=== PATIENT | female | born 1935 | race Caucasian/White ===

== ENCOUNTER 2017-02-26 18:20 | Inpatient (IN) | payer MEDICARE, OTHER ==
[~2017-02-26] VITALS: Ht 157.5 cm; Wt 80.7 kg
[~2017-02-26 18:20] MED LIST: AMLO10TA4 PO; ATOR10TA60 PO; BUDE10.2 IH; GLIM4TAB2 PO; LEVO500T59 PO; METF500T4 PO; METO25TA9 PO; PRED-220 PO; VENTOLIN HFA18 GM INH
[2017-02-26] MEDS ORDERED: IPRATRPIUM/ALBUTEROL 0.5/2.5MG 3 ML NEBU. NEB ONE (18:45)
[2017-02-26] MEDS ORDERED: DEXAMETHASONE SOD PHOS 20 MG/5 ML VIAL. IV ONE (18:45)
[2017-02-26 18:51] LABS: BASO % 1 % (0-3); EOS % 4 % (0-3); HEMATOCRIT 30.4 % (36.0-47.0); HEMOGLOBIN 9.4 g/dL (12.0-15.5); LYMPH # 1.1 x10^3/uL (1.0-4.8); LYMPH % 16 % (24-48); MEAN CORPUSCULAR HEMOGLOBIN 26 pg (25-35); MEAN CORPUSCULAR HGB CONC 31 g/dL (31-37); MEAN CORPUSCULAR VOLUME 85 fL (79-100); MONO % 7 % (0-9); NEUT % 72 % (31-73); PLATELET COUNT 195 x10^3/uL (140-400); RED BLOOD COUNT 3.57 x10^6/uL (3.50-5.40); RED CELL DISTRIBUTION WIDTH 16.2 % (11.5-14.5); WHITE BLOOD COUNT 6.5 x10^3/uL (4.0-11.0)
[2017-02-26 18:59] LABS: PROTHROMBIN TIME PATIENT 12.9 SEC (11.7-14.0)
[2017-02-26 19:08] LABS: CALCIUM 8.3 mg/dL (8.5-10.1); CREATININE 1.1 mg/dL (0.6-1.0); GFR 47.9; POTASSIUM 4.4 mmol/L (3.5-5.1)
[2017-02-26 19:14] LABS: ALBUMIN 3.2 g/dL (3.4-5.0); ALBUMIN/GLOBULIN RATIO 0.9 (1.0-1.7); MAGNESIUM 1.6 mg/dL (1.8-2.4); TOTAL BILIRUBIN 0.2 mg/dL (0.2-1.0); TOTAL PROTEIN 6.8 g/dL (6.4-8.2)
[2017-02-26 19:20] LABS: BILIRUBIN,URINE NEGATIVE (NEG); GLUCOSE,URINE >=1000 mg/dL (NEG); NITRITE,URINE NEGATIVE (NEG); PROTEIN,URINE 30 mg/dL (NEG-TRACE)
[2017-02-26 19:45] LABS: BACTERIA,URINE FEW /HPF (0-FEW); RBC,URINE OCC /HPF (0-2); SQUAMOUS EPITHELIAL CELL,UR FEW /LPF; WBC,URINE OCC /HPF (0-4)
[2017-02-26] MEDS ORDERED: fentaNYL PF VIAL 100 MCG/2 ML VIAL IV PRN (19:45)
[2017-02-26] MEDS ORDERED: ONDANSETRON PF 4 MG/2 ML VIAL. IV PRN (19:45)
[2017-02-26] MEDS ORDERED: NITROGLYCERIN OINT 1 GM PACKET. TP ONE (19:45)
[2017-02-26] MEDS ORDERED: FUROSEMIDE 40 MG TABLET. PO ONE (19:45)
[2017-02-26 20:15] VITALS: BP 131/95
--- NOTE | 2017-02-26 20:28 | PHYS DOC ---
Past Medical History Past Medical History: Asthma, CHF, COPD, Diabetes-Type II, High Cholesterol, Heart Disease, Hypertension Past Surgical History: No Surgical History Alcohol Use: None Drug Use: None Adult General Chief Complaint Chief Complaint: SHORTNESS OF BREATH [facility] HPI Patient is a 81 year old female presenting to the emergency department for evaluation of shortness of breath that became worse when she was trying to walk earlier today. She is usually on 3-4 L of oxygen however on her oxygen stable she was walking it was approximated 75%. She is breathing more rapidly than usually but she denies any pain fevers chills nausea vomiting or other systemic symptoms. Patient says that she has a history of CHF and COPD. Patient appears moderately short of breath but nontoxic-appearing. Review of Systems Review of Systems Constitutional: Denies fever or chills [] Eyes: Denies change in visual acuity, redness, or eye pain [] HENT: Denies nasal congestion or sore throat [] Respiratory: + cough, shortness of breath [] Cardiovascular: No additional information not addressed in HPI [] GI: Denies abdominal pain, nausea, vomiting, bloody stools or diarrhea [] : Denies dysuria or hematuria [] Musculoskeletal: Denies back pain or joint pain [] Integument: Denies rash or skin lesions [] Neurologic: Denies headache, focal weakness or sensory changes [] Current Medications Current Medications Current Medications Medications (Trade) Dose Ordered Sig/[facility] Start Time Stop Time Status Last Admin Dose Admin Albuterol/ Ipratropium (Duoneb) 3 ml 1X ONCE 02/26/17 18:45 02/26/17 18:46 DC 02/26/17 18:38 3 ML Dexamethasone Sodium Phosphate (Decadron) 8 mg 1X ONCE 02/26/17 18:45 02/26/17 18:46 DC 02/26/17 18:42 8 MG Allergies Allergies Allergies Coded Allergies Type Severity Reaction Last Updated Verified No Known Drug Allergies 12/04/15 No Physical Exam Physical Exam Constitutional: Well developed, well nourished, moderately short of breath HENT: Normocephalic, atraumatic, bilateral external ears normal, oropharynx moist, no oral exudates, nose normal. [] Eyes: PERRLA, EOMI, conjunctiva normal, no discharge. [] Neck: Normal range of motion, no tenderness, supple, no stridor. [] Cardiovascular:Heart rate regular rhythm, no murmur [] Lungs & Thorax: Bilateral breath sounds clear diminished with inspiratory tray wheezing and crackles at the bases. Abdomen: Bowel sounds normal, soft, no tenderness, no masses, no pulsatile masses. [] Skin: Warm, dry, no erythema, no rash. [] Back: No tenderness, no CVA tenderness. [] Extremities: No tenderness, no cyanosis, no clubbing, ROM intact, no edema. [] Neurologic: Alert and oriented X 3, normal motor function, normal sensory function, no focal deficits noted. [] Current Patient Data Vital Signs Vital Signs Date Time Temp Pulse Resp B/P (MAP) Pulse Ox O2 Delivery O2 Flow Rate FiO2 02/26/17 19:09 82 32 158/68 (98) 2 Room Air 02/26/17 18:40 3.0 02/26/17 18:29 99.2 99.2 Lab Values Laboratory Tests Test 02/26/17 18:30 02/26/17 19:05 White Blood Count 6.5 x10^3/uL (4.0-11.0) Red Blood Count 3.57 x10^6/uL (3.50-5.40) Hemoglobin 9.4 g/dL (12.0-15.5) L Hematocrit 30.4 % (36.0-47.0) L Mean Corpuscular Volume 85 fL (79-100) Mean Corpuscular Hemoglobin 26 pg (25-35) Mean Corpuscular Hemoglobin Concent 31 g/dL (31-37) Red Cell Distribution Width 16.2 % (11.5-14.5) H Platelet Count 195 x10^3/uL (140-400) Neutrophils (%) (Auto) 72 % (31-73) Lymphocytes (%) (Auto) 16 % (24-48) L Monocytes (%) (Auto) 7 % (0-9) Eosinophils (%) (Auto) 4 % (0-3) H Basophils (%) (Auto) 1 % (0-3) Neutrophils # (Auto) 4.7 x10^3uL (1.8-7.7) Lymphocytes # (Auto) 1.1 x10^3/uL (1.0-4.8) Monocytes # (Auto) 0.5 x10^3/uL (0.0-1.1) Eosinophils # (Auto) 0.3 x10^3/uL (0.0-0.7) Basophils # (Auto) 0.0 x10^3/uL (0.0-0.2) Prothrombin Time 12.9 SEC (11.7-14.0) Prothrombin Time INR 1.0 (0.8-1.1) PTT 28 SEC (24-38) Sodium Level 143 mmol/L (136-145) Potassium Level 4.4 mmol/L (3.5-5.1) Chloride Level 102 mmol/L (98-107) Carbon Dioxide Level 37 mmol/L (21-32) H Anion Gap 4 (6-14) L Blood Urea Nitrogen 16 mg/dL (7-20) Creatinine 1.1 mg/dL (0.6-1.0) H Estimated GFR (Cockcroft-Gault) 47.9 BUN/Creatinine Ratio 15 (6-20) Glucose Level 339 mg/dL (70-99) H Calcium Level 8.3 mg/dL (8.5-10.1) L Magnesium Level 1.6 mg/dL (1.8-2.4) L Total Bilirubin 0.2 mg/dL (0.2-1.0) Aspartate Amino Transferase (AST) 26 U/L (15-37) Alanine Aminotransferase (ALT) 22 U/L (14-59) Alkaline Phosphatase 47 U/L (46-116) Troponin I Quantitative < 0.017 ng/mL (0.000-0.055) BG-Guv-U-Type Natriuretic Peptide 2896 pg/mL (0-449) H Total Protein 6.8 g/dL (6.4-8.2) Albumin 3.2 g/dL (3.4-5.0) L Albumin/Globulin Ratio 0.9 (1.0-1.7) L Urine Collection Type Unknown Urine Color Yellow Urine Clarity Clear Urine pH 6.0 Urine Specific [place] 1.015 Urine Protein 30 mg/dL (NEG-TRACE) Urine Glucose (UA) >=1000 mg/dL (NEG) Urine Ketones (Stick) Negative mg/dL (NEG) Urine Blood Negative (NEG) Urine Nitrite Negative (NEG) Urine Bilirubin Negative (NEG) Urine Urobilinogen Dipstick 1.0 mg/dL (0.2 mg/dL) Urine Leukocyte Esterase Negative (NEG) Urine RBC Occ /HPF (0-2) Urine WBC Occ /HPF (0-4) Urine Squamous Epithelial Cells Few /LPF Urine Transitional Epithelial Cells Few /LPF Urine Bacteria Few /HPF (0-FEW) Urine Hyaline Casts Occasional /HPF Urine Mucus Slight /LPF Laboratory Tests 02/26/17 18:30 Laboratory Tests 02/26/17 18:30 EKG EKG Sinus rhythm at 73 bpm with normal axis no obvious ST elevation or depression and normal T waves. Radiology/Procedures Radiology/Procedures Cardiomegaly with normal mediastinum and no obvious free air pneumothorax or opacity Course & Med Decision Making Course & Med Decision Making Patient has accommodation of COPD and CHF exacerbation and she was hypoxic she does appear somewhat better after breathing treatments nitroglycerin and Lasix here however given how short of breath she is and she is not back to baseline she'll be admitted for further observation and treatment. Dragon Disclaimer Dragon Disclaimer This electronic medical record was generated, in whole or in part, using a voice recognition dictation system. Departure Departure Impression: Primary Impression: CHF exacerbation Additional Impression: COPD exacerbation Disposition: 09 ADMITTED INPATIENT Admitting Physician: Sonali Zaman Condition: STABLE Referrals: ERIN BANG MD (PCP) Problem Qualifiers Primary Impression: CHF exacerbation Congestive heart failure type: unspecified congestive heart failure type Qualified Codes: I50.9 - Heart failure, unspecified SONIA MORELOS DO Feb 26, 2017 20:28
--- NOTE | 2017-02-26 22:35 | PDOC1 ---
History and Physical Date of Admission Date of Admission DATE: 02/26/17 TIME: 22:35 Identification/Chief Complaint Chief Complaint shortness of breath Problems: Source Source: Chart review, Patient History of Present Illness History of Present Illness Ms. Daniels is a 81 year old female admit for shortness of breath that became worse when she was trying to walk earlier today. normally on 3 liters 02, but presented hypoxic with Sa02 75%. noted dyspnea, weakness, and she complained of worsening LE edema, she has no recent weight taken. noted tachypnea only, denies any pain fevers chills nausea vomiting or other systemic symptoms. Pertient recent history of CHF and COPD. mild distress, with breathing only Past Medical History Cardiovascular: HTN Pulmonary: No pertinent hx CENTRAL NERVOUS SYSTEM: Other GI: No pertinent hx Heme/Onc: No pertinent hx Hepatobiliary: No pertinent hx Psych: No pertinent hx Musculoskeletal: No pain Rheumatologic: No pertinent hx Infectious disease: No pertinent hx Renal/: No pertinent hx Endocrine: Diabetes Past Surgical History Past Surgical History: Other Family History Family History: No Significant Social History Smoke: No ALCOHOL: none Drugs: None Current Problem List Problem List Problems Medical Problems: (1) CHF exacerbation Status: Acute (2) COPD exacerbation Status: Acute Problems: Current Medications Current Medications Current Medications Albuterol/ Ipratropium (Duoneb) 3 ml 1X ONCE NEB Last administered on 18:38; Start 02/26/17 at 18:45; Stop 02/26/17 at 18:46; Status DC Dexamethasone Sodium Phosphate (Decadron) 8 mg 1X ONCE IV Last administered on 02/26/17 18:42; Start 02/26/17 at 18:45; Stop 02/26/17 at 18:46; Status DC Nitroglycerin (Nitro-Bid Oint) 1 inch 1X ONCE TP ; Start 02/26/17 at 19:45; Stop 02/26/17 at 19:46; Status DC Furosemide (Lasix) 40 mg 1X ONCE PO Last administered on 02/26/17 19:52; Start 02/26/17 at 19:45; Stop 02/26/17 at 19:46; Status DC Ondansetron HCl (Zofran) 4 mg PRN Q8HRS PRN IV NAUSEA/VOMITING; Start 02/26/17 at 19:45; Stop 02/27/17 at 19:44 Fentanyl Citrate (Fentanyl 2ml Vial) 50 mcg PRN Q2HR PRN IV PAIN; Start at 19:45; Stop 02/27/17 at 19:44 Active Scripts Active Levaquin (Levofloxacin) 500 Mg Tablet 1 Tab PO DAILY Prednisone 10 Mg Tablet 10 Mg PO UD Take 3 tablets by mouth daily for 3 days, then take 2 tablets by mouth daily for 3 days, then take 1 tablet by mouth daily for 3 days, then stop. Metoprolol Succinate ( Xl ) (Metoprolol Succinate) 25 Mg Tab.er.24h 2 Tab PO DAILY Reported Metformin Hcl 500 Mg Tablet 500 Mg PO BIDWMEALS Glimepiride 4 Mg Tablet 1 Tab PO BID Ventolin Hfa Inhaler (Albuterol Sulfate) 18 Gm Hfa.aer.ad 2 Puff INH QID Symbicort 160-4.5 Mcg Inhaler (Budesonide/Formoterol Fumarate) 10.2 Gm Hfa.aer.ad 2 Puff IH BID Atorvastatin Calcium 10 Mg Tablet 1 Tab PO DAILY Norvasc (Amlodipine Besylate) 10 Mg Tablet 10 Mg PO DAILY Allergies Allergies: Coded Allergies: No Known Drug Allergies (Unverified , 12/04/15) ROS General: YES: Fatigue, Malaise, No: Chills, Night Sweats, Appetite, Other PSYCHOLOGICAL ROS: YES: Memory difficulties (cannot remember me from 5 mos ago) , No: Anxiety, Behavioral Disorder, Concentration difficultie, Decreased libido , Depression, Disorientation, Hallucinations, Hostility, Irritablity, Mood Swings, Obsessive thoughts, Physical abuse, Sexual abuse, Sleep disturbances, Suicidal ideation, Other Eyes: No Blurry vision, No Decreased vision, No Double vision, No Dry eyes, No Excessive tearing, No Eye Pain, No Itchy Eyes, No Loss of vision, No Photophobia , No Scotomata, No Uses contacts, No Uses glasses, No Other HEENT: No: Heacaches, Visual Changes, Hearing change, Nasal congestion, Nasal discharge, Oral lesions, Sinus pain, Sore Throat, Epistaxis, Sneezing, Snoring, Tinnitus, Vertigo, Vocal changes, Other Respiratory: YES: Shortness of breath, SOB with excertion, No: Cough, Hemoptysis, Orthopnea, Pleuritic Pain, Sputum Changes, Stridor, Tachypnea, Wheezing, Other Cardiovascular: yes Edema, No Chest Pain, No Palpitations, No Orthopnea, No Paroxysmal Noc. Dyspnea, No Lt Headedness, No Other Gastrointestinal: No Nausea, No Vomiting, No Abdominal Pain, No Diarrhea, No Constipation, No Melena, No Hematochezia, No Other Genitourinary: No Dysuria, No Frequency, No Incontinence, No Hematuria, No Retention, No Discharge, No Urgency, No Pain, No Flank Pain, No Other, No , No , No , No , No , No , No Musculoskeletal: Yes Joint Pain, Yes Joint Stiffness, No Gait Disturbance, No Joint Swelling, No Muscle Pain, No Muscular Weakness , No Pain In:, No Swelling In:, No Other Neurological: No Behavorial Changes, No Bowel/Bladder ControlChng, No Confusion , No Dizziness, No Gait Disturbance, No Headaches, No Impaired Coord/balance, No Memory Loss, No Numbness/Tingling, No Seizures, No Speech Problems, No Tremors, No Visual Changes, No Weakness, No Other Skin: Yes Dry Skin, No Eczema, No Hair Changes, No Lumps, No Mole Changes, No Mottling, No Nail Changes, No Pruritus, No Rash, No Skin Lesion Changes, No Other, No Acne Physical Exam General: Alert, Cooperative, mild distress HEENT: Atraumatic, PERRLA, EOMI, Mucous membr. moist/pink Lungs: Other (limited vol, no rales or ronchi, largely clear) Heart: no murmurs Abdomen: Normal bowel sounds, Soft Rectal Exam: not examined Extremities: Other (3+ LE edema feet and shins) Skin: No rashes, No significant lesion Neuro: Normal speech, Normal tone Psych/Mental Status: Mood NL Vitals Vitals Vital Signs Date Time Temp Pulse Resp B/P (MAP) Pulse Ox O2 Delivery O2 Flow Rate FiO2 02/26/17 20:15 97.9 75 22 131/95 (107) 98 Nasal Cannula 3.0 97.9 Labs Labs Laboratory Tests Test 02/26/17 18:30 02/26/17 19:05 02/26/17 20:40 White Blood Count 6.5 x10^3/uL (4.0-11.0) Red Blood Count 3.57 x10^6/uL (3.50-5.40) Hemoglobin 9.4 g/dL (12.0-15.5) Hematocrit 30.4 % (36.0-47.0) Mean Corpuscular Volume 85 fL (79-100) Mean Corpuscular Hemoglobin 26 pg (25-35) Mean Corpuscular Hemoglobin Concent 31 g/dL (31-37) Red Cell Distribution Width 16.2 % (11.5-14.5) Platelet Count 195 x10^3/uL (140-400) Neutrophils (%) (Auto) 72 % (31-73) Lymphocytes (%) (Auto) 16 % (24-48) Monocytes (%) (Auto) 7 % (0-9) Eosinophils (%) (Auto) 4 % (0-3) Basophils (%) (Auto) 1 % (0-3) Neutrophils # (Auto) 4.7 x10^3uL (1.8-7.7) Lymphocytes # (Auto) 1.1 x10^3/uL (1.0-4.8) Monocytes # (Auto) 0.5 x10^3/uL (0.0-1.1) Eosinophils # (Auto) 0.3 x10^3/uL (0.0-0.7) Basophils # (Auto) 0.0 x10^3/uL (0.0-0.2) Prothrombin Time 12.9 SEC (11.7-14.0) Prothromb Time International Ratio 1.0 (0.8-1.1) Activated Partial Thromboplast Time 28 SEC (24-38) Sodium Level 143 mmol/L (136-145) Potassium Level 4.4 mmol/L (3.5-5.1) Chloride Level 102 mmol/L (98-107) Carbon Dioxide Level 37 mmol/L (21-32) Anion Gap 4 (6-14) Blood Urea Nitrogen 16 mg/dL (7-20) Creatinine 1.1 mg/dL (0.6-1.0) Estimated GFR (Cockcroft-Gault) 47.9 BUN/Creatinine Ratio 15 (6-20) Glucose Level 339 mg/dL (70-99) Calcium Level 8.3 mg/dL (8.5-10.1) Magnesium Level 1.6 mg/dL (1.8-2.4) Total Bilirubin 0.2 mg/dL (0.2-1.0) Aspartate Amino Transf (AST/SGOT) 26 U/L (15-37) Alanine Aminotransferase (ALT/SGPT) 22 U/L (14-59) Alkaline Phosphatase 47 U/L (46-116) Troponin I Quantitative < 0.017 ng/mL (0.000-0.055) LX-Jnt-V-Type Natriuretic Peptide 2896 pg/mL (0-449) Total Protein 6.8 g/dL (6.4-8.2) Albumin 3.2 g/dL (3.4-5.0) Albumin/Globulin Ratio 0.9 (1.0-1.7) Urine Collection Type Unknown Urine Color Yellow Urine Clarity Clear Urine pH 6.0 Urine Specific [place] 1.015 Urine Protein 30 mg/dL (NEG-TRACE) Urine Glucose (UA) >=1000 mg/dL (NEG) Urine Ketones (Stick) Negative mg/dL (NEG) Urine Blood Negative (NEG) Urine Nitrite Negative (NEG) Urine Bilirubin Negative (NEG) Urine Urobilinogen Dipstick 1.0 mg/dL (0.2 mg/dL) Urine Leukocyte Esterase Negative (NEG) Urine RBC Occ /HPF (0-2) Urine WBC Occ /HPF (0-4) Urine Squamous Epithelial Cells Few /LPF Urine Transitional Epithelial Cells Few /LPF Urine Bacteria Few /HPF (0-FEW) Urine Hyaline Casts Occasional /HPF Urine Mucus Slight /LPF Glucose (Fingerstick) 262 mg/dL (70-99) Laboratory Tests Test 02/26/17 18:30 02/26/17 19:05 02/26/17 20:40 White Blood Count 6.5 x10^3/uL (4.0-11.0) Red Blood Count 3.57 x10^6/uL (3.50-5.40) Hemoglobin 9.4 g/dL (12.0-15.5) Hematocrit 30.4 % (36.0-47.0) Mean Corpuscular Volume 85 fL (79-100) Mean Corpuscular Hemoglobin 26 pg (25-35) Mean Corpuscular Hemoglobin Concent 31 g/dL (31-37) Red Cell Distribution Width 16.2 % (11.5-14.5) Platelet Count 195 x10^3/uL (140-400) Neutrophils (%) (Auto) 72 % (31-73) Lymphocytes (%) (Auto) 16 % (24-48) Monocytes (%) (Auto) 7 % (0-9) Eosinophils (%) (Auto) 4 % (0-3) Basophils (%) (Auto) 1 % (0-3) Neutrophils # (Auto) 4.7 x10^3uL (1.8-7.7) Lymphocytes # (Auto) 1.1 x10^3/uL (1.0-4.8) Monocytes # (Auto) 0.5 x10^3/uL (0.0-1.1) Eosinophils # (Auto) 0.3 x10^3/uL (0.0-0.7) Basophils # (Auto) 0.0 x10^3/uL (0.0-0.2) Prothrombin Time 12.9 SEC (11.7-14.0) Prothromb Time International Ratio 1.0 (0.8-1.1) Activated Partial Thromboplast Time 28 SEC (24-38) Sodium Level 143 mmol/L (136-145) Potassium Level 4.4 mmol/L (3.5-5.1) Chloride Level 102 mmol/L (98-107) Carbon Dioxide Level 37 mmol/L (21-32) Anion Gap 4 (6-14) Blood Urea Nitrogen 16 mg/dL (7-20) Creatinine 1.1 mg/dL (0.6-1.0) Estimated GFR (Cockcroft-Gault) 47.9 BUN/Creatinine Ratio 15 (6-20) Glucose Level 339 mg/dL (70-99) Calcium Level 8.3 mg/dL (8.5-10.1) Magnesium Level 1.6 mg/dL (1.8-2.4) Total Bilirubin 0.2 mg/dL (0.2-1.0) Aspartate Amino Transf (AST/SGOT) 26 U/L (15-37) Alanine Aminotransferase (ALT/SGPT) 22 U/L (14-59) Alkaline Phosphatase 47 U/L (46-116) Troponin I Quantitative < 0.017 ng/mL (0.000-0.055) AK-Pax-Y-Type Natriuretic Peptide 2896 pg/mL (0-449) Total Protein 6.8 g/dL (6.4-8.2) Albumin 3.2 g/dL (3.4-5.0) Albumin/Globulin Ratio 0.9 (1.0-1.7) Urine Collection Type Unknown Urine Color Yellow Urine Clarity Clear Urine pH 6.0 Urine Specific [place] 1.015 Urine Protein 30 mg/dL (NEG-TRACE) Urine Glucose (UA) >=1000 mg/dL (NEG) Urine Ketones (Stick) Negative mg/dL (NEG) Urine Blood Negative (NEG) Urine Nitrite Negative (NEG) Urine Bilirubin Negative (NEG) Urine Urobilinogen Dipstick 1.0 mg/dL (0.2 mg/dL) Urine Leukocyte Esterase Negative (NEG) Urine RBC Occ /HPF (0-2) Urine WBC Occ /HPF (0-4) Urine Squamous Epithelial Cells Few /LPF Urine Transitional Epithelial Cells Few /LPF Urine Bacteria Few /HPF (0-FEW) Urine Hyaline Casts Occasional /HPF Urine Mucus Slight /LPF Glucose (Fingerstick) 262 mg/dL (70-99) VTE Prophylaxis Ordered VTE Prophylaxis Devices: Yes VTE Pharmacological Prophylaxi: Contraindicated Assessment/Plan Assessment/Plan acute on chronic hypoxic respiratory failure CHF acute on chronic diastolic failure, CV consult, IV lasix, COPD, chronic combined respiratory failure, last admit was exac, no sputum or cough now, obesity, BMI I32 BRENDAN HICKEY MD Feb 26, 2017 22:35
[2017-02-26] MEDS ORDERED: DEXTROSE 50% 25 GM / 50ML DISP.SYRIN. IV PRN (22:45)
[2017-02-26] MEDS ORDERED: MAGNESIUM SULFATE 2GM 50 ML IV ONE (23:00)
[2017-02-26] MEDS ORDERED: methylPREDNISolone SOD SUCC PF 40 MG/ML VIAL. IV ONE (23:00)
[2017-02-26 23:12] VITALS: BP 135/72
[2017-02-27] VITALS (7 sets, daily range): BP systolic 127–152; BP diastolic 60–113
--- NOTE | 2017-02-27 01:54 | ACF ---
Admission Forms Criteria HEART FAILURE: COMMON COMPLICATIONS (Place 'X' for any and all applicable criteria): Ongoing inpatient care may be indicated for heart failure with 1 or more of the following (1)(2)(3)(4)(5)(6)(7)(8): [ ]I. New-onset heart failure [ ]II. Acute cardiac ischemia causing or associated with failure [ ]III. Ongoing need for care for primary condition requiring frequent therapy adjustments because of changes in cardiac function (eg, drug dosage changes for drugs that are renally metabolized) [X]IV. Complications of heart failure, including 1 or more of the following: [ ]a) Hemodynamic instability [ ]b) Pericardial effusion [ ]c) Symptomatic pleural effusion [ ]d) Hypoxemia [ ]e) Tachypnea [X]f) Dyspnea [ ]g) Syncope [ ]h) Altered mental status [ ]i) Acute renal insufficiency that is severe (reduction of more than 50% in estimated glomerular filtration rate from baseline) or progressive reduction of more than 25% in estimated glomerular filtration rate from baseline, with creatinine continuing to rise) [ ]j) Debilitating anasarca (eg tissue breakdown with infection, inability to void due to edema) (E) [ ]k) Clinically significant metabolic abnormalities due to heart failure (eg, new-onset metabolic acidosis) Extended stay may be needed until ALL of the following are present (1)(3)(18)(41 )(55) [ ]a) Hemodynamic stability [ ]b) Stable and effective diuretic regimen established (or patient on stable dialysis regimen if in chronic renal failure) [ ]c) Volume status acceptable on oral medication [ ]d) Breathing comfortably at rest [ ]e) Saturation of arterial oxygen greater than 90% or at acceptable baseline [ ]f) Pulmonary edema absent or improved [ ]g) Peripheral or sacral edema absent or improved [ ]h) Renal function stable and manageable at a lower level of care [ ]i) Complications (eg, pleural effusion) resolved or manageable at a lower level of care [ ]g) Patient or caregiver has received written discharge instructions or educational material addressing activity level, diet, discharge medications, follow-up appointment, weight monitoring, and what to do if symptoms worsen.(25)(26) The original [facility] [employer] content created by [employer] has been revised. The portions of the content which have been revised are identified through the use of italic text, and [facility] has neither reviewed nor approved the modified material.All other unmodified content is copyright [facility]. Please see references footnoted in the original [facility] edition 2015 Admission Criteria Met?: Yes HELADIO RENE Feb 27, 2017 01:53
[2017-02-27 06:00] LABS: BASO % 0 % (0-3); EOS % 0 % (0-3); HEMATOCRIT 31.6 % (36.0-47.0); HEMOGLOBIN 10.1 g/dL (12.0-15.5); LYMPH # 0.4 x10^3/uL (1.0-4.8); LYMPH % 9 % (24-48); MEAN CORPUSCULAR HEMOGLOBIN 27 pg (25-35); MEAN CORPUSCULAR HGB CONC 32 g/dL (31-37); MEAN CORPUSCULAR VOLUME 84 fL (79-100); MONO % 1 % (0-9); NEUT % 90 % (31-73); PLATELET COUNT 184 x10^3/uL (140-400); RED BLOOD COUNT 3.77 x10^6/uL (3.50-5.40); RED CELL DISTRIBUTION WIDTH 16.5 % (11.5-14.5); WHITE BLOOD COUNT 4.3 x10^3/uL (4.0-11.0)
[2017-02-27 06:20] LABS: CALCIUM 8.4 mg/dL (8.5-10.1); CREATININE 1.3 mg/dL (0.6-1.0); GFR 39.5; POTASSIUM 5.1 mmol/L (3.5-5.1)
[2017-02-27] MEDS: BUDESONIDE 0.5 MG/2 ML NEBU. NEB SCH ×2 (07:12→19:47)
[2017-02-27] MEDS: IPRATRPIUM/ALBUTEROL 0.5/2.5MG 3 ML NEBU. NEB SCH ×4 (07:12→19:47)
--- NOTE | 2017-02-27 07:15 | EKG ---
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
[2017-02-27] MEDS ORDERED: INSULIN ASPART 300 UNITS/3 ML INSULN.PEN SQ SCH (07:30)
[2017-02-27] MEDS: FUROSEMIDE 40 MG/4 ML VIAL. IVP SCH ×2 (08:49→15:08)
[2017-02-27] MEDS: predniSONE 20 MG TABLET PO SCH (08:49)
[2017-02-27] MEDS: METOPROLOL SUCC 24HR ER 50 MG TAB.ER.24H. PO SCH (08:50)
[2017-02-27] MEDS: amLODIPine BESYLATE 10 MG TABLET PO SCH (08:50)
[2017-02-27] MEDS: GLIMEPIRIDE 2 MG TABLET. PO SCH ×2 (08:50→17:31)
--- NOTE | 2017-02-27 09:00 | RAD ---
Indication: Short of air, COPD. History of CHF. Technique: AP upright portable chest radiograph was obtained and compared to a study from November 17, 2016. Findings: There is minimal basilar atelectasis or less likely infiltrate bilaterally. The upper lung mix are clear. The heart is not enlarged and there is no heart failure. There is atheromatous disease in the thoracic aorta. Leads overlie the patient. Impression: No acute thoracic findings.
--- NOTE | 2017-02-27 09:46 | PDOC ---
Provider Note Provider Note [id number] acute on chronic resp fail ae of copd acute diastolic chf joey see orders. MATEUS FAYE MD Feb 27, 2017 09:46
--- NOTE | 2017-02-27 10:09 | PDOC2 ---
SUSAN DOUGLAS LEAD DATABASE DEVELOPER 02/27/17 1009: CARDIAC CONSULT DATE OF CONSULT Date of Consult DATE: 02/27/17 TIME: 10:01 REASON FOR CONSULT Reason for Consult: CHF exacerbation REFERRING PHYSICIAN Referring Physician: Ori SOURCE Source: Chart review, Patient HISTORY OF PRESENT ILLNESS HISTORY OF PRESENT ILLNESS This is a pleasant 81 yo female admitted for complains of SOA and feeling weak. Reports that she was sitting and was stooping over and her grandson noticed her SOA and weak and called his dad and called for help. Per Her she was given peanut butter as well because her BG was low. She was noted with decreased O2 sat despite use of oxygen which she has continuously 3-4L. Denies any CP, palpitations. No prior hx of CAD, CVA, or VTE. Presently her SOA is btter but still pursed lip breathing. PAST MEDICAL HISTORY Past Medical History Cardiovascular: HTN, HLP, diastolic CHF Pulmonary: COPD, MARCO, pneumonia CENTRAL NERVOUS SYSTEM: Other (none) GI: GERD Heme/Onc: Anemia Hepatobiliary: No pertinent hx Psych: No pertinent hx Musculoskeletal: No pain Rheumatologic: No pertinent hx Infectious disease: No pertinent hx ENT: No pertinent hx Renal/: CKD Endocrine: Diabetes Dermatology: No pertinent hx PAST SURGICAL HISTORY Past Surgical History carpal tunnel repair and rotator cuff repair SOCIAL HISTORY Social History Smoke: Quit (> 11 years ago) ALCOHOL: none Drugs: None Lives: with Family CURRENT MEDICATIONS CURRENT MEDICATIONS Current Medications Medications (Trade) Dose Ordered Sig/Venessa Route PRN Reason Start Time Stop Time Status Last Admin Dose Admin Albuterol/ Ipratropium (Duoneb) 3 ml 1X ONCE NEB 02/26/17 18:45 02/26/17 18:46 DC 02/26/17 18:38 Dexamethasone Sodium Phosphate (Decadron) 8 mg 1X ONCE IV 02/26/17 18:45 02/26/17 18:46 DC 02/26/17 18:42 Furosemide (Lasix) 40 mg 1X ONCE PO 02/26/17 19:45 02/26/17 19:46 DC 02/26/17 19:52 Albuterol/ Ipratropium (Duoneb) 3 ml Q4HRS W/A NEB 02/27/17 06:00 02/27/17 07:12 Budesonide (Pulmicort) 0.5 mg RTBID NEB 02/27/17 08:00 02/27/17 07:12 Furosemide (Lasix) 40 mg [id number] IVP 02/27/17 09:00 02/27/17 08:49 Magnesium Sulfate/ Dextrose 50 ml @ 25 mls/hr 1X ONCE IV 02/26/17 23:00 02/27/17 00:59 DC 02/26/17 23:37 Amlodipine Besylate (Norvasc) 10 mg DAILY PO 02/27/17 09:00 02/27/17 08:50 Metoprolol Succinate (Toprol Xl) 50 mg DAILY PO 02/27/17 09:00 02/27/17 08:50 Glimepiride (Amaryl) 4 mg BIDWMEALS PO 02/27/17 08:00 02/27/17 08:50 Insulin Aspart (NovoLOG) 0-7 UNITS QIDACHS SQ 02/27/17 07:30 02/27/17 08:36 Methylprednisolone Sodium Succinate (SOLU-Medrol 40MG VIAL) 40 mg 1X ONCE IV 02/26/17 23:00 02/26/17 23:01 DC 02/26/17 23:40 Prednisone (Prednisone) 40 mg DAILY PO 02/27/17 09:00 02/27/17 08:49 ALLERGIES ALLERGIES: Coded Allergies: No Known Drug Allergies (Unverified , 12/04/15) ROS Review of System 14 point ROS evaluated with pertinent positives noted per HPI PHYSICAL EXAM General: Alert, Oriented X3, Cooperative, mild distress HEENT: Atraumatic, Mucous membr. moist/pink Lungs: Other (dimnished throughout) Heart: Regular rate (SR with PVC), Normal S1, Normal S2, Other (S4, distal heart sounds) Extremities: No cyanosis, Other (2+ bilateral LE pitting edema) Skin: No breakdown, No significant lesion Neuro: Normal speech, Sensation intact Psych/Mental Status: Mood NL MUSCULOSKELETAL: Osteoarthritic changes both hands VITALS VITALS Vital Signs Date Time Temp Pulse Resp B/P (MAP) Pulse Ox O2 Delivery O2 Flow Rate FiO2 02/27/17 08:50 91 138/73 02/27/17 07:12 100 Nasal Cannula 4.0 02/27/17 03:20 97.5 22 97.5 LABS Lab: Laboratory Tests Test 02/26/17 18:30 02/26/17 19:05 02/26/17 20:40 02/27/17 05:05 White Blood Count 6.5 x10^3/uL (4.0-11.0) 4.3 x10^3/uL (4.0-11.0) Red Blood Count 3.57 x10^6/uL (3.50-5.40) 3.77 x10^6/uL (3.50-5.40) Hemoglobin 9.4 g/dL (12.0-15.5) 10.1 g/dL (12.0-15.5) Hematocrit 30.4 % (36.0-47.0) 31.6 % (36.0-47.0) Mean Corpuscular Volume 85 fL (79-100) 84 fL (79-100) Mean Corpuscular Hemoglobin 26 pg (25-35) 27 pg (25-35) Mean Corpuscular Hemoglobin Concent 31 g/dL (31-37) 32 g/dL (31-37) Red Cell Distribution Width 16.2 % (11.5-14.5) 16.5 % (11.5-14.5) Platelet Count 195 x10^3/uL (140-400) 184 x10^3/uL (140-400) Neutrophils (%) (Auto) 72 % (31-73) 90 % (31-73) Lymphocytes (%) (Auto) 16 % (24-48) 9 % (24-48) Monocytes (%) (Auto) 7 % (0-9) 1 % (0-9) Eosinophils (%) (Auto) 4 % (0-3) 0 % (0-3) Basophils (%) (Auto) 1 % (0-3) 0 % (0-3) Neutrophils # (Auto) 4.7 x10^3uL (1.8-7.7) 3.8 x10^3uL (1.8-7.7) Lymphocytes # (Auto) 1.1 x10^3/uL (1.0-4.8) 0.4 x10^3/uL (1.0-4.8) Monocytes # (Auto) 0.5 x10^3/uL (0.0-1.1) 0.0 x10^3/uL (0.0-1.1) Eosinophils # (Auto) 0.3 x10^3/uL (0.0-0.7) 0.0 x10^3/uL (0.0-0.7) Basophils # (Auto) 0.0 x10^3/uL (0.0-0.2) 0.0 x10^3/uL (0.0-0.2) Prothrombin Time 12.9 SEC (11.7-14.0) Prothromb Time International Ratio 1.0 (0.8-1.1) Activated Partial Thromboplast Time 28 SEC (24-38) Sodium Level 143 mmol/L (136-145) 139 mmol/L (136-145) Potassium Level 4.4 mmol/L (3.5-5.1) 5.1 mmol/L (3.5-5.1) Chloride Level 102 mmol/L (98-107) 98 mmol/L (98-107) Carbon Dioxide Level 37 mmol/L (21-32) 35 mmol/L (21-32) Anion Gap 4 (6-14) 6 (6-14) Blood Urea Nitrogen 16 mg/dL (7-20) 21 mg/dL (7-20) Creatinine 1.1 mg/dL (0.6-1.0) 1.3 mg/dL (0.6-1.0) Estimated GFR (Cockcroft-Gault) 47.9 39.5 BUN/Creatinine Ratio 15 (6-20) Glucose Level 339 mg/dL (70-99) 464 mg/dL (70-99) Calcium Level 8.3 mg/dL (8.5-10.1) 8.4 mg/dL (8.5-10.1) Magnesium Level 1.6 mg/dL (1.8-2.4) Total Bilirubin 0.2 mg/dL (0.2-1.0) Aspartate Amino Transf (AST/SGOT) 26 U/L (15-37) Alanine Aminotransferase (ALT/SGPT) 22 U/L (14-59) Alkaline Phosphatase 47 U/L (46-116) Troponin I Quantitative < 0.017 ng/mL (0.000-0.055) JJ-Xst-S-Type Natriuretic Peptide 2896 pg/mL (0-449) Total Protein 6.8 g/dL (6.4-8.2) Albumin 3.2 g/dL (3.4-5.0) Albumin/Globulin Ratio 0.9 (1.0-1.7) Urine Collection Type Unknown Urine Color Yellow Urine Clarity Clear Urine pH 6.0 Urine Specific [place] 1.015 Urine Protein 30 mg/dL (NEG-TRACE) Urine Glucose (UA) >=1000 mg/dL (NEG) Urine Ketones (Stick) Negative mg/dL (NEG) Urine Blood Negative (NEG) Urine Nitrite Negative (NEG) Urine Bilirubin Negative (NEG) Urine Urobilinogen Dipstick 1.0 mg/dL (0.2 mg/dL) Urine Leukocyte Esterase Negative (NEG) Urine RBC Occ /HPF (0-2) Urine WBC Occ /HPF (0-4) Urine Squamous Epithelial Cells Few /LPF Urine Transitional Epithelial Cells Few /LPF Urine Bacteria Few /HPF (0-FEW) Urine Hyaline Casts Occasional /HPF Urine Mucus Slight /LPF Glucose (Fingerstick) 262 mg/dL (70-99) Test 02/27/17 08:10 Glucose (Fingerstick) 406 mg/dL (70-99) ECHOCARDIOGRAM ECHOCARDIOGRAM <Conclusion> The left ventricle is normal size. There is normal left ventricular wall thickness. Transmitral Doppler flow pattern is Grade I-abnormal relaxation pattern. There is no evidence of significant pericardial effusion. There is no mitral valve stenosis. Doppler and Color Flow revealed trace mitral regurgitation. The left atrium is of a normal size There is no aortic stenosis or regurgitation The right ventricle is of a normal size with normal systolic function Doppler and Color Flow revealed trace tricuspid regurgitation. The pulmonary artery systolic pressure is estimated at 45 mmHg. There is mild pulmonary hypertension. The pulmonic valve is normal. DATE: 11/20/162038 ASSESSMENT/PLAN ASSESSMENT/PLAN 1. AECOPD: pulmonary following 2. Acute on chronic diastolic CHF 3. ANDREA on CKD3 4. Anemia of chronic disease 5. HTN: controlled 6. DM2/HLP: x1 hypoglycemic reaction. Recommendations 1. Start on ECASA 81 mg po daily. 2. Optimize lung function per pulmonary 3. Continue with secondary prevention 4. Pt will need outpt MPI for further risk stratification given her significant comorbid conditions. 5. Continue with lasix therapy, monitor renal function Problems: BECKA FRANCOIS MD 02/27/17 1300: CARDIAC CONSULT ALLERGIES ALLERGIES: Coded Allergies: No Known Drug Allergies (Unverified , 12/04/15) ASSESSMENT/PLAN ASSESSMENT/PLAN Patient seen and examined. Agree with FIELD PRODUCER's assessment and plan. Acute respiratory failure secondary to combination of acute COPD exacerbation and acute on chronic diastolic HF. Continue treatment of COPD ex per pulm team. Recent 2D echo showed normal LV systolic function. Continue Lasix. Plan ischemic evaluation once resp status improves possibly as outpatient. Thank you for your consultation. Problems: SUSAN DOUGLAS APRN Feb 27, 2017 10:09 BECKA FRANCOIS MD Feb 27, 2017 13:00
[2017-02-27 10:24] LABS: PLT ESTIMATE ADEQUATE (ADEQUATE)
[2017-02-27] MEDS ORDERED: DEXTROSE 50% 25 GM / 50ML DISP.SYRIN. IV PRN (11:15)
[2017-02-27] MEDS ORDERED: INSULIN DETEMIR 300 UNITS/3 ML INSULN.PEN. SQ ONE (11:45)
--- NOTE | 2017-02-27 12:01 | PDOC ---
PROGRESS NOTES Chief Complaint Chief Complaint acute on chronic hypoxic respiratory failure CHF acute on chronic diastolic failure, CV consult, COPD, chronic combined respiratory failure, last admit was exac, no sputum or cough now, obesity, BMI ; 33 cognitive decline, poor recollection daily, poss early dementia History of Present Illness History of Present Illness Le edema improved breathing easier, good UO Vitals Vitals Vital Signs Date Time Temp Pulse Resp B/P (MAP) Pulse Ox O2 Delivery O2 Flow Rate FiO2 02/27/17 11:05 3.0 02/27/17 08:50 91 138/73 02/27/17 07:12 100 Nasal Cannula 02/27/17 07:00 98.0 22 98.0 Physical Exam General: Alert, Oriented X3, Cooperative, mild distress Heart: Regular rate (SR with PVC), Normal S1, Normal S2, Other (S4, distal heart sounds) Lungs: Clear Abdomen: Normal bowel sounds, Soft Extremities: No cyanosis, Other (1+ bilateral LE pitting edema, now wrinkled , and better) Skin: No breakdown, No significant lesion Labs LABS Laboratory Tests Test 02/26/17 18:30 02/26/17 19:05 02/26/17 20:40 02/27/17 05:05 White Blood Count 6.5 x10^3/uL (4.0-11.0) 4.3 x10^3/uL (4.0-11.0) Red Blood Count 3.57 x10^6/uL (3.50-5.40) 3.77 x10^6/uL (3.50-5.40) Hemoglobin 9.4 g/dL (12.0-15.5) 10.1 g/dL (12.0-15.5) Hematocrit 30.4 % (36.0-47.0) 31.6 % (36.0-47.0) Mean Corpuscular Volume 85 fL (79-100) 84 fL (79-100) Mean Corpuscular Hemoglobin 26 pg (25-35) 27 pg (25-35) Mean Corpuscular Hemoglobin Concent 31 g/dL (31-37) 32 g/dL (31-37) Red Cell Distribution Width 16.2 % (11.5-14.5) 16.5 % (11.5-14.5) Platelet Count 195 x10^3/uL (140-400) 184 x10^3/uL (140-400) Neutrophils (%) (Auto) 72 % (31-73) 90 % (31-73) Lymphocytes (%) (Auto) 16 % (24-48) 9 % (24-48) Monocytes (%) (Auto) 7 % (0-9) 1 % (0-9) Eosinophils (%) (Auto) 4 % (0-3) 0 % (0-3) Basophils (%) (Auto) 1 % (0-3) 0 % (0-3) Neutrophils # (Auto) 4.7 x10^3uL (1.8-7.7) 3.8 x10^3uL (1.8-7.7) Lymphocytes # (Auto) 1.1 x10^3/uL (1.0-4.8) 0.4 x10^3/uL (1.0-4.8) Monocytes # (Auto) 0.5 x10^3/uL (0.0-1.1) 0.0 x10^3/uL (0.0-1.1) Eosinophils # (Auto) 0.3 x10^3/uL (0.0-0.7) 0.0 x10^3/uL (0.0-0.7) Basophils # (Auto) 0.0 x10^3/uL (0.0-0.2) 0.0 x10^3/uL (0.0-0.2) Prothrombin Time 12.9 SEC (11.7-14.0) Prothromb Time International Ratio 1.0 (0.8-1.1) Activated Partial Thromboplast Time 28 SEC (24-38) Sodium Level 143 mmol/L (136-145) 139 mmol/L (136-145) Potassium Level 4.4 mmol/L (3.5-5.1) 5.1 mmol/L (3.5-5.1) Chloride Level 102 mmol/L (98-107) 98 mmol/L (98-107) Carbon Dioxide Level 37 mmol/L (21-32) 35 mmol/L (21-32) Anion Gap 4 (6-14) 6 (6-14) Blood Urea Nitrogen 16 mg/dL (7-20) 21 mg/dL (7-20) Creatinine 1.1 mg/dL (0.6-1.0) 1.3 mg/dL (0.6-1.0) Estimated GFR (Cockcroft-Gault) 47.9 39.5 BUN/Creatinine Ratio 15 (6-20) Glucose Level 339 mg/dL (70-99) 464 mg/dL (70-99) Calcium Level 8.3 mg/dL (8.5-10.1) 8.4 mg/dL (8.5-10.1) Magnesium Level 1.6 mg/dL (1.8-2.4) Total Bilirubin 0.2 mg/dL (0.2-1.0) Aspartate Amino Transf (AST/SGOT) 26 U/L (15-37) Alanine Aminotransferase (ALT/SGPT) 22 U/L (14-59) Alkaline Phosphatase 47 U/L (46-116) Troponin I Quantitative < 0.017 ng/mL (0.000-0.055) WW-Axv-J-Type Natriuretic Peptide 2896 pg/mL (0-449) Total Protein 6.8 g/dL (6.4-8.2) Albumin 3.2 g/dL (3.4-5.0) Albumin/Globulin Ratio 0.9 (1.0-1.7) Urine Collection Type Unknown Urine Color Yellow Urine Clarity Clear Urine pH 6.0 Urine Specific [place] 1.015 Urine Protein 30 mg/dL (NEG-TRACE) Urine Glucose (UA) >=1000 mg/dL (NEG) Urine Ketones (Stick) Negative mg/dL (NEG) Urine Blood Negative (NEG) Urine Nitrite Negative (NEG) Urine Bilirubin Negative (NEG) Urine Urobilinogen Dipstick 1.0 mg/dL (0.2 mg/dL) Urine Leukocyte Esterase Negative (NEG) Urine RBC Occ /HPF (0-2) Urine WBC Occ /HPF (0-4) Urine Squamous Epithelial Cells Few /LPF Urine Transitional Epithelial Cells Few /LPF Urine Bacteria Few /HPF (0-FEW) Urine Hyaline Casts Occasional /HPF Urine Mucus Slight /LPF Glucose (Fingerstick) 262 mg/dL (70-99) Segmented Neutrophils % 84 % (35-66) Band Neutrophils % 1 % (0-9) Lymphocytes % 15 % (24-48) Platelet Estimate Adequate (ADEQUATE) Test 02/27/17 08:10 Glucose (Fingerstick) 406 mg/dL (70-99) Assessment and Plan Assessmemt and Plan Problems Medical Problems: (1) CHF exacerbation Status: Acute (2) COPD exacerbation Status: Acute Problems: Comment Review of Relevant I have reviewed the following items brittanie (where applicable) has been applied. Labs Laboratory Tests Test 02/26/17 18:30 02/26/17 19:05 02/26/17 20:40 02/27/17 05:05 White Blood Count 6.5 x10^3/uL (4.0-11.0) 4.3 x10^3/uL (4.0-11.0) Red Blood Count 3.57 x10^6/uL (3.50-5.40) 3.77 x10^6/uL (3.50-5.40) Hemoglobin 9.4 g/dL (12.0-15.5) 10.1 g/dL (12.0-15.5) Hematocrit 30.4 % (36.0-47.0) 31.6 % (36.0-47.0) Mean Corpuscular Volume 85 fL (79-100) 84 fL (79-100) Mean Corpuscular Hemoglobin 26 pg (25-35) 27 pg (25-35) Mean Corpuscular Hemoglobin Concent 31 g/dL (31-37) 32 g/dL (31-37) Red Cell Distribution Width 16.2 % (11.5-14.5) 16.5 % (11.5-14.5) Platelet Count 195 x10^3/uL (140-400) 184 x10^3/uL (140-400) Neutrophils (%) (Auto) 72 % (31-73) 90 % (31-73) Lymphocytes (%) (Auto) 16 % (24-48) 9 % (24-48) Monocytes (%) (Auto) 7 % (0-9) 1 % (0-9) Eosinophils (%) (Auto) 4 % (0-3) 0 % (0-3) Basophils (%) (Auto) 1 % (0-3) 0 % (0-3) Neutrophils # (Auto) 4.7 x10^3uL (1.8-7.7) 3.8 x10^3uL (1.8-7.7) Lymphocytes # (Auto) 1.1 x10^3/uL (1.0-4.8) 0.4 x10^3/uL (1.0-4.8) Monocytes # (Auto) 0.5 x10^3/uL (0.0-1.1) 0.0 x10^3/uL (0.0-1.1) Eosinophils # (Auto) 0.3 x10^3/uL (0.0-0.7) 0.0 x10^3/uL (0.0-0.7) Basophils # (Auto) 0.0 x10^3/uL (0.0-0.2) 0.0 x10^3/uL (0.0-0.2) Prothrombin Time 12.9 SEC (11.7-14.0) Prothromb Time International Ratio 1.0 (0.8-1.1) Activated Partial Thromboplast Time 28 SEC (24-38) Sodium Level 143 mmol/L (136-145) 139 mmol/L (136-145) Potassium Level 4.4 mmol/L (3.5-5.1) 5.1 mmol/L (3.5-5.1) Chloride Level 102 mmol/L (98-107) 98 mmol/L (98-107) Carbon Dioxide Level 37 mmol/L (21-32) 35 mmol/L (21-32) Anion Gap 4 (6-14) 6 (6-14) Blood Urea Nitrogen 16 mg/dL (7-20) 21 mg/dL (7-20) Creatinine 1.1 mg/dL (0.6-1.0) 1.3 mg/dL (0.6-1.0) Estimated GFR (Cockcroft-Gault) 47.9 39.5 BUN/Creatinine Ratio 15 (6-20) Glucose Level 339 mg/dL (70-99) 464 mg/dL (70-99) Calcium Level 8.3 mg/dL (8.5-10.1) 8.4 mg/dL (8.5-10.1) Magnesium Level 1.6 mg/dL (1.8-2.4) Total Bilirubin 0.2 mg/dL (0.2-1.0) Aspartate Amino Transf (AST/SGOT) 26 U/L (15-37) Alanine Aminotransferase (ALT/SGPT) 22 U/L (14-59) Alkaline Phosphatase 47 U/L (46-116) Troponin I Quantitative < 0.017 ng/mL (0.000-0.055) HR-Khk-U-Type Natriuretic Peptide 2896 pg/mL (0-449) Total Protein 6.8 g/dL (6.4-8.2) Albumin 3.2 g/dL (3.4-5.0) Albumin/Globulin Ratio 0.9 (1.0-1.7) Urine Collection Type Unknown Urine Color Yellow Urine Clarity Clear Urine pH 6.0 Urine Specific [place] 1.015 Urine Protein 30 mg/dL (NEG-TRACE) Urine Glucose (UA) >=1000 mg/dL (NEG) Urine Ketones (Stick) Negative mg/dL (NEG) Urine Blood Negative (NEG) Urine Nitrite Negative (NEG) Urine Bilirubin Negative (NEG) Urine Urobilinogen Dipstick 1.0 mg/dL (0.2 mg/dL) Urine Leukocyte Esterase Negative (NEG) Urine RBC Occ /HPF (0-2) Urine WBC Occ /HPF (0-4) Urine Squamous Epithelial Cells Few /LPF Urine Transitional Epithelial Cells Few /LPF Urine Bacteria Few /HPF (0-FEW) Urine Hyaline Casts Occasional /HPF Urine Mucus Slight /LPF Glucose (Fingerstick) 262 mg/dL (70-99) Segmented Neutrophils % 84 % (35-66) Band Neutrophils % 1 % (0-9) Lymphocytes % 15 % (24-48) Platelet Estimate Adequate (ADEQUATE) Test 02/27/17 08:10 Glucose (Fingerstick) 406 mg/dL (70-99) Laboratory Tests Test 02/26/17 18:30 02/26/17 19:05 02/26/17 20:40 02/27/17 05:05 White Blood Count 6.5 x10^3/uL (4.0-11.0) 4.3 x10^3/uL (4.0-11.0) Red Blood Count 3.57 x10^6/uL (3.50-5.40) 3.77 x10^6/uL (3.50-5.40) Hemoglobin 9.4 g/dL (12.0-15.5) 10.1 g/dL (12.0-15.5) Hematocrit 30.4 % (36.0-47.0) 31.6 % (36.0-47.0) Mean Corpuscular Volume 85 fL (79-100) 84 fL (79-100) Mean Corpuscular Hemoglobin 26 pg (25-35) 27 pg (25-35) Mean Corpuscular Hemoglobin Concent 31 g/dL (31-37) 32 g/dL (31-37) Red Cell Distribution Width 16.2 % (11.5-14.5) 16.5 % (11.5-14.5) Platelet Count 195 x10^3/uL (140-400) 184 x10^3/uL (140-400) Neutrophils (%) (Auto) 72 % (31-73) 90 % (31-73) Lymphocytes (%) (Auto) 16 % (24-48) 9 % (24-48) Monocytes (%) (Auto) 7 % (0-9) 1 % (0-9) Eosinophils (%) (Auto) 4 % (0-3) 0 % (0-3) Basophils (%) (Auto) 1 % (0-3) 0 % (0-3) Neutrophils # (Auto) 4.7 x10^3uL (1.8-7.7) 3.8 x10^3uL (1.8-7.7) Lymphocytes # (Auto) 1.1 x10^3/uL (1.0-4.8) 0.4 x10^3/uL (1.0-4.8) Monocytes # (Auto) 0.5 x10^3/uL (0.0-1.1) 0.0 x10^3/uL (0.0-1.1) Eosinophils # (Auto) 0.3 x10^3/uL (0.0-0.7) 0.0 x10^3/uL (0.0-0.7) Basophils # (Auto) 0.0 x10^3/uL (0.0-0.2) 0.0 x10^3/uL (0.0-0.2) Prothrombin Time 12.9 SEC (11.7-14.0) Prothromb Time International Ratio 1.0 (0.8-1.1) Activated Partial Thromboplast Time 28 SEC (24-38) Sodium Level 143 mmol/L (136-145) 139 mmol/L (136-145) Potassium Level 4.4 mmol/L (3.5-5.1) 5.1 mmol/L (3.5-5.1) Chloride Level 102 mmol/L (98-107) 98 mmol/L (98-107) Carbon Dioxide Level 37 mmol/L (21-32) 35 mmol/L (21-32) Anion Gap 4 (6-14) 6 (6-14) Blood Urea Nitrogen 16 mg/dL (7-20) 21 mg/dL (7-20) Creatinine 1.1 mg/dL (0.6-1.0) 1.3 mg/dL (0.6-1.0) Estimated GFR (Cockcroft-Gault) 47.9 39.5 BUN/Creatinine Ratio 15 (6-20) Glucose Level 339 mg/dL (70-99) 464 mg/dL (70-99) Calcium Level 8.3 mg/dL (8.5-10.1) 8.4 mg/dL (8.5-10.1) Magnesium Level 1.6 mg/dL (1.8-2.4) Total Bilirubin 0.2 mg/dL (0.2-1.0) Aspartate Amino Transf (AST/SGOT) 26 U/L (15-37) Alanine Aminotransferase (ALT/SGPT) 22 U/L (14-59) Alkaline Phosphatase 47 U/L (46-116) Troponin I Quantitative < 0.017 ng/mL (0.000-0.055) AO-Uph-X-Type Natriuretic Peptide 2896 pg/mL (0-449) Total Protein 6.8 g/dL (6.4-8.2) Albumin 3.2 g/dL (3.4-5.0) Albumin/Globulin Ratio 0.9 (1.0-1.7) Urine Collection Type Unknown Urine Color Yellow Urine Clarity Clear Urine pH 6.0 Urine Specific [place] 1.015 Urine Protein 30 mg/dL (NEG-TRACE) Urine Glucose (UA) >=1000 mg/dL (NEG) Urine Ketones (Stick) Negative mg/dL (NEG) Urine Blood Negative (NEG) Urine Nitrite Negative (NEG) Urine Bilirubin Negative (NEG) Urine Urobilinogen Dipstick 1.0 mg/dL (0.2 mg/dL) Urine Leukocyte Esterase Negative (NEG) Urine RBC Occ /HPF (0-2) Urine WBC Occ /HPF (0-4) Urine Squamous Epithelial Cells Few /LPF Urine Transitional Epithelial Cells Few /LPF Urine Bacteria Few /HPF (0-FEW) Urine Hyaline Casts Occasional /HPF Urine Mucus Slight /LPF Glucose (Fingerstick) 262 mg/dL (70-99) Segmented Neutrophils % 84 % (35-66) Band Neutrophils % 1 % (0-9) Lymphocytes % 15 % (24-48) Platelet Estimate Adequate (ADEQUATE) Test 02/27/17 08:10 Glucose (Fingerstick) 406 mg/dL (70-99) Medications Current Medications Albuterol/ Ipratropium (Duoneb) 3 ml 1X ONCE NEB Last administered on 18:38; Start 02/26/17 at 18:45; Stop 02/26/17 at 18:46; Status DC Dexamethasone Sodium Phosphate (Decadron) 8 mg 1X ONCE IV Last administered on 02/26/17 18:42; Start 02/26/17 at 18:45; Stop 02/26/17 at 18:46; Status DC Nitroglycerin (Nitro-Bid Oint) 1 inch 1X ONCE TP ; Start 02/26/17 at 19:45; Stop 02/26/17 at 19:46; Status DC Furosemide (Lasix) 40 mg 1X ONCE PO Last administered on 02/26/17 19:52; Start 02/26/17 at 19:45; Stop 02/26/17 at 19:46; Status DC Ondansetron HCl (Zofran) 4 mg PRN Q8HRS PRN IV NAUSEA/VOMITING; Start 02/26/17 at 19:45; Stop 02/27/17 at 19:44 Fentanyl Citrate (Fentanyl 2ml Vial) 50 mcg PRN Q2HR PRN IV PAIN; Start at 19:45; Stop 02/27/17 at 19:44 Albuterol/ Ipratropium (Duoneb) 3 ml Q4HRS W/A NEB Last administered on 11:05; Start 02/27/17 at 06:00 Budesonide (Pulmicort) 0.5 mg RTBID NEB Last administered on 02/27/17 07:12; Start 02/27/17 at 08:00 Furosemide (Lasix) 40 mg [id number] IVP Last administered on 02/27/17 08:49; Start 02/27/17 at 09:00 Magnesium Sulfate/ Dextrose 50 ml @ 25 mls/hr 1X ONCE IV Last administered on 02/26/17 23:37; Start 02/26/17 at 23:00; Stop 02/27/17 at 00:59; Status DC Amlodipine Besylate (Norvasc) 10 mg DAILY PO Last administered on 02/27/17 08: 50; Start 02/27/17 at 09:00 Atorvastatin Calcium (Lipitor) 10 mg QHS PO ; Start 02/27/17 at 21:00 Metoprolol Succinate (Toprol Xl) 50 mg DAILY PO Last administered on 02/27/17 08:50; Start 02/27/17 at 09:00 Glimepiride (Amaryl) 4 mg BIDWMEALS PO Last administered on 02/27/17 08:50; Start 02/27/17 at 08:00 Insulin Aspart (NovoLOG) 0-7 UNITS QIDACHS SQ Last administered on 02/27/17 08 :36; Start 02/27/17 at 07:30; Stop 02/27/17 at 11:04; Status DC Dextrose (Dextrose 50%-Water Syringe) 12.5 gm PRN Q15MIN PRN IV SEE COMMENTS; Start 02/26/17 at 22:45 Methylprednisolone Sodium Succinate (SOLU-Medrol 40MG VIAL) 40 mg 1X ONCE IV Last administered on 02/26/17 23:40; Start 02/26/17 at 23:00; Stop 02/26/17 at 23:01; Status DC Prednisone (Prednisone) 40 mg DAILY PO Last administered on 02/27/17 08:49; Start 02/27/17 at 09:00 Enoxaparin Sodium (Lovenox 30mg Syringe) 30 mg Q24H SQ ; Start 02/27/17 at 16:00 Pantoprazole Sodium (Protonix) 40 mg DAILYAC PO ; Start 02/27/17 at 10:00 Montelukast Sodium (Singulair) 10 mg QHS PO ; Start 02/27/17 at 21:00 Insulin Detemir (Levemir) 22 units 1X ONCE SQ ; Start 02/27/17 at 11:45; Stop 02/27/17 at 11:46; Status DC Insulin Aspart (NovoLOG) 10 units TIDAC SQ ; Start 02/27/17 at 11:30 Insulin Aspart (NovoLOG) 0-9 UNITS TIDWMEALS SQ ; Start 02/27/17 at 12:00 Dextrose (Dextrose 50%-Water Syringe) 12.5 gm PRN Q15MIN PRN IV SEE COMMENTS; Start 02/27/17 at 11:15 Aspirin (Ecotrin) 81 mg DAILYWBKFT PO ; Start 02/27/17 at 11:30 Active Scripts Active Levaquin (Levofloxacin) 500 Mg Tablet 1 Tab PO DAILY Prednisone 10 Mg Tablet 10 Mg PO UD Take 3 tablets by mouth daily for 3 days, then take 2 tablets by mouth daily for 3 days, then take 1 tablet by mouth daily for 3 days, then stop. Metoprolol Succinate ( Xl ) (Metoprolol Succinate) 25 Mg Tab.er.24h 2 Tab PO DAILY Reported Metformin Hcl 500 Mg Tablet 500 Mg PO BIDWMEALS Glimepiride 4 Mg Tablet 1 Tab PO BID Ventolin Hfa Inhaler (Albuterol Sulfate) 18 Gm Hfa.aer.ad 2 Puff INH QID Symbicort 160-4.5 Mcg Inhaler (Budesonide/Formoterol Fumarate) 10.2 Gm Hfa.aer.ad 2 Puff IH BID Atorvastatin Calcium 10 Mg Tablet 1 Tab PO DAILY Norvasc (Amlodipine Besylate) 10 Mg Tablet 10 Mg PO DAILY Vitals/I & O Vital Sign - Last 24 Hours 02/26/17 02/26/17 02/26/17 02/26/17 18:29 18:40 19:09 19:55 Temp 99.2 99.2 Pulse 77 82 78 Resp 16 32 28 B/P (MAP) 156/91 (112) 158/68 (98) 161/100 (120) Pulse Ox 95 97 2 96 O2 Delivery Nasal Cannula Nasal Cannula Room Air Room Air O2 Flow Rate 3.0 3.0 3.0 02/26/17 02/26/17 02/26/17 02/27/17 20:15 21:30 23:12 03:20 Temp 97.9 97.9 97.5 97.9 97.9 97.5 Pulse 75 90 91 Resp 22 24 22 B/P (MAP) 131/95 (107) 135/72 (93) 138/73 (94) Pulse Ox 98 93 98 O2 Delivery Nasal Cannula Nasal Cannula Nasal Cannula Nasal Cannula O2 Flow Rate 3.0 3.0 3.0 4.0 02/27/17 02/27/17 02/27/17 02/27/17 07:00 07:12 08:50 08:50 Temp 98.0 98.0 Pulse 84 91 91 Resp 22 B/P (MAP) 152/77 (102) 138/73 138/73 Pulse Ox 97 100 O2 Delivery Room Air Nasal Cannula O2 Flow Rate 4.0 02/27/17 11:05 O2 Flow Rate 3.0 Intake and Output 02/26/17 02/26/17 02/27/17 15:00 23:00 07:00 Intake Total 1220 ml Output Total 750 ml Balance 470 ml BRENDAN HICKEY MD Feb 27, 2017 12:01
--- NOTE | 2017-02-27 12:05 | RAD ---
Clinical Indication: Bilateral lower extremity pain and swelling in both calves Technique: Study is dated February 27, 2017. Henderson scale, color flow and spectral waveform analysis was performed of both lower extremities with and without compression. Findings: There is normal compressibility of all visualized vein segments. No evidence of DVT is present on grayscale or color images. There is normal phasicity of waveform. There is normal augmentation . Impression: No evidence of deep vein thrombosis in either lower extremity.
--- NOTE | 2017-02-27 12:19 | CONS ---
DATE OF CONSULTATION: 02/27/2017 I was asked to see this 81-year-old lady for acute on chronic respiratory failure. HISTORY OF PRESENT ILLNESS: She does have a history of 40-50 pack year smoking, stopped smoking about 10 years ago. She is on continuous oxygen at 3-4 liters per minute via nasal cannula. She has been diagnosed with obstructive sleep apnea-hypopnea syndrome, but has not been able to tolerate CPAP. She has not felt good for the past few days, she has had increased shortness of breath and lower extremity edema. She has cough with occasional sputum production. She has nasal congestion, but denies gastroesophageal reflux symptoms or chest pain. PAST MEDICAL HISTORY: Hypertension, COPD, CHF, obstructive sleep apnea-hypopnea syndrome, diabetes mellitus. ALLERGIES: No known drug allergies. MEDICATIONS: Currently, she is on DuoNeb q.i.d., prednisone 40 mg daily, Lipitor, Lasix 40 mg IV b.i.d., Norvasc, Toprol-XL, Pulmicort, Amaryl. SOCIAL HISTORY: History of 40-50 pack year smoking, stopped smoking 10 years ago. FAMILY HISTORY: There is no history of lung disease. REVIEW OF SYSTEMS: As mentioned as above, other systems otherwise negative. PHYSICAL EXAMINATION: GENERAL: This is an overweight lady. VITAL SIGNS: Her O2 saturation on 4 liters of oxygen is 96%, respiratory rate 22, heart rate 91, blood pressure 138/73, temperature 97.5. HEENT: Normocephalic, atraumatic. Pupils equal, round, reactive to light. There is shallow oropharynx. Nose is clear. NECK: Positive JVD. No lymphadenopathy. CARDIOVASCULAR: Regular rate and rhythm. PMI is nondisplaced. CHEST: Inspection is normal. LUNGS: There are bibasilar crackles, dullness at the bases, a few end expiratory wheezing. ABDOMEN: Soft and obese. Bowel sounds are good. EXTREMITIES: There is edema. LYMPHATICS: There is no lymphadenopathy. SKIN: Chronic changes. NEUROLOGIC: Alert and oriented. LABORATORY DATA: I reviewed the following lab data: Chest x-ray shows borderline cardiomegaly, questionable increased vascular marking. WBC 4.3, hemoglobin 10.1, platelets 184. Sodium 139, potassium 5.1, BUN 21, creatinine 1.3, chloride 98, CO2 of 35. Troponin less than 0.01. BNP 2896. IMPRESSION: 1. Acute on chronic respiratory failure, multifactorial in etiology secondary to acute diastolic congestive heart failure, acute exacerbation of chronic obstructive pulmonary disease versus others. 2. Acute exacerbation of chronic obstructive pulmonary disease. 3. Acute diastolic congestive heart failure. 4. Obstructive sleep apnea-hypopnea syndrome. 5. Hypertension. 6. Diabetes mellitus. 7. Anemia. 8. Allergic rhinitis. PLAN AND RECOMMENDATIONS: 1. Titrate FiO2 to keep O2 saturation 91%. 2. Bronchodilator. 3. Inhaled corticosteroid. 4. Continue prednisone. 5. Keep intake less than output. Continue Lasix IV. Monitor potassium and creatinine very closely. 6. Add Singulair 7. Check lower extremity Doppler. 8. Add Protonix for stress ulcer prophylaxis. 9. Add Lovenox for DVT prophylaxis. 10. Monitor respiratory status very closely. 11. 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 She understands, but she is not willing to use CPAP. 12. Monitor respiratory status very closely. 13. The findings and recommendations were discussed with the patient. She understood and agreed to proceed with the plan. Thank you very much for allowing me to participate in care of this very nice lady. MATEUS FAYE M.D. : TJ/melody JOB#: [id number] / [id number] TONIO
[2017-02-27] MEDS: PANTOPRAZOLE 40 MG TABLET.DR. PO SCH (12:32)
[2017-02-27] MEDS: ASPIRIN ENTERIC COATED 81 MG TABLET.DR. PO SCH (12:32)
[2017-02-27] MEDS: INSULIN ASPART 300 UNITS/3 ML INSULN.PEN SQ SCH ×4 (12:38→17:36)
[2017-02-27] MEDS: ENOXAPARIN 30 MG/0.3 ML SYRINGE. SQ SCH (17:31)
[2017-02-27] MEDS: ATORVASTATIN CALCIUM 10 MG TABLET. PO SCH (22:28)
[2017-02-27] MEDS: MONTELUKAST SODIUM 10 MG TABLET. PO SCH (22:28)
[2017-02-28 03:00] VITALS: BP 135/64
[2017-02-28] MEDS: BUDESONIDE 0.5 MG/2 ML NEBU. NEB SCH ×2 (07:30→19:04)
[2017-02-28] MEDS: INSULIN ASPART 300 UNITS/3 ML INSULN.PEN SQ SCH ×6 (07:30→18:11)
[2017-02-28] MEDS: IPRATRPIUM/ALBUTEROL 0.5/2.5MG 3 ML NEBU. NEB SCH ×4 (07:30→19:04)
[2017-02-28 07:40] VITALS: BP 165/85
[2017-02-28] MEDS ORDERED: IV DEXTROSE 5% 250 ML IV ONE (08:03)
[2017-02-28] MEDS: FUROSEMIDE 40 MG/4 ML VIAL. IVP SCH ×2 (08:33→14:42)
[2017-02-28] MEDS: METOPROLOL SUCC 24HR ER 50 MG TAB.ER.24H. PO SCH (08:33)
[2017-02-28] MEDS: GLIMEPIRIDE 2 MG TABLET. PO SCH ×2 (08:34→18:03)
[2017-02-28] MEDS: PANTOPRAZOLE 40 MG TABLET.DR. PO SCH (08:34)
[2017-02-28] MEDS: ASPIRIN ENTERIC COATED 81 MG TABLET.DR. PO SCH (08:34)
[2017-02-28] MEDS: amLODIPine BESYLATE 10 MG TABLET PO SCH (08:34)
[2017-02-28] MEDS: predniSONE 20 MG TABLET PO SCH (08:35)
--- NOTE | 2017-02-28 09:09 | PDOC ---
PULMONARY PROGRESS NOTES Subjective feels better, sob better, no cough, cp, runny nose. Vitals Vital Signs Date Time Temp Pulse Resp B/P (MAP) Pulse Ox O2 Delivery O2 Flow Rate FiO2 02/28/17 08:34 94 165/85 02/28/17 08:00 Nasal Cannula 4.0 02/28/17 07:40 98.1 30 96 98.1 ROS: No Nausea, No Chest Pain General: Alert, No acute distress HEENT: Other (nc at perrl nose throat clear) Lungs: Crackles Cardiovascular: S1, S2 Abdomen: Soft, Non-tender Neuro Exam: Alert, Oriented Extremities: No Edema, Other Skin: Warm Labs Laboratory Tests Test 02/26/17 18:30 02/26/17 19:05 02/26/17 20:40 02/27/17 05:05 White Blood Count 6.5 x10^3/uL (4.0-11.0) 4.3 x10^3/uL (4.0-11.0) Red Blood Count 3.57 x10^6/uL (3.50-5.40) 3.77 x10^6/uL (3.50-5.40) Hemoglobin 9.4 g/dL (12.0-15.5) 10.1 g/dL (12.0-15.5) Hematocrit 30.4 % (36.0-47.0) 31.6 % (36.0-47.0) Mean Corpuscular Volume 85 fL (79-100) 84 fL (79-100) Mean Corpuscular Hemoglobin 26 pg (25-35) 27 pg (25-35) Mean Corpuscular Hemoglobin Concent 31 g/dL (31-37) 32 g/dL (31-37) Red Cell Distribution Width 16.2 % (11.5-14.5) 16.5 % (11.5-14.5) Platelet Count 195 x10^3/uL (140-400) 184 x10^3/uL (140-400) Neutrophils (%) (Auto) 72 % (31-73) 90 % (31-73) Lymphocytes (%) (Auto) 16 % (24-48) 9 % (24-48) Monocytes (%) (Auto) 7 % (0-9) 1 % (0-9) Eosinophils (%) (Auto) 4 % (0-3) 0 % (0-3) Basophils (%) (Auto) 1 % (0-3) 0 % (0-3) Neutrophils # (Auto) 4.7 x10^3uL (1.8-7.7) 3.8 x10^3uL (1.8-7.7) Lymphocytes # (Auto) 1.1 x10^3/uL (1.0-4.8) 0.4 x10^3/uL (1.0-4.8) Monocytes # (Auto) 0.5 x10^3/uL (0.0-1.1) 0.0 x10^3/uL (0.0-1.1) Eosinophils # (Auto) 0.3 x10^3/uL (0.0-0.7) 0.0 x10^3/uL (0.0-0.7) Basophils # (Auto) 0.0 x10^3/uL (0.0-0.2) 0.0 x10^3/uL (0.0-0.2) Prothrombin Time 12.9 SEC (11.7-14.0) Prothromb Time International Ratio 1.0 (0.8-1.1) Activated Partial Thromboplast Time 28 SEC (24-38) Sodium Level 143 mmol/L (136-145) 139 mmol/L (136-145) Potassium Level 4.4 mmol/L (3.5-5.1) 5.1 mmol/L (3.5-5.1) Chloride Level 102 mmol/L (98-107) 98 mmol/L (98-107) Carbon Dioxide Level 37 mmol/L (21-32) 35 mmol/L (21-32) Anion Gap 4 (6-14) 6 (6-14) Blood Urea Nitrogen 16 mg/dL (7-20) 21 mg/dL (7-20) Creatinine 1.1 mg/dL (0.6-1.0) 1.3 mg/dL (0.6-1.0) Estimated GFR (Cockcroft-Gault) 47.9 39.5 BUN/Creatinine Ratio 15 (6-20) Glucose Level 339 mg/dL (70-99) 464 mg/dL (70-99) Calcium Level 8.3 mg/dL (8.5-10.1) 8.4 mg/dL (8.5-10.1) Magnesium Level 1.6 mg/dL (1.8-2.4) Total Bilirubin 0.2 mg/dL (0.2-1.0) Aspartate Amino Transf (AST/SGOT) 26 U/L (15-37) Alanine Aminotransferase (ALT/SGPT) 22 U/L (14-59) Alkaline Phosphatase 47 U/L (46-116) Troponin I Quantitative < 0.017 ng/mL (0.000-0.055) VS-Hyx-L-Type Natriuretic Peptide 2896 pg/mL (0-449) Total Protein 6.8 g/dL (6.4-8.2) Albumin 3.2 g/dL (3.4-5.0) Albumin/Globulin Ratio 0.9 (1.0-1.7) Urine Collection Type Unknown Urine Color Yellow Urine Clarity Clear Urine pH 6.0 Urine Specific [place] 1.015 Urine Protein 30 mg/dL (NEG-TRACE) Urine Glucose (UA) >=1000 mg/dL (NEG) Urine Ketones (Stick) Negative mg/dL (NEG) Urine Blood Negative (NEG) Urine Nitrite Negative (NEG) Urine Bilirubin Negative (NEG) Urine Urobilinogen Dipstick 1.0 mg/dL (0.2 mg/dL) Urine Leukocyte Esterase Negative (NEG) Urine RBC Occ /HPF (0-2) Urine WBC Occ /HPF (0-4) Urine Squamous Epithelial Cells Few /LPF Urine Transitional Epithelial Cells Few /LPF Urine Bacteria Few /HPF (0-FEW) Urine Hyaline Casts Occasional /HPF Urine Mucus Slight /LPF Glucose (Fingerstick) 262 mg/dL (70-99) Segmented Neutrophils % 84 % (35-66) Band Neutrophils % 1 % (0-9) Lymphocytes % 15 % (24-48) Platelet Estimate Adequate (ADEQUATE) Test 02/27/17 08:10 02/27/17 12:09 02/27/17 17:19 02/27/17 20:56 Glucose (Fingerstick) 406 mg/dL (70-99) 296 mg/dL (70-99) 201 mg/dL (70-99) 183 mg/dL (70-99) Test 02/28/17 07:38 02/28/17 07:51 02/28/17 08:32 Glucose (Fingerstick) 32 mg/dL (70-99) 47 mg/dL (70-99) 101 mg/dL (70-99) Laboratory Tests Test 02/27/17 12:09 02/27/17 17:19 02/27/17 20:56 02/28/17 07:38 Glucose (Fingerstick) 296 mg/dL (70-99) 201 mg/dL (70-99) 183 mg/dL (70-99) 32 mg/dL (70-99) Test 02/28/17 07:51 02/28/17 08:32 Glucose (Fingerstick) 47 mg/dL (70-99) 101 mg/dL (70-99) Medications Active Scripts Medications Dose Route/Sig Max Daily Dose Days Date Category Dose Instructions Levaquin (Levofloxacin) 500 Mg Tablet 1 Tab PO DAILY 11/23/16 Rx Prednisone 10 Mg Tablet 10 Mg PO UD 11/23/16 Rx Take 3 tablets by mouth daily for 3 days, then take 2 tablets by mouth daily for 3 days, then take 1 tablet by mouth daily for 3 days, then stop. Metformin Hcl 500 Mg Tablet 500 Mg PO BIDWMEALS 11/18/16 Reported Metoprolol Succinate ( Xl ) (Metoprolol Succinate) 25 Mg Tab.er.24h 2 Tab PO DAILY 12/12/15 Rx Glimepiride 4 Mg Tablet 1 Tab PO BID 12/05/15 Reported Ventolin Hfa Inhaler (Albuterol Sulfate) 18 Gm Hfa.aer.ad 2 Puff INH QID 12/05/15 Reported Symbicort 160-4.5 Mcg Inhaler (Budesonide/Formoterol Fumarate) 10.2 Gm Hfa.aer.ad 2 Puff IH BID 12/05/15 Reported Atorvastatin Calcium 10 Mg Tablet 1 Tab PO DAILY 12/05/15 Reported Norvasc (Amlodipine Besylate) 10 Mg Tablet 10 Mg PO DAILY 12/05/15 Reported Impression . IMPRESSION: 1. Acute on chronic respiratory failure, multifactorial in etiology secondary to acute diastolic congestive heart failure, acute exacerbation of chronic obstructive pulmonary disease versus others. 2. Acute exacerbation of chronic obstructive pulmonary disease. 3. Acute diastolic congestive heart failure. 4. Obstructive sleep apnea-hypopnea syndrome. 5. Hypertension. 6. Diabetes mellitus. 7. Anemia. 8. Allergic rhinitis. Plan . PLAN AND RECOMMENDATIONS: 1. Titrate FiO2 to keep O2 saturation 91%. 2. Bronchodilator. 3. Inhaled corticosteroid. 4. Continue prednisone. 5. Keep intake less than output. Continue Lasix. Monitor potassium and creatinine very closely. 6. Singulair 7. lower extremity Doppler, neg. 8. Protonix for stress ulcer prophylaxis. 9. Lovenox for DVT prophylaxis. 10. Monitor respiratory status very closely. 11. 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 She understands, but she is not willing to use CPAP. 12. Monitor respiratory status very closely. 13. The findings and recommendations were discussed with the patient. She understood and agreed to proceed with the plan. MATEUS FAYE MD Feb 28, 2017 09:09
[2017-02-28] MEDS ORDERED: MAGNESIUM SULFATE 2GM 50 ML IV PRN (09:15)
[2017-02-28 10:56] VITALS: BP 141/68
--- NOTE | 2017-02-28 12:35 | PDOC ---
PROGRESS NOTES Subjective Subjective Feeling better today Objective Objective Vital Signs Date Time Temp Pulse Resp B/P (MAP) Pulse Ox O2 Delivery O2 Flow Rate FiO2 02/28/17 12:20 Nasal Cannula 2.0 02/28/17 10:56 98.1 89 32 141/68 (92) 99 98.1 Intake and Output 02/28/17 07:00 Intake Total 1520 ml Balance 1520 ml Intake Oral 1520 ml # Voids 2 Physical Exam Abdomen: Normal bowel sounds, Soft Heart: Regular rate (SR with PVC), Normal S1, Normal S2, Other (S4, distal heart sounds) Extremities: No cyanosis, Other (1+ bilateral LE pitting edema, now wrinkled , and better) General: Alert, Oriented X3, Cooperative, mild distress HEENT: Atraumatic, Mucous membr. moist/pink Lungs: Other (dimnished throughout) Neuro: Normal speech, Sensation intact Psych/Mental Status: Mood NL Skin: No breakdown, No significant lesion Assessment Assessment 1. AECOPD: improving - treat per pulmonary 2. Acute on chronic diastolic CHF - improved with Lasix. Recent 2D echo showed normal LV function. Plan Lexiscan nuclear stress test to rule out ischemia 3. HTN: controlled 4. DM2/HLP: per IM Plan Plan of Care Problems Medical Problems: (1) CHF exacerbation Status: Acute (2) COPD exacerbation Status: Acute Comment Review of Relevant I have reviewed the following items brittanie (where applicable) has been applied. Labs Laboratory Tests Test 02/27/17 17:19 02/27/17 20:56 02/28/17 07:38 02/28/17 07:51 Glucose (Fingerstick) 201 mg/dL (70-99) 183 mg/dL (70-99) 32 mg/dL (70-99) 47 mg/dL (70-99) Test 02/28/17 08:32 02/28/17 09:48 Glucose (Fingerstick) 101 mg/dL (70-99) Magnesium Level 2.0 mg/dL (1.8-2.4) Medications Current Medications Albuterol/ Ipratropium (Duoneb) 3 ml RTQID NEB Last administered on 02/28/17 12:20; Start 02/28/17 at 12:00 Atorvastatin Calcium (Lipitor) 10 mg QHS PO Last administered on 02/27/17 22: 28; Start 02/27/17 at 21:00 Dextrose 250 ml @ As Directed STK-MED ONCE IV ; Start 02/28/17 at 08:03; Stop 02/28/17 at 08:04; Status DC Enoxaparin Sodium (Lovenox 30mg Syringe) 30 mg Q24H SQ Last administered on 17:31; Start 02/27/17 at 16:00 Insulin Aspart (NovoLOG) 5 units TIDAC SQ ; Start 02/28/17 at 11:30 Magnesium Sulfate/ Dextrose 50 ml @ 25 mls/hr PRN 1X PRN IV magnesium level less than 2; Start 02/28/17 at 09:15 Montelukast Sodium (Singulair) 10 mg QHS PO Last administered on 02/27/17 22: 28; Start 02/27/17 at 21:00 Vitals/I & O Vital Sign - Last 24 Hours 02/27/17 02/27/17 02/27/17 02/27/17 15:00 15:09 19:00 19:47 Temp 98.0 98.1 98.0 98.1 Pulse 88 94 Resp 22 18 B/P (MAP) 148/76 (100) 150/74 (99) Pulse Ox 97 98 94 O2 Delivery Room Air Nasal Cannula Nasal Cannula O2 Flow Rate 3.0 4.0 3.0 02/27/17 02/27/17 02/27/17 02/28/17 20:00 23:00 23:53 03:00 Temp 97.7 97.5 97.7 97.5 Pulse 101 100 93 Resp 18 18 B/P (MAP) 146/113 (124) 131/60 (83) 135/64 (87) Pulse Ox 95 96 O2 Delivery Nasal Cannula Nasal Cannula Nasal Cannula O2 Flow Rate 3.0 4.0 4.0 02/28/17 02/28/17 02/28/17 02/28/17 07:31 07:40 08:00 08:33 Temp 98.1 98.1 Pulse 94 94 Resp 30 B/P (MAP) 165/85 (111) 165/85 Pulse Ox 98 96 O2 Delivery Nasal Cannula Nasal Cannula Nasal Cannula O2 Flow Rate 3.0 4.0 4.0 02/28/17 02/28/17 02/28/17 08:34 10:56 12:20 Temp 98.1 98.1 Pulse 94 89 Resp 32 B/P (MAP) 165/85 141/68 (92) Pulse Ox 99 O2 Delivery Nasal Cannula Nasal Cannula O2 Flow Rate 4.0 2.0 Intake and Output 02/27/17 02/27/17 02/28/17 15:00 23:00 07:00 Intake Total 620 ml 900 ml Balance 620 ml 900 ml BECKA FRANCOIS MD Feb 28, 2017 12:34
--- NOTE | 2017-02-28 12:35 | PDOC ---
PROGRESS NOTES Chief Complaint Chief Complaint acute on chronic hypoxic respiratory failure CHF acute on chronic diastolic failure, better with diuresis, cont IV lasix COPD, chronic combined respiratory failure, last admit was exac, no sputum or cough now, obesity, BMI ; 33 cognitive decline, poor recollection daily, poss early dementia History of Present Illness History of Present Illness marked hyperglycemia yesterday, low this AM, hypoglycemia without symptoms, will stop Levemir, just small mealtime and SSI Le edema improved breathing easier, still some purse lip breathing need PT and OT eval, weakness noted today, may need SNU consult podiatry, toenails need upkeep, prohib walking, good UO Vitals Vitals Vital Signs Date Time Temp Pulse Resp B/P (MAP) Pulse Ox O2 Delivery O2 Flow Rate FiO2 02/28/17 12:20 Nasal Cannula 2.0 02/28/17 10:56 98.1 89 32 141/68 (92) 99 98.1 Physical Exam General: Alert, Oriented X3, Cooperative, mild distress Heart: Regular rate (SR with PVC), Normal S1, Normal S2, Other (S4, distal heart sounds) Lungs: Clear Abdomen: Normal bowel sounds, Soft Extremities: No cyanosis, Other (1+ bilateral LE pitting edema, now wrinkled , and better) Skin: No breakdown, No significant lesion Labs LABS Laboratory Tests Test 02/27/17 17:19 02/27/17 20:56 02/28/17 07:38 02/28/17 07:51 Glucose (Fingerstick) 201 mg/dL (70-99) 183 mg/dL (70-99) 32 mg/dL (70-99) 47 mg/dL (70-99) Test 02/28/17 08:32 02/28/17 09:48 Glucose (Fingerstick) 101 mg/dL (70-99) Magnesium Level 2.0 mg/dL (1.8-2.4) Assessment and Plan Assessmemt and Plan Problems Medical Problems: (1) CHF exacerbation Status: Acute (2) COPD exacerbation Status: Acute Problems: Comment Review of Relevant I have reviewed the following items brittanie (where applicable) has been applied. Labs Laboratory Tests Test 02/26/17 18:30 02/26/17 19:05 02/26/17 20:40 02/27/17 05:05 White Blood Count 6.5 x10^3/uL (4.0-11.0) 4.3 x10^3/uL (4.0-11.0) Red Blood Count 3.57 x10^6/uL (3.50-5.40) 3.77 x10^6/uL (3.50-5.40) Hemoglobin 9.4 g/dL (12.0-15.5) 10.1 g/dL (12.0-15.5) Hematocrit 30.4 % (36.0-47.0) 31.6 % (36.0-47.0) Mean Corpuscular Volume 85 fL (79-100) 84 fL (79-100) Mean Corpuscular Hemoglobin 26 pg (25-35) 27 pg (25-35) Mean Corpuscular Hemoglobin Concent 31 g/dL (31-37) 32 g/dL (31-37) Red Cell Distribution Width 16.2 % (11.5-14.5) 16.5 % (11.5-14.5) Platelet Count 195 x10^3/uL (140-400) 184 x10^3/uL (140-400) Neutrophils (%) (Auto) 72 % (31-73) 90 % (31-73) Lymphocytes (%) (Auto) 16 % (24-48) 9 % (24-48) Monocytes (%) (Auto) 7 % (0-9) 1 % (0-9) Eosinophils (%) (Auto) 4 % (0-3) 0 % (0-3) Basophils (%) (Auto) 1 % (0-3) 0 % (0-3) Neutrophils # (Auto) 4.7 x10^3uL (1.8-7.7) 3.8 x10^3uL (1.8-7.7) Lymphocytes # (Auto) 1.1 x10^3/uL (1.0-4.8) 0.4 x10^3/uL (1.0-4.8) Monocytes # (Auto) 0.5 x10^3/uL (0.0-1.1) 0.0 x10^3/uL (0.0-1.1) Eosinophils # (Auto) 0.3 x10^3/uL (0.0-0.7) 0.0 x10^3/uL (0.0-0.7) Basophils # (Auto) 0.0 x10^3/uL (0.0-0.2) 0.0 x10^3/uL (0.0-0.2) Prothrombin Time 12.9 SEC (11.7-14.0) Prothromb Time International Ratio 1.0 (0.8-1.1) Activated Partial Thromboplast Time 28 SEC (24-38) Sodium Level 143 mmol/L (136-145) 139 mmol/L (136-145) Potassium Level 4.4 mmol/L (3.5-5.1) 5.1 mmol/L (3.5-5.1) Chloride Level 102 mmol/L (98-107) 98 mmol/L (98-107) Carbon Dioxide Level 37 mmol/L (21-32) 35 mmol/L (21-32) Anion Gap 4 (6-14) 6 (6-14) Blood Urea Nitrogen 16 mg/dL (7-20) 21 mg/dL (7-20) Creatinine 1.1 mg/dL (0.6-1.0) 1.3 mg/dL (0.6-1.0) Estimated GFR (Cockcroft-Gault) 47.9 39.5 BUN/Creatinine Ratio 15 (6-20) Glucose Level 339 mg/dL (70-99) 464 mg/dL (70-99) Calcium Level 8.3 mg/dL (8.5-10.1) 8.4 mg/dL (8.5-10.1) Magnesium Level 1.6 mg/dL (1.8-2.4) Total Bilirubin 0.2 mg/dL (0.2-1.0) Aspartate Amino Transf (AST/SGOT) 26 U/L (15-37) Alanine Aminotransferase (ALT/SGPT) 22 U/L (14-59) Alkaline Phosphatase 47 U/L (46-116) Troponin I Quantitative < 0.017 ng/mL (0.000-0.055) IA-Kjy-M-Type Natriuretic Peptide 2896 pg/mL (0-449) Total Protein 6.8 g/dL (6.4-8.2) Albumin 3.2 g/dL (3.4-5.0) Albumin/Globulin Ratio 0.9 (1.0-1.7) Urine Collection Type Unknown Urine Color Yellow Urine Clarity Clear Urine pH 6.0 Urine Specific [place] 1.015 Urine Protein 30 mg/dL (NEG-TRACE) Urine Glucose (UA) >=1000 mg/dL (NEG) Urine Ketones (Stick) Negative mg/dL (NEG) Urine Blood Negative (NEG) Urine Nitrite Negative (NEG) Urine Bilirubin Negative (NEG) Urine Urobilinogen Dipstick 1.0 mg/dL (0.2 mg/dL) Urine Leukocyte Esterase Negative (NEG) Urine RBC Occ /HPF (0-2) Urine WBC Occ /HPF (0-4) Urine Squamous Epithelial Cells Few /LPF Urine Transitional Epithelial Cells Few /LPF Urine Bacteria Few /HPF (0-FEW) Urine Hyaline Casts Occasional /HPF Urine Mucus Slight /LPF Glucose (Fingerstick) 262 mg/dL (70-99) Segmented Neutrophils % 84 % (35-66) Band Neutrophils % 1 % (0-9) Lymphocytes % 15 % (24-48) Platelet Estimate Adequate (ADEQUATE) Test 02/27/17 08:10 02/27/17 12:09 02/27/17 17:19 02/27/17 20:56 Glucose (Fingerstick) 406 mg/dL (70-99) 296 mg/dL (70-99) 201 mg/dL (70-99) 183 mg/dL (70-99) Test 02/28/17 07:38 02/28/17 07:51 02/28/17 08:32 02/28/17 09:48 Glucose (Fingerstick) 32 mg/dL (70-99) 47 mg/dL (70-99) 101 mg/dL (70-99) Magnesium Level 2.0 mg/dL (1.8-2.4) Laboratory Tests Test 02/27/17 17:19 02/27/17 20:56 02/28/17 07:38 02/28/17 07:51 Glucose (Fingerstick) 201 mg/dL (70-99) 183 mg/dL (70-99) 32 mg/dL (70-99) 47 mg/dL (70-99) Test 02/28/17 08:32 02/28/17 09:48 Glucose (Fingerstick) 101 mg/dL (70-99) Magnesium Level 2.0 mg/dL (1.8-2.4) Medications Current Medications Albuterol/ Ipratropium (Duoneb) 3 ml 1X ONCE NEB Last administered on 18:38; Start 02/26/17 at 18:45; Stop 02/26/17 at 18:46; Status DC Dexamethasone Sodium Phosphate (Decadron) 8 mg 1X ONCE IV Last administered on 02/26/17 18:42; Start 02/26/17 at 18:45; Stop 02/26/17 at 18:46; Status DC Nitroglycerin (Nitro-Bid Oint) 1 inch 1X ONCE TP ; Start 02/26/17 at 19:45; Stop 02/26/17 at 19:46; Status DC Furosemide (Lasix) 40 mg 1X ONCE PO Last administered on 02/26/17 19:52; Start 02/26/17 at 19:45; Stop 02/26/17 at 19:46; Status DC Ondansetron HCl (Zofran) 4 mg PRN Q8HRS PRN IV NAUSEA/VOMITING; Start 02/26/17 at 19:45; Stop 02/27/17 at 19:44; Status DC Fentanyl Citrate (Fentanyl 2ml Vial) 50 mcg PRN Q2HR PRN IV PAIN; Start at 19:45; Stop 02/27/17 at 19:44; Status DC Albuterol/ Ipratropium (Duoneb) 3 ml Q4HRS W/A NEB Last administered on 07:30; Start 02/27/17 at 06:00; Stop 02/28/17 at 07:51; Status DC Budesonide (Pulmicort) 0.5 mg RTBID NEB Last administered on 02/28/17 07:30; Start 02/27/17 at 08:00 Furosemide (Lasix) 40 mg BID92 IVP Last administered on 02/28/17 08:33; Start 02/27/17 at 09:00 Magnesium Sulfate/ Dextrose 50 ml @ 25 mls/hr 1X ONCE IV Last administered on 02/26/17 23:37; Start 02/26/17 at 23:00; Stop 02/27/17 at 00:59; Status DC Amlodipine Besylate (Norvasc) 10 mg DAILY PO Last administered on 02/28/17 08: 34; Start 02/27/17 at 09:00 Atorvastatin Calcium (Lipitor) 10 mg QHS PO Last administered on 02/27/17 22: 28; Start 02/27/17 at 21:00 Metoprolol Succinate (Toprol Xl) 50 mg DAILY PO Last administered on 02/28/17 08:33; Start 02/27/17 at 09:00 Glimepiride (Amaryl) 4 mg BIDWMEALS PO Last administered on 02/28/17 08:34; Start 02/27/17 at 08:00 Insulin Aspart (NovoLOG) 0-7 UNITS QIDACHS SQ Last administered on 02/27/17 08 :36; Start 02/27/17 at 07:30; Stop 02/27/17 at 11:04; Status DC Dextrose (Dextrose 50%-Water Syringe) 12.5 gm PRN Q15MIN PRN IV SEE COMMENTS; Start 02/26/17 at 22:45 Methylprednisolone Sodium Succinate (SOLU-Medrol 40MG VIAL) 40 mg 1X ONCE IV Last administered on 02/26/17 23:40; Start 02/26/17 at 23:00; Stop 02/26/17 at 23:01; Status DC Prednisone (Prednisone) 40 mg DAILY PO Last administered on 02/28/17 08:35; Start 02/27/17 at 09:00 Enoxaparin Sodium (Lovenox 30mg Syringe) 30 mg Q24H SQ Last administered on 17:31; Start 02/27/17 at 16:00 Pantoprazole Sodium (Protonix) 40 mg DAILYAC PO Last administered on 02/28/17 08:34; Start 02/27/17 at 10:00 Montelukast Sodium (Singulair) 10 mg QHS PO Last administered on 02/27/17 22: 28; Start 02/27/17 at 21:00 Insulin Detemir (Levemir) 22 units 1X ONCE SQ Last administered on 02/27/17 12:39; Start 02/27/17 at 11:45; Stop 02/27/17 at 11:46; Status DC Insulin Aspart (NovoLOG) 10 units TIDAC SQ Last administered on 02/27/17 17:35 ; Start 02/27/17 at 11:30; Stop 02/28/17 at 09:16; Status DC Insulin Aspart (NovoLOG) 0-9 UNITS TIDWMEALS SQ Last administered on 02/27/17 17:36; Start 02/27/17 at 12:00 Dextrose (Dextrose 50%-Water Syringe) 12.5 gm PRN Q15MIN PRN IV SEE COMMENTS; Start 02/27/17 at 11:15; Stop 02/27/17 at 14:21; Status DC Aspirin (Ecotrin) 81 mg DAILYWBKFT PO Last administered on 02/28/17 08:34; Start 02/27/17 at 11:30 Albuterol/ Ipratropium (Duoneb) 3 ml RTQID NEB Last administered on 02/28/17 12:20; Start 02/28/17 at 12:00 Dextrose 250 ml @ As Directed STK-MED ONCE IV ; Start 02/28/17 at 08:03; Stop 02/28/17 at 08:04; Status DC Magnesium Sulfate/ Dextrose 50 ml @ 25 mls/hr PRN 1X PRN IV magnesium level less than 2; Start 02/28/17 at 09:15 Insulin Aspart (NovoLOG) 5 units TIDAC SQ ; Start 02/28/17 at 11:30 Active Scripts Active Levaquin (Levofloxacin) 500 Mg Tablet 1 Tab PO DAILY Prednisone 10 Mg Tablet 10 Mg PO UD Take 3 tablets by mouth daily for 3 days, then take 2 tablets by mouth daily for 3 days, then take 1 tablet by mouth daily for 3 days, then stop. Metoprolol Succinate ( Xl ) (Metoprolol Succinate) 25 Mg Tab.er.24h 2 Tab PO DAILY Reported Metformin Hcl 500 Mg Tablet 500 Mg PO BIDWMEALS Glimepiride 4 Mg Tablet 1 Tab PO BID Ventolin Hfa Inhaler (Albuterol Sulfate) 18 Gm Hfa.aer.ad 2 Puff INH QID Symbicort 160-4.5 Mcg Inhaler (Budesonide/Formoterol Fumarate) 10.2 Gm Hfa.aer.ad 2 Puff IH BID Atorvastatin Calcium 10 Mg Tablet 1 Tab PO DAILY Norvasc (Amlodipine Besylate) 10 Mg Tablet 10 Mg PO DAILY Vitals/I & O Vital Sign - Last 24 Hours 02/27/17 02/27/17 02/27/17 02/27/17 15:00 15:09 19:00 19:47 Temp 98.0 98.1 98.0 98.1 Pulse 88 94 Resp 22 18 B/P (MAP) 148/76 (100) 150/74 (99) Pulse Ox 97 98 94 O2 Delivery Room Air Nasal Cannula Nasal Cannula O2 Flow Rate 3.0 4.0 3.0 02/27/17 02/27/17 02/27/17 02/28/17 20:00 23:00 23:53 03:00 Temp 97.7 97.5 97.7 97.5 Pulse 101 100 93 Resp 18 18 B/P (MAP) 146/113 (124) 131/60 (83) 135/64 (87) Pulse Ox 95 96 O2 Delivery Nasal Cannula Nasal Cannula Nasal Cannula O2 Flow Rate 3.0 4.0 4.0 02/28/17 02/28/17 02/28/17 02/28/17 07:31 07:40 08:00 08:33 Temp 98.1 98.1 Pulse 94 94 Resp 30 B/P (MAP) 165/85 (111) 165/85 Pulse Ox 98 96 O2 Delivery Nasal Cannula Nasal Cannula Nasal Cannula O2 Flow Rate 3.0 4.0 4.0 02/28/17 02/28/17 02/28/17 08:34 10:56 12:20 Temp 98.1 98.1 Pulse 94 89 Resp 32 B/P (MAP) 165/85 141/68 (92) Pulse Ox 99 O2 Delivery Nasal Cannula Nasal Cannula O2 Flow Rate 4.0 2.0 Intake and Output 02/27/17 02/27/17 02/28/17 15:00 23:00 07:00 Intake Total 620 ml 900 ml Balance 620 ml 900 ml BRENDAN HICKEY MD Feb 28, 2017 12:35
[2017-02-28 14:35] VITALS: BP 136/75
[2017-02-28] MEDS: ENOXAPARIN 30 MG/0.3 ML SYRINGE. SQ SCH (18:04)
[2017-02-28 19:00] VITALS: BP 139/83
[2017-02-28] MEDS: MONTELUKAST SODIUM 10 MG TABLET. PO SCH (21:03)
[2017-02-28] MEDS: ATORVASTATIN CALCIUM 10 MG TABLET. PO SCH (21:03)
[2017-02-28] MEDS ORDERED: INSULIN ASPART 300 UNITS/3 ML INSULN.PEN SQ ONE (21:30)
[2017-02-28 23:00] VITALS: BP 144/66
[2017-03-01 03:00] VITALS: BP 149/70
[2017-03-01 04:45] LABS: BASO % 1 % (0-3); EOS % 1 % (0-3); HEMATOCRIT 28.9 % (36.0-47.0); HEMOGLOBIN 9.1 g/dL (12.0-15.5); LYMPH # 2.2 x10^3/uL (1.0-4.8); LYMPH % 22 % (24-48); MEAN CORPUSCULAR HEMOGLOBIN 26 pg (25-35); MEAN CORPUSCULAR HGB CONC 32 g/dL (31-37); MEAN CORPUSCULAR VOLUME 83 fL (79-100); MONO % 10 % (0-9); NEUT % 67 % (31-73); PLATELET COUNT 221 x10^3/uL (140-400); RED BLOOD COUNT 3.49 x10^6/uL (3.50-5.40); WHITE BLOOD COUNT 9.7 x10^3/uL (4.0-11.0)
[2017-03-01 05:56] LABS: CALCIUM 8.9 mg/dL (8.5-10.1); CREATININE 1.4 mg/dL (0.6-1.0); GFR 36.3; POTASSIUM 3.6 mmol/L (3.5-5.1)
[2017-03-01 07:00] VITALS: BP 142/69
[2017-03-01] MEDS: IPRATRPIUM/ALBUTEROL 0.5/2.5MG 3 ML NEBU. NEB SCH ×4 (07:27→19:35)
[2017-03-01] MEDS: BUDESONIDE 0.5 MG/2 ML NEBU. NEB SCH ×2 (07:28→19:35)
[2017-03-01] MEDS: INSULIN ASPART 300 UNITS/3 ML INSULN.PEN SQ SCH ×6 (07:30→17:21)
[2017-03-01] MEDS: GLIMEPIRIDE 2 MG TABLET. PO SCH ×2 (08:00→17:15)
[2017-03-01] MEDS ORDERED: ALBUTEROL SULFATE 2.5 MG/3 ML NEBU. NEB PRN (08:15)
[2017-03-01] MEDS ORDERED: REGADENOSON 0.4 MG/5 ML DISP.SYRIN. IV ONE (08:45)
[2017-03-01] MEDS: predniSONE 20 MG TABLET PO SCH (10:04)
[2017-03-01] MEDS: FUROSEMIDE 40 MG/4 ML VIAL. IVP SCH (10:04)
[2017-03-01] MEDS: ASPIRIN ENTERIC COATED 81 MG TABLET.DR. PO SCH (10:05)
[2017-03-01] MEDS: METOPROLOL SUCC 24HR ER 50 MG TAB.ER.24H. PO SCH (10:05)
[2017-03-01] MEDS: PANTOPRAZOLE 40 MG TABLET.DR. PO SCH (10:06)
[2017-03-01] MEDS: amLODIPine BESYLATE 10 MG TABLET PO SCH (10:06)
[2017-03-01] MEDS ORDERED: MAGNESIUM SULFATE 2GM 50 ML IV ONE (10:15)
[2017-03-01 11:00] VITALS: BP 142/50
--- NOTE | 2017-03-01 12:57 | PDOC ---
PULMONARY PROGRESS NOTES Subjective feels better, sob better, no cough, cp, runny nose. Vitals Vital Signs Date Time Temp Pulse Resp B/P (MAP) Pulse Ox O2 Delivery O2 Flow Rate FiO2 03/01/17 11:00 98.4 72 18 142/50 (80) 90 Nasal Cannula 2.0 98.4 ROS: No Nausea, No Chest Pain General: Alert, No acute distress HEENT: Other (nc at perrl nose throat clear) Lungs: Clear Cardiovascular: S1, S2 Abdomen: Soft, Non-tender Neuro Exam: Alert, Oriented Extremities: No Edema, Other Skin: Warm Labs Laboratory Tests Test 02/27/17 17:19 02/27/17 20:56 02/28/17 07:38 02/28/17 07:51 Glucose (Fingerstick) 201 mg/dL (70-99) 183 mg/dL (70-99) 32 mg/dL (70-99) 47 mg/dL (70-99) Test 02/28/17 08:32 02/28/17 09:48 02/28/17 11:00 02/28/17 13:24 Glucose (Fingerstick) 101 mg/dL (70-99) 176 mg/dL (70-99) 293 mg/dL (70-99) Magnesium Level 2.0 mg/dL (1.8-2.4) Test 02/28/17 16:16 02/28/17 20:37 03/01/17 02:42 03/01/17 03:30 Glucose (Fingerstick) 265 mg/dL (70-99) 338 mg/dL (70-99) 90 mg/dL (70-99) White Blood Count 9.7 x10^3/uL (4.0-11.0) Red Blood Count 3.49 x10^6/uL (3.50-5.40) Hemoglobin 9.1 g/dL (12.0-15.5) Hematocrit 28.9 % (36.0-47.0) Mean Corpuscular Volume 83 fL (79-100) Mean Corpuscular Hemoglobin 26 pg (25-35) Mean Corpuscular Hemoglobin Concent 32 g/dL (31-37) Red Cell Distribution Width 16.0 % (11.5-14.5) Platelet Count 221 x10^3/uL (140-400) Neutrophils (%) (Auto) 67 % (31-73) Lymphocytes (%) (Auto) 22 % (24-48) Monocytes (%) (Auto) 10 % (0-9) Eosinophils (%) (Auto) 1 % (0-3) Basophils (%) (Auto) 1 % (0-3) Neutrophils # (Auto) 6.5 x10^3uL (1.8-7.7) Lymphocytes # (Auto) 2.2 x10^3/uL (1.0-4.8) Monocytes # (Auto) 0.9 x10^3/uL (0.0-1.1) Eosinophils # (Auto) 0.1 x10^3/uL (0.0-0.7) Basophils # (Auto) 0.0 x10^3/uL (0.0-0.2) Sodium Level 144 mmol/L (136-145) Potassium Level 3.6 mmol/L (3.5-5.1) Chloride Level 99 mmol/L (98-107) Carbon Dioxide Level 42 mmol/L (21-32) Anion Gap 3 (6-14) Blood Urea Nitrogen 35 mg/dL (7-20) Creatinine 1.4 mg/dL (0.6-1.0) Estimated GFR (Cockcroft-Gault) 36.3 Glucose Level 75 mg/dL (70-99) Calcium Level 8.9 mg/dL (8.5-10.1) Magnesium Level 1.8 mg/dL (1.8-2.4) Test 03/01/17 07:38 03/01/17 08:04 03/01/17 11:34 Glucose (Fingerstick) 44 mg/dL (70-99) 99 mg/dL (70-99) 191 mg/dL (70-99) Laboratory Tests Test 02/28/17 13:24 02/28/17 16:16 02/28/17 20:37 03/01/17 02:42 Glucose (Fingerstick) 293 mg/dL (70-99) 265 mg/dL (70-99) 338 mg/dL (70-99) 90 mg/dL (70-99) Test 03/01/17 03:30 03/01/17 07:38 03/01/17 08:04 03/01/17 11:34 White Blood Count 9.7 x10^3/uL (4.0-11.0) Red Blood Count 3.49 x10^6/uL (3.50-5.40) Hemoglobin 9.1 g/dL (12.0-15.5) Hematocrit 28.9 % (36.0-47.0) Mean Corpuscular Volume 83 fL (79-100) Mean Corpuscular Hemoglobin 26 pg (25-35) Mean Corpuscular Hemoglobin Concent 32 g/dL (31-37) Red Cell Distribution Width 16.0 % (11.5-14.5) Platelet Count 221 x10^3/uL (140-400) Neutrophils (%) (Auto) 67 % (31-73) Lymphocytes (%) (Auto) 22 % (24-48) Monocytes (%) (Auto) 10 % (0-9) Eosinophils (%) (Auto) 1 % (0-3) Basophils (%) (Auto) 1 % (0-3) Neutrophils # (Auto) 6.5 x10^3uL (1.8-7.7) Lymphocytes # (Auto) 2.2 x10^3/uL (1.0-4.8) Monocytes # (Auto) 0.9 x10^3/uL (0.0-1.1) Eosinophils # (Auto) 0.1 x10^3/uL (0.0-0.7) Basophils # (Auto) 0.0 x10^3/uL (0.0-0.2) Sodium Level 144 mmol/L (136-145) Potassium Level 3.6 mmol/L (3.5-5.1) Chloride Level 99 mmol/L (98-107) Carbon Dioxide Level 42 mmol/L (21-32) Anion Gap 3 (6-14) Blood Urea Nitrogen 35 mg/dL (7-20) Creatinine 1.4 mg/dL (0.6-1.0) Estimated GFR (Cockcroft-Gault) 36.3 Glucose Level 75 mg/dL (70-99) Calcium Level 8.9 mg/dL (8.5-10.1) Magnesium Level 1.8 mg/dL (1.8-2.4) Glucose (Fingerstick) 44 mg/dL (70-99) 99 mg/dL (70-99) 191 mg/dL (70-99) Medications Active Scripts Medications Dose Route/Sig Max Daily Dose Days Date Category Dose Instructions Levaquin (Levofloxacin) 500 Mg Tablet 1 Tab PO DAILY 11/23/16 Rx Prednisone 10 Mg Tablet 10 Mg PO UD 11/23/16 Rx Take 3 tablets by mouth daily for 3 days, then take 2 tablets by mouth daily for 3 days, then take 1 tablet by mouth daily for 3 days, then stop. Metformin Hcl 500 Mg Tablet 500 Mg PO BIDWMEALS 11/18/16 Reported Metoprolol Succinate ( Xl ) (Metoprolol Succinate) 25 Mg Tab.er.24h 2 Tab PO DAILY 12/12/15 Rx Glimepiride 4 Mg Tablet 1 Tab PO BID 12/05/15 Reported Ventolin Hfa Inhaler (Albuterol Sulfate) 18 Gm Hfa.aer.ad 2 Puff INH QID 12/05/15 Reported Symbicort 160-4.5 Mcg Inhaler (Budesonide/Formoterol Fumarate) 10.2 Gm Hfa.aer.ad 2 Puff IH BID 12/05/15 Reported Atorvastatin Calcium 10 Mg Tablet 1 Tab PO DAILY 12/05/15 Reported Norvasc (Amlodipine Besylate) 10 Mg Tablet 10 Mg PO DAILY 12/05/15 Reported Impression . IMPRESSION: 1. Acute on chronic respiratory failure, multifactorial in etiology secondary to acute diastolic congestive heart failure, acute exacerbation of chronic obstructive pulmonary disease 2. Acute exacerbation of chronic obstructive pulmonary disease. 3. Acute diastolic congestive heart failure. 4. Obstructive sleep apnea-hypopnea syndrome. 5. Hypertension. 6. Diabetes mellitus. 7. Anemia. 8. Allergic rhinitis. Plan . 1. Titrate FiO2 to keep O2 saturation 91%. 2. Bronchodilator. 3. Inhaled corticosteroid. 4. Continue prednisone. 5. Keep intake less than output. Continue Lasix. Monitor potassium and creatinine very closely. 6. Singulair 7. lower extremity Doppler, neg. 8. Protonix for stress ulcer prophylaxis. 9. Lovenox for DVT prophylaxis. 10. I have discussed obstructive sleep apnea-hypopnea syndrome, the importance of treatment, if untreated increased cardiovascular and [employer]CH[employer]ICIAN morbidity or mortality. She understands, but she is not willing to use CPAP. KE GARCIA MD Mar 01, 2017 12:57
[2017-03-01] MEDS ORDERED: POTASSIUM CHLORIDE 20 MEQ TABLET.ER. PO ONE (13:45)
--- NOTE | 2017-03-01 13:46 | PDOC ---
PROGRESS NOTES Chief Complaint Chief Complaint acute on chronic hypoxic respiratory failure with COPD, chf EXAcerbation CHF acute on chronic diastolic failure, COPD, chronic combined respiratory failure, obesity, BMI ; 33 cognitive decline, poor recollection daily, poss early dementia HTN PVCs DM2 with hypoglycemia plan: fu with pulm, card, MPI today replete Mag to keep >2 labs tmr Cr higher, decrease lasix 40mg iv bid to daily decrease glimepiride to 2mg daily, on aspart 5u tid, SSI NC 2 L, keep Sat >90%, pt refused CPAP with pulm echo pending pt refused to go to rehab hope dc home tmr History of Present Illness History of Present Illness hypoglycemia with glimepiride Le edema improved breathing easier, still some purse lip breathing MPI today home o2 2l, NOW AT 2l svt, pvcs. 9beat Vtach, Mag 1.8 cr higher Vitals Vitals Vital Signs Date Time Temp Pulse Resp B/P (MAP) Pulse Ox O2 Delivery O2 Flow Rate FiO2 03/01/17 11:00 98.4 72 18 142/50 (80) 90 Nasal Cannula 2.0 98.4 Physical Exam General: Alert, Oriented X3, Cooperative, mild distress Heart: Regular rate (SR with PVC), Normal S1, Normal S2, Other (S4, distal heart sounds) Lungs: Crackles (bl mild crakcles , no wheezing) Abdomen: Normal bowel sounds, Soft Extremities: No cyanosis, Other (1+ bilateral LE pitting edema, now wrinkled , and better) Skin: No breakdown, No significant lesion Labs LABS Laboratory Tests Test 02/28/17 16:16 02/28/17 20:37 03/01/17 02:42 03/01/17 03:30 Glucose (Fingerstick) 265 mg/dL (70-99) 338 mg/dL (70-99) 90 mg/dL (70-99) White Blood Count 9.7 x10^3/uL (4.0-11.0) Red Blood Count 3.49 x10^6/uL (3.50-5.40) Hemoglobin 9.1 g/dL (12.0-15.5) Hematocrit 28.9 % (36.0-47.0) Mean Corpuscular Volume 83 fL (79-100) Mean Corpuscular Hemoglobin 26 pg (25-35) Mean Corpuscular Hemoglobin Concent 32 g/dL (31-37) Red Cell Distribution Width 16.0 % (11.5-14.5) Platelet Count 221 x10^3/uL (140-400) Neutrophils (%) (Auto) 67 % (31-73) Lymphocytes (%) (Auto) 22 % (24-48) Monocytes (%) (Auto) 10 % (0-9) Eosinophils (%) (Auto) 1 % (0-3) Basophils (%) (Auto) 1 % (0-3) Neutrophils # (Auto) 6.5 x10^3uL (1.8-7.7) Lymphocytes # (Auto) 2.2 x10^3/uL (1.0-4.8) Monocytes # (Auto) 0.9 x10^3/uL (0.0-1.1) Eosinophils # (Auto) 0.1 x10^3/uL (0.0-0.7) Basophils # (Auto) 0.0 x10^3/uL (0.0-0.2) Sodium Level 144 mmol/L (136-145) Potassium Level 3.6 mmol/L (3.5-5.1) Chloride Level 99 mmol/L (98-107) Carbon Dioxide Level 42 mmol/L (21-32) Anion Gap 3 (6-14) Blood Urea Nitrogen 35 mg/dL (7-20) Creatinine 1.4 mg/dL (0.6-1.0) Estimated GFR (Cockcroft-Gault) 36.3 Glucose Level 75 mg/dL (70-99) Calcium Level 8.9 mg/dL (8.5-10.1) Magnesium Level 1.8 mg/dL (1.8-2.4) Test 03/01/17 07:38 03/01/17 08:04 03/01/17 11:34 Glucose (Fingerstick) 44 mg/dL (70-99) 99 mg/dL (70-99) 191 mg/dL (70-99) Review of Systems Review of Systems no fever, chills, chest pain Assessment and Plan Assessmemt and Plan Problems Medical Problems: (1) CHF exacerbation Status: Acute (2) COPD exacerbation Status: Acute Problems: Comment Review of Relevant I have reviewed the following items brittanie (where applicable) has been applied. Labs Laboratory Tests Test 02/27/17 17:19 02/27/17 20:56 02/28/17 07:38 02/28/17 07:51 Glucose (Fingerstick) 201 mg/dL (70-99) 183 mg/dL (70-99) 32 mg/dL (70-99) 47 mg/dL (70-99) Test 02/28/17 08:32 02/28/17 09:48 02/28/17 11:00 02/28/17 13:24 Glucose (Fingerstick) 101 mg/dL (70-99) 176 mg/dL (70-99) 293 mg/dL (70-99) Magnesium Level 2.0 mg/dL (1.8-2.4) Test 02/28/17 16:16 02/28/17 20:37 03/01/17 02:42 03/01/17 03:30 Glucose (Fingerstick) 265 mg/dL (70-99) 338 mg/dL (70-99) 90 mg/dL (70-99) White Blood Count 9.7 x10^3/uL (4.0-11.0) Red Blood Count 3.49 x10^6/uL (3.50-5.40) Hemoglobin 9.1 g/dL (12.0-15.5) Hematocrit 28.9 % (36.0-47.0) Mean Corpuscular Volume 83 fL (79-100) Mean Corpuscular Hemoglobin 26 pg (25-35) Mean Corpuscular Hemoglobin Concent 32 g/dL (31-37) Red Cell Distribution Width 16.0 % (11.5-14.5) Platelet Count 221 x10^3/uL (140-400) Neutrophils (%) (Auto) 67 % (31-73) Lymphocytes (%) (Auto) 22 % (24-48) Monocytes (%) (Auto) 10 % (0-9) Eosinophils (%) (Auto) 1 % (0-3) Basophils (%) (Auto) 1 % (0-3) Neutrophils # (Auto) 6.5 x10^3uL (1.8-7.7) Lymphocytes # (Auto) 2.2 x10^3/uL (1.0-4.8) Monocytes # (Auto) 0.9 x10^3/uL (0.0-1.1) Eosinophils # (Auto) 0.1 x10^3/uL (0.0-0.7) Basophils # (Auto) 0.0 x10^3/uL (0.0-0.2) Sodium Level 144 mmol/L (136-145) Potassium Level 3.6 mmol/L (3.5-5.1) Chloride Level 99 mmol/L (98-107) Carbon Dioxide Level 42 mmol/L (21-32) Anion Gap 3 (6-14) Blood Urea Nitrogen 35 mg/dL (7-20) Creatinine 1.4 mg/dL (0.6-1.0) Estimated GFR (Cockcroft-Gault) 36.3 Glucose Level 75 mg/dL (70-99) Calcium Level 8.9 mg/dL (8.5-10.1) Magnesium Level 1.8 mg/dL (1.8-2.4) Test 03/01/17 07:38 03/01/17 08:04 03/01/17 11:34 Glucose (Fingerstick) 44 mg/dL (70-99) 99 mg/dL (70-99) 191 mg/dL (70-99) Laboratory Tests Test 02/28/17 16:16 02/28/17 20:37 03/01/17 02:42 03/01/17 03:30 Glucose (Fingerstick) 265 mg/dL (70-99) 338 mg/dL (70-99) 90 mg/dL (70-99) White Blood Count 9.7 x10^3/uL (4.0-11.0) Red Blood Count 3.49 x10^6/uL (3.50-5.40) Hemoglobin 9.1 g/dL (12.0-15.5) Hematocrit 28.9 % (36.0-47.0) Mean Corpuscular Volume 83 fL (79-100) Mean Corpuscular Hemoglobin 26 pg (25-35) Mean Corpuscular Hemoglobin Concent 32 g/dL (31-37) Red Cell Distribution Width 16.0 % (11.5-14.5) Platelet Count 221 x10^3/uL (140-400) Neutrophils (%) (Auto) 67 % (31-73) Lymphocytes (%) (Auto) 22 % (24-48) Monocytes (%) (Auto) 10 % (0-9) Eosinophils (%) (Auto) 1 % (0-3) Basophils (%) (Auto) 1 % (0-3) Neutrophils # (Auto) 6.5 x10^3uL (1.8-7.7) Lymphocytes # (Auto) 2.2 x10^3/uL (1.0-4.8) Monocytes # (Auto) 0.9 x10^3/uL (0.0-1.1) Eosinophils # (Auto) 0.1 x10^3/uL (0.0-0.7) Basophils # (Auto) 0.0 x10^3/uL (0.0-0.2) Sodium Level 144 mmol/L (136-145) Potassium Level 3.6 mmol/L (3.5-5.1) Chloride Level 99 mmol/L (98-107) Carbon Dioxide Level 42 mmol/L (21-32) Anion Gap 3 (6-14) Blood Urea Nitrogen 35 mg/dL (7-20) Creatinine 1.4 mg/dL (0.6-1.0) Estimated GFR (Cockcroft-Gault) 36.3 Glucose Level 75 mg/dL (70-99) Calcium Level 8.9 mg/dL (8.5-10.1) Magnesium Level 1.8 mg/dL (1.8-2.4) Test 03/01/17 07:38 03/01/17 08:04 03/01/17 11:34 Glucose (Fingerstick) 44 mg/dL (70-99) 99 mg/dL (70-99) 191 mg/dL (70-99) Medications Current Medications Albuterol/ Ipratropium (Duoneb) 3 ml 1X ONCE NEB Last administered on t 18:38; Start 02/26/17 at 18:45; Stop 02/26/17 at 18:46; Status DC Dexamethasone Sodium Phosphate (Decadron) 8 mg 1X ONCE IV Last administered on 02/26/17t 18:42; Start 02/26/17 at 18:45; Stop 02/26/17 at 18:46; Status DC Nitroglycerin (Nitro-Bid Oint) 1 inch 1X ONCE TP ; Start 02/26/17 at 19:45; Stop 02/26/17 at 19:46; Status DC Furosemide (Lasix) 40 mg 1X ONCE PO Last administered on 02/26/17 19:52; Start 02/26/17 at 19:45; Stop 02/26/17 at 19:46; Status DC Ondansetron HCl (Zofran) 4 mg PRN Q8HRS PRN IV NAUSEA/VOMITING; Start 02/26/17 at 19:45; Stop 02/27/17 at 19:44; Status DC Fentanyl Citrate (Fentanyl 2ml Vial) 50 mcg PRN Q2HR PRN IV PAIN; Start at 19:45; Stop 02/27/17 at 19:44; Status DC Albuterol/ Ipratropium (Duoneb) 3 ml Q4HRS W/A NEB Last administered on 07:30; Start 02/27/17 at 06:00; Stop 02/28/17 at 07:51; Status DC Budesonide (Pulmicort) 0.5 mg RTBID NEB Last administered on 03/01/17 07:28; Start 02/27/17 at 08:00 Furosemide (Lasix) 40 mg BID92 IVP Last administered on 03/01/17 10:04; Start 02/27/17 at 09:00 Magnesium Sulfate/ Dextrose 50 ml @ 25 mls/hr 1X ONCE IV Last administered on 02/26/17 23:37; Start 02/26/17 at 23:00; Stop 02/27/17 at 00:59; Status DC Amlodipine Besylate (Norvasc) 10 mg DAILY PO Last administered on 03/01/17 10: 06; Start 02/27/17 at 09:00 Atorvastatin Calcium (Lipitor) 10 mg QHS PO Last administered on 02/28/17 21: 03; Start 02/27/17 at 21:00 Metoprolol Succinate (Toprol Xl) 50 mg DAILY PO Last administered on 03/01/17 10:05; Start 02/27/17 at 09:00 Glimepiride (Amaryl) 4 mg BIDWMEALS PO Last administered on 02/28/17 18:03; Start 02/27/17 at 08:00; Stop 03/01/17 at 08:06; Status DC Insulin Aspart (NovoLOG) 0-7 UNITS QIDACHS SQ Last administered on 02/27/17 08 :36; Start 02/27/17 at 07:30; Stop 02/27/17 at 11:04; Status DC Dextrose (Dextrose 50%-Water Syringe) 12.5 gm PRN Q15MIN PRN IV SEE COMMENTS; Start 02/26/17 at 22:45 Methylprednisolone Sodium Succinate (SOLU-Medrol 40MG VIAL) 40 mg 1X ONCE IV Last administered on 02/26/17 23:40; Start 02/26/17 at 23:00; Stop 02/26/17 at 23:01; Status DC Prednisone (Prednisone) 40 mg DAILY PO Last administered on 03/01/17 10:04; Start 02/27/17 at 09:00 Enoxaparin Sodium (Lovenox 30mg Syringe) 30 mg Q24H SQ Last administered on 18:04; Start 02/27/17 at 16:00 Pantoprazole Sodium (Protonix) 40 mg DAILYAC PO Last administered on 03/01/17 10:06; Start 02/27/17 at 10:00 Montelukast Sodium (Singulair) 10 mg QHS PO Last administered on 02/28/17 21: 03; Start 02/27/17 at 21:00 Insulin Detemir (Levemir) 22 units 1X ONCE SQ Last administered on 02/27/17 12:39; Start 02/27/17 at 11:45; Stop 02/27/17 at 11:46; Status DC Insulin Aspart (NovoLOG) 10 units TIDAC SQ Last administered on 02/27/17 17:35 ; Start 02/27/17 at 11:30; Stop 02/28/17 at 09:16; Status DC Insulin Aspart (NovoLOG) 0-9 UNITS TIDWMEALS SQ Last administered on 02/28/17 18:11; Start 02/27/17 at 12:00 Dextrose (Dextrose 50%-Water Syringe) 12.5 gm PRN Q15MIN PRN IV SEE COMMENTS; Start 02/27/17 at 11:15; Stop 02/27/17 at 14:21; Status DC Aspirin (Ecotrin) 81 mg DAILYWBKFT PO Last administered on 03/01/17 10:05; Start 02/27/17 at 11:30 Albuterol/ Ipratropium (Duoneb) 3 ml RTQID NEB Last administered on 03/01/17 07:27; Start 02/28/17 at 12:00 Dextrose 250 ml @ As Directed STK-MED ONCE IV ; Start 02/28/17 at 08:03; Stop 02/28/17 at 08:04; Status DC Magnesium Sulfate/ Dextrose 50 ml @ 25 mls/hr PRN 1X PRN IV magnesium level less than 2; Start 02/28/17 at 09:15 Insulin Aspart (NovoLOG) 5 units TIDAC SQ Last administered on 02/28/17 18:10 ; Start 02/28/17 at 11:30 Insulin Aspart (NovoLOG) 5 units 1X ONCE SQ Last administered on 02/28/17 21: 10; Start 02/28/17 at 21:30; Stop 02/28/17 at 21:31; Status DC Albuterol Sulfate (Ventolin Neb Soln) 2.5 mg PRN Q4HRS PRN NEB SHORTNESS OF BREATH; Start 03/01/17 at 08:15 Regadenoson (Lexiscan) 0.4 mg 1X ONCE IV Last administered on 03/01/17 09:34 ; Start 03/01/17 at 08:45; Stop 03/01/17 at 08:46; Status DC Magnesium Sulfate/ Dextrose 50 ml @ 25 mls/hr 1X ONCE IV Last administered on 03/01/17 11:03; Start 03/01/17 at 10:15; Stop 03/01/17 at 12:14; Status DC Active Scripts Active Levaquin (Levofloxacin) 500 Mg Tablet 1 Tab PO DAILY Prednisone 10 Mg Tablet 10 Mg PO UD Take 3 tablets by mouth daily for 3 days, then take 2 tablets by mouth daily for 3 days, then take 1 tablet by mouth daily for 3 days, then stop. Metoprolol Succinate ( Xl ) (Metoprolol Succinate) 25 Mg Tab.er.24h 2 Tab PO DAILY Reported Metformin Hcl 500 Mg Tablet 500 Mg PO BIDWMEALS Glimepiride 4 Mg Tablet 1 Tab PO BID Ventolin Hfa Inhaler (Albuterol Sulfate) 18 Gm Hfa.aer.ad 2 Puff INH QID Symbicort 160-4.5 Mcg Inhaler (Budesonide/Formoterol Fumarate) 10.2 Gm Hfa.aer.ad 2 Puff IH BID Atorvastatin Calcium 10 Mg Tablet 1 Tab PO DAILY Norvasc (Amlodipine Besylate) 10 Mg Tablet 10 Mg PO DAILY Vitals/I & O Vital Sign - Last 24 Hours 02/28/17 02/28/17 02/28/17 02/28/17 14:35 15:43 19:00 19:05 Temp 97.9 97.5 97.9 97.5 Pulse 95 106 Resp 34 18 B/P (MAP) 136/75 (95) 139/83 (101) Pulse Ox 94 92 O2 Delivery Nasal Cannula Nasal Cannula Nasal Cannula Nasal Cannula O2 Flow Rate 4.0 2.0 4.0 2.0 02/28/17 02/28/17 03/01/17 03/01/17 20:00 23:00 03:00 07:00 Temp 97.3 97.9 97.8 97.3 97.9 97.8 Pulse 92 84 82 Resp 18 18 18 B/P (MAP) 144/66 (92) 149/70 (96) 142/69 (93) Pulse Ox 95 93 100 O2 Delivery Nasal Cannula Nasal Cannula Nasal Cannula Nasal Cannula O2 Flow Rate 4.0 4.0 4.0 2.0 03/01/17 03/01/17 03/01/17 03/01/17 07:28 08:00 10:05 10:06 Pulse 82 82 B/P (MAP) 142/69 142/69 Pulse Ox 96 O2 Delivery Nasal Cannula Nasal Cannula O2 Flow Rate 2.0 4.0 03/01/17 11:00 Temp 98.4 98.4 Pulse 72 Resp 18 B/P (MAP) 142/50 (80) Pulse Ox 90 O2 Delivery Nasal Cannula O2 Flow Rate 2.0 Intake and Output 02/28/17 02/28/17 03/01/17 15:00 23:00 07:00 Intake Total 1320 ml 360 ml 200 ml Balance 1320 ml 360 ml 200 ml IDA RUANO MD Mar 01, 2017 13:46
--- NOTE | 2017-03-01 13:51 | PDOC ---
SUSAN DOUGLAS [employer] PERSON 03/01/17 1351: CARDIO Progress Notes Date and Time Date of Service 03/01/2017 Time of Evaluation 1200 Subjective Subjective: No Chest Pain, No shortness of breath, No Palpitations, No Dizziness, Other (sitting up eating lunch and denies any discomfort) Vitals Vitals Vital Signs Date Time Temp Pulse Resp B/P (MAP) Pulse Ox O2 Delivery O2 Flow Rate FiO2 03/01/17 11:00 98.4 72 18 142/50 (80) 90 Nasal Cannula 2.0 98.4 Weight Weight [ ] Input and Output Intake and Output Intake and Output 03/01/17 07:00 Intake Total 1880 ml Balance 1880 ml Intake Oral 1880 ml # Voids 2 Laboratory Labs Laboratory Tests Test 02/28/17 16:16 02/28/17 20:37 03/01/17 02:42 03/01/17 03:30 Glucose (Fingerstick) 265 mg/dL (70-99) 338 mg/dL (70-99) 90 mg/dL (70-99) White Blood Count 9.7 x10^3/uL (4.0-11.0) Red Blood Count 3.49 x10^6/uL (3.50-5.40) Hemoglobin 9.1 g/dL (12.0-15.5) Hematocrit 28.9 % (36.0-47.0) Mean Corpuscular Volume 83 fL (79-100) Mean Corpuscular Hemoglobin 26 pg (25-35) Mean Corpuscular Hemoglobin Concent 32 g/dL (31-37) Red Cell Distribution Width 16.0 % (11.5-14.5) Platelet Count 221 x10^3/uL (140-400) Neutrophils (%) (Auto) 67 % (31-73) Lymphocytes (%) (Auto) 22 % (24-48) Monocytes (%) (Auto) 10 % (0-9) Eosinophils (%) (Auto) 1 % (0-3) Basophils (%) (Auto) 1 % (0-3) Neutrophils # (Auto) 6.5 x10^3uL (1.8-7.7) Lymphocytes # (Auto) 2.2 x10^3/uL (1.0-4.8) Monocytes # (Auto) 0.9 x10^3/uL (0.0-1.1) Eosinophils # (Auto) 0.1 x10^3/uL (0.0-0.7) Basophils # (Auto) 0.0 x10^3/uL (0.0-0.2) Sodium Level 144 mmol/L (136-145) Potassium Level 3.6 mmol/L (3.5-5.1) Chloride Level 99 mmol/L (98-107) Carbon Dioxide Level 42 mmol/L (21-32) Anion Gap 3 (6-14) Blood Urea Nitrogen 35 mg/dL (7-20) Creatinine 1.4 mg/dL (0.6-1.0) Estimated GFR (Cockcroft-Gault) 36.3 Glucose Level 75 mg/dL (70-99) Calcium Level 8.9 mg/dL (8.5-10.1) Magnesium Level 1.8 mg/dL (1.8-2.4) Test 03/01/17 07:38 03/01/17 08:04 03/01/17 11:34 Glucose (Fingerstick) 44 mg/dL (70-99) 99 mg/dL (70-99) 191 mg/dL (70-99) Physical Exam HEENT: Neck Supple W Full Motion Chest: Symmetric LUNGS: Clear to Auscultation Heart: S1S2, RRR (SR with PVCs) Abdomen: Soft N/T Extremities: No Calf Tenderness Neurology: alert, oriented, follow commands Assessment Assessment 1. AECOPD: improved. Per pulmonary 2. Acute on chronic diastolic CHF: Compensated 3. HTN: controlled 4. DM2/HLP 5. Arrhythmia: brief episodes of SVT. Frequent PVCs 6. Multiple hypoglycemic reaction: erratic control mainly in AM, defer to PCP 7. Suspecting CKD3 Recommendations 1. Notable for increasing Cr with likely contraction alkalosis. DC IV lasix. 2. K and Mg replacement today 3. MPI completion today. Continue with BB and secondary prevention 4. Follow up in office in 4 weeks 5. Avoid hypoglycemic episodes 6. If Cr better tomorrow, would recommend start of ACEi or ARB with HCTZ. BECKA FRANCOIS MD 03/01/17 8899: CARDIO Progress Notes Assessment Assessment Patient seen and examined. Agree with SPECTROGRAPH OPERATOR's assessment and plan. Lexiscan nuclear stress test did not show any significant ischemia. Acute on chronic diastolic heart failure better compensated. Agree with holding Lasix for over diuresis. Continue treatment of COPD exacerbation per pulmonary team. SUSAN DOUGLAS APRN Mar 01, 2017 13:51 BECKA FRANCOIS MD Mar 01, 2017 15:25
--- NOTE | 2017-03-01 13:52 | RAD ---
APPROVED REPORT Test Type: Pharmacological Stress Nurse/Tech: dontae whitfield Test Indications: chest pain Cardiac History: HTN, SEE EHR Medications: SEE EHR Medical History: COPD, PAST SMOKING HISTORY,DIABETES, SEE EHR Resting ECG: SR WITH PVC'S AND PAC'S Resting Heart Rate: 80 bpm Resting Blood Pressure: 156/72mmHg Pretest Chest Pain: No chest pain Nurse/Tech Notes LUNG SOUNDS CLEAR, S1S2 WNL. Consent: The procedure was explained to the patient in lay terms. Informed consent was witnessed. Javid eout was entered into [email or web address]. History and Stress Test performed by RT Michael (R) (N) Pharm. Details Pharmacologic stress testing was performed using 0.4mg per 5ml of regadenoson given intravenously ove r 7-10 seconds. Stress Symptoms NONE STATED. POST EXERCISE Reason for Termination: Infusion complete Max HR: 116 bpm Max Blood Pressure: 156/72mmHg Chest Pain: No. Arrhythmia: No. ST Change: No. INTERPRETATION Stress EKG Conclusion: Baseline EKG showed sinus rhythm with PVC's. No ischemic changes at peak stre ss. No significant arrhythmias. Imaging Protocol IMAGE PROTOCOL: Rest Tc-99m/stress Tc-99m 1 day Rest: Stress: Viability: Radiopharm.Tc99m [id number] Sestamibi [id number] 33mCi Duration 15min. 10min. Img Date 03/01/2017 03/01/2017 Inj-Img [id number]. 60min. Rest Admin Site:IV - Left WristAdministrator:RT Juanito (R)(N) Stress Admin Site: IV - Left WristAdministrator: RT Michael (R)(N) STRESS DATA End Diast. Vol.121.0mlAv. Heart Rate74.0bpm End Syst. Vol.52.0mlCO Index BSA0.0L/min Myocardial Ptze410.0gEject. Fdrorbpn63.0% Stress Rates Pk. Fill Rate2.67EDV/secLVtime Pk. Fill 159.10msec Pk. Empty Rate2.76ESV/secLVtime Pk. Lnpjs036.54msec 07/14 Pk. Fill0.86EDV/sec Stress Scores Regional WT3.00Summed WT24.00 Regional WM0.00Summed WM7.00 LV Perfusion Scintigraphic images showed breast attenuation artifact without any other fixed or reversible defects Wall Motion Normal left ventricular systolic function with ejection fraction calculated at 57%. LV Perf. Quant 17 Seg. SSS9.00 17 Seg. SRS7.00 17 Seg. SDS2.00 Stress Defect Extent (% LAD)21.90Rest Defect Extent (% LAD)10.60Rev. Defect Extent (% LAD)0.60 Stress Defect Extent (% LCX) 30.00Rest Defect Extent (% LCX)25.00Rev. Defect Extent (% LCX)0.00 Stress Defect Extent (% RCA)0.00Rest Defect Extent (% RCA)0.00Rev. Defect Extent (% RCA)0.00 Stress Defect Extent (% SERGE)18.50Rest Defect Extent (% SERGE)10.40Rev. Defect Extent (% SERGE)0.40 Conclusion 1. Regadenoson cardioisotope stress test showed breast attenuation artifact without any evidence of i schemia or infarct. 2. Normal left ventricular systolic function with ejection fraction calculated at 57%. 3. Low risk for cardiac events.
[2017-03-01] MEDS: MAGNESIUM SULFATE 1GM 100 ML IV ONE ×2 (14:30→17:16)
[2017-03-01 15:00] VITALS: BP 121/59
[2017-03-01] MEDS: ENOXAPARIN 30 MG/0.3 ML SYRINGE. SQ SCH (17:16)
[2017-03-01 19:45] VITALS: BP 150/67
[2017-03-01] MEDS ORDERED: INSULIN ASPART 300 UNITS/3 ML INSULN.PEN SQ ONE (21:00)
[2017-03-01] MEDS: ATORVASTATIN CALCIUM 10 MG TABLET. PO SCH (21:03)
[2017-03-01] MEDS: MONTELUKAST SODIUM 10 MG TABLET. PO SCH (21:03)
[2017-03-01 23:26] VITALS: BP 155/79
[2017-03-02 03:56] VITALS: BP 148/88
[2017-03-02 07:00] VITALS: BP 136/70
[2017-03-02 07:03] LABS: BASO # 0.1 x10^3/uL (0.0-0.2); BASO % 1 % (0-3); EOS % 1 % (0-3); HEMATOCRIT 34.3 % (36.0-47.0); HEMOGLOBIN 10.7 g/dL (12.0-15.5); LYMPH # 2.3 x10^3/uL (1.0-4.8); LYMPH % 22 % (24-48); MEAN CORPUSCULAR HEMOGLOBIN 26 pg (25-35); MEAN CORPUSCULAR HGB CONC 31 g/dL (31-37); MEAN CORPUSCULAR VOLUME 84 fL (79-100); MONO % 10 % (0-9); NEUT % 66 % (31-73); PLATELET COUNT 232 x10^3/uL (140-400); RED BLOOD COUNT 4.08 x10^6/uL (3.50-5.40); WHITE BLOOD COUNT 10.6 x10^3/uL (4.0-11.0)
[2017-03-02 07:30] LABS: CALCIUM 9.1 mg/dL (8.5-10.1); CREATININE 1.2 mg/dL (0.6-1.0); GFR 43.3; MAGNESIUM 2.8 mg/dL (1.8-2.4)
[2017-03-02] MEDS: INSULIN ASPART 300 UNITS/3 ML INSULN.PEN SQ SCH ×4 (07:30→11:45)
[2017-03-02] MEDS: IPRATRPIUM/ALBUTEROL 0.5/2.5MG 3 ML NEBU. NEB SCH ×2 (07:42→11:19)
[2017-03-02] MEDS: BUDESONIDE 0.5 MG/2 ML NEBU. NEB SCH (07:42)
[2017-03-02] MEDS: GLIMEPIRIDE 2 MG TABLET. PO SCH (08:59)
[2017-03-02] MEDS: predniSONE 20 MG TABLET PO SCH (08:59)
[2017-03-02] MEDS: PANTOPRAZOLE 40 MG TABLET.DR. PO SCH (08:59)
[2017-03-02] MEDS: ASPIRIN ENTERIC COATED 81 MG TABLET.DR. PO SCH (08:59)
[2017-03-02] MEDS ORDERED: FUROSEMIDE 40 MG/4 ML VIAL. IVP SCH (09:00)
[2017-03-02] MEDS: amLODIPine BESYLATE 10 MG TABLET PO SCH (09:00)
[2017-03-02] MEDS: METOPROLOL SUCC 24HR ER 50 MG TAB.ER.24H. PO SCH (09:00)
--- NOTE | 2017-03-02 09:26 | RAD ---
Exam performed: One view chest. Indication: copd,chf Date of Service: 03/02/2017 10:38 AM Comparison: 02/26/17. Single AP upright portable view chest findings: Cardiomediastinal silhouette is within limits of normal. No acute infiltrates, effusion or pneumothorax is detected. The bony structures are normal. Impression: No acute cardiopulmonary process is detected.
[2017-03-02] MEDS ORDERED: METH4TAB2 PO (10:58)
[2017-03-02] MEDS ORDERED: LISI-338 PO (10:58)
[2017-03-02 11:00] VITALS: BP 127/59
--- NOTE | 2017-03-02 11:00 | PDOC3 ---
Discharge Summary Visit Information Date of Admission: Feb 26, 2017 Date of Discharge: Mar 02, 2017 Admitting Diagnosis Comment: acute on chronic hypoxic respiratory failure with COPD, chf EXAcerbation CHF acute on chronic diastolic failure, COPD, chronic combined respiratory failure, obesity, BMI ; 33 cognitive decline, poor recollection daily, poss early dementia HTN PVCs DM2 with hypoglycemia Final Diagnosis Problems Medical Problems: (1) CHF exacerbation Status: Acute (2) COPD exacerbation Status: Acute Brief Hospital Course Allergies Allergies Coded Allergies Type Severity Reaction Last Updated Verified No Known Drug Allergies 12/04/15 No Vital Signs Vital Signs Date Time Temp Pulse Resp B/P (MAP) Pulse Ox O2 Delivery O2 Flow Rate FiO2 03/02/17 09:00 86 136/70 03/02/17 07:50 Nasal Cannula 2.0 03/02/17 07:43 97 03/02/17 07:00 98.7 18 98.7 Lab Results Laboratory Tests Test 02/28/17 11:00 02/28/17 13:24 02/28/17 16:16 02/28/17 20:37 Glucose (Fingerstick) 176 mg/dL (70-99) 293 mg/dL (70-99) 265 mg/dL (70-99) 338 mg/dL (70-99) Test 03/01/17 02:42 03/01/17 03:30 03/01/17 07:38 03/01/17 08:04 Glucose (Fingerstick) 90 mg/dL (70-99) 44 mg/dL (70-99) 99 mg/dL (70-99) White Blood Count 9.7 x10^3/uL (4.0-11.0) Red Blood Count 3.49 x10^6/uL (3.50-5.40) Hemoglobin 9.1 g/dL (12.0-15.5) Hematocrit 28.9 % (36.0-47.0) Mean Corpuscular Volume 83 fL (79-100) Mean Corpuscular Hemoglobin 26 pg (25-35) Mean Corpuscular Hemoglobin Concent 32 g/dL (31-37) Red Cell Distribution Width 16.0 % (11.5-14.5) Platelet Count 221 x10^3/uL (140-400) Neutrophils (%) (Auto) 67 % (31-73) Lymphocytes (%) (Auto) 22 % (24-48) Monocytes (%) (Auto) 10 % (0-9) Eosinophils (%) (Auto) 1 % (0-3) Basophils (%) (Auto) 1 % (0-3) Neutrophils # (Auto) 6.5 x10^3uL (1.8-7.7) Lymphocytes # (Auto) 2.2 x10^3/uL (1.0-4.8) Monocytes # (Auto) 0.9 x10^3/uL (0.0-1.1) Eosinophils # (Auto) 0.1 x10^3/uL (0.0-0.7) Basophils # (Auto) 0.0 x10^3/uL (0.0-0.2) Sodium Level 144 mmol/L (136-145) Potassium Level 3.6 mmol/L (3.5-5.1) Chloride Level 99 mmol/L (98-107) Carbon Dioxide Level 42 mmol/L (21-32) Anion Gap 3 (6-14) Blood Urea Nitrogen 35 mg/dL (7-20) Creatinine 1.4 mg/dL (0.6-1.0) Estimated GFR (Cockcroft-Gault) 36.3 Glucose Level 75 mg/dL (70-99) Calcium Level 8.9 mg/dL (8.5-10.1) Magnesium Level 1.8 mg/dL (1.8-2.4) Test 03/01/17 11:34 03/01/17 16:23 03/01/17 20:45 03/02/17 05:54 Glucose (Fingerstick) 191 mg/dL (70-99) 377 mg/dL (70-99) 549 mg/dL (70-99) White Blood Count 10.6 x10^3/uL (4.0-11.0) Red Blood Count 4.08 x10^6/uL (3.50-5.40) Hemoglobin 10.7 g/dL (12.0-15.5) Hematocrit 34.3 % (36.0-47.0) Mean Corpuscular Volume 84 fL (79-100) Mean Corpuscular Hemoglobin 26 pg (25-35) Mean Corpuscular Hemoglobin Concent 31 g/dL (31-37) Red Cell Distribution Width 16.0 % (11.5-14.5) Platelet Count 232 x10^3/uL (140-400) Neutrophils (%) (Auto) 66 % (31-73) Lymphocytes (%) (Auto) 22 % (24-48) Monocytes (%) (Auto) 10 % (0-9) Eosinophils (%) (Auto) 1 % (0-3) Basophils (%) (Auto) 1 % (0-3) Neutrophils # (Auto) 7.0 x10^3uL (1.8-7.7) Lymphocytes # (Auto) 2.3 x10^3/uL (1.0-4.8) Monocytes # (Auto) 1.1 x10^3/uL (0.0-1.1) Eosinophils # (Auto) 0.1 x10^3/uL (0.0-0.7) Basophils # (Auto) 0.1 x10^3/uL (0.0-0.2) Sodium Level 144 mmol/L (136-145) Potassium Level 4.0 mmol/L (3.5-5.1) Chloride Level 100 mmol/L (98-107) Carbon Dioxide Level 39 mmol/L (21-32) Anion Gap 5 (6-14) Blood Urea Nitrogen 36 mg/dL (7-20) Creatinine 1.2 mg/dL (0.6-1.0) Estimated GFR (Cockcroft-Gault) 43.3 Glucose Level 41 mg/dL (70-99) Calcium Level 9.1 mg/dL (8.5-10.1) Magnesium Level 2.8 mg/dL (1.8-2.4) Test 03/02/17 07:26 Glucose (Fingerstick) 61 mg/dL (70-99) Laboratory Tests Test 03/01/17 11:34 03/01/17 16:23 03/01/17 20:45 03/02/17 05:54 Glucose (Fingerstick) 191 mg/dL (70-99) 377 mg/dL (70-99) 549 mg/dL (70-99) White Blood Count 10.6 x10^3/uL (4.0-11.0) Red Blood Count 4.08 x10^6/uL (3.50-5.40) Hemoglobin 10.7 g/dL (12.0-15.5) Hematocrit 34.3 % (36.0-47.0) Mean Corpuscular Volume 84 fL (79-100) Mean Corpuscular Hemoglobin 26 pg (25-35) Mean Corpuscular Hemoglobin Concent 31 g/dL (31-37) Red Cell Distribution Width 16.0 % (11.5-14.5) Platelet Count 232 x10^3/uL (140-400) Neutrophils (%) (Auto) 66 % (31-73) Lymphocytes (%) (Auto) 22 % (24-48) Monocytes (%) (Auto) 10 % (0-9) Eosinophils (%) (Auto) 1 % (0-3) Basophils (%) (Auto) 1 % (0-3) Neutrophils # (Auto) 7.0 x10^3uL (1.8-7.7) Lymphocytes # (Auto) 2.3 x10^3/uL (1.0-4.8) Monocytes # (Auto) 1.1 x10^3/uL (0.0-1.1) Eosinophils # (Auto) 0.1 x10^3/uL (0.0-0.7) Basophils # (Auto) 0.1 x10^3/uL (0.0-0.2) Sodium Level 144 mmol/L (136-145) Potassium Level 4.0 mmol/L (3.5-5.1) Chloride Level 100 mmol/L (98-107) Carbon Dioxide Level 39 mmol/L (21-32) Anion Gap 5 (6-14) Blood Urea Nitrogen 36 mg/dL (7-20) Creatinine 1.2 mg/dL (0.6-1.0) Estimated GFR (Cockcroft-Gault) 43.3 Glucose Level 41 mg/dL (70-99) Calcium Level 9.1 mg/dL (8.5-10.1) Magnesium Level 2.8 mg/dL (1.8-2.4) Test 03/02/17 07:26 Glucose (Fingerstick) 61 mg/dL (70-99) Brief Hospital Course Ms. Daniels is a 81 old AA female admitted for CP and SOA, MPI low risk study, CXR twice is neg, On home O2 24.7 for COPD, on inhalers - sometimes not taking bec too expensive cant afford,. Cleared from cards to dc. SOme adjustments with BP meds per [place], to dec norvasc to 5 from 10 to allow lisinopril 5 mg PO qD in this diabetic, BS was 60 then 500, was on steroids for COPD but no PNA on cXR Rx given PT recs SNU, does not want, agreeable to HH DispO; COnsults; CArds Time 32 mins Dw RN tristan Discharge Information Condition at Discharge: Stable Disposition/Orders: D/C to Home w/ HH Scheduled Albuterol Sulfate (Ventolin Hfa Inhaler), 2 PUFF INH QID, (Reported) Amlodipine Besylate (Norvasc), 10 MG PO DAILY, (Reported) Atorvastatin Calcium (Atorvastatin Calcium), 1 TAB PO DAILY, (Reported) Budesonide/Formoterol Fumarate (Symbicort 160-4.5 Mcg Inhaler), 2 PUFF IH BID, ( Reported) Glimepiride (Glimepiride), 1 TAB PO BID, (Reported) Levofloxacin (Levaquin), 1 TAB PO DAILY Metformin Hcl (Metformin Hcl), 500 MG PO BIDWMEALS, (Reported) Metoprolol Succinate (Metoprolol Succinate ( Xl )), 2 TAB PO DAILY Prednisone (Prednisone), 10 MG PO UD MICHAEL ODONNELL MD Mar 02, 2017 11:00
--- NOTE | 2017-03-02 11:06 | PDOC ---
PULMONARY PROGRESS NOTES Subjective feels better, sob better, no cough, cp, Vitals Vital Signs Date Time Temp Pulse Resp B/P (MAP) Pulse Ox O2 Delivery O2 Flow Rate FiO2 03/02/17 09:00 86 136/70 03/02/17 07:50 Nasal Cannula 2.0 03/02/17 07:43 97 03/02/17 07:00 98.7 18 98.7 ROS: No Nausea, No Chest Pain General: Alert, No acute distress HEENT: Other (nc at perrl nose throat clear) Lungs: Other (DECREASE BS) Cardiovascular: S1, S2 Abdomen: Soft, Non-tender Neuro Exam: Alert, Oriented Extremities: No Edema, Other Skin: Warm Labs Laboratory Tests Test 02/28/17 13:24 02/28/17 16:16 02/28/17 20:37 03/01/17 02:42 Glucose (Fingerstick) 293 mg/dL (70-99) 265 mg/dL (70-99) 338 mg/dL (70-99) 90 mg/dL (70-99) Test 03/01/17 03:30 03/01/17 07:38 03/01/17 08:04 03/01/17 11:34 White Blood Count 9.7 x10^3/uL (4.0-11.0) Red Blood Count 3.49 x10^6/uL (3.50-5.40) Hemoglobin 9.1 g/dL (12.0-15.5) Hematocrit 28.9 % (36.0-47.0) Mean Corpuscular Volume 83 fL (79-100) Mean Corpuscular Hemoglobin 26 pg (25-35) Mean Corpuscular Hemoglobin Concent 32 g/dL (31-37) Red Cell Distribution Width 16.0 % (11.5-14.5) Platelet Count 221 x10^3/uL (140-400) Neutrophils (%) (Auto) 67 % (31-73) Lymphocytes (%) (Auto) 22 % (24-48) Monocytes (%) (Auto) 10 % (0-9) Eosinophils (%) (Auto) 1 % (0-3) Basophils (%) (Auto) 1 % (0-3) Neutrophils # (Auto) 6.5 x10^3uL (1.8-7.7) Lymphocytes # (Auto) 2.2 x10^3/uL (1.0-4.8) Monocytes # (Auto) 0.9 x10^3/uL (0.0-1.1) Eosinophils # (Auto) 0.1 x10^3/uL (0.0-0.7) Basophils # (Auto) 0.0 x10^3/uL (0.0-0.2) Sodium Level 144 mmol/L (136-145) Potassium Level 3.6 mmol/L (3.5-5.1) Chloride Level 99 mmol/L (98-107) Carbon Dioxide Level 42 mmol/L (21-32) Anion Gap 3 (6-14) Blood Urea Nitrogen 35 mg/dL (7-20) Creatinine 1.4 mg/dL (0.6-1.0) Estimated GFR (Cockcroft-Gault) 36.3 Glucose Level 75 mg/dL (70-99) Calcium Level 8.9 mg/dL (8.5-10.1) Magnesium Level 1.8 mg/dL (1.8-2.4) Glucose (Fingerstick) 44 mg/dL (70-99) 99 mg/dL (70-99) 191 mg/dL (70-99) Test 03/01/17 16:23 03/01/17 20:45 03/02/17 05:54 03/02/17 07:26 Glucose (Fingerstick) 377 mg/dL (70-99) 549 mg/dL (70-99) 61 mg/dL (70-99) White Blood Count 10.6 x10^3/uL (4.0-11.0) Red Blood Count 4.08 x10^6/uL (3.50-5.40) Hemoglobin 10.7 g/dL (12.0-15.5) Hematocrit 34.3 % (36.0-47.0) Mean Corpuscular Volume 84 fL (79-100) Mean Corpuscular Hemoglobin 26 pg (25-35) Mean Corpuscular Hemoglobin Concent 31 g/dL (31-37) Red Cell Distribution Width 16.0 % (11.5-14.5) Platelet Count 232 x10^3/uL (140-400) Neutrophils (%) (Auto) 66 % (31-73) Lymphocytes (%) (Auto) 22 % (24-48) Monocytes (%) (Auto) 10 % (0-9) Eosinophils (%) (Auto) 1 % (0-3) Basophils (%) (Auto) 1 % (0-3) Neutrophils # (Auto) 7.0 x10^3uL (1.8-7.7) Lymphocytes # (Auto) 2.3 x10^3/uL (1.0-4.8) Monocytes # (Auto) 1.1 x10^3/uL (0.0-1.1) Eosinophils # (Auto) 0.1 x10^3/uL (0.0-0.7) Basophils # (Auto) 0.1 x10^3/uL (0.0-0.2) Sodium Level 144 mmol/L (136-145) Potassium Level 4.0 mmol/L (3.5-5.1) Chloride Level 100 mmol/L (98-107) Carbon Dioxide Level 39 mmol/L (21-32) Anion Gap 5 (6-14) Blood Urea Nitrogen 36 mg/dL (7-20) Creatinine 1.2 mg/dL (0.6-1.0) Estimated GFR (Cockcroft-Gault) 43.3 Glucose Level 41 mg/dL (70-99) Calcium Level 9.1 mg/dL (8.5-10.1) Magnesium Level 2.8 mg/dL (1.8-2.4) Laboratory Tests Test 03/01/17 11:34 03/01/17 16:23 03/01/17 20:45 03/02/17 05:54 Glucose (Fingerstick) 191 mg/dL (70-99) 377 mg/dL (70-99) 549 mg/dL (70-99) White Blood Count 10.6 x10^3/uL (4.0-11.0) Red Blood Count 4.08 x10^6/uL (3.50-5.40) Hemoglobin 10.7 g/dL (12.0-15.5) Hematocrit 34.3 % (36.0-47.0) Mean Corpuscular Volume 84 fL (79-100) Mean Corpuscular Hemoglobin 26 pg (25-35) Mean Corpuscular Hemoglobin Concent 31 g/dL (31-37) Red Cell Distribution Width 16.0 % (11.5-14.5) Platelet Count 232 x10^3/uL (140-400) Neutrophils (%) (Auto) 66 % (31-73) Lymphocytes (%) (Auto) 22 % (24-48) Monocytes (%) (Auto) 10 % (0-9) Eosinophils (%) (Auto) 1 % (0-3) Basophils (%) (Auto) 1 % (0-3) Neutrophils # (Auto) 7.0 x10^3uL (1.8-7.7) Lymphocytes # (Auto) 2.3 x10^3/uL (1.0-4.8) Monocytes # (Auto) 1.1 x10^3/uL (0.0-1.1) Eosinophils # (Auto) 0.1 x10^3/uL (0.0-0.7) Basophils # (Auto) 0.1 x10^3/uL (0.0-0.2) Sodium Level 144 mmol/L (136-145) Potassium Level 4.0 mmol/L (3.5-5.1) Chloride Level 100 mmol/L (98-107) Carbon Dioxide Level 39 mmol/L (21-32) Anion Gap 5 (6-14) Blood Urea Nitrogen 36 mg/dL (7-20) Creatinine 1.2 mg/dL (0.6-1.0) Estimated GFR (Cockcroft-Gault) 43.3 Glucose Level 41 mg/dL (70-99) Calcium Level 9.1 mg/dL (8.5-10.1) Magnesium Level 2.8 mg/dL (1.8-2.4) Test 03/02/17 07:26 Glucose (Fingerstick) 61 mg/dL (70-99) Medications Active Scripts Medications Dose Route/Sig Max Daily Dose Days Date Category Dose Instructions Levaquin (Levofloxacin) 500 Mg Tablet 1 Tab PO DAILY 11/23/16 Rx Prednisone 10 Mg Tablet 10 Mg PO UD 11/23/16 Rx Take 3 tablets by mouth daily for 3 days, then take 2 tablets by mouth daily for 3 days, then take 1 tablet by mouth daily for 3 days, then stop. Metformin Hcl 500 Mg Tablet 500 Mg PO BIDWMEALS 11/18/16 Reported Metoprolol Succinate ( Xl ) (Metoprolol Succinate) 25 Mg Tab.er.24h 2 Tab PO DAILY 6/2/16 Rx Glimepiride 4 Mg Tablet 1 Tab PO BID 12/05/15 Reported Ventolin Hfa Inhaler (Albuterol Sulfate) 18 Gm Hfa.aer.ad 2 Puff INH QID 12/05/15 Reported Symbicort 160-4.5 Mcg Inhaler (Budesonide/Formoterol Fumarate) 10.2 Gm Hfa.aer.ad 2 Puff IH BID 12/05/15 Reported Atorvastatin Calcium 10 Mg Tablet 1 Tab PO DAILY 12/05/15 Reported Norvasc (Amlodipine Besylate) 10 Mg Tablet 10 Mg PO DAILY 12/05/15 Reported Impression . 1. Acute on chronic respiratory failure, multifactorial in etiology secondary to acute diastolic congestive heart failure, acute exacerbation of chronic obstructive pulmonary disease 2. Acute exacerbation of chronic obstructive pulmonary disease. 3. Acute diastolic congestive heart failure. 4. Obstructive sleep apnea-hypopnea syndrome. 5. Hypertension. 6. Diabetes mellitus. 7. Anemia. 8. Allergic rhinitis. Plan . 1. Titrate FiO2 to keep O2 saturation 91%. 2. Bronchodilator. 3. Inhaled corticosteroid. 4. Continue prednisone. 5. Keep intake less than output. Continue Lasix. Monitor potassium and creatinine very closely. 6. Singulair 7. lower extremity Doppler, neg. 8. Protonix for stress ulcer prophylaxis. 9. Lovenox for DVT prophylaxis. 10. she is not willing to use CPAP. 11. cxr 03/02 CLEAR. ok with dc home today KE GARCIA MD Mar 02, 2017 11:06
== END 2017-03-02 15:50 | disposition home health service (06) | DRG 291 ==
LOC: ER 18:20 → 4 NORTH 19:32
PROVIDERS: ADMIT Internal Medicine; ATTEND Internal Medicine
DX: I50.33 Acute on chronic diastolic (congestive) heart failure (principal); J96.21 Acute and chronic respiratory failure with hypoxia; N17.9 Acute kidney failure, unspecified; I47.1 Supraventricular tachycardia; I13.0 Hypertensive heart and chronic kidney disease with heart failure and stage 1 through stage 4 chronic kidney disease, or unspecified chronic kidney disease; J44.1 Chronic obstructive pulmonary disease with (acute) exacerbation; E11.22 Type 2 diabetes mellitus with diabetic chronic kidney disease; E11.649 Type 2 diabetes mellitus with hypoglycemia without coma; E11.65 Type 2 diabetes mellitus with hyperglycemia; D63.8 Anemia in other chronic diseases classified elsewhere; E66.9 Obesity, unspecified; Z68.33 Body mass index [BMI] 33.0-33.9, adult; E78.00 Pure hypercholesterolemia, unspecified; E78.5 Hyperlipidemia, unspecified; G47.33 Obstructive sleep apnea (adult) (pediatric); I49.3 Ventricular premature depolarization; J30.9 Allergic rhinitis, unspecified; K21.9 Gastro-esophageal reflux disease without esophagitis; N18.3 Chronic kidney disease, stage 3 (moderate); Z87.891 Personal history of nicotine dependence; Z99.81 Dependence on supplemental oxygen; Z87.01 Personal history of pneumonia (recurrent); F03.90 Unspecified dementia, unspecified severity, without behavioral disturbance, psychotic disturbance, mood disturbance, and anxiety
CPT/HCPCS: 36415; 51701; 71010; 78452; 80048; 80053; 81001; 82962; 83036; 83735; 83880; 84484; 85007; 85025; 85610; 85730; 93005; 93017; 93970; 94250; 94640; 94760; 96374; 96375; 96376; A9500; J1100; J1650; J1815; J1940; J2785; J2920; J3475; J7060; J7512; J7620; J7626; 97110; 97116; 99285-25

== ENCOUNTER 2017-05-24 20:36 | Inpatient (IN) | payer MEDICARE, OTHER ==
[~2017-05-24] VITALS: Ht 157.5 cm; Wt 80.3 kg
[~2017-05-24 20:36] MED LIST changes: +LISI-338 PO; +METH4TAB2 PO; +METO-239 PO; -METO25TA9 PO
[2017-05-24 21:48] LABS: INR 1.3 (0.8-1.1)
[2017-05-24 21:49] LABS: CALCIUM 9.3 mg/dL (8.5-10.1); CREATININE 1.7 mg/dL (0.6-1.0); POTASSIUM 3.9 mmol/L (3.5-5.1)
[2017-05-24 21:55] LABS: ALBUMIN 2.8 g/dL (3.4-5.0); ALBUMIN/GLOBULIN RATIO 0.5 (1.0-1.7); TOTAL BILIRUBIN 0.3 mg/dL (0.2-1.0); TOTAL PROTEIN 8.1 g/dL (6.4-8.2)
[2017-05-24 21:56] LABS: ALBUMIN 2.8 g/dL (3.4-5.0); DIRECT BILIRUBIN 0.1 mg/dL (0.0-0.2); TOTAL BILIRUBIN 0.3 mg/dL (0.2-1.0); TOTAL PROTEIN 8.1 g/dL (6.4-8.2)
[2017-05-24 22:07] LABS: BASO # 0.1 x10^3/uL (0.0-0.2); BASO % 1 % (0-3); EOS % 0 % (0-3); HEMATOCRIT 28.8 % (36.0-47.0); HEMOGLOBIN 9.2 g/dL (12.0-15.5); LYMPH # 0.8 x10^3/uL (1.0-4.8); LYMPH % 7 % (24-48); MEAN CORPUSCULAR HEMOGLOBIN 27 pg (25-35); MEAN CORPUSCULAR HGB CONC 32 g/dL (31-37); MEAN CORPUSCULAR VOLUME 84 fL (79-100); MONO % 10 % (0-9); NEUT % 82 % (31-73); PLATELET COUNT 261 x10^3/uL (140-400); RED BLOOD COUNT 3.44 x10^6/uL (3.50-5.40); RED CELL DISTRIBUTION WIDTH 15.7 % (11.5-14.5); WHITE BLOOD COUNT 10.5 x10^3/uL (4.0-11.0)
[2017-05-24] MEDS: IV NORMAL SALINE 1000ML BAG 1,000 ML IV SCH (22:27)
[2017-05-24] MEDS ORDERED: PIP/TAZO PER PHARMACY MC PRN (23:15)
[2017-05-24] MEDS ORDERED: PIPERACILLIN/TAZO IV Push 2.25 GM VIAL. IVP ONE (23:30)
[2017-05-24] MEDS ORDERED: ACETAMINOPHEN 325 MG TABLET. PO PRN (23:30)
[2017-05-24] MEDS ORDERED: ONDANSETRON PF 4 MG/2 ML VIAL. IV PRN (23:30)
[2017-05-24] MEDS ORDERED: IV NORMAL SALINE 1000ML BAG 1,000 ML IV SCH (23:45)
[2017-05-25] VITALS (9 sets, daily range): BP systolic 124–181; BP diastolic 20–80
[2017-05-25] MEDS ORDERED: methylPREDNISolone SOD SUCC PF 125 MG/2 ML VIAL. IV ONE
[2017-05-25] MEDS ORDERED: IPRATRPIUM/ALBUTEROL 0.5/2.5MG 3 ML NEBU. NEB ONE ×2
[2017-05-25] MEDS ORDERED: VANCOMYCIN 2 GM in IV DEXTROSE 5% 500 ML IV ONE ×2
[2017-05-25] MEDS: IV NORMAL SALINE 1000ML BAG 1,000 ML IV SCH ×2 (00:26→00:30)
[2017-05-25] MEDS ORDERED: FUROSEMIDE 40 MG/4 ML VIAL. IVP ONE (00:30)
--- NOTE | 2017-05-25 01:35 | PHYS DOC ---
Past Medical History Past Medical History: Asthma, CHF, COPD, Diabetes-Type II, High Cholesterol, Heart Disease, Hypertension Past Surgical History: No Surgical History Alcohol Use: None Drug Use: None Adult General Chief Complaint Chief Complaint: SHORTNESS OF BREATH HPI HPI Patient is a 81 year old female with a history significant for hypertension, diabetes, CHF, pulmonary edema, COPD, who presents to the ER today secondary to cough cold congestion. Shortness of breath 1-2 days. Tactile fevers at home. Son reports that his mother over the last couple days has become more weak and tired and coughing more. He reports that she hasn't followed up any sputum when she coughs. Denies any nausea vomiting or diarrhea. Reports that she's been eating and drinking well. Reports she has no history of kidney disease or liver problems in the past. No prior strokes or heart attacks. No prior surgeries. Not allergic to any medications. No longer smokes or drinks. Patient denies any abdominal pain. Denies any increased lower extremity edema. Denies any orthopnea. Son reports that his mother uses multidose inhalers at home and does not utilize any nebulizers. He reports in the past when she came in to the hospital that she's had to utilize nebulizers she's never been discharged home with him. Review of systems: Constitutional: Denies fever or chills Eyes: Denies change in visual acuity, redness, or eye pain HENT: Denies nasal congestion or sore throat Respiratory: Denies cough or shortness of breath Physical exam Constitutional: Well developed, well nourished, no acute distress, non-toxic appearance. HENT: Normocephalic, atraumatic, bilateral external ears normal, oropharynx moist, no oral exudates, nose normal. Eyes: PERRLA, EOMI, conjunctiva normal, no discharge. Neck: Normal range of motion, no tenderness, supple, no stridor. Cardiovascular:Heart rate regular rhythm, Lungs & Thorax: Bilateral breath sounds clear to auscultation Abdomen: Bowel sounds normal, soft, no tenderness, no masses, no pulsatile masses. Skin: Warm, dry, no erythema, no rash. Back: No tenderness, no CVA tenderness. Extremities: No tenderness, no cyanosis, no clubbing, ROM intact, no edema. Neurologic: Alert and oriented X 3, normal motor function, normal sensory function, no focal deficits noted. Psychologic: Affect normal, judgement normal, mood normal. Assessment and plan This is a 81-year-old female who presents here today with increased interstitial markings to her bilateral lower lobes. Chest x-ray appears to be consistent with likely bilobar pneumonia. Patient has had low-grade fevers here in the ED. Patient's temperature was 100.4 orally. Patient is tachycardic with an elevated lactic acid level. Given the constellation of these findings the patient will be treated for pneumonia in the ED. Also possibility with her x- ray findings being bilateral is the possibility of pulmonary congestion or pulmonary edema. Patient has been given 30 mL/kg of normal saline during which time the patient doesn't appear to be more tachypneic and more short of breath. Patient has been diuresed with 80 mg of IV Lasix. Patient currently is requiring oxygen 2 L nasal cannula. Patient has been treated with vancomycin and Zosyn for presumed bilobar pneumonia. I discussed the case with her primary care team and they have agreed to accept patient to the hospital for further IV antibiotics and monitoring of her respiratory status. Current Medications Current Medications Current Medications Medications (Trade) Dose Ordered Sig/Venessa Start Time Stop Time Status Last Admin Dose Admin Piperacillin Sod/ Tazobactam Sod (Zosyn Per Pharmacy) 1 each PRN DAILY PRN 05/24/17 23:15 Sodium Chloride 1,000 ml @ 1,000 mls/hr Q1H 05/24/17 22:30 05/25/17 00:49 DC 05/25/17 00:26 1,000 MLS/HR Vancomycin HCl (Vanco Per Pharmacy) 1 each PRN DAILY PRN 05/24/17 23:15 Allergies Allergies Allergies Coded Allergies Type Severity Reaction Last Updated Verified No Known Drug Allergies 12/04/15 No Current Patient Data Vital Signs Vital Signs Date Time Temp Pulse Resp B/P (MAP) Pulse Ox O2 Delivery O2 Flow Rate FiO2 05/24/17 22:26 118 18 152/68 (96) 95 Nasal Cannula 3.0 05/24/17 20:50 100.2 100.2 Lab Values Laboratory Tests Test 05/24/17 21:10 White Blood Count 10.5 x10^3/uL (4.0-11.0) Red Blood Count 3.44 x10^6/uL (3.50-5.40) L Hemoglobin 9.2 g/dL (12.0-15.5) L Hematocrit 28.8 % (36.0-47.0) L Mean Corpuscular Volume 84 fL (79-100) Mean Corpuscular Hemoglobin 27 pg (25-35) Mean Corpuscular Hemoglobin Concent 32 g/dL (31-37) Red Cell Distribution Width 15.7 % (11.5-14.5) H Platelet Count 261 x10^3/uL (140-400) Neutrophils (%) (Auto) 82 % (31-73) H Lymphocytes (%) (Auto) 7 % (24-48) L Monocytes (%) (Auto) 10 % (0-9) H Eosinophils (%) (Auto) 0 % (0-3) Basophils (%) (Auto) 1 % (0-3) Neutrophils # (Auto) 8.6 x10^3uL (1.8-7.7) H Lymphocytes # (Auto) 0.8 x10^3/uL (1.0-4.8) L Monocytes # (Auto) 1.0 x10^3/uL (0.0-1.1) Eosinophils # (Auto) 0.0 x10^3/uL (0.0-0.7) Basophils # (Auto) 0.1 x10^3/uL (0.0-0.2) Prothrombin Time 15.0 SEC (11.7-14.0) H Prothrombin Time INR 1.3 (0.8-1.1) H PTT 29 SEC (24-38) Sodium Level 139 mmol/L (136-145) Potassium Level 3.9 mmol/L (3.5-5.1) Chloride Level 97 mmol/L (98-107) L Carbon Dioxide Level 34 mmol/L (21-32) H Anion Gap 8 (6-14) Blood Urea Nitrogen 31 mg/dL (7-20) H Creatinine 1.7 mg/dL (0.6-1.0) H Estimated GFR (Cockcroft-Gault) 29.0 BUN/Creatinine Ratio 18 (6-20) Glucose Level 386 mg/dL (70-99) H Lactic Acid Level 2.6 mmol/L (0.4-2.0) H Calcium Level 9.3 mg/dL (8.5-10.1) Total Bilirubin 0.3 mg/dL (0.2-1.0) Direct Bilirubin 0.1 mg/dL (0.0-0.2) Aspartate Amino Transferase (AST) 22 U/L (15-37) Alanine Aminotransferase (ALT) 14 U/L (14-59) Alkaline Phosphatase 65 U/L (46-116) Total Protein 8.1 g/dL (6.4-8.2) Albumin 2.8 g/dL (3.4-5.0) L Albumin/Globulin Ratio 0.5 (1.0-1.7) L Laboratory Tests 05/24/17 21:10 Laboratory Tests 05/24/17 21:10 EKG EKG [] Radiology/Procedures Radiology/Procedures [] Course & Med Decision Making Course & Med Decision Making Pertinent Labs and Imaging studies reviewed. (See chart for details) [] Dragon Disclaimer Dragon Disclaimer This electronic medical record was generated, in whole or in part, using a voice recognition dictation system. Departure Departure Impression: Primary Impression: CHF exacerbation Additional Impressions: Respiratory failure Pneumonia COPD exacerbation Congestive heart failure Disposition: ADMITTED INPATIENT Admitting Physician: Sonali Zaman Condition: IMPROVED Referrals: ERIN BANG MD (PCP) Problem Qualifiers ODELL BLANCAS MD May 25, 2017 01:35
[2017-05-25] MEDS: VANCOMYCIN PER PHARMACY MC PRN (02:41)
[2017-05-25] MEDS: PIPERACILLIN/TAZO IV Push 2.25 GM VIAL. IVP SCH ×4 (05:10→23:27)
[2017-05-25] MEDS ORDERED: ALBUTEROL SULFATE 2.5 MG/3 ML NEBU. NEB PRN (05:45)
[2017-05-25] MEDS: IPRATRPIUM/ALBUTEROL 0.5/2.5MG 3 ML NEBU. NEB SCH ×5 (06:15→20:29)
--- NOTE | 2017-05-25 07:57 | RAD ---
Portable chest, 05/24/2017: History: Shortness of breath Comparison is made to a study from 03/02/2017. The heart size and pulmonary vascularity are normal. There is calcific plaquing of the aorta. There is mild prominence of the basilar pulmonary markings, likely due to scarring. No pulmonary consolidation is seen. No significant pleural fluid is identified. Moderate spurring is present in the spine. IMPRESSION: 1. Minimal basilar scarring. 2. No acute abnormality is detected.
[2017-05-25] MEDS ORDERED: IPRATRPIUM/ALBUTEROL 0.5/2.5MG 3 ML NEBU. NEB SCH (08:00)
[2017-05-25] MEDS ORDERED: predniSONE 20 MG TABLET PO SCH (09:00)
--- NOTE | 2017-05-25 09:08 | EKG ---
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
--- NOTE | 2017-05-25 10:46 | PDOC ---
CARDIO Progress Notes Date and Time Date of Service 05/25/2017 Time of Evaluation 1030 Subjective Subjective: No Chest Pain, No Palpitations, Other (nods no discomfort and SOA better with present bipap but drowsy) Vitals Vitals Vital Signs Date Time Temp Pulse Resp B/P (MAP) Pulse Ox O2 Delivery O2 Flow Rate FiO2 05/25/17 09:13 87 BiPAP/CPAP 05/25/17 07:00 98.2 99 21 140/62 (88) 98.2 05/25/17 05:25 2.0 Weight Weight [ ] Input and Output Intake and Output Intake and Output 05/25/17 07:00 Intake Total 2500 ml Balance 2500 ml Intake Oral 0 ml IV Total 2500 ml Laboratory Labs Laboratory Tests Test 05/24/17 21:10 05/25/17 01:10 05/25/17 07:09 White Blood Count 10.5 x10^3/uL (4.0-11.0) Red Blood Count 3.44 x10^6/uL (3.50-5.40) Hemoglobin 9.2 g/dL (12.0-15.5) Hematocrit 28.8 % (36.0-47.0) Mean Corpuscular Volume 84 fL (79-100) Mean Corpuscular Hemoglobin 27 pg (25-35) Mean Corpuscular Hemoglobin Concent 32 g/dL (31-37) Red Cell Distribution Width 15.7 % (11.5-14.5) Platelet Count 261 x10^3/uL (140-400) Neutrophils (%) (Auto) 82 % (31-73) Lymphocytes (%) (Auto) 7 % (24-48) Monocytes (%) (Auto) 10 % (0-9) Eosinophils (%) (Auto) 0 % (0-3) Basophils (%) (Auto) 1 % (0-3) Neutrophils # (Auto) 8.6 x10^3uL (1.8-7.7) Lymphocytes # (Auto) 0.8 x10^3/uL (1.0-4.8) Monocytes # (Auto) 1.0 x10^3/uL (0.0-1.1) Eosinophils # (Auto) 0.0 x10^3/uL (0.0-0.7) Basophils # (Auto) 0.1 x10^3/uL (0.0-0.2) Prothrombin Time 15.0 SEC (11.7-14.0) Prothromb Time International Ratio 1.3 (0.8-1.1) Activated Partial Thromboplast Time 29 SEC (24-38) Sodium Level 139 mmol/L (136-145) Potassium Level 3.9 mmol/L (3.5-5.1) Chloride Level 97 mmol/L (98-107) Carbon Dioxide Level 34 mmol/L (21-32) Anion Gap 8 (6-14) Blood Urea Nitrogen 31 mg/dL (7-20) Creatinine 1.7 mg/dL (0.6-1.0) Estimated GFR (Cockcroft-Gault) 29.0 BUN/Creatinine Ratio 18 (6-20) Glucose Level 386 mg/dL (70-99) Lactic Acid Level 2.6 mmol/L (0.4-2.0) 0.6 mmol/L (0.4-2.0) Calcium Level 9.3 mg/dL (8.5-10.1) Total Bilirubin 0.3 mg/dL (0.2-1.0) Direct Bilirubin 0.1 mg/dL (0.0-0.2) Aspartate Amino Transf (AST/SGOT) 22 U/L (15-37) Alanine Aminotransferase (ALT/SGPT) 14 U/L (14-59) Alkaline Phosphatase 65 U/L (46-116) Total Protein 8.1 g/dL (6.4-8.2) Albumin 2.8 g/dL (3.4-5.0) Albumin/Globulin Ratio 0.5 (1.0-1.7) NN-Oom-F-Type Natriuretic Peptide 6713 pg/mL (0-449) Glucose (Fingerstick) 312 mg/dL (70-99) Physical Exam HEENT: Neck Supple W Full Motion Chest: Symmetric LUNGS: Other (diminishied with right basilar crackles) Heart: S1S2, RRR (Sinus tach) Abdomen: Soft N/T Extremities: No Calf Tenderness, Other (trace to 1+ bilateral LE pitting edema) Neurology: other (drowsy) Assessment Assessment HPI: This is a pleasant 81 yo female admitted for complains of SOA. Consult is for CHF. She was just seen in our office on 05/19/2017 and noted with stable diastolic CHF and COPD and noted her HTN is well controlled. She presents to ED with complains of weakness, nonproductive cough and congestion with fever and increasing SOA. This has been going on in the last 2 days. Denies any CP or palpitations. No significant leg swelling. Her mentation was decreased and O2 sat coming in was low and was placed on bipap. Accdg to chart review she has not been using her nebulizer. Pt is presently on bipap, remains drowsy but SOA is better nods yes or no to my questions. 1. Possible pneumonia: pulmonary following 2. Acute on chronic respiratory failure with underlying COPD and possible MARCO 3. Hypoxic encephalopathy 4. Chronic diastolic CHF: no vascular congestion per CXR. No significant peripheral edema. EF 55-60% 5. ANDREA on CKD3: likely from volume depletion with 80 mg IV lasix given in ED with underlying inadequate hydration. . 6. DM2/HLP: continues to have hypoglycemic episodes 7. Accelerated HTN 8. Anemia of chronic disease Recommendations 1. Continue with Bipap, ABG in process. 2. Continue with secondary prevention 3. PCXR. no further lasix today. Hold metformin, lisinopril today 4. Restart toprol. Hydralazine IV PRN 5. Avoid hypoglycemic episodes. TTE<Conclusion> The left ventricle is normal size. There is normal left ventricular wall thickness. Transmitral Doppler flow pattern is Grade I-abnormal relaxation pattern. There is no evidence of significant pericardial effusion. There is no mitral valve stenosis. Doppler and Color Flow revealed trace mitral regurgitation. The left atrium is of a normal size There is no aortic stenosis or regurgitation The right ventricle is of a normal size with normal systolic function Doppler and Color Flow revealed trace tricuspid regurgitation. The pulmonary artery systolic pressure is estimated at 45 mmHg. There is mild pulmonary hypertension. The pulmonic valve is normal. DATE: 11/20/162038 Conclusion: MPI 1. Regadenoson cardioisotope stress test showed breast attenuation artifact without any evidence of ischemia or infarct. 2. Normal left ventricular systolic function with ejection fraction calculated at 57%. 3. Low risk for cardiac events. DATE: 03/01/17 1351 SUSAN DOUGLAS APRN May 25, 2017 10:46
--- NOTE | 2017-05-25 10:58 | CONS ---
DATE OF CONSULTATION: ATTENDING PHYSICIAN: Sonali Zaman MD REASON FOR CONSULTATION: Respiratory failure. HISTORY OF PRESENT ILLNESS: The patient is a 81-year-old patient who is morbidly obese and has hypertension, diabetes, CHF and COPD. She presented to the Emergency Room due to cough with cold symptoms. She had shortness of breath for the last 2 days. She had some subjective fever at home as well. The patient was noted to be hypoxic. As a result, she was placed on BiPAP. She has been less responsive. She opens eyes to commands, but then dozes off. I have been asked to see her for further evaluation. Currently, she is on BiPAP with 35% FiO2. I am unable to obtain much history from the patient. Much of the history was obtained from review of the chart. Chest x-ray did not reveal any definite infiltrates, possible scarring in the left lower lobe versus infiltrate. ABGs have not been obtained yet. Her chemistry suggests that she has elevated bicarb which may be related to chronic hypercapnia. PAST MEDICAL HISTORY: Significant for history of CHF, COPD, type 2 diabetes, hypercholesterolemia, heart disease, hypertension. PAST SURGICAL HISTORY: No surgical history. REVIEW OF SYSTEMS: Unable to obtain from the patient. SURGERIES: No recent surgery. ALLERGIES: None. CURRENT MEDICATIONS: Reviewed as listed in the MRAD including antibiotics, steroids and nebulizer treatments. SOCIAL HISTORY: The patient has history of tobacco use. PHYSICAL EXAMINATION: GENERAL: She is arousable to command, but then dozes off. VITAL SIGNS: Blood pressure 140/62, afebrile, pulse ox 97% on 35% FiO2 with BiPAP. HEENT: Sclerae nonicteric. NECK: Supple. LUNGS: Diminished breath sounds. CARDIOVASCULAR: Regular rate and rhythm. ABDOMEN: Soft, obese. EXTREMITIES: With 1+ pitting edema bilaterally. LABORATORY DATA: Reviewed. BUN and creatinine 31 and 1.7, albumin 2.8. White cell count 10.5, hemoglobin 9.2 and platelets are 261. INR 1.3. IMPRESSION: 1. Acute respiratory failure, I suspect both hypoxic and hypercapnic type and related to chronic obstructive pulmonary disease exacerbation. 2. Chronic obstructive pulmonary disease exacerbation probably triggered by lower respiratory tract infection. 3. Suspected obstructive sleep apnea with obesity hypoventilation syndrome and cor pulmonale with lower extremity edema. 4. Acute encephalopathy, suspect related to hypercapnia. RECOMMENDATIONS: 1. Obtain stat ABGs. 2. Continue with present bronchodilators. 3. Continue with antibiotics. 4. May need CT chest if clinically indicated. 5. Continue BiPAP at the present setting and we will make necessary adjustments based on ABGs. 6. Avoid any narcotics or sedatives. Discussed with the patient's RN. We will follow along with you. Critical care time 30 minutes. KE GARCIA MD DR: MEHREEN/melody JOB#: [id number] / [id number] TONIO
--- NOTE | 2017-05-25 11:14 | PDOC2 ---
CONSULT Date of Consult Date of Consult DATE: 05/25/17 TIME: 11:09 Reason for Consult Reason for Consult: RENAL FAILURE Referring Physician Referring Physician: EDELMIRA Identification/Chief Complaint Chief Complaint SOB Problems: Source Source: Chart review History of Present Illness Reason for Visit: THIS IS A 81 YR OLD WITH SEVERAL DAY HX OF SOB. THERE IS CONCERNS OF SEPSIS AND POSSIBLE PNEUMONIA. HER CR IS 1.4 TODAY. IT HAS BEEN ON AVG ABOUT 1.7. CXRAY IS ESSENTIALLY NEG AND THERE IS A QUESTIONABLE HX OF COPD. SHE IS REQUIRING BIPAP AND IS SOMNOLENT Past Medical History Cardiovascular: HTN Pulmonary: No pertinent hx CENTRAL NERVOUS SYSTEM: Other GI: No pertinent hx Heme/Onc: No pertinent hx Hepatobiliary: No pertinent hx Psych: No pertinent hx Musculoskeletal: No pain Rheumatologic: No pertinent hx Infectious disease: No pertinent hx Renal/: No pertinent hx Endocrine: Diabetes Past Surgical History Past Surgical History: Other Family History Family History: No Significant Social History ALCOHOL: none Drugs: None Lives: with Family Current Problem List Problem List Problems Medical Problems: (1) CHF exacerbation Status: Acute (2) Congestive heart failure Status: Acute (3) COPD exacerbation Status: Acute (4) Pneumonia Status: Acute (5) Respiratory failure Status: Acute Current Medications Current Medications Current Medications Sodium Chloride 1,000 ml @ 1,000 mls/hr Q1H IV Last administered on 00:26; Start 05/24/17 at 22:30; Stop 05/25/17 at 00:49; Status DC Piperacillin Sod/ Tazobactam Sod (Zosyn Per Pharmacy) 1 each PRN DAILY PRN MC SEE COMMENTS; Start 05/24/17 at 23:15 Vancomycin HCl (Vanco Per Pharmacy) 1 each PRN DAILY PRN MC SEE COMMENTS Last administered on 05/25/17 02:41; Start 05/24/17 at 23:15 Vancomycin HCl 2 gm/Dextrose 500 ml @ 250 mls/hr 1X ONCE IV Last administered on 05/24/17 23:39; Start 05/25/17 at 00:00; Stop 05/25/17 at 01 :59; Status DC Piperacillin Sod/ Tazobactam Sod (Zosyn) 2.25 gm 1X ONCE IVP Last administered on 05/24/17 23:39; Start 05/24/17 at 23:30; Stop 05/24/17 at 23 :31; Status DC Ondansetron HCl (Zofran) 4 mg PRN Q8HRS PRN IV NAUSEA/VOMITING; Start at 23:30; Stop 05/25/17 at 23:29 Sodium Chloride 1,000 ml @ 125 mls/hr Q8H IV ; Start 05/24/17 at 23:45; Stop 05/25/17 at 05:47; Status DC Acetaminophen (Tylenol) 650 mg PRN Q4HRS PRN PO FEVER Last administered on 23:59; Start 05/24/17 at 23:30; Stop 05/25/17 at 23:29 Albuterol/ Ipratropium (Duoneb) 3 ml 1X ONCE NEB Last administered on 00:02; Start 05/25/17 at 00:00; Stop 05/25/17 at 00:01; Status DC Methylprednisolone Sodium Succinate (SOLU-Medrol 125MG VIAL) 125 mg 1X ONCE IV Last administered on 05/25/17 00:00; Start 05/25/17 at 00:00; Stop at 00:01; Status DC Albuterol/ Ipratropium (Duoneb) 3 ml 1X ONCE NEB Last administered on 00:02; Start 05/25/17 at 00:00; Stop 05/25/17 at 00:01; Status DC Furosemide (Lasix) 80 mg 1X ONCE IVP Last administered on 05/25/17 00:21; Start 05/25/17 at 00:30; Stop 05/25/17 at 00:31; Status DC Piperacillin Sod/ Tazobactam Sod (Zosyn) 2.25 gm Q6HRS IVP Last administered on 05/25/17 05:10; Start 05/25/17 at 06:00 Vancomycin HCl 1 gm/Dextrose 250 ml @ 250 mls/hr Q24H IV ; Start 05/25/17 at 22:00 Vancomycin HCl 1 each 1X ONCE MC ; Start 05/26/17 at 21:30; Stop 05/26/17 at 21:31 Albuterol/ Ipratropium (Duoneb) 3 ml RTQID NEB ; Start 05/25/17 at 08:00; Stop 05/25/17 at 08:00; Status DC Albuterol Sulfate (Ventolin Neb Soln) 2.5 mg PRN Q2HRS PRN NEB SHORTNESS OF BREATH; Start 05/25/17 at 05:45 Prednisone (Prednisone) 60 mg DAILY PO ; Start 05/25/17 at 09:00 Albuterol/ Ipratropium (Duoneb) 3 ml RTQID NEB Last administered on 05/25/17t 11:07; Start 05/25/17 at 06:00 Active Scripts Active Lisinopril 5 Mg Tablet 1 Tab PO DAILY Metoprolol Succinate ( Xl ) (Metoprolol Succinate) 25 Mg Tab.er.24h 2 Tab PO DAILY Reported Metformin Hcl 500 Mg Tablet 500 Mg PO BIDWMEALS Glimepiride 4 Mg Tablet 1 Tab PO BID Ventolin Hfa Inhaler (Albuterol Sulfate) 18 Gm Hfa.aer.ad 2 Puff INH QID Symbicort 160-4.5 Mcg Inhaler (Budesonide/Formoterol Fumarate) 10.2 Gm Hfa.aer.ad 2 Puff IH BID Atorvastatin Calcium 10 Mg Tablet 1 Tab PO DAILY Allergies Allergies: Coded Allergies: No Known Drug Allergies (Unverified , 12/04/15) ROS Review of System UNABLE TO OBTAIN Physical Exam General: Cooperative, mild distress HEENT: Atraumatic, PERRLA, EOMI Lungs: Other (DIFFUSE WHEEZING) Heart: Regular rate, Normal S1, No murmurs Abdomen: Normal bowel sounds, Soft, No tenderness Extremities: No clubbing, No cyanosis, No edema, Normal pulses Skin: No rashes, No breakdown, No significant lesion Neuro: Other (CONFUSED) Psych/Mental Status: Other (ON BIPAP ANXIOUS) MUSCULOSKELETAL: No joint tenderness, No deformity, No swelling Vitals VITALS Vital Signs Date Time Temp Pulse Resp B/P (MAP) Pulse Ox O2 Delivery O2 Flow Rate FiO2 05/25/17 10:47 97.3 85 20 149/75 (99) 95 BiPAP/CPAP 97.3 05/25/17 05:25 2.0 Labs Labs Laboratory Tests Test 05/24/17 21:10 05/25/17 01:10 05/25/17 07:09 White Blood Count 10.5 x10^3/uL (4.0-11.0) Red Blood Count 3.44 x10^6/uL (3.50-5.40) Hemoglobin 9.2 g/dL (12.0-15.5) Hematocrit 28.8 % (36.0-47.0) Mean Corpuscular Volume 84 fL (79-100) Mean Corpuscular Hemoglobin 27 pg (25-35) Mean Corpuscular Hemoglobin Concent 32 g/dL (31-37) Red Cell Distribution Width 15.7 % (11.5-14.5) Platelet Count 261 x10^3/uL (140-400) Neutrophils (%) (Auto) 82 % (31-73) Lymphocytes (%) (Auto) 7 % (24-48) Monocytes (%) (Auto) 10 % (0-9) Eosinophils (%) (Auto) 0 % (0-3) Basophils (%) (Auto) 1 % (0-3) Neutrophils # (Auto) 8.6 x10^3uL (1.8-7.7) Lymphocytes # (Auto) 0.8 x10^3/uL (1.0-4.8) Monocytes # (Auto) 1.0 x10^3/uL (0.0-1.1) Eosinophils # (Auto) 0.0 x10^3/uL (0.0-0.7) Basophils # (Auto) 0.1 x10^3/uL (0.0-0.2) Prothrombin Time 15.0 SEC (11.7-14.0) Prothromb Time International Ratio 1.3 (0.8-1.1) Activated Partial Thromboplast Time 29 SEC (24-38) Sodium Level 139 mmol/L (136-145) Potassium Level 3.9 mmol/L (3.5-5.1) Chloride Level 97 mmol/L (98-107) Carbon Dioxide Level 34 mmol/L (21-32) Anion Gap 8 (6-14) Blood Urea Nitrogen 31 mg/dL (7-20) Creatinine 1.7 mg/dL (0.6-1.0) Estimated GFR (Cockcroft-Gault) 29.0 BUN/Creatinine Ratio 18 (6-20) Glucose Level 386 mg/dL (70-99) Lactic Acid Level 2.6 mmol/L (0.4-2.0) 0.6 mmol/L (0.4-2.0) Calcium Level 9.3 mg/dL (8.5-10.1) Total Bilirubin 0.3 mg/dL (0.2-1.0) Direct Bilirubin 0.1 mg/dL (0.0-0.2) Aspartate Amino Transf (AST/SGOT) 22 U/L (15-37) Alanine Aminotransferase (ALT/SGPT) 14 U/L (14-59) Alkaline Phosphatase 65 U/L (46-116) Total Protein 8.1 g/dL (6.4-8.2) Albumin 2.8 g/dL (3.4-5.0) Albumin/Globulin Ratio 0.5 (1.0-1.7) RB-Hsq-N-Type Natriuretic Peptide 6713 pg/mL (0-449) Glucose (Fingerstick) 312 mg/dL (70-99) Laboratory Tests Test 05/24/17 21:10 05/25/17 01:10 05/25/17 07:09 White Blood Count 10.5 x10^3/uL (4.0-11.0) Red Blood Count 3.44 x10^6/uL (3.50-5.40) Hemoglobin 9.2 g/dL (12.0-15.5) Hematocrit 28.8 % (36.0-47.0) Mean Corpuscular Volume 84 fL (79-100) Mean Corpuscular Hemoglobin 27 pg (25-35) Mean Corpuscular Hemoglobin Concent 32 g/dL (31-37) Red Cell Distribution Width 15.7 % (11.5-14.5) Platelet Count 261 x10^3/uL (140-400) Neutrophils (%) (Auto) 82 % (31-73) Lymphocytes (%) (Auto) 7 % (24-48) Monocytes (%) (Auto) 10 % (0-9) Eosinophils (%) (Auto) 0 % (0-3) Basophils (%) (Auto) 1 % (0-3) Neutrophils # (Auto) 8.6 x10^3uL (1.8-7.7) Lymphocytes # (Auto) 0.8 x10^3/uL (1.0-4.8) Monocytes # (Auto) 1.0 x10^3/uL (0.0-1.1) Eosinophils # (Auto) 0.0 x10^3/uL (0.0-0.7) Basophils # (Auto) 0.1 x10^3/uL (0.0-0.2) Prothrombin Time 15.0 SEC (11.7-14.0) Prothromb Time International Ratio 1.3 (0.8-1.1) Activated Partial Thromboplast Time 29 SEC (24-38) Sodium Level 139 mmol/L (136-145) Potassium Level 3.9 mmol/L (3.5-5.1) Chloride Level 97 mmol/L (98-107) Carbon Dioxide Level 34 mmol/L (21-32) Anion Gap 8 (6-14) Blood Urea Nitrogen 31 mg/dL (7-20) Creatinine 1.7 mg/dL (0.6-1.0) Estimated GFR (Cockcroft-Gault) 29.0 BUN/Creatinine Ratio 18 (6-20) Glucose Level 386 mg/dL (70-99) Lactic Acid Level 2.6 mmol/L (0.4-2.0) 0.6 mmol/L (0.4-2.0) Calcium Level 9.3 mg/dL (8.5-10.1) Total Bilirubin 0.3 mg/dL (0.2-1.0) Direct Bilirubin 0.1 mg/dL (0.0-0.2) Aspartate Amino Transf (AST/SGOT) 22 U/L (15-37) Alanine Aminotransferase (ALT/SGPT) 14 U/L (14-59) Alkaline Phosphatase 65 U/L (46-116) Total Protein 8.1 g/dL (6.4-8.2) Albumin 2.8 g/dL (3.4-5.0) Albumin/Globulin Ratio 0.5 (1.0-1.7) CS-Kum-G-Type Natriuretic Peptide 6713 pg/mL (0-449) Glucose (Fingerstick) 312 mg/dL (70-99) Assessment/Plan Assessment/Plan IMP CKD STAGE 3 WITH CR OF 1.7 ON AVG AECOPD ? PNEUMONIA/BRONCHITIS MET ENCEPHALOPATHY ANEMIA PLAN BIPAP CONSIDER PULM EVAL AND ABG ANTIBIOTICS AND BREATHING TX RENAL FXN IS STABLE AND AT BASELINE LABS IN AM PALLAVI RODRIGUEZ MD May 25, 2017 11:14
[2017-05-25 11:25] LABS: HCO3 ABG 33 mmol/L (21-28); PH ABG 7.36 (7.35-7.45); PO2 ABG 57 mmHg (65-108); SAT O2 ABG 89 % (92-99)
[2017-05-25] MEDS ORDERED: hydrALAZINE 20 MG/ML VIAL. IVP PRN (11:30)
[2017-05-25] MEDS ORDERED: FLU VACC QS2017-18 (36MOS+)/PF 0.5 ML SYRINGE. VAX IM ONE (11:30)
[2017-05-25 11:40] LABS: FIO2 ABG 35; PCO2 ABG 60 mmHg (35-46)
--- NOTE | 2017-05-25 11:53 | PDOC1 ---
History and Physical Date of Admission Date of Admission DATE: 05/25/17 TIME: 11:53 Identification/Chief Complaint Chief Complaint short of breath Problems: Source Source: Caregiver, Chart review History of Present Illness History of Present Illness Ms. Daniels, is a 81 year old female admit with acute shortness, cough cold congestion. Fever at home, and worsening shortness of breath 2 days. She has been placed on Bipap this AM by Dr. Leone, resp distress and weakness, her son is here, and reports weakness and coughing, w.o sputum no travel no sick contacts Past Medical History Past Medical History hypertension, diabetes, CHF, pulmonary edema, COPD Cardiovascular: HTN Pulmonary: No pertinent hx CENTRAL NERVOUS SYSTEM: Other GI: No pertinent hx Heme/Onc: No pertinent hx Hepatobiliary: No pertinent hx Psych: No pertinent hx Musculoskeletal: No pain Rheumatologic: No pertinent hx Infectious disease: No pertinent hx Renal/: No pertinent hx Endocrine: Diabetes Past Surgical History Past Surgical History: Other Family History Family History: No Significant Social History Smoke: No ALCOHOL: none Drugs: None Current Problem List Problem List Problems Medical Problems: (1) CHF exacerbation Status: Acute (2) Congestive heart failure Status: Acute (3) COPD exacerbation Status: Acute (4) Pneumonia Status: Acute (5) Respiratory failure Status: Acute Problems: Current Medications Current Medications Current Medications Sodium Chloride 1,000 ml @ 1,000 mls/hr Q1H IV Last administered on 00:26; Start 05/24/17 at 22:30; Stop 05/25/17 at 00:49; Status DC Piperacillin Sod/ Tazobactam Sod (Zosyn Per Pharmacy) 1 each PRN DAILY PRN MC SEE COMMENTS; Start 05/24/17 at 23:15 Vancomycin HCl (Vanco Per Pharmacy) 1 each PRN DAILY PRN MC SEE COMMENTS Last administered on 05/25/17 02:41; Start 05/24/17 at 23:15 Vancomycin HCl 2 gm/Dextrose 500 ml @ 250 mls/hr 1X ONCE IV Last administered on 05/24/17 23:39; Start 05/25/17 at 00:00; Stop 05/25/17 at 01 :59; Status DC Piperacillin Sod/ Tazobactam Sod (Zosyn) 2.25 gm 1X ONCE IVP Last administered on 05/24/17 23:39; Start 05/24/17 at 23:30; Stop 05/24/17 at 23 :31; Status DC Ondansetron HCl (Zofran) 4 mg PRN Q8HRS PRN IV NAUSEA/VOMITING; Start at 23:30; Stop 05/25/17 at 23:29 Sodium Chloride 1,000 ml @ 125 mls/hr Q8H IV ; Start 05/24/17 at 23:45; Stop 05/25/17 at 05:47; Status DC Acetaminophen (Tylenol) 650 mg PRN Q4HRS PRN PO FEVER Last administered on 23:59; Start 05/24/17 at 23:30; Stop 05/25/17 at 23:29 Albuterol/ Ipratropium (Duoneb) 3 ml 1X ONCE NEB Last administered on 00:02; Start 05/25/17 at 00:00; Stop 05/25/17 at 00:01; Status DC Methylprednisolone Sodium Succinate (SOLU-Medrol 125MG VIAL) 125 mg 1X ONCE IV Last administered on 05/25/17 00:00; Start 05/25/17 at 00:00; Stop at 00:01; Status DC Albuterol/ Ipratropium (Duoneb) 3 ml 1X ONCE NEB Last administered on 00:02; Start 05/25/17 at 00:00; Stop 05/25/17 at 00:01; Status DC Furosemide (Lasix) 80 mg 1X ONCE IVP Last administered on 05/25/17 00:21; Start 05/25/17 at 00:30; Stop 05/25/17 at 00:31; Status DC Piperacillin Sod/ Tazobactam Sod (Zosyn) 2.25 gm Q6HRS IVP Last administered on 05/25/17 05:10; Start 05/25/17 at 06:00 Vancomycin HCl 1 gm/Dextrose 250 ml @ 250 mls/hr Q24H IV ; Start 05/25/17 at 22:00 Vancomycin HCl 1 each 1X ONCE MC ; Start 05/26/17 at 21:30; Stop 05/26/17 at 21:31 Albuterol/ Ipratropium (Duoneb) 3 ml RTQID NEB ; Start 05/25/17 at 08:00; Stop 05/25/17 at 08:00; Status DC Albuterol Sulfate (Ventolin Neb Soln) 2.5 mg PRN Q2HRS PRN NEB SHORTNESS OF BREATH; Start 05/25/17 at 05:45 Prednisone (Prednisone) 60 mg DAILY PO ; Start 05/25/17 at 09:00 Albuterol/ Ipratropium (Duoneb) 3 ml RTQID NEB Last administered on 05/25/17t 11:07; Start 05/25/17 at 06:00 Influenza Virus Vaccine Quadrival (Fluarix Quad 1136-3751 Syringe) 0.5 ml ONCE ONCE VAX IM ; Start 05/25/17 at 11:30; Stop 05/25/17 at 11:31; Status DC Metoprolol Succinate (Toprol Xl) 50 mg DAILY PO ; Start 05/25/17 at 12:00 Aspirin (Ecotrin) 81 mg DAILYWBKFT PO ; Start 05/25/17 at 12:00 Hydralazine HCl (Apresoline Inj) 10 mg PRN Q4HRS PRN IVP ELEVATED BP, SEE COMMENTS; Start 05/25/17 at 11:30 Atorvastatin Calcium (Lipitor) 10 mg QHS PO ; Start 05/25/17 at 21:00 Active Scripts Active Lisinopril 5 Mg Tablet 1 Tab PO DAILY Metoprolol Succinate ( Xl ) (Metoprolol Succinate) 25 Mg Tab.er.24h 2 Tab PO DAILY Reported Metformin Hcl 500 Mg Tablet 500 Mg PO BIDWMEALS Glimepiride 4 Mg Tablet 1 Tab PO BID Ventolin Hfa Inhaler (Albuterol Sulfate) 18 Gm Hfa.aer.ad 2 Puff INH QID Symbicort 160-4.5 Mcg Inhaler (Budesonide/Formoterol Fumarate) 10.2 Gm Hfa.aer.ad 2 Puff IH BID Atorvastatin Calcium 10 Mg Tablet 1 Tab PO DAILY Allergies Allergies: Coded Allergies: No Known Drug Allergies (Unverified , 12/04/15) ROS Review of System unable to complete, resp distress, on bipap Physical Exam General: Alert, Cooperative, moderate distress HEENT: PERRLA, EOMI, Mucous membr. moist/pink Lungs: Clear to auscultation, Other (rales, no wheeze, ) Heart: no gallops, no murmurs Abdomen: Normal bowel sounds, Soft Extremities: No cyanosis, Other (1+ LE edema, ) Skin: No rashes, No significant lesion Neuro: Normal speech Psych/Mental Status: Mood NL Vitals Vitals Vital Signs Date Time Temp Pulse Resp B/P (MAP) Pulse Ox O2 Delivery O2 Flow Rate FiO2 05/25/17 11:07 95 BiPAP/CPAP 05/25/17 10:47 97.3 85 20 149/75 (99) 97.3 05/25/17 05:25 2.0 Labs Labs Laboratory Tests Test 05/24/17 21:10 05/25/17 01:10 05/25/17 07:09 05/25/17 11:00 White Blood Count 10.5 x10^3/uL (4.0-11.0) Red Blood Count 3.44 x10^6/uL (3.50-5.40) Hemoglobin 9.2 g/dL (12.0-15.5) Hematocrit 28.8 % (36.0-47.0) Mean Corpuscular Volume 84 fL (79-100) Mean Corpuscular Hemoglobin 27 pg (25-35) Mean Corpuscular Hemoglobin Concent 32 g/dL (31-37) Red Cell Distribution Width 15.7 % (11.5-14.5) Platelet Count 261 x10^3/uL (140-400) Neutrophils (%) (Auto) 82 % (31-73) Lymphocytes (%) (Auto) 7 % (24-48) Monocytes (%) (Auto) 10 % (0-9) Eosinophils (%) (Auto) 0 % (0-3) Basophils (%) (Auto) 1 % (0-3) Neutrophils # (Auto) 8.6 x10^3uL (1.8-7.7) Lymphocytes # (Auto) 0.8 x10^3/uL (1.0-4.8) Monocytes # (Auto) 1.0 x10^3/uL (0.0-1.1) Eosinophils # (Auto) 0.0 x10^3/uL (0.0-0.7) Basophils # (Auto) 0.1 x10^3/uL (0.0-0.2) Prothrombin Time 15.0 SEC (11.7-14.0) Prothromb Time International Ratio 1.3 (0.8-1.1) Activated Partial Thromboplast Time 29 SEC (24-38) Sodium Level 139 mmol/L (136-145) Potassium Level 3.9 mmol/L (3.5-5.1) Chloride Level 97 mmol/L (98-107) Carbon Dioxide Level 34 mmol/L (21-32) Anion Gap 8 (6-14) Blood Urea Nitrogen 31 mg/dL (7-20) Creatinine 1.7 mg/dL (0.6-1.0) Estimated GFR (Cockcroft-Gault) 29.0 BUN/Creatinine Ratio 18 (6-20) Glucose Level 386 mg/dL (70-99) Lactic Acid Level 2.6 mmol/L (0.4-2.0) 0.6 mmol/L (0.4-2.0) Calcium Level 9.3 mg/dL (8.5-10.1) Total Bilirubin 0.3 mg/dL (0.2-1.0) Direct Bilirubin 0.1 mg/dL (0.0-0.2) Aspartate Amino Transf (AST/SGOT) 22 U/L (15-37) Alanine Aminotransferase (ALT/SGPT) 14 U/L (14-59) Alkaline Phosphatase 65 U/L (46-116) Total Protein 8.1 g/dL (6.4-8.2) Albumin 2.8 g/dL (3.4-5.0) Albumin/Globulin Ratio 0.5 (1.0-1.7) MV-Ymc-F-Type Natriuretic Peptide 6713 pg/mL (0-449) Glucose (Fingerstick) 312 mg/dL (70-99) O2 Saturation 89 % (92-99) Arterial Blood pH 7.36 (7.35-7.45) Arterial Blood pCO2 at Patient Temp 60 mmHg (35-46) Arterial Blood pO2 at Patient Temp 57 mmHg (65-108) Arterial Blood HCO3 33 mmol/L (21-28) Arterial Blood Base Excess 6 mmol/L (-3-3) FiO2 35 Laboratory Tests Test 05/24/17 21:10 05/25/17 01:10 05/25/17 07:09 05/25/17 11:00 White Blood Count 10.5 x10^3/uL (4.0-11.0) Red Blood Count 3.44 x10^6/uL (3.50-5.40) Hemoglobin 9.2 g/dL (12.0-15.5) Hematocrit 28.8 % (36.0-47.0) Mean Corpuscular Volume 84 fL (79-100) Mean Corpuscular Hemoglobin 27 pg (25-35) Mean Corpuscular Hemoglobin Concent 32 g/dL (31-37) Red Cell Distribution Width 15.7 % (11.5-14.5) Platelet Count 261 x10^3/uL (140-400) Neutrophils (%) (Auto) 82 % (31-73) Lymphocytes (%) (Auto) 7 % (24-48) Monocytes (%) (Auto) 10 % (0-9) Eosinophils (%) (Auto) 0 % (0-3) Basophils (%) (Auto) 1 % (0-3) Neutrophils # (Auto) 8.6 x10^3uL (1.8-7.7) Lymphocytes # (Auto) 0.8 x10^3/uL (1.0-4.8) Monocytes # (Auto) 1.0 x10^3/uL (0.0-1.1) Eosinophils # (Auto) 0.0 x10^3/uL (0.0-0.7) Basophils # (Auto) 0.1 x10^3/uL (0.0-0.2) Prothrombin Time 15.0 SEC (11.7-14.0) Prothromb Time International Ratio 1.3 (0.8-1.1) Activated Partial Thromboplast Time 29 SEC (24-38) Sodium Level 139 mmol/L (136-145) Potassium Level 3.9 mmol/L (3.5-5.1) Chloride Level 97 mmol/L (98-107) Carbon Dioxide Level 34 mmol/L (21-32) Anion Gap 8 (6-14) Blood Urea Nitrogen 31 mg/dL (7-20) Creatinine 1.7 mg/dL (0.6-1.0) Estimated GFR (Cockcroft-Gault) 29.0 BUN/Creatinine Ratio 18 (6-20) Glucose Level 386 mg/dL (70-99) Lactic Acid Level 2.6 mmol/L (0.4-2.0) 0.6 mmol/L (0.4-2.0) Calcium Level 9.3 mg/dL (8.5-10.1) Total Bilirubin 0.3 mg/dL (0.2-1.0) Direct Bilirubin 0.1 mg/dL (0.0-0.2) Aspartate Amino Transf (AST/SGOT) 22 U/L (15-37) Alanine Aminotransferase (ALT/SGPT) 14 U/L (14-59) Alkaline Phosphatase 65 U/L (46-116) Total Protein 8.1 g/dL (6.4-8.2) Albumin 2.8 g/dL (3.4-5.0) Albumin/Globulin Ratio 0.5 (1.0-1.7) NJ-Elu-U-Type Natriuretic Peptide 6713 pg/mL (0-449) Glucose (Fingerstick) 312 mg/dL (70-99) O2 Saturation 89 % (92-99) Arterial Blood pH 7.36 (7.35-7.45) Arterial Blood pCO2 at Patient Temp 60 mmHg (35-46) Arterial Blood pO2 at Patient Temp 57 mmHg (65-108) Arterial Blood HCO3 33 mmol/L (21-28) Arterial Blood Base Excess 6 mmol/L (-3-3) FiO2 35 VTE Prophylaxis Ordered VTE Prophylaxis Devices: Yes VTE Pharmacological Prophylaxi: No Assessment/Plan Assessment/Plan 1. Acute respiratory failure hypercapnic 2. Chronic obstructive pulmonary disease, with acute exacerbation 3. pneumonitis, SIRS, sepsis, 4. obesity hypoventilation syndrome and cor pulmonale 5. 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 anemia of CKD 8. moderate severe malnutrition BRENDAN HICKEY MD May 25, 2017 11:53
[2017-05-25] MEDS: METOPROLOL SUCC 24HR ER 25 MG TAB.ER.24H. PO SCH (12:00)
[2017-05-25] MEDS: INSULIN ASPART 300 UNITS/3 ML INSULN.PEN SQ SCH ×2 (12:00→17:52)
[2017-05-25] MEDS ORDERED: DEXTROSE 50% 25 GM / 50ML DISP.SYRIN. IV PRN (12:00)
[2017-05-25] MEDS: ASPIRIN ENTERIC COATED 81 MG TABLET.DR. PO SCH (12:00)
[2017-05-25] MEDS: ENOXAPARIN 30 MG/0.3 ML SYRINGE. SQ SCH (17:44)
--- NOTE | 2017-05-25 17:54 | RAD ---
Portable chest, 05/25/2017: History: Follow-up pneumonia, CHF Comparison is made to yesterday's study. The patient is rotated to the right. The heart size and pulmonary vascularity are normal. There is calcific plaquing of the aorta. Mild bibasilar opacities have worsened. The findings suggest patchy infiltrates, most likely due to pneumonia. There is no evidence of pleural fluid. IMPRESSION: Increasing mild bibasilar opacities compatible with pneumonia.
--- NOTE | 2017-05-25 17:56 | CONS ---
DATE OF CONSULTATION: 05/24/2017 re-dictated MTDD
[2017-05-25] MEDS: BUDESONIDE 0.5 MG/2 ML NEBU. NEB SCH (20:24)
[2017-05-25] MEDS: ATORVASTATIN CALCIUM 10 MG TABLET. PO SCH (20:35)
[2017-05-25] MEDS: methylPREDNISolone SOD SUCC PF 40 MG/ML VIAL. IV SCH (20:35)
[2017-05-25] MEDS ORDERED: VANCOMYCIN 1 GM in IV DEXTROSE 5% 250 ML IV SCH (22:00)
[2017-05-26 03:14] VITALS: BP 134/67
[2017-05-26] MEDS: PIPERACILLIN/TAZO IV Push 2.25 GM VIAL. IVP SCH ×3 (05:00→18:10)
[2017-05-26 05:20] LABS: BASO % 0 % (0-3); EOS % 0 % (0-3); HEMATOCRIT 26.5 % (36.0-47.0); HEMOGLOBIN 8.3 g/dL (12.0-15.5); LYMPH # 0.8 x10^3/uL (1.0-4.8); LYMPH % 7 % (24-48); MEAN CORPUSCULAR HEMOGLOBIN 26 pg (25-35); MEAN CORPUSCULAR HGB CONC 31 g/dL (31-37); MEAN CORPUSCULAR VOLUME 83 fL (79-100); MONO % 5 % (0-9); NEUT % 87 % (31-73); PLATELET COUNT 235 x10^3/uL (140-400); RED BLOOD COUNT 3.17 x10^6/uL (3.50-5.40); RED CELL DISTRIBUTION WIDTH 15.8 % (11.5-14.5); WHITE BLOOD COUNT 11.4 x10^3/uL (4.0-11.0)
[2017-05-26 05:50] LABS: ALBUMIN 2.3 g/dL (3.4-5.0); ALBUMIN/GLOBULIN RATIO 0.4 (1.0-1.7); CREATININE 2.2 mg/dL (0.6-1.0); GFR 21.5; POTASSIUM 4.2 mmol/L (3.5-5.1); TOTAL BILIRUBIN 0.2 mg/dL (0.2-1.0); TOTAL PROTEIN 7.5 g/dL (6.4-8.2)
[2017-05-26 07:00] VITALS: BP 155/78
[2017-05-26] MEDS: INSULIN ASPART 300 UNITS/3 ML INSULN.PEN SQ SCH ×4 (07:41→18:19)
[2017-05-26] MEDS: BUDESONIDE 0.5 MG/2 ML NEBU. NEB SCH ×2 (08:05→19:14)
[2017-05-26] MEDS: IPRATRPIUM/ALBUTEROL 0.5/2.5MG 3 ML NEBU. NEB SCH ×4 (08:05→19:14)
[2017-05-26] MEDS: ASPIRIN ENTERIC COATED 81 MG TABLET.DR. PO SCH (08:43)
[2017-05-26] MEDS: methylPREDNISolone SOD SUCC PF 40 MG/ML VIAL. IV SCH ×2 (08:44→21:24)
[2017-05-26] MEDS: METOPROLOL SUCC 24HR ER 25 MG TAB.ER.24H. PO SCH (08:45)
--- NOTE | 2017-05-26 10:43 | PDOC ---
Renal-Progress Notes Subjective Notes Notes BETTER History of Present Illness Hx of present illness STABLE Vitals Vitals Vital Signs Date Time Temp Pulse Resp B/P (MAP) Pulse Ox O2 Delivery O2 Flow Rate FiO2 05/26/17 08:45 110 155/78 05/26/17 08:06 96 Nasal Cannula 3.0 05/26/17 07:00 98.5 20 98.5 Weight Weight [ ] I.O. Intake and Output Intake and Output 05/26/17 07:00 Intake Total 1080 ml Output Total 600 ml Balance 480 ml Intake Oral 580 ml IV Total 500 ml Output Urine Total 600 ml # Voids 1 # Bowel Movements 2 Labs Labs Laboratory Tests Test 05/25/17 11:00 05/25/17 11:42 05/25/17 13:28 05/25/17 16:24 O2 Saturation 89 % (92-99) Arterial Blood pH 7.36 (7.35-7.45) Arterial Blood pCO2 at Patient Temp 60 mmHg (35-46) Arterial Blood pO2 at Patient Temp 57 mmHg (65-108) Arterial Blood HCO3 33 mmol/L (21-28) Arterial Blood Base Excess 6 mmol/L (-3-3) FiO2 35 Glucose (Fingerstick) 248 mg/dL (70-99) 222 mg/dL (70-99) 340 mg/dL (70-99) Test 05/25/17 20:28 05/26/17 04:35 05/26/17 07:31 Glucose (Fingerstick) 242 mg/dL (70-99) 245 mg/dL (70-99) White Blood Count 11.4 x10^3/uL (4.0-11.0) Red Blood Count 3.17 x10^6/uL (3.50-5.40) Hemoglobin 8.3 g/dL (12.0-15.5) Hematocrit 26.5 % (36.0-47.0) Mean Corpuscular Volume 83 fL (79-100) Mean Corpuscular Hemoglobin 26 pg (25-35) Mean Corpuscular Hemoglobin Concent 31 g/dL (31-37) Red Cell Distribution Width 15.8 % (11.5-14.5) Platelet Count 235 x10^3/uL (140-400) Neutrophils (%) (Auto) 87 % (31-73) Lymphocytes (%) (Auto) 7 % (24-48) Monocytes (%) (Auto) 5 % (0-9) Eosinophils (%) (Auto) 0 % (0-3) Basophils (%) (Auto) 0 % (0-3) Neutrophils # (Auto) 9.9 x10^3uL (1.8-7.7) Lymphocytes # (Auto) 0.8 x10^3/uL (1.0-4.8) Monocytes # (Auto) 0.6 x10^3/uL (0.0-1.1) Eosinophils # (Auto) 0.0 x10^3/uL (0.0-0.7) Basophils # (Auto) 0.0 x10^3/uL (0.0-0.2) Sodium Level 140 mmol/L (136-145) Potassium Level 4.2 mmol/L (3.5-5.1) Chloride Level 100 mmol/L (98-107) Carbon Dioxide Level 36 mmol/L (21-32) Anion Gap 4 (6-14) Blood Urea Nitrogen 40 mg/dL (7-20) Creatinine 2.2 mg/dL (0.6-1.0) Estimated GFR (Cockcroft-Gault) 21.5 BUN/Creatinine Ratio 18 (6-20) Glucose Level 237 mg/dL (70-99) Calcium Level 9.0 mg/dL (8.5-10.1) Total Bilirubin 0.2 mg/dL (0.2-1.0) Aspartate Amino Transf (AST/SGOT) 33 U/L (15-37) Alanine Aminotransferase (ALT/SGPT) 26 U/L (14-59) Alkaline Phosphatase 58 U/L (46-116) Total Protein 7.5 g/dL (6.4-8.2) Albumin 2.3 g/dL (3.4-5.0) Albumin/Globulin Ratio 0.4 (1.0-1.7) Micro Micro Microbiology 05/24/17 Blood Culture - Preliminary, Resulted NO GROWTH AFTER 1 DAY Review of Systems Constitutional: yes: weakness, alert Ears/Nose/Throat: Yes: no symptom reported Eyes: Yes: no symptom reported Pulmonary: Yes wheezing, Yes dyspnea Cardiovascular: Yes no symptom reported Gastrointestional: Yes: constipation Musculoskeletal: Yes: no symptom reported Skin: Yes no symptom reported Psychiatric/Neurological: Yes: no symptom reported Endocrine: Yes: no symptom reported Physical Exam General Appearance: no apparent distress Respiratory: decreased breath sounds, wheezing Heart: S1S2 Abdomen: soft, bowel sounds present Genitourinary: bladder flat Extremities: pulses present, atrophy Neurology: alert, other (drowsy) Musculoskeletal: No pain Assessment Assessment IMP CKD STAGE 3 - CR STABLE AT 2.0 AECOPD ACUTE HYPERCARBIC RESP FAILURE PROB PNEUMONIA PLAN PULM SUPPORT RENAL FXN STABLE ANTIBIOTICS LABS IN AM PALLAVI RODRIGUEZ MD May 26, 2017 10:42
[2017-05-26 11:43] VITALS: BP 142/81
--- NOTE | 2017-05-26 12:02 | PDOC ---
SUSAN DOUGLAS JUNIOR AUTOMATION ENGINEER 05/26/17 1201: CARDIO Progress Notes Date and Time Date of Service 05/26/2017 Time of Evaluation 0945 Subjective Subjective: No Chest Pain, No Palpitations, Other (still has SOA but much better, off bipap) Vitals Vitals Vital Signs Date Time Temp Pulse Resp B/P (MAP) Pulse Ox O2 Delivery O2 Flow Rate FiO2 05/26/17 11:43 98.4 92 19 142/81 (101) 97 Nasal Cannula 3.0 98.4 Weight Weight [ ] Input and Output Intake and Output Intake and Output 05/26/17 07:00 Intake Total 1080 ml Output Total 600 ml Balance 480 ml Intake Oral 580 ml IV Total 500 ml Output Urine Total 600 ml # Voids 1 # Bowel Movements 2 Laboratory Labs Laboratory Tests Test 05/25/17 13:28 05/25/17 16:24 05/25/17 20:28 05/26/17 04:35 Glucose (Fingerstick) 222 mg/dL (70-99) 340 mg/dL (70-99) 242 mg/dL (70-99) White Blood Count 11.4 x10^3/uL (4.0-11.0) Red Blood Count 3.17 x10^6/uL (3.50-5.40) Hemoglobin 8.3 g/dL (12.0-15.5) Hematocrit 26.5 % (36.0-47.0) Mean Corpuscular Volume 83 fL (79-100) Mean Corpuscular Hemoglobin 26 pg (25-35) Mean Corpuscular Hemoglobin Concent 31 g/dL (31-37) Red Cell Distribution Width 15.8 % (11.5-14.5) Platelet Count 235 x10^3/uL (140-400) Neutrophils (%) (Auto) 87 % (31-73) Lymphocytes (%) (Auto) 7 % (24-48) Monocytes (%) (Auto) 5 % (0-9) Eosinophils (%) (Auto) 0 % (0-3) Basophils (%) (Auto) 0 % (0-3) Neutrophils # (Auto) 9.9 x10^3uL (1.8-7.7) Lymphocytes # (Auto) 0.8 x10^3/uL (1.0-4.8) Monocytes # (Auto) 0.6 x10^3/uL (0.0-1.1) Eosinophils # (Auto) 0.0 x10^3/uL (0.0-0.7) Basophils # (Auto) 0.0 x10^3/uL (0.0-0.2) Sodium Level 140 mmol/L (136-145) Potassium Level 4.2 mmol/L (3.5-5.1) Chloride Level 100 mmol/L (98-107) Carbon Dioxide Level 36 mmol/L (21-32) Anion Gap 4 (6-14) Blood Urea Nitrogen 40 mg/dL (7-20) Creatinine 2.2 mg/dL (0.6-1.0) Estimated GFR (Cockcroft-Gault) 21.5 BUN/Creatinine Ratio 18 (6-20) Glucose Level 237 mg/dL (70-99) Calcium Level 9.0 mg/dL (8.5-10.1) Total Bilirubin 0.2 mg/dL (0.2-1.0) Aspartate Amino Transf (AST/SGOT) 33 U/L (15-37) Alanine Aminotransferase (ALT/SGPT) 26 U/L (14-59) Alkaline Phosphatase 58 U/L (46-116) Total Protein 7.5 g/dL (6.4-8.2) Albumin 2.3 g/dL (3.4-5.0) Albumin/Globulin Ratio 0.4 (1.0-1.7) Test 05/26/17 07:31 Glucose (Fingerstick) 245 mg/dL (70-99) Microbiology Micro Microbiology 05/24/17 Blood Culture - Preliminary, Resulted NO GROWTH AFTER 1 DAY Review of Systems Constitutional: yes: weakness, alert Ears/Nose/Throat: Yes: no symptom reported Eyes: Yes: no symptom reported Pulmonary: Yes wheezing, Yes dyspnea Cardiovascular: Yes no symptom reported Gastrointestional: Yes: constipation Musculoskeletal: Yes: no symptom reported Skin: Yes no symptom reported Psychiatric/Neurological: Yes: no symptom reported Endocrine: Yes: no symptom reported Physical Exam HEENT: Neck Supple W Full Motion Chest: Symmetric LUNGS: Other (basilar crackles) Heart: S1S2, RRR (SR) Abdomen: Soft N/T Extremities: No Calf Tenderness, Other (1+ bilateral LE pitting edema) Neurology: alert, oriented, follow commands Assessment Assessment 1. Pneumonia: pulmonary following 2. Acute on chronic respiratory failure with underlying COPD and possible MARCO: SOA better, off bipap 3. Hypoxic encephalopathy: more alert today 4. Chronic diastolic CHF: EF 55-60%, compensated 5. ANDREA on CKD3: nephrology following 6. DM2/HLP 7. Accelerated HTN: improved 8. Anemia of chronic disease Recommendations 1. Hold metformin and lisinopril. Continue with toprol, start on norvasc. Hydralazine IV PRN 2. Continue with secondary prevention 3. Will follow along peripherally BECKA FRANCOIS MD 05/27/17 0842: CARDIO Progress Notes Assessment Assessment Patient seen and examined 05/26/17 (late entry). Agree with CRITICAL CARE NURSE PRACTITIONER's assessment and plan. Chronic diastolic heart failure well compensated. Blood pressure better controlled since admission. Continue treatment of pneumonia per pulmonary team. SUSAN DOUGLAS APRN May 26, 2017 12:01 BECKA FRANCOIS MD May 27, 2017 08:42
[2017-05-26] MEDS ORDERED: INSULIN DETEMIR 300 UNITS/3 ML INSULN.PEN. SQ ONE (12:15)
[2017-05-26] MEDS ORDERED: INSULIN ASPART 300 UNITS/3 ML INSULN.PEN SQ ONE (12:15)
[2017-05-26] MEDS: VANCOMYCIN PER PHARMACY MC PRN (12:44)
--- NOTE | 2017-05-26 12:49 | PDOC ---
PROGRESS NOTES Chief Complaint Chief Complaint 1. Acute respiratory failure hypercapnic 2. Chronic obstructive pulmonary disease, with acute exacerbation 3. pneumonitis, SIRS, sepsis, 4. obesity hypoventilation syndrome and cor pulmonale 5. 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 anemia of CKD 8. moderate severe malnutrition History of Present Illness History of Present Illness feels much better today blood sugar high, will add meal time insulin with SSI PT and OT today she reports feeling much better, is more alert and awake and looks well Vitals Vitals Vital Signs Date Time Temp Pulse Resp B/P (MAP) Pulse Ox O2 Delivery O2 Flow Rate FiO2 05/26/17 11:43 98.4 92 19 142/81 (101) 97 Nasal Cannula 3.0 98.4 Physical Exam General: Alert, Cooperative, mild distress Heart: Regular rate, Normal S1, No murmurs Lungs: Other Abdomen: Normal bowel sounds, Soft Extremities: No cyanosis, Other (1+ LE edema, ) Skin: No rashes, No significant lesion Labs LABS Laboratory Tests Test 05/25/17 13:28 05/25/17 16:24 05/25/17 20:28 05/26/17 04:35 Glucose (Fingerstick) 222 mg/dL (70-99) 340 mg/dL (70-99) 242 mg/dL (70-99) White Blood Count 11.4 x10^3/uL (4.0-11.0) Red Blood Count 3.17 x10^6/uL (3.50-5.40) Hemoglobin 8.3 g/dL (12.0-15.5) Hematocrit 26.5 % (36.0-47.0) Mean Corpuscular Volume 83 fL (79-100) Mean Corpuscular Hemoglobin 26 pg (25-35) Mean Corpuscular Hemoglobin Concent 31 g/dL (31-37) Red Cell Distribution Width 15.8 % (11.5-14.5) Platelet Count 235 x10^3/uL (140-400) Neutrophils (%) (Auto) 87 % (31-73) Lymphocytes (%) (Auto) 7 % (24-48) Monocytes (%) (Auto) 5 % (0-9) Eosinophils (%) (Auto) 0 % (0-3) Basophils (%) (Auto) 0 % (0-3) Neutrophils # (Auto) 9.9 x10^3uL (1.8-7.7) Lymphocytes # (Auto) 0.8 x10^3/uL (1.0-4.8) Monocytes # (Auto) 0.6 x10^3/uL (0.0-1.1) Eosinophils # (Auto) 0.0 x10^3/uL (0.0-0.7) Basophils # (Auto) 0.0 x10^3/uL (0.0-0.2) Sodium Level 140 mmol/L (136-145) Potassium Level 4.2 mmol/L (3.5-5.1) Chloride Level 100 mmol/L (98-107) Carbon Dioxide Level 36 mmol/L (21-32) Anion Gap 4 (6-14) Blood Urea Nitrogen 40 mg/dL (7-20) Creatinine 2.2 mg/dL (0.6-1.0) Estimated GFR (Cockcroft-Gault) 21.5 BUN/Creatinine Ratio 18 (6-20) Glucose Level 237 mg/dL (70-99) Calcium Level 9.0 mg/dL (8.5-10.1) Total Bilirubin 0.2 mg/dL (0.2-1.0) Aspartate Amino Transf (AST/SGOT) 33 U/L (15-37) Alanine Aminotransferase (ALT/SGPT) 26 U/L (14-59) Alkaline Phosphatase 58 U/L (46-116) Total Protein 7.5 g/dL (6.4-8.2) Albumin 2.3 g/dL (3.4-5.0) Albumin/Globulin Ratio 0.4 (1.0-1.7) Test 05/26/17 07:31 05/26/17 11:51 Glucose (Fingerstick) 245 mg/dL (70-99) 385 mg/dL (70-99) Review of Systems Review of Systems no n.vd. feels well some cough, no event Assessment and Plan Assessmemt and Plan Problems Medical Problems: (1) CHF exacerbation Status: Acute (2) Congestive heart failure Status: Acute (3) COPD exacerbation Status: Acute (4) Pneumonia Status: Acute (5) Respiratory failure Status: Acute Problems: Comment Review of Relevant I have reviewed the following items brittanie (where applicable) has been applied. Labs Laboratory Tests Test 05/24/17 21:10 05/25/17 01:10 05/25/17 07:09 05/25/17 11:00 White Blood Count 10.5 x10^3/uL (4.0-11.0) Red Blood Count 3.44 x10^6/uL (3.50-5.40) Hemoglobin 9.2 g/dL (12.0-15.5) Hematocrit 28.8 % (36.0-47.0) Mean Corpuscular Volume 84 fL (79-100) Mean Corpuscular Hemoglobin 27 pg (25-35) Mean Corpuscular Hemoglobin Concent 32 g/dL (31-37) Red Cell Distribution Width 15.7 % (11.5-14.5) Platelet Count 261 x10^3/uL (140-400) Neutrophils (%) (Auto) 82 % (31-73) Lymphocytes (%) (Auto) 7 % (24-48) Monocytes (%) (Auto) 10 % (0-9) Eosinophils (%) (Auto) 0 % (0-3) Basophils (%) (Auto) 1 % (0-3) Neutrophils # (Auto) 8.6 x10^3uL (1.8-7.7) Lymphocytes # (Auto) 0.8 x10^3/uL (1.0-4.8) Monocytes # (Auto) 1.0 x10^3/uL (0.0-1.1) Eosinophils # (Auto) 0.0 x10^3/uL (0.0-0.7) Basophils # (Auto) 0.1 x10^3/uL (0.0-0.2) Prothrombin Time 15.0 SEC (11.7-14.0) Prothromb Time International Ratio 1.3 (0.8-1.1) Activated Partial Thromboplast Time 29 SEC (24-38) Sodium Level 139 mmol/L (136-145) Potassium Level 3.9 mmol/L (3.5-5.1) Chloride Level 97 mmol/L (98-107) Carbon Dioxide Level 34 mmol/L (21-32) Anion Gap 8 (6-14) Blood Urea Nitrogen 31 mg/dL (7-20) Creatinine 1.7 mg/dL (0.6-1.0) Estimated GFR (Cockcroft-Gault) 29.0 BUN/Creatinine Ratio 18 (6-20) Glucose Level 386 mg/dL (70-99) Lactic Acid Level 2.6 mmol/L (0.4-2.0) 0.6 mmol/L (0.4-2.0) Calcium Level 9.3 mg/dL (8.5-10.1) Total Bilirubin 0.3 mg/dL (0.2-1.0) Direct Bilirubin 0.1 mg/dL (0.0-0.2) Aspartate Amino Transf (AST/SGOT) 22 U/L (15-37) Alanine Aminotransferase (ALT/SGPT) 14 U/L (14-59) Alkaline Phosphatase 65 U/L (46-116) Total Protein 8.1 g/dL (6.4-8.2) Albumin 2.8 g/dL (3.4-5.0) Albumin/Globulin Ratio 0.5 (1.0-1.7) XJ-Quu-D-Type Natriuretic Peptide 6713 pg/mL (0-449) Glucose (Fingerstick) 312 mg/dL (70-99) O2 Saturation 89 % (92-99) Arterial Blood pH 7.36 (7.35-7.45) Arterial Blood pCO2 at Patient Temp 60 mmHg (35-46) Arterial Blood pO2 at Patient Temp 57 mmHg (65-108) Arterial Blood HCO3 33 mmol/L (21-28) Arterial Blood Base Excess 6 mmol/L (-3-3) FiO2 35 Test 05/25/17 11:42 05/25/17 13:28 05/25/17 16:24 05/25/17 20:28 Glucose (Fingerstick) 248 mg/dL (70-99) 222 mg/dL (70-99) 340 mg/dL (70-99) 242 mg/dL (70-99) Test 05/26/17 04:35 05/26/17 07:31 05/26/17 11:51 White Blood Count 11.4 x10^3/uL (4.0-11.0) Red Blood Count 3.17 x10^6/uL (3.50-5.40) Hemoglobin 8.3 g/dL (12.0-15.5) Hematocrit 26.5 % (36.0-47.0) Mean Corpuscular Volume 83 fL (79-100) Mean Corpuscular Hemoglobin 26 pg (25-35) Mean Corpuscular Hemoglobin Concent 31 g/dL (31-37) Red Cell Distribution Width 15.8 % (11.5-14.5) Platelet Count 235 x10^3/uL (140-400) Neutrophils (%) (Auto) 87 % (31-73) Lymphocytes (%) (Auto) 7 % (24-48) Monocytes (%) (Auto) 5 % (0-9) Eosinophils (%) (Auto) 0 % (0-3) Basophils (%) (Auto) 0 % (0-3) Neutrophils # (Auto) 9.9 x10^3uL (1.8-7.7) Lymphocytes # (Auto) 0.8 x10^3/uL (1.0-4.8) Monocytes # (Auto) 0.6 x10^3/uL (0.0-1.1) Eosinophils # (Auto) 0.0 x10^3/uL (0.0-0.7) Basophils # (Auto) 0.0 x10^3/uL (0.0-0.2) Sodium Level 140 mmol/L (136-145) Potassium Level 4.2 mmol/L (3.5-5.1) Chloride Level 100 mmol/L (98-107) Carbon Dioxide Level 36 mmol/L (21-32) Anion Gap 4 (6-14) Blood Urea Nitrogen 40 mg/dL (7-20) Creatinine 2.2 mg/dL (0.6-1.0) Estimated GFR (Cockcroft-Gault) 21.5 BUN/Creatinine Ratio 18 (6-20) Glucose Level 237 mg/dL (70-99) Calcium Level 9.0 mg/dL (8.5-10.1) Total Bilirubin 0.2 mg/dL (0.2-1.0) Aspartate Amino Transf (AST/SGOT) 33 U/L (15-37) Alanine Aminotransferase (ALT/SGPT) 26 U/L (14-59) Alkaline Phosphatase 58 U/L (46-116) Total Protein 7.5 g/dL (6.4-8.2) Albumin 2.3 g/dL (3.4-5.0) Albumin/Globulin Ratio 0.4 (1.0-1.7) Glucose (Fingerstick) 245 mg/dL (70-99) 385 mg/dL (70-99) Laboratory Tests Test 05/25/17 13:28 05/25/17 16:24 05/25/17 20:28 05/26/17 04:35 Glucose (Fingerstick) 222 mg/dL (70-99) 340 mg/dL (70-99) 242 mg/dL (70-99) White Blood Count 11.4 x10^3/uL (4.0-11.0) Red Blood Count 3.17 x10^6/uL (3.50-5.40) Hemoglobin 8.3 g/dL (12.0-15.5) Hematocrit 26.5 % (36.0-47.0) Mean Corpuscular Volume 83 fL (79-100) Mean Corpuscular Hemoglobin 26 pg (25-35) Mean Corpuscular Hemoglobin Concent 31 g/dL (31-37) Red Cell Distribution Width 15.8 % (11.5-14.5) Platelet Count 235 x10^3/uL (140-400) Neutrophils (%) (Auto) 87 % (31-73) Lymphocytes (%) (Auto) 7 % (24-48) Monocytes (%) (Auto) 5 % (0-9) Eosinophils (%) (Auto) 0 % (0-3) Basophils (%) (Auto) 0 % (0-3) Neutrophils # (Auto) 9.9 x10^3uL (1.8-7.7) Lymphocytes # (Auto) 0.8 x10^3/uL (1.0-4.8) Monocytes # (Auto) 0.6 x10^3/uL (0.0-1.1) Eosinophils # (Auto) 0.0 x10^3/uL (0.0-0.7) Basophils # (Auto) 0.0 x10^3/uL (0.0-0.2) Sodium Level 140 mmol/L (136-145) Potassium Level 4.2 mmol/L (3.5-5.1) Chloride Level 100 mmol/L (98-107) Carbon Dioxide Level 36 mmol/L (21-32) Anion Gap 4 (6-14) Blood Urea Nitrogen 40 mg/dL (7-20) Creatinine 2.2 mg/dL (0.6-1.0) Estimated GFR (Cockcroft-Gault) 21.5 BUN/Creatinine Ratio 18 (6-20) Glucose Level 237 mg/dL (70-99) Calcium Level 9.0 mg/dL (8.5-10.1) Total Bilirubin 0.2 mg/dL (0.2-1.0) Aspartate Amino Transf (AST/SGOT) 33 U/L (15-37) Alanine Aminotransferase (ALT/SGPT) 26 U/L (14-59) Alkaline Phosphatase 58 U/L (46-116) Total Protein 7.5 g/dL (6.4-8.2) Albumin 2.3 g/dL (3.4-5.0) Albumin/Globulin Ratio 0.4 (1.0-1.7) Test 05/26/17 07:31 05/26/17 11:51 Glucose (Fingerstick) 245 mg/dL (70-99) 385 mg/dL (70-99) Microbiology 05/24/17 Blood Culture - Preliminary, Resulted NO GROWTH AFTER 1 DAY Medications Current Medications Sodium Chloride 1,000 ml @ 1,000 mls/hr Q1H IV Last administered on 00:26; Start 05/24/17 at 22:30; Stop 05/25/17 at 00:49; Status DC Piperacillin Sod/ Tazobactam Sod (Zosyn Per Pharmacy) 1 each PRN DAILY PRN MC SEE COMMENTS; Start 05/24/17 at 23:15 Vancomycin HCl (Vanco Per Pharmacy) 1 each PRN DAILY PRN MC SEE COMMENTS Last administered on 05/25/17 02:41; Start 05/24/17 at 23:15 Vancomycin HCl 2 gm/Dextrose 500 ml @ 250 mls/hr 1X ONCE IV Last administered on 05/24/17 23:39; Start 05/25/17 at 00:00; Stop 05/25/17 at 01 :59; Status DC Piperacillin Sod/ Tazobactam Sod (Zosyn) 2.25 gm 1X ONCE IVP Last administered on 05/24/17 23:39; Start 05/24/17 at 23:30; Stop 05/24/17 at 23 :31; Status DC Ondansetron HCl (Zofran) 4 mg PRN Q8HRS PRN IV NAUSEA/VOMITING; Start at 23:30; Stop 05/25/17 at 23:29; Status DC Sodium Chloride 1,000 ml @ 125 mls/hr Q8H IV ; Start 05/24/17 at 23:45; Stop 05/25/17 at 05:47; Status DC Acetaminophen (Tylenol) 650 mg PRN Q4HRS PRN PO FEVER Last administered on 23:59; Start 05/24/17 at 23:30; Stop 05/25/17 at 23:29; Status DC Albuterol/ Ipratropium (Duoneb) 3 ml 1X ONCE NEB Last administered on 00:02; Start 05/25/17 at 00:00; Stop 05/25/17 at 00:01; Status DC Methylprednisolone Sodium Succinate (SOLU-Medrol 125MG VIAL) 125 mg 1X ONCE IV Last administered on 05/25/17 00:00; Start 05/25/17 at 00:00; Stop at 00:01; Status DC Albuterol/ Ipratropium (Duoneb) 3 ml 1X ONCE NEB Last administered on 00:02; Start 05/25/17 at 00:00; Stop 05/25/17 at 00:01; Status DC Furosemide (Lasix) 80 mg 1X ONCE IVP Last administered on 05/25/17 00:21; Start 05/25/17 at 00:30; Stop 05/25/17 at 00:31; Status DC Piperacillin Sod/ Tazobactam Sod (Zosyn) 2.25 gm Q6HRS IVP Last administered on 05/26/17 05:00; Start 05/25/17 at 06:00 Vancomycin HCl 1 gm/Dextrose 250 ml @ 250 mls/hr Q24H IV Last administered on 05/25/17 21:47; Start 05/25/17 at 22:00 Vancomycin HCl 1 each 1X ONCE MC ; Start 05/26/17 at 21:30; Stop 05/26/17 at 21:31 Albuterol/ Ipratropium (Duoneb) 3 ml RTQID NEB ; Start 05/25/17 at 08:00; Stop 05/25/17 at 08:00; Status DC Albuterol Sulfate (Ventolin Neb Soln) 2.5 mg PRN Q2HRS PRN NEB SHORTNESS OF BREATH; Start 05/25/17 at 05:45 Prednisone (Prednisone) 60 mg DAILY PO ; Start 05/25/17 at 09:00; Stop at 12:04; Status DC Albuterol/ Ipratropium (Duoneb) 3 ml RTQID NEB Last administered on 05/25/17 11:07; Start 05/25/17 at 06:00; Stop 05/25/17 at 12:01; Status DC Influenza Virus Vaccine Quadrival (Fluarix Quad [id number] Syringe) 0.5 ml ONCE ONCE VAX IM ; Start 05/25/17 at 11:30; Stop 05/25/17 at 11:31; Status DC Metoprolol Succinate (Toprol Xl) 50 mg DAILY PO Last administered on 08:45; Start 05/25/17 at 12:00 Aspirin (Ecotrin) 81 mg DAILYWBKFT PO Last administered on 05/26/17 08:43; Start 05/25/17 at 12:00 Hydralazine HCl (Apresoline Inj) 10 mg PRN Q4HRS PRN IVP ELEVATED BP, SEE COMMENTS; Start 05/25/17 at 11:30 Atorvastatin Calcium (Lipitor) 10 mg QHS PO Last administered on 05/25/17 20: 35; Start 05/25/17 at 21:00 Insulin Aspart (NovoLOG) 0-9 UNITS TIDWMEALS SQ Last administered on 07:41; Start 05/25/17 at 12:00 Dextrose (Dextrose 50%-Water Syringe) 12.5 gm PRN Q15MIN PRN IV SEE COMMENTS; Start 05/25/17 at 12:00 Albuterol/ Ipratropium (Duoneb) 3 ml Q4HRS W/A NEB Last administered on 11:33; Start 05/25/17 at 14:00 Budesonide (Pulmicort) 0.5 mg RTBID NEB Last administered on 05/26/17 08:05; Start 05/25/17 at 20:00 Methylprednisolone Sodium Succinate (SOLU-Medrol 40MG VIAL) 40 mg Q12HR IV Last administered on 05/26/17t 08:44; Start 05/25/17 at 21:00 Enoxaparin Sodium (Lovenox Per Pharmacy Prophylaxis Dosing) 1 each PRN DAILY PRN MC SEE COMMENTS; Start 05/25/17 at 12:15 Enoxaparin Sodium (Lovenox 30mg Syringe) 30 mg DAILY16 SQ Last administered on 05/25/17t 17:44; Start 05/25/17 at 16:00 Amlodipine Besylate (Norvasc) 5 mg DAILY PO ; Start 05/27/17 at 09:00 Insulin Aspart (NovoLOG) 13 units 1X ONCE SQ ; Start 05/26/17 at 12:15; Stop 05/26/17 at 12:22; Status DC Insulin Aspart (NovoLOG) 8 units TIDAC SQ ; Start 05/26/17 at 16:30 Insulin Detemir (Levemir) 12 units 1X ONCE SQ ; Start 05/26/17 at 12:15; Stop 05/26/17 at 12:21; Status DC Active Scripts Active Lisinopril 5 Mg Tablet 1 Tab PO DAILY Metoprolol Succinate ( Xl ) (Metoprolol Succinate) 25 Mg Tab.er.24h 2 Tab PO DAILY Reported Metformin Hcl 500 Mg Tablet 500 Mg PO BIDWMEALS Glimepiride 4 Mg Tablet 1 Tab PO BID Ventolin Hfa Inhaler (Albuterol Sulfate) 18 Gm Hfa.aer.ad 2 Puff INH QID Symbicort 160-4.5 Mcg Inhaler (Budesonide/Formoterol Fumarate) 10.2 Gm Hfa.aer.ad 2 Puff IH BID Atorvastatin Calcium 10 Mg Tablet 1 Tab PO DAILY Vitals/I & O Vital Sign - Last 24 Hours 05/25/17 05/25/17 05/25/17 05/25/17 14:50 16:20 16:22 19:38 Temp 98.3 98.8 98.3 98.8 Pulse 102 108 Resp 20 22 B/P (MAP) 181/80 (113) 160/20 (66) 124/64 (84) Pulse Ox 98 96 97 O2 Delivery Nasal Cannula Nasal Cannula Nasal Cannula O2 Flow Rate 4.0 3.0 3.0 05/25/17 05/25/17 05/25/17 05/26/17 20:00 20:23 22:59 03:14 Temp 98.7 99.4 98.7 99.4 Pulse 95 109 Resp 18 22 B/P (MAP) 136/70 (92) 134/67 (89) Pulse Ox 97 100 99 O2 Delivery Bi-pap Nasal Cannula Nasal Cannula Nasal Cannula O2 Flow Rate 3.0 3.0 3.0 05/26/17 05/26/17 05/26/17 05/26/17 07:00 07:53 08:06 08:45 Temp 98.5 98.5 Pulse 94 110 Resp 20 B/P (MAP) 155/78 (103) 155/78 Pulse Ox 98 96 O2 Delivery Nasal Cannula Nasal Cannula Nasal Cannula O2 Flow Rate 3.0 2.0 3.0 05/26/17 05/26/17 11:33 11:43 Temp 98.4 98.4 Pulse 92 Resp 19 B/P (MAP) 142/81 (101) Pulse Ox 92 97 O2 Delivery Nasal Cannula Nasal Cannula O2 Flow Rate 3.0 3.0 Intake and Output 05/25/17 05/25/17 05/26/17 15:00 23:00 07:00 Intake Total 750 ml 330 ml Output Total 600 ml Balance 750 ml -270 ml BRENDAN HICKEY MD May 26, 2017 12:48
--- NOTE | 2017-05-26 13:09 | PDOC ---
PULMONARY PROGRESS NOTES Subjective fully awake, off BIPAP Vitals Vital Signs Date Time Temp Pulse Resp B/P (MAP) Pulse Ox O2 Delivery O2 Flow Rate FiO2 05/26/17 11:43 98.4 92 19 142/81 (101) 97 Nasal Cannula 3.0 98.4 General: Alert, No acute distress HEENT: Other Lungs: Clear Cardiovascular: S1, S2 Abdomen: Soft, Non-tender Neuro Exam: Alert Extremities: Other (trace edema) Skin: Warm Labs Laboratory Tests Test 05/24/17 21:10 05/25/17 01:10 05/25/17 07:09 05/25/17 11:00 White Blood Count 10.5 x10^3/uL (4.0-11.0) Red Blood Count 3.44 x10^6/uL (3.50-5.40) Hemoglobin 9.2 g/dL (12.0-15.5) Hematocrit 28.8 % (36.0-47.0) Mean Corpuscular Volume 84 fL (79-100) Mean Corpuscular Hemoglobin 27 pg (25-35) Mean Corpuscular Hemoglobin Concent 32 g/dL (31-37) Red Cell Distribution Width 15.7 % (11.5-14.5) Platelet Count 261 x10^3/uL (140-400) Neutrophils (%) (Auto) 82 % (31-73) Lymphocytes (%) (Auto) 7 % (24-48) Monocytes (%) (Auto) 10 % (0-9) Eosinophils (%) (Auto) 0 % (0-3) Basophils (%) (Auto) 1 % (0-3) Neutrophils # (Auto) 8.6 x10^3uL (1.8-7.7) Lymphocytes # (Auto) 0.8 x10^3/uL (1.0-4.8) Monocytes # (Auto) 1.0 x10^3/uL (0.0-1.1) Eosinophils # (Auto) 0.0 x10^3/uL (0.0-0.7) Basophils # (Auto) 0.1 x10^3/uL (0.0-0.2) Prothrombin Time 15.0 SEC (11.7-14.0) Prothromb Time International Ratio 1.3 (0.8-1.1) Activated Partial Thromboplast Time 29 SEC (24-38) Sodium Level 139 mmol/L (136-145) Potassium Level 3.9 mmol/L (3.5-5.1) Chloride Level 97 mmol/L (98-107) Carbon Dioxide Level 34 mmol/L (21-32) Anion Gap 8 (6-14) Blood Urea Nitrogen 31 mg/dL (7-20) Creatinine 1.7 mg/dL (0.6-1.0) Estimated GFR (Cockcroft-Gault) 29.0 BUN/Creatinine Ratio 18 (6-20) Glucose Level 386 mg/dL (70-99) Lactic Acid Level 2.6 mmol/L (0.4-2.0) 0.6 mmol/L (0.4-2.0) Calcium Level 9.3 mg/dL (8.5-10.1) Total Bilirubin 0.3 mg/dL (0.2-1.0) Direct Bilirubin 0.1 mg/dL (0.0-0.2) Aspartate Amino Transf (AST/SGOT) 22 U/L (15-37) Alanine Aminotransferase (ALT/SGPT) 14 U/L (14-59) Alkaline Phosphatase 65 U/L (46-116) Total Protein 8.1 g/dL (6.4-8.2) Albumin 2.8 g/dL (3.4-5.0) Albumin/Globulin Ratio 0.5 (1.0-1.7) TK-Qrs-P-Type Natriuretic Peptide 6713 pg/mL (0-449) Glucose (Fingerstick) 312 mg/dL (70-99) O2 Saturation 89 % (92-99) Arterial Blood pH 7.36 (7.35-7.45) Arterial Blood pCO2 at Patient Temp 60 mmHg (35-46) Arterial Blood pO2 at Patient Temp 57 mmHg (65-108) Arterial Blood HCO3 33 mmol/L (21-28) Arterial Blood Base Excess 6 mmol/L (-3-3) FiO2 35 Test 05/25/17 11:42 05/25/17 13:28 05/25/17 16:24 05/25/17 20:28 Glucose (Fingerstick) 248 mg/dL (70-99) 222 mg/dL (70-99) 340 mg/dL (70-99) 242 mg/dL (70-99) Test 05/26/17 04:35 05/26/17 07:31 05/26/17 11:51 White Blood Count 11.4 x10^3/uL (4.0-11.0) Red Blood Count 3.17 x10^6/uL (3.50-5.40) Hemoglobin 8.3 g/dL (12.0-15.5) Hematocrit 26.5 % (36.0-47.0) Mean Corpuscular Volume 83 fL (79-100) Mean Corpuscular Hemoglobin 26 pg (25-35) Mean Corpuscular Hemoglobin Concent 31 g/dL (31-37) Red Cell Distribution Width 15.8 % (11.5-14.5) Platelet Count 235 x10^3/uL (140-400) Neutrophils (%) (Auto) 87 % (31-73) Lymphocytes (%) (Auto) 7 % (24-48) Monocytes (%) (Auto) 5 % (0-9) Eosinophils (%) (Auto) 0 % (0-3) Basophils (%) (Auto) 0 % (0-3) Neutrophils # (Auto) 9.9 x10^3uL (1.8-7.7) Lymphocytes # (Auto) 0.8 x10^3/uL (1.0-4.8) Monocytes # (Auto) 0.6 x10^3/uL (0.0-1.1) Eosinophils # (Auto) 0.0 x10^3/uL (0.0-0.7) Basophils # (Auto) 0.0 x10^3/uL (0.0-0.2) Sodium Level 140 mmol/L (136-145) Potassium Level 4.2 mmol/L (3.5-5.1) Chloride Level 100 mmol/L (98-107) Carbon Dioxide Level 36 mmol/L (21-32) Anion Gap 4 (6-14) Blood Urea Nitrogen 40 mg/dL (7-20) Creatinine 2.2 mg/dL (0.6-1.0) Estimated GFR (Cockcroft-Gault) 21.5 BUN/Creatinine Ratio 18 (6-20) Glucose Level 237 mg/dL (70-99) Calcium Level 9.0 mg/dL (8.5-10.1) Total Bilirubin 0.2 mg/dL (0.2-1.0) Aspartate Amino Transf (AST/SGOT) 33 U/L (15-37) Alanine Aminotransferase (ALT/SGPT) 26 U/L (14-59) Alkaline Phosphatase 58 U/L (46-116) Total Protein 7.5 g/dL (6.4-8.2) Albumin 2.3 g/dL (3.4-5.0) Albumin/Globulin Ratio 0.4 (1.0-1.7) Glucose (Fingerstick) 245 mg/dL (70-99) 385 mg/dL (70-99) Laboratory Tests Test 05/25/17 13:28 05/25/17 16:24 05/25/17 20:28 05/26/17 04:35 Glucose (Fingerstick) 222 mg/dL (70-99) 340 mg/dL (70-99) 242 mg/dL (70-99) White Blood Count 11.4 x10^3/uL (4.0-11.0) Red Blood Count 3.17 x10^6/uL (3.50-5.40) Hemoglobin 8.3 g/dL (12.0-15.5) Hematocrit 26.5 % (36.0-47.0) Mean Corpuscular Volume 83 fL (79-100) Mean Corpuscular Hemoglobin 26 pg (25-35) Mean Corpuscular Hemoglobin Concent 31 g/dL (31-37) Red Cell Distribution Width 15.8 % (11.5-14.5) Platelet Count 235 x10^3/uL (140-400) Neutrophils (%) (Auto) 87 % (31-73) Lymphocytes (%) (Auto) 7 % (24-48) Monocytes (%) (Auto) 5 % (0-9) Eosinophils (%) (Auto) 0 % (0-3) Basophils (%) (Auto) 0 % (0-3) Neutrophils # (Auto) 9.9 x10^3uL (1.8-7.7) Lymphocytes # (Auto) 0.8 x10^3/uL (1.0-4.8) Monocytes # (Auto) 0.6 x10^3/uL (0.0-1.1) Eosinophils # (Auto) 0.0 x10^3/uL (0.0-0.7) Basophils # (Auto) 0.0 x10^3/uL (0.0-0.2) Sodium Level 140 mmol/L (136-145) Potassium Level 4.2 mmol/L (3.5-5.1) Chloride Level 100 mmol/L (98-107) Carbon Dioxide Level 36 mmol/L (21-32) Anion Gap 4 (6-14) Blood Urea Nitrogen 40 mg/dL (7-20) Creatinine 2.2 mg/dL (0.6-1.0) Estimated GFR (Cockcroft-Gault) 21.5 BUN/Creatinine Ratio 18 (6-20) Glucose Level 237 mg/dL (70-99) Calcium Level 9.0 mg/dL (8.5-10.1) Total Bilirubin 0.2 mg/dL (0.2-1.0) Aspartate Amino Transf (AST/SGOT) 33 U/L (15-37) Alanine Aminotransferase (ALT/SGPT) 26 U/L (14-59) Alkaline Phosphatase 58 U/L (46-116) Total Protein 7.5 g/dL (6.4-8.2) Albumin 2.3 g/dL (3.4-5.0) Albumin/Globulin Ratio 0.4 (1.0-1.7) Test 05/26/17 07:31 05/26/17 11:51 Glucose (Fingerstick) 245 mg/dL (70-99) 385 mg/dL (70-99) Medications Active Scripts Medications Dose Route/Sig Max Daily Dose Days Date Category Lisinopril 5 Mg Tablet 1 Tab PO DAILY 03/02/17 Rx Metformin Hcl 500 Mg Tablet 500 Mg PO BIDWMEALS 11/18/16 Reported Metoprolol Succinate ( Xl ) (Metoprolol Succinate) 25 Mg Tab.er.24h 2 Tab PO DAILY 12/12/15 Rx Glimepiride 4 Mg Tablet 1 Tab PO BID 12/05/15 Reported Ventolin Hfa Inhaler (Albuterol Sulfate) 18 Gm Hfa.aer.ad 2 Puff INH QID 12/05/15 Reported Symbicort 160-4.5 Mcg Inhaler (Budesonide/Formoterol Fumarate) 10.2 Gm Hfa.aer.ad 2 Puff IH BID 12/05/15 Reported Atorvastatin Calcium 10 Mg Tablet 1 Tab PO DAILY 12/05/15 Reported Impression . 1. Acute respiratory failure, both hypoxic and hypercapnic type and related to chronic obstructive pulmonary disease exacerbation. 2. Chronic obstructive pulmonary disease exacerbation probably triggered by lower respiratory tract infection. 3. Suspected obstructive sleep apnea with obesity hypoventilation syndrome and cor pulmonale with lower extremity edema. 4. Acute encephalopathy, suspect related to hypercapnia.resolved Plan . 1. Nasal canula, prn BIPAP 2. Continue with present bronchodilators. 3. Continue with antibiotics. 4. PO Nutrition 5. Not interested in having Sleep study 6. Avoid any narcotics or sedatives. Discussed with the patient's RN. home in [place] Mendoza MD May 26, 2017 13:09
[2017-05-26 14:00] LABS: NUCLEATED RBC 2
[2017-05-26 14:01] LABS: PLT ESTIMATE ADEQUATE (ADEQUATE)
[2017-05-26 14:03] LABS: ANISOCYTOSIS SLIGHT; POIKILOCYTOSIS SLIGHT
[2017-05-26 15:00] VITALS: BP 160/84
[2017-05-26] MEDS: ENOXAPARIN 30 MG/0.3 ML SYRINGE. SQ SCH (18:10)
[2017-05-26 18:41] VITALS: BP 182/95
[2017-05-26] MEDS: ATORVASTATIN CALCIUM 10 MG TABLET. PO SCH (21:24)
[2017-05-26 22:38] VITALS: BP 162/82
[2017-05-27] MEDS: PIPERACILLIN/TAZO IV Push 2.25 GM VIAL. IVP SCH ×5 (00:06→23:26)
[2017-05-27] MEDS: VANCOMYCIN PER PHARMACY MC PRN ×2 (00:56→14:20)
[2017-05-27 03:57] VITALS: BP 158/76
[2017-05-27 05:56] LABS: CALCIUM 9.5 mg/dL (8.5-10.1); CREATININE 1.9 mg/dL (0.6-1.0); GFR 25.5
[2017-05-27] MEDS: IPRATRPIUM/ALBUTEROL 0.5/2.5MG 3 ML NEBU. NEB SCH ×5 (06:00→19:23)
[2017-05-27 07:00] VITALS: BP 171/92
[2017-05-27] MEDS: BUDESONIDE 0.5 MG/2 ML NEBU. NEB SCH ×2 (07:11→19:24)
[2017-05-27] MEDS ORDERED: amLODIPine BESYLATE 5 MG TABLET PO SCH (09:00)
[2017-05-27] MEDS: ASPIRIN ENTERIC COATED 81 MG TABLET.DR. PO SCH (09:41)
[2017-05-27] MEDS: METOPROLOL SUCC 24HR ER 25 MG TAB.ER.24H. PO SCH (09:41)
[2017-05-27] MEDS: amLODIPine BESYLATE 10 MG TABLET PO SCH (09:42)
[2017-05-27] MEDS: methylPREDNISolone SOD SUCC PF 40 MG/ML VIAL. IV SCH (09:42)
[2017-05-27] MEDS: INSULIN ASPART 300 UNITS/3 ML INSULN.PEN SQ SCH ×6 (09:48→18:22)
[2017-05-27 11:00] VITALS: BP 174/86
--- NOTE | 2017-05-27 11:01 | PDOC ---
Renal-Progress Notes Subjective Notes Notes NONE History of Present Illness Hx of present illness BETTER Vitals Vitals Vital Signs Date Time Temp Pulse Resp B/P (MAP) Pulse Ox O2 Delivery O2 Flow Rate FiO2 05/27/17 09:42 106 171/92 05/27/17 08:05 Nasal Cannula 3.0 05/27/17 07:12 96 05/27/17 07:00 98.5 19 98.5 Weight Weight [ ] I.O. Intake and Output Intake and Output 05/27/17 07:00 Intake Total 2410 ml Output Total 2200 ml Balance 210 ml Intake Oral 2410 ml Output Urine Total 2200 ml # Voids 3 # Bowel Movements 2 Labs Labs Laboratory Tests Test 05/26/17 11:51 05/26/17 16:40 05/26/17 20:43 05/26/17 21:15 Glucose (Fingerstick) 385 mg/dL (70-99) 179 mg/dL (70-99) 99 mg/dL (70-99) Vancomycin Level Trough 22.8 mcg/mL (10.0-20.0) Vancomycin Last Dose Date Vancomycin Last Dose Time Test 05/27/17 04:15 05/27/17 07:22 Sodium Level 142 mmol/L (136-145) Potassium Level 4.0 mmol/L (3.5-5.1) Chloride Level 101 mmol/L (98-107) Carbon Dioxide Level 37 mmol/L (21-32) Anion Gap 4 (6-14) Blood Urea Nitrogen 48 mg/dL (7-20) Creatinine 1.9 mg/dL (0.6-1.0) Estimated GFR (Cockcroft-Gault) 25.5 Glucose Level 188 mg/dL (70-99) Calcium Level 9.5 mg/dL (8.5-10.1) Glucose (Fingerstick) 209 mg/dL (70-99) Micro Micro Microbiology 05/24/17 Blood Culture - Preliminary, Resulted NO GROWTH AFTER 2 DAYS Review of Systems Constitutional: yes: weakness, alert Ears/Nose/Throat: Yes: no symptom reported Eyes: Yes: no symptom reported Pulmonary: Yes wheezing, Yes dyspnea Cardiovascular: Yes no symptom reported Gastrointestional: Yes: constipation Musculoskeletal: Yes: no symptom reported Skin: Yes no symptom reported Psychiatric/Neurological: Yes: no symptom reported Endocrine: Yes: no symptom reported Physical Exam General Appearance: no apparent distress Respiratory: decreased breath sounds, wheezing Heart: S1S2 Abdomen: soft, bowel sounds present Genitourinary: bladder flat Extremities: pulses present, atrophy Neurology: alert, oriented, follow commands Musculoskeletal: No pain Assessment Assessment IMP CKD STAGE 3 - CR STABLE AT 1.9 AECOPD ACUTE HYPERCARBIC RESP FAILURE PROB PNEUMONIA PLAN PULM SUPPORT RENAL FXN STABLE ANTIBIOTICS LABS IN AM PALLAVI RODRIGUEZ MD May 27, 2017 11:01
--- NOTE | 2017-05-27 13:37 | PDOC ---
PULMONARY PROGRESS NOTES Subjective fully awake, off BIPAP Vitals Vital Signs Date Time Temp Pulse Resp B/P (MAP) Pulse Ox O2 Delivery O2 Flow Rate FiO2 05/27/17 11:08 97 Nasal Cannula 3.0 05/27/17 11:00 98.5 111 18 174/86 (115) 98.5 General: Alert, No acute distress HEENT: Other Lungs: Clear Cardiovascular: S1, S2 Abdomen: Soft, Non-tender Neuro Exam: Alert Extremities: Other (trace edema) Skin: Warm Labs Laboratory Tests Test 05/25/17 16:24 05/25/17 20:28 05/26/17 04:35 05/26/17 07:31 Glucose (Fingerstick) 340 mg/dL (70-99) 242 mg/dL (70-99) 245 mg/dL (70-99) White Blood Count 11.4 x10^3/uL (4.0-11.0) Red Blood Count 3.17 x10^6/uL (3.50-5.40) Hemoglobin 8.3 g/dL (12.0-15.5) Hematocrit 26.5 % (36.0-47.0) Mean Corpuscular Volume 83 fL (79-100) Mean Corpuscular Hemoglobin 26 pg (25-35) Mean Corpuscular Hemoglobin Concent 31 g/dL (31-37) Red Cell Distribution Width 15.8 % (11.5-14.5) Platelet Count 235 x10^3/uL (140-400) Neutrophils (%) (Auto) 87 % (31-73) Lymphocytes (%) (Auto) 7 % (24-48) Monocytes (%) (Auto) 5 % (0-9) Eosinophils (%) (Auto) 0 % (0-3) Basophils (%) (Auto) 0 % (0-3) Neutrophils # (Auto) 9.9 x10^3uL (1.8-7.7) Lymphocytes # (Auto) 0.8 x10^3/uL (1.0-4.8) Monocytes # (Auto) 0.6 x10^3/uL (0.0-1.1) Eosinophils # (Auto) 0.0 x10^3/uL (0.0-0.7) Basophils # (Auto) 0.0 x10^3/uL (0.0-0.2) Segmented Neutrophils % 64 % (35-66) Band Neutrophils % 21 % (0-9) Lymphocytes % 8 % (24-48) Monocytes % 7 % (0-10) Nucleated Red Blood Cells 2 Platelet Estimate Adequate (ADEQUATE) Poikilocytosis Slight Anisocytosis Slight Sodium Level 140 mmol/L (136-145) Potassium Level 4.2 mmol/L (3.5-5.1) Chloride Level 100 mmol/L (98-107) Carbon Dioxide Level 36 mmol/L (21-32) Anion Gap 4 (6-14) Blood Urea Nitrogen 40 mg/dL (7-20) Creatinine 2.2 mg/dL (0.6-1.0) Estimated GFR (Cockcroft-Gault) 21.5 BUN/Creatinine Ratio 18 (6-20) Glucose Level 237 mg/dL (70-99) Calcium Level 9.0 mg/dL (8.5-10.1) Total Bilirubin 0.2 mg/dL (0.2-1.0) Aspartate Amino Transf (AST/SGOT) 33 U/L (15-37) Alanine Aminotransferase (ALT/SGPT) 26 U/L (14-59) Alkaline Phosphatase 58 U/L (46-116) Total Protein 7.5 g/dL (6.4-8.2) Albumin 2.3 g/dL (3.4-5.0) Albumin/Globulin Ratio 0.4 (1.0-1.7) Test 05/26/17 11:51 05/26/17 16:40 05/26/17 20:43 05/26/17 21:15 Glucose (Fingerstick) 385 mg/dL (70-99) 179 mg/dL (70-99) 99 mg/dL (70-99) Vancomycin Level Trough 22.8 mcg/mL (10.0-20.0) Vancomycin Last Dose Date Vancomycin Last Dose Time Test 05/27/17 04:15 05/27/17 07:22 05/27/17 11:32 Sodium Level 142 mmol/L (136-145) Potassium Level 4.0 mmol/L (3.5-5.1) Chloride Level 101 mmol/L (98-107) Carbon Dioxide Level 37 mmol/L (21-32) Anion Gap 4 (6-14) Blood Urea Nitrogen 48 mg/dL (7-20) Creatinine 1.9 mg/dL (0.6-1.0) Estimated GFR (Cockcroft-Gault) 25.5 Glucose Level 188 mg/dL (70-99) Calcium Level 9.5 mg/dL (8.5-10.1) Glucose (Fingerstick) 209 mg/dL (70-99) 220 mg/dL (70-99) Laboratory Tests Test 05/26/17 16:40 05/26/17 20:43 05/26/17 21:15 05/27/17 04:15 Glucose (Fingerstick) 179 mg/dL (70-99) 99 mg/dL (70-99) Vancomycin Level Trough 22.8 mcg/mL (10.0-20.0) Vancomycin Last Dose Date Vancomycin Last Dose Time Sodium Level 142 mmol/L (136-145) Potassium Level 4.0 mmol/L (3.5-5.1) Chloride Level 101 mmol/L (98-107) Carbon Dioxide Level 37 mmol/L (21-32) Anion Gap 4 (6-14) Blood Urea Nitrogen 48 mg/dL (7-20) Creatinine 1.9 mg/dL (0.6-1.0) Estimated GFR (Cockcroft-Gault) 25.5 Glucose Level 188 mg/dL (70-99) Calcium Level 9.5 mg/dL (8.5-10.1) Test 05/27/17 07:22 05/27/17 11:32 Glucose (Fingerstick) 209 mg/dL (70-99) 220 mg/dL (70-99) Medications Active Scripts Medications Dose Route/Sig Max Daily Dose Days Date Category Lisinopril 5 Mg Tablet 1 Tab PO DAILY 03/02/17 Rx Metformin Hcl 500 Mg Tablet 500 Mg PO BIDWMEALS 11/18/16 Reported Metoprolol Succinate ( Xl ) (Metoprolol Succinate) 25 Mg Tab.er.24h 2 Tab PO DAILY 12/12/15 Rx Glimepiride 4 Mg Tablet 1 Tab PO BID 12/05/15 Reported Ventolin Hfa Inhaler (Albuterol Sulfate) 18 Gm Hfa.aer.ad 2 Puff INH QID 12/05/15 Reported Symbicort 160-4.5 Mcg Inhaler (Budesonide/Formoterol Fumarate) 10.2 Gm Hfa.aer.ad 2 Puff IH BID 12/05/15 Reported Atorvastatin Calcium 10 Mg Tablet 1 Tab PO DAILY 12/05/15 Reported Impression . 1. Acute respiratory failure, both hypoxic and hypercapnic type and related to chronic obstructive pulmonary disease exacerbation. 2. Chronic obstructive pulmonary disease exacerbation probably triggered by lower respiratory tract infection. 3. Suspected obstructive sleep apnea with obesity hypoventilation syndrome and cor pulmonale with lower extremity edema. 4. Acute encephalopathy, suspect related to hypercapnia.resolved Plan . 1. Nasal canula, prn BIPAP 2. Continue with present bronchodilators. 3. Continue with antibiotics. 4. PO Nutrition 5. Not interested in having Sleep study 6. Avoid any narcotics or sedatives. 7. dc steroids ok with home KE GARCIA MD May 27, 2017 13:37
--- NOTE | 2017-05-27 13:45 | PDOC ---
PROGRESS NOTES Chief Complaint Chief Complaint 1. Acute respiratory failure hypercapnic 2. Chronic obstructive pulmonary disease, with acute exacerbation 3. pneumonitis, SIRS, sepsis, 4. obesity hypoventilation syndrome and cor pulmonale 5. 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 anemia of CKD 8. moderate severe malnutrition History of Present Illness History of Present Illness feels much better today, continues to improve blood sugar high, will add meal time insulin with SSI PT and OT today, doing well, would like to go home and not SNU if able she reports feeling much better, is more alert and awake and looks well Vitals Vitals Vital Signs Date Time Temp Pulse Resp B/P (MAP) Pulse Ox O2 Delivery O2 Flow Rate FiO2 05/27/17 11:08 97 Nasal Cannula 3.0 05/27/17 11:00 98.5 111 18 174/86 (115) 98.5 Physical Exam General: Alert, Cooperative, mild distress Heart: Regular rate, Normal S1, No murmurs Lungs: Clear Abdomen: Normal bowel sounds, Soft Extremities: No cyanosis, Other (1+ LE edema, ) Skin: No rashes, No significant lesion Labs LABS Laboratory Tests Test 05/26/17 16:40 05/26/17 20:43 05/26/17 21:15 05/27/17 04:15 Glucose (Fingerstick) 179 mg/dL (70-99) 99 mg/dL (70-99) Vancomycin Level Trough 22.8 mcg/mL (10.0-20.0) Vancomycin Last Dose Date Vancomycin Last Dose Time Sodium Level 142 mmol/L (136-145) Potassium Level 4.0 mmol/L (3.5-5.1) Chloride Level 101 mmol/L (98-107) Carbon Dioxide Level 37 mmol/L (21-32) Anion Gap 4 (6-14) Blood Urea Nitrogen 48 mg/dL (7-20) Creatinine 1.9 mg/dL (0.6-1.0) Estimated GFR (Cockcroft-Gault) 25.5 Glucose Level 188 mg/dL (70-99) Calcium Level 9.5 mg/dL (8.5-10.1) Test 05/27/17 07:22 05/27/17 11:32 Glucose (Fingerstick) 209 mg/dL (70-99) 220 mg/dL (70-99) Assessment and Plan Assessmemt and Plan Problems Medical Problems: (1) CHF exacerbation Status: Acute (2) Congestive heart failure Status: Acute (3) COPD exacerbation Status: Acute (4) Pneumonia Status: Acute (5) Respiratory failure Status: Acute Problems: Comment Review of Relevant I have reviewed the following items brittanie (where applicable) has been applied. Labs Laboratory Tests Test 05/25/17 16:24 05/25/17 20:28 05/26/17 04:35 05/26/17 07:31 Glucose (Fingerstick) 340 mg/dL (70-99) 242 mg/dL (70-99) 245 mg/dL (70-99) White Blood Count 11.4 x10^3/uL (4.0-11.0) Red Blood Count 3.17 x10^6/uL (3.50-5.40) Hemoglobin 8.3 g/dL (12.0-15.5) Hematocrit 26.5 % (36.0-47.0) Mean Corpuscular Volume 83 fL (79-100) Mean Corpuscular Hemoglobin 26 pg (25-35) Mean Corpuscular Hemoglobin Concent 31 g/dL (31-37) Red Cell Distribution Width 15.8 % (11.5-14.5) Platelet Count 235 x10^3/uL (140-400) Neutrophils (%) (Auto) 87 % (31-73) Lymphocytes (%) (Auto) 7 % (24-48) Monocytes (%) (Auto) 5 % (0-9) Eosinophils (%) (Auto) 0 % (0-3) Basophils (%) (Auto) 0 % (0-3) Neutrophils # (Auto) 9.9 x10^3uL (1.8-7.7) Lymphocytes # (Auto) 0.8 x10^3/uL (1.0-4.8) Monocytes # (Auto) 0.6 x10^3/uL (0.0-1.1) Eosinophils # (Auto) 0.0 x10^3/uL (0.0-0.7) Basophils # (Auto) 0.0 x10^3/uL (0.0-0.2) Segmented Neutrophils % 64 % (35-66) Band Neutrophils % 21 % (0-9) Lymphocytes % 8 % (24-48) Monocytes % 7 % (0-10) Nucleated Red Blood Cells 2 Platelet Estimate Adequate (ADEQUATE) Poikilocytosis Slight Anisocytosis Slight Sodium Level 140 mmol/L (136-145) Potassium Level 4.2 mmol/L (3.5-5.1) Chloride Level 100 mmol/L (98-107) Carbon Dioxide Level 36 mmol/L (21-32) Anion Gap 4 (6-14) Blood Urea Nitrogen 40 mg/dL (7-20) Creatinine 2.2 mg/dL (0.6-1.0) Estimated GFR (Cockcroft-Gault) 21.5 BUN/Creatinine Ratio 18 (6-20) Glucose Level 237 mg/dL (70-99) Calcium Level 9.0 mg/dL (8.5-10.1) Total Bilirubin 0.2 mg/dL (0.2-1.0) Aspartate Amino Transf (AST/SGOT) 33 U/L (15-37) Alanine Aminotransferase (ALT/SGPT) 26 U/L (14-59) Alkaline Phosphatase 58 U/L (46-116) Total Protein 7.5 g/dL (6.4-8.2) Albumin 2.3 g/dL (3.4-5.0) Albumin/Globulin Ratio 0.4 (1.0-1.7) Test 05/26/17 11:51 05/26/17 16:40 05/26/17 20:43 05/26/17 21:15 Glucose (Fingerstick) 385 mg/dL (70-99) 179 mg/dL (70-99) 99 mg/dL (70-99) Vancomycin Level Trough 22.8 mcg/mL (10.0-20.0) Vancomycin Last Dose Date Vancomycin Last Dose Time Test 05/27/17 04:15 05/27/17 07:22 05/27/17 11:32 Sodium Level 142 mmol/L (136-145) Potassium Level 4.0 mmol/L (3.5-5.1) Chloride Level 101 mmol/L (98-107) Carbon Dioxide Level 37 mmol/L (21-32) Anion Gap 4 (6-14) Blood Urea Nitrogen 48 mg/dL (7-20) Creatinine 1.9 mg/dL (0.6-1.0) Estimated GFR (Cockcroft-Gault) 25.5 Glucose Level 188 mg/dL (70-99) Calcium Level 9.5 mg/dL (8.5-10.1) Glucose (Fingerstick) 209 mg/dL (70-99) 220 mg/dL (70-99) Laboratory Tests Test 05/26/17 16:40 05/26/17 20:43 05/26/17 21:15 05/27/17 04:15 Glucose (Fingerstick) 179 mg/dL (70-99) 99 mg/dL (70-99) Vancomycin Level Trough 22.8 mcg/mL (10.0-20.0) Vancomycin Last Dose Date Vancomycin Last Dose Time Sodium Level 142 mmol/L (136-145) Potassium Level 4.0 mmol/L (3.5-5.1) Chloride Level 101 mmol/L (98-107) Carbon Dioxide Level 37 mmol/L (21-32) Anion Gap 4 (6-14) Blood Urea Nitrogen 48 mg/dL (7-20) Creatinine 1.9 mg/dL (0.6-1.0) Estimated GFR (Cockcroft-Gault) 25.5 Glucose Level 188 mg/dL (70-99) Calcium Level 9.5 mg/dL (8.5-10.1) Test 05/27/17 07:22 05/27/17 11:32 Glucose (Fingerstick) 209 mg/dL (70-99) 220 mg/dL (70-99) Microbiology 05/24/17 Blood Culture - Preliminary, Resulted NO GROWTH AFTER 2 DAYS Medications Current Medications Sodium Chloride 1,000 ml @ 1,000 mls/hr Q1H IV Last administered on 00:26; Start 05/24/17 at 22:30; Stop 05/25/17 at 00:49; Status DC Piperacillin Sod/ Tazobactam Sod (Zosyn Per Pharmacy) 1 each PRN DAILY PRN MC SEE COMMENTS; Start 05/24/17 at 23:15 Vancomycin HCl (Vanco Per Pharmacy) 1 each PRN DAILY PRN MC SEE COMMENTS Last administered on 05/27/17 00:56; Start 05/24/17 at 23:15 Vancomycin HCl 2 gm/Dextrose 500 ml @ 250 mls/hr 1X ONCE IV Last administered on 05/24/17 23:39; Start 05/25/17 at 00:00; Stop 05/25/17 at 01 :59; Status DC Piperacillin Sod/ Tazobactam Sod (Zosyn) 2.25 gm 1X ONCE IVP Last administered on 05/24/17 23:39; Start 05/24/17 at 23:30; Stop 05/24/17 at 23 :31; Status DC Ondansetron HCl (Zofran) 4 mg PRN Q8HRS PRN IV NAUSEA/VOMITING; Start at 23:30; Stop 05/25/17 at 23:29; Status DC Sodium Chloride 1,000 ml @ 125 mls/hr Q8H IV ; Start 05/24/17 at 23:45; Stop 05/25/17 at 05:47; Status DC Acetaminophen (Tylenol) 650 mg PRN Q4HRS PRN PO FEVER Last administered on 23:59; Start 05/24/17 at 23:30; Stop 05/25/17 at 23:29; Status DC Albuterol/ Ipratropium (Duoneb) 3 ml 1X ONCE NEB Last administered on 00:02; Start 05/25/17 at 00:00; Stop 05/25/17 at 00:01; Status DC Methylprednisolone Sodium Succinate (SOLU-Medrol 125MG VIAL) 125 mg 1X ONCE IV Last administered on 05/25/17 00:00; Start 05/25/17 at 00:00; Stop at 00:01; Status DC Albuterol/ Ipratropium (Duoneb) 3 ml 1X ONCE NEB Last administered on 00:02; Start 05/25/17 at 00:00; Stop 05/25/17 at 00:01; Status DC Furosemide (Lasix) 80 mg 1X ONCE IVP Last administered on 05/25/17 00:21; Start 05/25/17 at 00:30; Stop 05/25/17 at 00:31; Status DC Piperacillin Sod/ Tazobactam Sod (Zosyn) 2.25 gm Q6HRS IVP Last administered on 05/27/17 13:18; Start 05/25/17 at 06:00 Vancomycin HCl 1 gm/Dextrose 250 ml @ 250 mls/hr Q24H IV Last administered on 05/25/17 21:47; Start 05/25/17 at 22:00; Stop 05/26/17 at 22:37; Status DC Vancomycin HCl 1 each 1X ONCE MC ; Start 05/26/17 at 21:30; Stop 05/26/17 at 21:31; Status DC Albuterol/ Ipratropium (Duoneb) 3 ml RTQID NEB ; Start 05/25/17 at 08:00; Stop 05/25/17 at 08:00; Status DC Albuterol Sulfate (Ventolin Neb Soln) 2.5 mg PRN Q2HRS PRN NEB SHORTNESS OF BREATH; Start 05/25/17 at 05:45 Prednisone (Prednisone) 60 mg DAILY PO ; Start 05/25/17 at 09:00; Stop at 12:04; Status DC Albuterol/ Ipratropium (Duoneb) 3 ml RTQID NEB Last administered on 05/25/17 11:07; Start 05/25/17 at 06:00; Stop 05/25/17 at 12:01; Status DC Influenza Virus Vaccine Quadrival (Fluarix Quad [id number] Syringe) 0.5 ml ONCE ONCE VAX IM ; Start 05/25/17 at 11:30; Stop 05/25/17 at 11:31; Status DC Metoprolol Succinate (Toprol Xl) 50 mg DAILY PO Last administered on 09:41; Start 05/25/17 at 12:00 Aspirin (Ecotrin) 81 mg DAILYWBKFT PO Last administered on 05/27/17 09:41; Start 05/25/17 at 12:00 Hydralazine HCl (Apresoline Inj) 10 mg PRN Q4HRS PRN IVP ELEVATED BP, SEE COMMENTS Last administered on 05/26/17 18:43; Start 05/25/17 at 11:30 Atorvastatin Calcium (Lipitor) 10 mg QHS PO Last administered on 05/26/17 21: 24; Start 05/25/17 at 21:00 Insulin Aspart (NovoLOG) 0-9 UNITS TIDWMEALS SQ Last administered on 13:20; Start 05/25/17 at 12:00 Dextrose (Dextrose 50%-Water Syringe) 12.5 gm PRN Q15MIN PRN IV SEE COMMENTS; Start 05/25/17 at 12:00 Albuterol/ Ipratropium (Duoneb) 3 ml Q4HRS W/A NEB Last administered on 11:04; Start 05/25/17 at 14:00 Budesonide (Pulmicort) 0.5 mg RTBID NEB Last administered on 05/27/17 07:11; Start 05/25/17 at 20:00 Methylprednisolone Sodium Succinate (SOLU-Medrol 40MG VIAL) 40 mg Q12HR IV Last administered on 05/27/17 09:42; Start 05/25/17 at 21:00; Stop 05/27/17 at 13:38; Status DC Enoxaparin Sodium (Lovenox Per Pharmacy Prophylaxis Dosing) 1 each PRN DAILY PRN MC SEE COMMENTS; Start 05/25/17 at 12:15 Enoxaparin Sodium (Lovenox 30mg Syringe) 30 mg DAILY16 SQ Last administered on 05/26/17 18:10; Start 05/25/17 at 16:00 Amlodipine Besylate (Norvasc) 5 mg DAILY PO ; Start 05/27/17 at 09:00; Stop at 09:00; Status DC Insulin Aspart (NovoLOG) 13 units 1X ONCE SQ Last administered on 05/26/17 12:47; Start 05/26/17 at 12:15; Stop 05/26/17 at 12:22; Status DC Insulin Aspart (NovoLOG) 8 units TIDAC SQ Last administered on 05/27/17 13:19 ; Start 05/26/17 at 16:30 Insulin Detemir (Levemir) 12 units 1X ONCE SQ Last administered on 05/26/17 12:51; Start 05/26/17 at 12:15; Stop 05/26/17 at 12:21; Status DC Vancomycin HCl 1 each 1X ONCE MC ; Start 05/28/17 at 06:00; Stop 05/28/17 at 06:01 Amlodipine Besylate (Norvasc) 10 mg DAILY PO Last administered on 05/27/17 09 :42; Start 05/27/17 at 09:00 Active Scripts Active Lisinopril 5 Mg Tablet 1 Tab PO DAILY Metoprolol Succinate ( Xl ) (Metoprolol Succinate) 25 Mg Tab.er.24h 2 Tab PO DAILY Reported Metformin Hcl 500 Mg Tablet 500 Mg PO BIDWMEALS Glimepiride 4 Mg Tablet 1 Tab PO BID Ventolin Hfa Inhaler (Albuterol Sulfate) 18 Gm Hfa.aer.ad 2 Puff INH QID Symbicort 160-4.5 Mcg Inhaler (Budesonide/Formoterol Fumarate) 10.2 Gm Hfa.aer.ad 2 Puff IH BID Atorvastatin Calcium 10 Mg Tablet 1 Tab PO DAILY Vitals/I & O Vital Sign - Last 24 Hours 05/26/17 05/26/17 05/26/17 05/26/17 15:00 16:07 18:41 18:43 Temp 99.1 97.5 99.1 97.5 Pulse 102 96 102 Resp 18 22 B/P (MAP) 160/84 (109) 182/95 (124) 167/92 Pulse Ox 93 96 O2 Delivery Nasal Cannula Nasal Cannula Nasal Cannula O2 Flow Rate 3.0 3.0 3.0 05/26/17 05/26/17 05/26/17 05/26/17 19:14 19:16 20:30 22:38 Temp 98.6 98.6 Pulse 110 Resp 20 B/P (MAP) 162/82 (108) Pulse Ox 98 98 96 O2 Delivery Nasal Cannula Nasal Cannula Nasal Cannula Nasal Cannula O2 Flow Rate 3.0 3.0 2.0 2.0 05/27/17 05/27/17 05/27/17 05/27/17 03:57 07:00 07:12 08:05 Temp 99.1 98.5 99.1 98.5 Pulse 109 106 Resp 18 19 B/P (MAP) 158/76 (103) 171/92 (118) Pulse Ox 96 99 96 O2 Delivery Nasal Cannula Nasal Cannula Nasal Cannula Nasal Cannula O2 Flow Rate 2.0 3.0 3.0 3.0 05/27/17 05/27/17 05/27/17 05/27/17 09:41 09:42 11:00 11:08 Temp 98.5 98.5 Pulse 106 106 111 Resp 18 B/P (MAP) 171/92 171/92 174/86 (115) Pulse Ox 93 97 O2 Delivery Nasal Cannula Nasal Cannula O2 Flow Rate 3.0 3.0 Intake and Output 05/26/17 05/26/17 05/27/17 15:00 23:00 07:00 Intake Total 1610 ml 800 ml Output Total 350 ml 1850 ml Balance -350 ml 1610 ml -1050 ml BRENDAN HICKEY MD May 27, 2017 13:45
[2017-05-27 15:02] VITALS: BP 151/71
[2017-05-27] MEDS: VANCOMYCIN 1 GM in IV DEXTROSE 5% 250 ML IV SCH (17:06)
[2017-05-27] MEDS: ENOXAPARIN 30 MG/0.3 ML SYRINGE. SQ SCH (17:14)
[2017-05-27 19:33] VITALS: BP 166/75
[2017-05-27] MEDS: ATORVASTATIN CALCIUM 10 MG TABLET. PO SCH (20:02)
[2017-05-27 23:32] VITALS: BP 180/80
[2017-05-28 02:49] VITALS: BP 162/78
[2017-05-28] MEDS: PIPERACILLIN/TAZO IV Push 2.25 GM VIAL. IVP SCH ×3 (05:28→18:20)
[2017-05-28] MEDS ORDERED: VANCOMYCIN RANDOM LEVEL. MC ONE (06:00)
[2017-05-28 06:04] LABS: CALCIUM 9.8 mg/dL (8.5-10.1); CREATININE 1.8 mg/dL (0.6-1.0); GFR 27.1; POTASSIUM 3.5 mmol/L (3.5-5.1)
[2017-05-28 07:00] VITALS: BP 160/88
[2017-05-28] MEDS: IPRATRPIUM/ALBUTEROL 0.5/2.5MG 3 ML NEBU. NEB SCH ×5 (07:46→23:01)
[2017-05-28] MEDS: BUDESONIDE 0.5 MG/2 ML NEBU. NEB SCH ×2 (07:46→19:22)
[2017-05-28] MEDS: ASPIRIN ENTERIC COATED 81 MG TABLET.DR. PO SCH (08:25)
[2017-05-28] MEDS: METOPROLOL SUCC 24HR ER 25 MG TAB.ER.24H. PO SCH (08:26)
[2017-05-28] MEDS: amLODIPine BESYLATE 10 MG TABLET PO SCH (08:26)
[2017-05-28] MEDS: INSULIN ASPART 300 UNITS/3 ML INSULN.PEN SQ SCH ×6 (08:38→17:43)
[2017-05-28 10:44] VITALS: BP 147/67
--- NOTE | 2017-05-28 11:37 | PDOC ---
Renal-Progress Notes Subjective Notes Notes NONE History of Present Illness Hx of present illness STABLE Vitals Vitals Vital Signs Date Time Temp Pulse Resp B/P (MAP) Pulse Ox O2 Delivery O2 Flow Rate FiO2 05/28/17 11:20 Nasal Cannula 3.0 05/28/17 10:44 99.0 104 19 147/67 (93) 93 99.0 Weight Weight [ ] I.O. Intake and Output Intake and Output 05/28/17 07:00 Intake Total 1075 ml Output Total 500 ml Balance 575 ml Intake Oral 1075 ml Output Urine Total 500 ml # Voids 5 # Bowel Movements 3 Labs Labs Laboratory Tests Test 05/27/17 16:21 05/27/17 20:45 05/28/17 04:45 05/28/17 07:22 Glucose (Fingerstick) 208 mg/dL (70-99) 318 mg/dL (70-99) 175 mg/dL (70-99) Sodium Level 145 mmol/L (136-145) Potassium Level 3.5 mmol/L (3.5-5.1) Chloride Level 100 mmol/L (98-107) Carbon Dioxide Level 41 mmol/L (21-32) Anion Gap 4 (6-14) Blood Urea Nitrogen 42 mg/dL (7-20) Creatinine 1.8 mg/dL (0.6-1.0) Estimated GFR (Cockcroft-Gault) 27.1 Glucose Level 222 mg/dL (70-99) Calcium Level 9.8 mg/dL (8.5-10.1) Test 05/28/17 11:28 Glucose (Fingerstick) 175 mg/dL (70-99) Micro Micro Microbiology 05/24/17 Blood Culture - Preliminary, Resulted NO GROWTH AFTER 3 DAYS Review of Systems Constitutional: yes: weakness, alert Ears/Nose/Throat: Yes: no symptom reported Eyes: Yes: no symptom reported Pulmonary: Yes wheezing, Yes dyspnea Cardiovascular: Yes no symptom reported Gastrointestional: Yes: constipation Musculoskeletal: Yes: no symptom reported Skin: Yes no symptom reported Psychiatric/Neurological: Yes: no symptom reported Endocrine: Yes: no symptom reported Physical Exam General Appearance: no apparent distress Respiratory: decreased breath sounds, wheezing Heart: S1S2 Abdomen: soft, bowel sounds present Genitourinary: bladder flat Extremities: pulses present, atrophy Neurology: alert, oriented, follow commands Musculoskeletal: No pain Assessment Assessment IMP CKD STAGE 3 - CR STABLE AT 1.9 AECOPD ACUTE HYPERCARBIC RESP FAILURE PROB PNEUMONIA PLAN PULM SUPPORT RENAL FXN STABLE ANTIBIOTICS PALLAVI RODRIGUEZ MD May 28, 2017 11:37
--- NOTE | 2017-05-28 12:16 | PDOC ---
PULMONARY PROGRESS NOTES Subjective fully awake, INCREASE HR WITH EXERCISE Vitals Vital Signs Date Time Temp Pulse Resp B/P (MAP) Pulse Ox O2 Delivery O2 Flow Rate FiO2 05/28/17 11:20 Nasal Cannula 3.0 05/28/17 10:44 99.0 104 19 147/67 (93) 93 99.0 General: Alert, No acute distress HEENT: Other Lungs: Clear Cardiovascular: S1, S2 Abdomen: Soft, Non-tender Neuro Exam: Alert Extremities: Other (trace edema) Skin: Warm Labs Laboratory Tests Test 05/26/17 16:40 05/26/17 20:43 05/26/17 21:15 05/27/17 04:15 Glucose (Fingerstick) 179 mg/dL (70-99) 99 mg/dL (70-99) Vancomycin Level Trough 22.8 mcg/mL (10.0-20.0) Vancomycin Last Dose Date Vancomycin Last Dose Time Sodium Level 142 mmol/L (136-145) Potassium Level 4.0 mmol/L (3.5-5.1) Chloride Level 101 mmol/L (98-107) Carbon Dioxide Level 37 mmol/L (21-32) Anion Gap 4 (6-14) Blood Urea Nitrogen 48 mg/dL (7-20) Creatinine 1.9 mg/dL (0.6-1.0) Estimated GFR (Cockcroft-Gault) 25.5 Glucose Level 188 mg/dL (70-99) Calcium Level 9.5 mg/dL (8.5-10.1) Test 05/27/17 07:22 05/27/17 11:32 05/27/17 16:21 05/27/17 20:45 Glucose (Fingerstick) 209 mg/dL (70-99) 220 mg/dL (70-99) 208 mg/dL (70-99) 318 mg/dL (70-99) Test 05/28/17 04:45 05/28/17 07:22 05/28/17 11:28 Sodium Level 145 mmol/L (136-145) Potassium Level 3.5 mmol/L (3.5-5.1) Chloride Level 100 mmol/L (98-107) Carbon Dioxide Level 41 mmol/L (21-32) Anion Gap 4 (6-14) Blood Urea Nitrogen 42 mg/dL (7-20) Creatinine 1.8 mg/dL (0.6-1.0) Estimated GFR (Cockcroft-Gault) 27.1 Glucose Level 222 mg/dL (70-99) Calcium Level 9.8 mg/dL (8.5-10.1) Magnesium Level 2.0 mg/dL (1.8-2.4) Glucose (Fingerstick) 175 mg/dL (70-99) 175 mg/dL (70-99) Laboratory Tests Test 05/27/17 16:21 05/27/17 20:45 05/28/17 04:45 05/28/17 07:22 Glucose (Fingerstick) 208 mg/dL (70-99) 318 mg/dL (70-99) 175 mg/dL (70-99) Sodium Level 145 mmol/L (136-145) Potassium Level 3.5 mmol/L (3.5-5.1) Chloride Level 100 mmol/L (98-107) Carbon Dioxide Level 41 mmol/L (21-32) Anion Gap 4 (6-14) Blood Urea Nitrogen 42 mg/dL (7-20) Creatinine 1.8 mg/dL (0.6-1.0) Estimated GFR (Cockcroft-Gault) 27.1 Glucose Level 222 mg/dL (70-99) Calcium Level 9.8 mg/dL (8.5-10.1) Magnesium Level 2.0 mg/dL (1.8-2.4) Test 05/28/17 11:28 Glucose (Fingerstick) 175 mg/dL (70-99) Medications Active Scripts Medications Dose Route/Sig Max Daily Dose Days Date Category Lisinopril 5 Mg Tablet 1 Tab PO DAILY 03/02/17 Rx Metformin Hcl 500 Mg Tablet 500 Mg PO BIDWMEALS 11/18/16 Reported Metoprolol Succinate ( Xl ) (Metoprolol Succinate) 25 Mg Tab.er.24h 2 Tab PO DAILY 12/12/15 Rx Glimepiride 4 Mg Tablet 1 Tab PO BID 12/05/15 Reported Ventolin Hfa Inhaler (Albuterol Sulfate) 18 Gm Hfa.aer.ad 2 Puff INH QID 12/05/15 Reported Symbicort 160-4.5 Mcg Inhaler (Budesonide/Formoterol Fumarate) 10.2 Gm Hfa.aer.ad 2 Puff IH BID 12/05/15 Reported Atorvastatin Calcium 10 Mg Tablet 1 Tab PO DAILY 12/05/15 Reported Impression . 1. Acute respiratory failure, both hypoxic and hypercapnic type and related to chronic obstructive pulmonary disease exacerbation. 2. Chronic obstructive pulmonary disease exacerbation probably triggered by lower respiratory tract infection. 3. Suspected obstructive sleep apnea with obesity hypoventilation syndrome and cor pulmonale with lower extremity edema. 4. Acute encephalopathy, suspect related to hypercapnia.resolved Plan . 1. Nasal canula, prn BIPAP 2. Continue with present bronchodilators. 3. Continue with antibiotics. 4. PO Nutrition 5. Not interested in having Sleep study 6. Avoid any narcotics or sedatives. 7. Off steroids 8. consider metoprolol per cardiology 9. 6 min walk ok with home KE GARCIA MD May 28, 2017 12:16
--- NOTE | 2017-05-28 12:40 | PDOC ---
PROGRESS NOTES Chief Complaint Chief Complaint 1. Acute respiratory failure hypercapnic 2. Chronic obstructive pulmonary disease, with acute exacerbation 3. pneumonitis, SIRS, sepsis, 4. obesity hypoventilation syndrome and cor pulmonale 5. 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 anemia of CKD 8. moderate severe malnutrition History of Present Illness History of Present Illness feels better again today, no new complaint tachycardia, CV changing meds, will get better AV node blockable she wants to go home with home health PT and OT today, doing well, she reports feeling much better, is more alert and awake and looks well Vitals Vitals Vital Signs Date Time Temp Pulse Resp B/P (MAP) Pulse Ox O2 Delivery O2 Flow Rate FiO2 05/28/17 11:20 Nasal Cannula 3.0 05/28/17 10:44 99.0 104 19 147/67 (93) 93 99.0 Physical Exam General: Alert, Cooperative, mild distress Heart: Regular rate, Normal S1, No murmurs Lungs: Clear Abdomen: Normal bowel sounds, Soft Extremities: No cyanosis, Other (1+ LE edema, ) Skin: No rashes, No significant lesion Labs LABS Laboratory Tests Test 05/27/17 16:21 05/27/17 20:45 05/28/17 04:45 05/28/17 07:22 Glucose (Fingerstick) 208 mg/dL (70-99) 318 mg/dL (70-99) 175 mg/dL (70-99) Sodium Level 145 mmol/L (136-145) Potassium Level 3.5 mmol/L (3.5-5.1) Chloride Level 100 mmol/L (98-107) Carbon Dioxide Level 41 mmol/L (21-32) Anion Gap 4 (6-14) Blood Urea Nitrogen 42 mg/dL (7-20) Creatinine 1.8 mg/dL (0.6-1.0) Estimated GFR (Cockcroft-Gault) 27.1 Glucose Level 222 mg/dL (70-99) Calcium Level 9.8 mg/dL (8.5-10.1) Magnesium Level 2.0 mg/dL (1.8-2.4) Test 05/28/17 11:28 Glucose (Fingerstick) 175 mg/dL (70-99) Review of Systems Review of Systems no n/v/d Assessment and Plan Assessmemt and Plan Problems Medical Problems: (1) CHF exacerbation Status: Acute (2) Congestive heart failure Status: Acute (3) COPD exacerbation Status: Acute (4) Pneumonia Status: Acute (5) Respiratory failure Status: Acute Problems: Comment Review of Relevant I have reviewed the following items brittanie (where applicable) has been applied. Labs Laboratory Tests Test 05/26/17 16:40 05/26/17 20:43 05/26/17 21:15 05/27/17 04:15 Glucose (Fingerstick) 179 mg/dL (70-99) 99 mg/dL (70-99) Vancomycin Level Trough 22.8 mcg/mL (10.0-20.0) Vancomycin Last Dose Date Vancomycin Last Dose Time Sodium Level 142 mmol/L (136-145) Potassium Level 4.0 mmol/L (3.5-5.1) Chloride Level 101 mmol/L (98-107) Carbon Dioxide Level 37 mmol/L (21-32) Anion Gap 4 (6-14) Blood Urea Nitrogen 48 mg/dL (7-20) Creatinine 1.9 mg/dL (0.6-1.0) Estimated GFR (Cockcroft-Gault) 25.5 Glucose Level 188 mg/dL (70-99) Calcium Level 9.5 mg/dL (8.5-10.1) Test 05/27/17 07:22 05/27/17 11:32 05/27/17 16:21 05/27/17 20:45 Glucose (Fingerstick) 209 mg/dL (70-99) 220 mg/dL (70-99) 208 mg/dL (70-99) 318 mg/dL (70-99) Test 05/28/17 04:45 05/28/17 07:22 05/28/17 11:28 Sodium Level 145 mmol/L (136-145) Potassium Level 3.5 mmol/L (3.5-5.1) Chloride Level 100 mmol/L (98-107) Carbon Dioxide Level 41 mmol/L (21-32) Anion Gap 4 (6-14) Blood Urea Nitrogen 42 mg/dL (7-20) Creatinine 1.8 mg/dL (0.6-1.0) Estimated GFR (Cockcroft-Gault) 27.1 Glucose Level 222 mg/dL (70-99) Calcium Level 9.8 mg/dL (8.5-10.1) Magnesium Level 2.0 mg/dL (1.8-2.4) Glucose (Fingerstick) 175 mg/dL (70-99) 175 mg/dL (70-99) Laboratory Tests Test 05/27/17 16:21 05/27/17 20:45 05/28/17 04:45 05/28/17 07:22 Glucose (Fingerstick) 208 mg/dL (70-99) 318 mg/dL (70-99) 175 mg/dL (70-99) Sodium Level 145 mmol/L (136-145) Potassium Level 3.5 mmol/L (3.5-5.1) Chloride Level 100 mmol/L (98-107) Carbon Dioxide Level 41 mmol/L (21-32) Anion Gap 4 (6-14) Blood Urea Nitrogen 42 mg/dL (7-20) Creatinine 1.8 mg/dL (0.6-1.0) Estimated GFR (Cockcroft-Gault) 27.1 Glucose Level 222 mg/dL (70-99) Calcium Level 9.8 mg/dL (8.5-10.1) Magnesium Level 2.0 mg/dL (1.8-2.4) Test 05/28/17 11:28 Glucose (Fingerstick) 175 mg/dL (70-99) Microbiology 05/24/17 Blood Culture - Preliminary, Resulted NO GROWTH AFTER 3 DAYS Medications Current Medications Sodium Chloride 1,000 ml @ 1,000 mls/hr Q1H IV Last administered on 00:26; Start 05/24/17 at 22:30; Stop 05/25/17 at 00:49; Status DC Piperacillin Sod/ Tazobactam Sod (Zosyn Per Pharmacy) 1 each PRN DAILY PRN MC SEE COMMENTS; Start 05/24/17 at 23:15 Vancomycin HCl (Vanco Per Pharmacy) 1 each PRN DAILY PRN MC SEE COMMENTS Last administered on 05/27/17 14:20; Start 05/24/17 at 23:15 Vancomycin HCl 2 gm/Dextrose 500 ml @ 250 mls/hr 1X ONCE IV Last administered on 05/24/17 23:39; Start 05/25/17 at 00:00; Stop 05/25/17 at 01 :59; Status DC Piperacillin Sod/ Tazobactam Sod (Zosyn) 2.25 gm 1X ONCE IVP Last administered on 05/24/17 23:39; Start 05/24/17 at 23:30; Stop 05/24/17 at 23 :31; Status DC Ondansetron HCl (Zofran) 4 mg PRN Q8HRS PRN IV NAUSEA/VOMITING; Start at 23:30; Stop 05/25/17 at 23:29; Status DC Sodium Chloride 1,000 ml @ 125 mls/hr Q8H IV ; Start 05/24/17 at 23:45; Stop 05/25/17 at 05:47; Status DC Acetaminophen (Tylenol) 650 mg PRN Q4HRS PRN PO FEVER Last administered on 23:59; Start 05/24/17 at 23:30; Stop 05/25/17 at 23:29; Status DC Albuterol/ Ipratropium (Duoneb) 3 ml 1X ONCE NEB Last administered on 00:02; Start 05/25/17 at 00:00; Stop 05/25/17 at 00:01; Status DC Methylprednisolone Sodium Succinate (SOLU-Medrol 125MG VIAL) 125 mg 1X ONCE IV Last administered on 05/25/17 00:00; Start 05/25/17 at 00:00; Stop at 00:01; Status DC Albuterol/ Ipratropium (Duoneb) 3 ml 1X ONCE NEB Last administered on 00:02; Start 05/25/17 at 00:00; Stop 05/25/17 at 00:01; Status DC Furosemide (Lasix) 80 mg 1X ONCE IVP Last administered on 05/25/17 00:21; Start 05/25/17 at 00:30; Stop 05/25/17 at 00:31; Status DC Piperacillin Sod/ Tazobactam Sod (Zosyn) 2.25 gm Q6HRS IVP Last administered on 05/28/17 05:28; Start 05/25/17 at 06:00 Vancomycin HCl 1 gm/Dextrose 250 ml @ 250 mls/hr Q24H IV Last administered on 05/25/17 21:47; Start 05/25/17 at 22:00; Stop 05/26/17 at 22:37; Status DC Vancomycin HCl 1 each 1X ONCE MC ; Start 05/26/17 at 21:30; Stop 05/26/17 at 21:31; Status DC Albuterol/ Ipratropium (Duoneb) 3 ml RTQID NEB ; Start 05/25/17 at 08:00; Stop 05/25/17 at 08:00; Status DC Albuterol Sulfate (Ventolin Neb Soln) 2.5 mg PRN Q2HRS PRN NEB SHORTNESS OF BREATH; Start 05/25/17 at 05:45 Prednisone (Prednisone) 60 mg DAILY PO ; Start 05/25/17 at 09:00; Stop at 12:04; Status DC Albuterol/ Ipratropium (Duoneb) 3 ml RTQID NEB Last administered on 05/25/17 11:07; Start 05/25/17 at 06:00; Stop 05/25/17 at 12:01; Status DC Influenza Virus Vaccine Quadrival (Fluarix Quad [id number] Syringe) 0.5 ml ONCE ONCE VAX IM ; Start 05/25/17 at 11:30; Stop 05/25/17 at 11:31; Status DC Metoprolol Succinate (Toprol Xl) 50 mg DAILY PO Last administered on 08:26; Start 05/25/17 at 12:00 Aspirin (Ecotrin) 81 mg DAILYWBKFT PO Last administered on 05/28/17 08:25; Start 05/25/17 at 12:00 Hydralazine HCl (Apresoline Inj) 10 mg PRN Q4HRS PRN IVP ELEVATED BP, SEE COMMENTS Last administered on 05/26/17 18:43; Start 05/25/17 at 11:30 Atorvastatin Calcium (Lipitor) 10 mg QHS PO Last administered on 05/27/17 20: 02; Start 05/25/17 at 21:00 Insulin Aspart (NovoLOG) 0-9 UNITS TIDWMEALS SQ Last administered on 08:38; Start 05/25/17 at 12:00 Dextrose (Dextrose 50%-Water Syringe) 12.5 gm PRN Q15MIN PRN IV SEE COMMENTS; Start 05/25/17 at 12:00 Albuterol/ Ipratropium (Duoneb) 3 ml Q4HRS W/A NEB Last administered on 11:20; Start 05/25/17 at 14:00 Budesonide (Pulmicort) 0.5 mg RTBID NEB Last administered on 05/28/17 07:46; Start 05/25/17 at 20:00 Methylprednisolone Sodium Succinate (SOLU-Medrol 40MG VIAL) 40 mg Q12HR IV Last administered on 05/27/17 09:42; Start 05/25/17 at 21:00; Stop 05/27/17 at 13:38; Status DC Enoxaparin Sodium (Lovenox Per Pharmacy Prophylaxis Dosing) 1 each PRN DAILY PRN MC SEE COMMENTS; Start 05/25/17 at 12:15 Enoxaparin Sodium (Lovenox 30mg Syringe) 30 mg DAILY16 SQ Last administered on 05/27/17 17:14; Start 05/25/17 at 16:00 Amlodipine Besylate (Norvasc) 5 mg DAILY PO ; Start 05/27/17 at 09:00; Stop at 09:00; Status DC Insulin Aspart (NovoLOG) 13 units 1X ONCE SQ Last administered on 05/26/17 12:47; Start 05/26/17 at 12:15; Stop 05/26/17 at 12:22; Status DC Insulin Aspart (NovoLOG) 8 units TIDAC SQ Last administered on 05/28/17 08:39 ; Start 05/26/17 at 16:30 Insulin Detemir (Levemir) 12 units 1X ONCE SQ Last administered on 05/26/17 12:51; Start 05/26/17 at 12:15; Stop 05/26/17 at 12:21; Status DC Vancomycin HCl 1 each 1X ONCE MC ; Start 05/28/17 at 06:00; Stop 05/28/17 at 06:01; Status Cancel Amlodipine Besylate (Norvasc) 10 mg DAILY PO Last administered on 05/28/17 08 :26; Start 05/27/17 at 09:00 Vancomycin HCl 1 gm/Dextrose 250 ml @ 250 mls/hr Q36H IV Last administered on 05/27/17 17:06; Start 05/27/17 at 15:00 Active Scripts Active Lisinopril 5 Mg Tablet 1 Tab PO DAILY Metoprolol Succinate ( Xl ) (Metoprolol Succinate) 25 Mg Tab.er.24h 2 Tab PO DAILY Reported Metformin Hcl 500 Mg Tablet 500 Mg PO BIDWMEALS Glimepiride 4 Mg Tablet 1 Tab PO BID Ventolin Hfa Inhaler (Albuterol Sulfate) 18 Gm Hfa.aer.ad 2 Puff INH QID Symbicort 160-4.5 Mcg Inhaler (Budesonide/Formoterol Fumarate) 10.2 Gm Hfa.aer.ad 2 Puff IH BID Atorvastatin Calcium 10 Mg Tablet 1 Tab PO DAILY Vitals/I & O Vital Sign - Last 24 Hours 05/27/17 05/27/17 05/27/17 05/27/17 15:00 15:02 19:20 19:25 Temp 98.4 98.4 Pulse 96 Resp 18 B/P (MAP) 151/71 (97) Pulse Ox 100 100 97 O2 Delivery Nasal Cannula Nasal Cannula Nasal Cannula Nasal Cannula O2 Flow Rate 3.0 3.0 3.0 3.0 05/27/17 05/27/17 05/27/17 05/28/17 19:25 19:33 23:32 02:49 Temp 98.8 98.4 99.4 98.8 98.4 99.4 Pulse 112 108 96 Resp 18 18 18 B/P (MAP) 166/75 (105) 180/80 (113) 162/78 (106) Pulse Ox 97 100 99 99 O2 Delivery Nasal Cannula Nasal Cannula Nasal Cannula Nasal Cannula O2 Flow Rate 3.0 3.0 3.0 3.0 05/28/17 05/28/17 05/28/17 05/28/17 07:00 07:48 07:50 08:26 Temp 97.6 97.6 Pulse 104 104 Resp 20 B/P (MAP) 160/88 (112) 160/88 Pulse Ox 96 85 O2 Delivery Nasal Cannula Room Air Nasal Cannula O2 Flow Rate 3.0 3.0 05/28/17 05/28/17 05/28/17 08:26 10:44 11:20 Temp 99.0 99.0 Pulse 104 104 Resp 19 B/P (MAP) 160/88 147/67 (93) Pulse Ox 93 O2 Delivery Nasal Cannula Nasal Cannula O2 Flow Rate 3.0 3.0 Intake and Output 11/05/27/17 05/28/17 15:00 23:00 07:00 Intake Total 1025 ml 50 ml Output Total 500 ml Balance -500 ml 1025 ml 50 ml BRENDAN HICKEY MD May 28, 2017 12:40
--- NOTE | 2017-05-28 13:54 | PDOC ---
CARDIO Progress Notes Date and Time Date of Service 05/28/2017 Time of Evaluation 1040 Subjective Subjective: No Chest Pain, No Palpitations, Other (SOA much better, wanting to go home) Vitals Vitals Vital Signs Date Time Temp Pulse Resp B/P (MAP) Pulse Ox O2 Delivery O2 Flow Rate FiO2 05/28/17 11:20 Nasal Cannula 3.0 05/28/17 10:44 99.0 104 19 147/67 (93) 93 99.0 Weight Weight [ ] Input and Output Intake and Output Intake and Output 05/28/17 07:00 Intake Total 1075 ml Output Total 500 ml Balance 575 ml Intake Oral 1075 ml Output Urine Total 500 ml # Voids 5 # Bowel Movements 3 Laboratory Labs Laboratory Tests Test 05/27/17 16:21 05/27/17 20:45 05/28/17 04:45 05/28/17 07:22 Glucose (Fingerstick) 208 mg/dL (70-99) 318 mg/dL (70-99) 175 mg/dL (70-99) Sodium Level 145 mmol/L (136-145) Potassium Level 3.5 mmol/L (3.5-5.1) Chloride Level 100 mmol/L (98-107) Carbon Dioxide Level 41 mmol/L (21-32) Anion Gap 4 (6-14) Blood Urea Nitrogen 42 mg/dL (7-20) Creatinine 1.8 mg/dL (0.6-1.0) Estimated GFR (Cockcroft-Gault) 27.1 Glucose Level 222 mg/dL (70-99) Calcium Level 9.8 mg/dL (8.5-10.1) Magnesium Level 2.0 mg/dL (1.8-2.4) Test 05/28/17 11:28 Glucose (Fingerstick) 175 mg/dL (70-99) Microbiology Micro Microbiology 05/24/17 Blood Culture - Preliminary, Resulted NO GROWTH AFTER 3 DAYS Review of Systems Constitutional: yes: weakness, alert Ears/Nose/Throat: Yes: no symptom reported Eyes: Yes: no symptom reported Pulmonary: Yes wheezing, Yes dyspnea Cardiovascular: Yes no symptom reported Gastrointestional: Yes: constipation Musculoskeletal: Yes: no symptom reported Skin: Yes no symptom reported Psychiatric/Neurological: Yes: no symptom reported Endocrine: Yes: no symptom reported Physical Exam HEENT: Neck Supple W Full Motion Chest: Symmetric LUNGS: Other (basilar crackles, faint upper wheeze) Heart: S1S2, RRR (Sinus tach with PACs) Abdomen: Soft N/T Extremities: No Calf Tenderness, Other (1+ bilateral LE pitting edema) Neurology: alert, oriented, follow commands Assessment Assessment 1. Pneumonia: pulmonary following 2. Acute on chronic respiratory failure with underlying COPD and possible MARCO: SOA better, on NC O2 3. Hypoxic encephalopathy: resolved 4. Chronic diastolic CHF: EF 55-60%, compensated 5. ANDREA on CKD3: nephrology following 6. DM2/HLP 7. Accelerated HTN: labile episodes 8. Anemia of chronic disease 9. Arrhythmia: sinus tach with PACs 110s. Recommendations 1. Unable to uptitrate toprol with pulmonary issues. Will DC norvasc and start on cardizem CD. Hydralazine IV PRN 2. Continue with secondary prevention 3. Follow up in office in 4 weeks SUSAN DOUGLAS APRN May 28, 2017 13:54
[2017-05-28] MEDS: VANCOMYCIN PER PHARMACY MC PRN (14:09)
[2017-05-28 14:36] VITALS: BP 147/78
[2017-05-28] MEDS: ENOXAPARIN 30 MG/0.3 ML SYRINGE. SQ SCH (17:36)
--- NOTE | 2017-05-28 18:30 | EKG ---
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
[2017-05-28 19:49] VITALS: BP 167/82
[2017-05-28] MEDS: ATORVASTATIN CALCIUM 10 MG TABLET. PO SCH (21:04)
[2017-05-28 23:23] VITALS: BP 150/76
[2017-05-29] MEDS: PIPERACILLIN/TAZO IV Push 2.25 GM VIAL. IVP SCH ×3 (00:16→11:55)
[2017-05-29 03:40] VITALS: BP 148/63
[2017-05-29] MEDS: VANCOMYCIN 1 GM in IV DEXTROSE 5% 250 ML IV SCH (05:22)
[2017-05-29 07:00] VITALS: BP 144/52
[2017-05-29] MEDS: ASPIRIN ENTERIC COATED 81 MG TABLET.DR. PO SCH (08:27)
[2017-05-29] MEDS: METOPROLOL SUCC 24HR ER 25 MG TAB.ER.24H. PO SCH (08:28)
[2017-05-29] MEDS: BUDESONIDE 0.5 MG/2 ML NEBU. NEB SCH (08:31)
[2017-05-29] MEDS: INSULIN ASPART 300 UNITS/3 ML INSULN.PEN SQ SCH ×4 (08:31→12:00)
[2017-05-29] MEDS: IPRATRPIUM/ALBUTEROL 0.5/2.5MG 3 ML NEBU. NEB SCH ×2 (08:31→12:54)
[2017-05-29] MEDS ORDERED: ASPI-612 PO (10:12)
[2017-05-29] MEDS ORDERED: DILT240C77 PO (10:12)
[2017-05-29] MEDS ORDERED: DOXY100C2 PO (10:12)
[2017-05-29] MEDS ORDERED: ATROVENT HFA12.9 GM IH (10:12)
--- NOTE | 2017-05-29 10:45 | PDOC ---
PULMONARY PROGRESS NOTES Subjective fully awake, Vitals Vital Signs Date Time Temp Pulse Resp B/P (MAP) Pulse Ox O2 Delivery O2 Flow Rate FiO2 05/29/17 08:35 88 Nasal Cannula 3.0 05/29/17 08:28 107 144/52 05/29/17 07:00 98.5 21 98.5 General: Alert, No acute distress HEENT: Other Lungs: Clear Cardiovascular: S1, S2 Abdomen: Soft, Non-tender Neuro Exam: Alert Extremities: Other (trace edema) Skin: Warm Labs Laboratory Tests Test 05/27/17 11:32 05/27/17 16:21 05/27/17 20:45 05/28/17 04:45 Glucose (Fingerstick) 220 mg/dL (70-99) 208 mg/dL (70-99) 318 mg/dL (70-99) Sodium Level 145 mmol/L (136-145) Potassium Level 3.5 mmol/L (3.5-5.1) Chloride Level 100 mmol/L (98-107) Carbon Dioxide Level 41 mmol/L (21-32) Anion Gap 4 (6-14) Blood Urea Nitrogen 42 mg/dL (7-20) Creatinine 1.8 mg/dL (0.6-1.0) Estimated GFR (Cockcroft-Gault) 27.1 Glucose Level 222 mg/dL (70-99) Calcium Level 9.8 mg/dL (8.5-10.1) Magnesium Level 2.0 mg/dL (1.8-2.4) Test 05/28/17 07:22 05/28/17 11:28 05/28/17 16:21 05/28/17 20:38 Glucose (Fingerstick) 175 mg/dL (70-99) 175 mg/dL (70-99) 170 mg/dL (70-99) 175 mg/dL (70-99) Test 05/29/17 07:43 Glucose (Fingerstick) 220 mg/dL (70-99) Laboratory Tests Test 05/28/17 11:28 05/28/17 16:21 05/28/17 20:38 05/29/17 07:43 Glucose (Fingerstick) 175 mg/dL (70-99) 170 mg/dL (70-99) 175 mg/dL (70-99) 220 mg/dL (70-99) Medications Active Scripts Medications Dose Route/Sig Max Daily Dose Days Date Category Lisinopril 5 Mg Tablet 1 Tab PO DAILY 03/02/17 Rx Metformin Hcl 500 Mg Tablet 500 Mg PO BIDWMEALS 11/18/16 Reported Metoprolol Succinate ( Xl ) (Metoprolol Succinate) 25 Mg Tab.er.24h 2 Tab PO DAILY 12/12/15 Rx Glimepiride 4 Mg Tablet 1 Tab PO BID 12/05/15 Reported Ventolin Hfa Inhaler (Albuterol Sulfate) 18 Gm Hfa.aer.ad 2 Puff INH QID 12/05/15 Reported Symbicort 160-4.5 Mcg Inhaler (Budesonide/Formoterol Fumarate) 10.2 Gm Hfa.aer.ad 2 Puff IH BID 12/05/15 Reported Atorvastatin Calcium 10 Mg Tablet 1 Tab PO DAILY 12/05/15 Reported Impression . 1. Acute respiratory failure, both hypoxic and hypercapnic type and related to chronic obstructive pulmonary disease exacerbation. 2. Chronic obstructive pulmonary disease exacerbation probably triggered by lower respiratory tract infection. 3. Suspected obstructive sleep apnea with obesity hypoventilation syndrome and cor pulmonale with lower extremity edema. 4. Acute encephalopathy, suspect related to hypercapnia.resolved Plan . 1. Nasal canula, prn BIPAP 2. Continue with present bronchodilators. 3. De-escalate antibiotics. 4. PO Nutrition 5. Not interested in having Sleep study 6. Avoid any narcotics or sedatives. 7. Off steroids 8. cardizem per cardiology 9. 6 min walk. pt has home O2 ok with home KE GARCIA MD May 29, 2017 10:45
[2017-05-29 11:00] VITALS: BP 134/59
--- NOTE | 2017-05-29 11:14 | PDOC ---
SUBJECTIVE ROS F/up for CKD III doing better OBJECTIVE Vital Signs Vital Signs Date Time Temp Pulse Resp B/P (MAP) Pulse Ox O2 Delivery O2 Flow Rate FiO2 05/29/17 08:35 88 Nasal Cannula 3.0 05/29/17 08:28 107 144/52 05/29/17 07:00 98.5 21 98.5 I & 0 Intake and Output 05/30/17 07:00 Intake Total 500 ml Balance 500 ml Intake Oral 500 ml PHYSICAL EXAM Physical Exam General Appearance: Awake: Alert Oriented x 3 Neck: No JVD or JVP Chest: CTA [place] Heart: S1 S2 Abdomen - Soft NTND Extremities - No Edema DIAGNOSIS/ASSESSMENT Assessment & Plan CKD III - Uo is good, no labs today Problems: COMMENT/RELEVANT DATA Meds Current Medications Medications (Trade) Dose Ordered Sig/Venessa Start Time Stop Time Status Last Admin Dose Admin Acetaminophen (Tylenol) 650 mg PRN Q4HRS PRN 05/24/17 23:30 05/25/17 23:29 DC 05/24/17 23:59 650 MG Albuterol Sulfate (Ventolin Neb Soln) 2.5 mg PRN Q2HRS PRN 05/25/17 05:45 05/29/17 03:41 2.5 MG Albuterol/ Ipratropium (Duoneb) 3 ml Q4HRS W/A 05/25/17 14:00 05/29/17 08:31 3 ML Amlodipine Besylate (Norvasc) 10 mg DAILY 05/27/17 09:00 05/28/17 13:17 DC 05/28/17 08:26 10 MG Aspirin (Ecotrin) 81 mg DAILYWBKFT 05/25/17 12:00 05/29/17 08:27 81 MG Atorvastatin Calcium (Lipitor) 10 mg QHS 05/25/17 21:00 05/28/17 21:04 10 MG Budesonide (Pulmicort) 0.5 mg RTBID 05/25/17 20:00 05/29/17 08:31 0.5 MG Dextrose (Dextrose 50%-Water Syringe) 12.5 gm PRN Q15MIN PRN 05/25/17 12:00 Diltiazem HCl (Cardizem 24hr Cd) 240 mg DAILY 05/28/17 14:00 05/29/17 08:27 240 MG Enoxaparin Sodium (Lovenox 30mg Syringe) 30 mg DAILY16 05/25/17 16:00 05/28/17 17:36 30 MG Enoxaparin Sodium (Lovenox Per Pharmacy Prophylaxis Dosing) 1 each PRN DAILY PRN 05/25/17 12:15 Furosemide (Lasix) 80 mg 1X ONCE 05/25/17 00:30 05/25/17 00:31 DC 05/25/17 00:21 80 MG Hydralazine HCl (Apresoline Inj) 10 mg PRN Q4HRS PRN 05/25/17 11:30 05/26/17 18:43 10 MG Influenza Virus Vaccine Quadrival (Fluarix Quad [id number] Syringe) 0.5 ml ONCE ONCE 05/25/17 11:30 05/25/17 11:31 DC 05/28/17 15:09 0.5 ML Insulin Aspart (NovoLOG) 8 units TIDAC 05/26/17 16:30 05/29/17 08:31 8 UNITS Insulin Detemir (Levemir) 12 units 1X ONCE 05/26/17 12:15 05/26/17 12:21 DC 05/26/17 12:51 12 UNITS Methylprednisolone Sodium Succinate (SOLU-Medrol 40MG VIAL) 40 mg Q12HR 05/25/17 21:00 05/27/17 13:38 DC 05/27/17 09:42 40 MG Methylprednisolone Sodium Succinate (SOLU-Medrol 125MG VIAL) 125 mg 1X ONCE 05/25/17 00:00 05/25/17 00:01 DC 05/25/17 00:00 125 MG Metoprolol Succinate (Toprol Xl) 50 mg DAILY 05/25/17 12:00 05/29/17 08:28 50 MG Ondansetron HCl (Zofran) 4 mg PRN Q8HRS PRN 05/24/17 23:30 05/25/17 23:29 DC Piperacillin Sod/ Tazobactam Sod (Zosyn Per Pharmacy) 1 each PRN DAILY PRN 05/24/17 23:15 Piperacillin Sod/ Tazobactam Sod (Zosyn) 2.25 gm Q6HRS 05/25/17 06:00 05/29/17 05:22 2.25 GM Prednisone (Prednisone) 60 mg DAILY 05/25/17 09:00 05/25/17 12:04 DC Sodium Chloride 1,000 ml @ 125 mls/hr Q8H 05/24/17 23:45 05/25/17 05:47 DC Vancomycin HCl 1 each 1X ONCE 05/28/17 06:00 05/28/17 06:01 Cancel Vancomycin HCl (Vanco Per Pharmacy) 1 each PRN DAILY PRN 05/24/17 23:15 05/28/17 14:09 1 EACH Vancomycin HCl 1 gm/Dextrose 250 ml @ 250 mls/hr Q36H 05/27/17 15:00 05/29/17 05:22 250 MLS/HR Vancomycin HCl 2 gm/Dextrose 500 ml @ 250 mls/hr 1X ONCE 05/25/17 00:00 05/25/17 01:59 DC 05/24/17 23:39 250 MLS/HR Lab Laboratory Tests Test 05/28/17 11:28 05/28/17 16:21 05/28/17 20:38 05/29/17 07:43 Glucose (Fingerstick) 175 mg/dL (70-99) 170 mg/dL (70-99) 175 mg/dL (70-99) 220 mg/dL (70-99) MELISSA NICOLE MD May 29, 2017 11:14
--- NOTE | 2017-06-23 23:58 | PDOC3 ---
Discharge Summary Visit Information Date of Admission: May 24, 2017 Date of Discharge: May 29, 2017 Admitting Diagnosis: shortness of breath Final Diagnosis 1. Acute respiratory failure hypercapnic 2. Chronic obstructive pulmonary disease, with acute exacerbation 3. pneumonitis, SIRS, sepsis, 4. obesity hypoventilation syndrome and cor pulmonale 5. 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 anemia of CKD 8. moderate severe malnutrition Problems Medical Problems: (1) CHF exacerbation Status: Acute (2) Congestive heart failure Status: Acute (3) COPD exacerbation Status: Acute (4) Pneumonia Status: Acute (5) Respiratory failure Status: Acute Brief Hospital Course Allergies Allergies Coded Allergies Type Severity Reaction Last Updated Verified No Known Drug Allergies 12/04/15 No Brief Hospital Course Ms. Daniels is a 81 old who is obese and has hypertension, diabetes, CHF and COPD. Admit with acute dyspnea and cough with cold symptoms, for the last 2 days. She had some subjective fever at home as well. T Some distress and was hypoxic and was placed on BiPAP. She has been less responsive. She then took a few days to respond to steroids, nebs, abx feels better again over a few days tachycardia, CV changing meds, will get better AV node blockable she wants to go home with home health PT and OT at [place] Discharge Information Condition at Discharge: Improved Follow Up: Weeks Disposition/Orders: D/C to Home w/ HH Scheduled Albuterol Sulfate (Ventolin Hfa Inhaler), 2 PUFF INH QID, (Reported) Aspirin (Aspirin Ec), 81 MG PO DAILYWBKFT Atorvastatin Calcium (Atorvastatin Calcium), 1 TAB PO DAILY, (Reported) Budesonide/Formoterol Fumarate (Symbicort 160-4.5 Mcg Inhaler), 2 PUFF IH BID, ( Reported) Diltiazem HCl (Diltiazem 24Hr Cd), 240 MG PO DAILY Doxycycline Hyclate (Doxycycline Hyclate), 1 CAP PO BID Glimepiride (Glimepiride), 1 TAB PO BID, (Reported) Ipratropium Lehr (Atrovent Hfa), 1 PUFF IH QID Lisinopril (Lisinopril), 1 TAB PO DAILY Metformin Hcl (Metformin Hcl), 500 MG PO BIDWMEALS, (Reported) Metoprolol Succinate (Metoprolol Succinate ( Xl )), 2 TAB PO DAILY Patient Instructions Patient Instructions > 30 min face to face BRENDAN Palacios MD Jun 23, 2017 23:58
[2017-06-27] MEDS ORDERED: IPRA4AER IH (11:44)
[2017-06-27] MEDS ORDERED: GLIM2TAB PO (11:44)
[2017-06-27] MEDS ORDERED: FURO40TA4 PO (11:44)
== END 2017-05-29 14:13 | disposition home health service (06) | DRG 871 ==
LOC: ER 20:36 → 2 NORTH 23:21
PROVIDERS: ADMIT Internal Medicine; ATTEND Internal Medicine
PROC: 5A09357 Assistance with Respiratory Ventilation, Less than 24 Consecutive Hours, Continuous Positive Airway Pressure (ICD-10-PCS; principal; 2017-05-25)
DX: A41.9 Sepsis, unspecified organism (principal); J18.9 Pneumonia, unspecified organism; J96.21 Acute and chronic respiratory failure with hypoxia; E43 Unspecified severe protein-calorie malnutrition; I13.0 Hypertensive heart and chronic kidney disease with heart failure and stage 1 through stage 4 chronic kidney disease, or unspecified chronic kidney disease; G93.1 Anoxic brain damage, not elsewhere classified; G93.41 Metabolic encephalopathy; E11.22 Type 2 diabetes mellitus with diabetic chronic kidney disease; E11.649 Type 2 diabetes mellitus with hypoglycemia without coma; I50.32 Chronic diastolic (congestive) heart failure; J96.22 Acute and chronic respiratory failure with hypercapnia; N17.9 Acute kidney failure, unspecified; E66.2 Morbid (severe) obesity with alveolar hypoventilation; J44.0 Chronic obstructive pulmonary disease with (acute) lower respiratory infection; J44.1 Chronic obstructive pulmonary disease with (acute) exacerbation; N18.4 Chronic kidney disease, stage 4 (severe); D63.1 Anemia in chronic kidney disease; Z23 Encounter for immunization; Z68.32 Body mass index [BMI] 32.0-32.9, adult; E78.00 Pure hypercholesterolemia, unspecified; E78.5 Hyperlipidemia, unspecified; Z87.891 Personal history of nicotine dependence; Z79.899 Other long term (current) drug therapy
CPT/HCPCS: 36415; 36600; 71010; 80048; 80053; 80076; 80202; 82805; 82962; 83605; 83735; 83880; 85007; 85025; 85610; 85730; 87040; 90686; 93005; 94620; 94640; 94660; 94760; 96365; 96375; J0360; J1650; J1815; J1940; J2543; J2920; J2930; J3370; J7030; J7613; J7620; J7626; 97116; 99285-25

== ENCOUNTER 2017-06-23 20:44 | Inpatient (IN) | payer MEDICARE, OTHER ==
[~2017-06-23] VITALS: Ht 157.5 cm; Wt 77.6 kg
[~2017-06-23 20:44] MED LIST changes: +ASPI-612 PO; +ATROVENT HFA12.9 GM IH; +DILT240C77 PO; +DOXY100C2 PO
[2017-06-23] MEDS ORDERED: IPRATRPIUM/ALBUTEROL 0.5/2.5MG 3 ML NEBU. ONE (20:53)
[2017-06-23 21:15] LABS: BASO # 0.1 x10^3/uL (0.0-0.2); BASO % 1 % (0-3); EOS % 8 % (0-3); HEMATOCRIT 27.6 % (36.0-47.0); HEMOGLOBIN 8.7 g/dL (12.0-15.5); LYMPH # 1.9 x10^3/uL (1.0-4.8); LYMPH % 20 % (24-48); MEAN CORPUSCULAR HEMOGLOBIN 27 pg (25-35); MEAN CORPUSCULAR HGB CONC 31 g/dL (31-37); MEAN CORPUSCULAR VOLUME 85 fL (79-100); MONO % 9 % (0-9); NEUT % 62 % (31-73); PLATELET COUNT 263 x10^3/uL (140-400); RED BLOOD COUNT 3.27 x10^6/uL (3.50-5.40); RED CELL DISTRIBUTION WIDTH 16.7 % (11.5-14.5); WHITE BLOOD COUNT 9.7 x10^3/uL (4.0-11.0)
[2017-06-23 21:29] LABS: CALCIUM 8.9 mg/dL (8.5-10.1); CREATININE 1.8 mg/dL (0.6-1.0); GFR 27.1; POTASSIUM 5.6 mmol/L (3.5-5.1)
[2017-06-23 21:35] LABS: ALBUMIN 3.2 g/dL (3.4-5.0); ALBUMIN/GLOBULIN RATIO 0.6 (1.0-1.7); TOTAL BILIRUBIN 0.2 mg/dL (0.2-1.0); TOTAL PROTEIN 8.2 g/dL (6.4-8.2)
[2017-06-23] MEDS ORDERED: FUROSEMIDE 40 MG/4 ML VIAL. IVP ONE (22:15)
--- NOTE | 2017-06-23 22:19 | EKG ---
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
[2017-06-23] MEDS ORDERED: ONDANSETRON PF 4 MG/2 ML VIAL. IV PRN (23:00)
--- NOTE | 2017-06-23 23:27 | PHYS DOC ---
Past Medical History Past Medical History: Asthma, CHF, COPD, Diabetes-Type II, High Cholesterol, Heart Disease, Hypertension Past Surgical History: No Surgical History Alcohol Use: None Drug Use: None Adult General Chief Complaint Chief Complaint: SHORTNESS OF BREATH HPI HPI Patient is a 81 year old Afro-Chinese female with history of COPD and congestive heart failure chronically home O2 dependent on 3 L presents with progressive shortness of breath over the past 3 days. Patient also reports increased peripheral edema. Reports loose nonproductive wet cough. No fever chills, nausea, vomiting and sweats. Denies chest tightness or chest pain. Patient reports dyspnea at rest and dyspnea on exertion. Although denies change in limitations to daily activities. Patient has been somewhat forgetful home medications. She only uses albuterol inhaler on occasion when she remembers. Additional history is obtained from family members who are present at bedside. Review of Systems Review of Systems Review symptoms as bridge. All other review symptoms are negative All other systems were reviewed and found to be within normal limits, except as documented in this note. Current Medications Current Medications Current Medications Medications (Trade) Dose Ordered Sig/Venessa Start Time Stop Time Status Last Admin Dose Admin Albuterol/ Ipratropium (Duoneb) 3 ml RTQID 06/24/17 08:00 06/25/17 07:59 Furosemide (Lasix) 20 mg BID92 06/24/17 09:00 Ondansetron HCl (Zofran) 4 mg PRN Q8HRS PRN 06/23/17 23:00 06/24/17 22:59 Allergies Allergies Allergies Coded Allergies Type Severity Reaction Last Updated Verified No Known Drug Allergies 12/04/15 No Physical Exam Physical Exam Constitutional: Well developed, well nourished, no acute distress, non-toxic appearance. [] HENT: Normocephalic, atraumatic, bilateral external ears normal, oropharynx moist, no oral exudates, nose normal. [] Eyes: PERRLA, EOMI, conjunctiva normal, no discharge. [] Neck: Normal range of motion, no tenderness, supple, no stridor. [] Cardiovascular:Heart rate regular rhythm, no murmur, 2+ peripheral edema. Homans signs. [] Lungs & Thorax: Respirations diminished, coarse breath sounds bilaterally.[] Abdomen: Bowel sounds normal, soft, no tenderness, no masses, no pulsatile masses. [] Skin: Warm, dry, no erythema, no rash. [] Back: No tenderness, no CVA tenderness. [] Extremities: No tenderness, no cyanosis, no clubbing, ROM intact, no edema. [] Neurologic: Alert and oriented X person, normal motor function, normal sensory function, no focal deficits noted. [] Psychologic: Affect normal, judgement normal, mood normal. [] Current Patient Data Vital Signs Vital Signs Date Time Temp Pulse Resp B/P (MAP) Pulse Ox O2 Delivery O2 Flow Rate FiO2 06/23/17 20:57 100 Nasal Cannula 5.0 06/23/17 20:50 98.2 30 30 155/94 (114) 98.2 Lab Values Laboratory Tests Test 06/23/17 21:00 White Blood Count 9.7 x10^3/uL (4.0-11.0) Red Blood Count 3.27 x10^6/uL (3.50-5.40) L Hemoglobin 8.7 g/dL (12.0-15.5) L Hematocrit 27.6 % (36.0-47.0) L Mean Corpuscular Volume 85 fL (79-100) Mean Corpuscular Hemoglobin 27 pg (25-35) Mean Corpuscular Hemoglobin Concent 31 g/dL (31-37) Red Cell Distribution Width 16.7 % (11.5-14.5) H Platelet Count 263 x10^3/uL (140-400) Neutrophils (%) (Auto) 62 % (31-73) Lymphocytes (%) (Auto) 20 % (24-48) L Monocytes (%) (Auto) 9 % (0-9) Eosinophils (%) (Auto) 8 % (0-3) H Basophils (%) (Auto) 1 % (0-3) Neutrophils # (Auto) 6.1 x10^3uL (1.8-7.7) Lymphocytes # (Auto) 1.9 x10^3/uL (1.0-4.8) Monocytes # (Auto) 0.9 x10^3/uL (0.0-1.1) Eosinophils # (Auto) 0.7 x10^3/uL (0.0-0.7) Basophils # (Auto) 0.1 x10^3/uL (0.0-0.2) Sodium Level 139 mmol/L (136-145) Potassium Level 5.6 mmol/L (3.5-5.1) H Chloride Level 100 mmol/L (98-107) Carbon Dioxide Level 35 mmol/L (21-32) H Anion Gap 4 (6-14) L Blood Urea Nitrogen 37 mg/dL (7-20) H Creatinine 1.8 mg/dL (0.6-1.0) H Estimated GFR (Cockcroft-Gault) 27.1 BUN/Creatinine Ratio 21 (6-20) H Glucose Level 174 mg/dL (70-99) H Calcium Level 8.9 mg/dL (8.5-10.1) Total Bilirubin 0.2 mg/dL (0.2-1.0) Aspartate Amino Transferase (AST) 20 U/L (15-37) Alanine Aminotransferase (ALT) 17 U/L (14-59) Alkaline Phosphatase 50 U/L (46-116) Troponin I Quantitative < 0.017 ng/mL (0.000-0.055) BU-Bif-C-Type Natriuretic Peptide 2400 pg/mL (0-449) H Total Protein 8.2 g/dL (6.4-8.2) Albumin 3.2 g/dL (3.4-5.0) L Albumin/Globulin Ratio 0.6 (1.0-1.7) L Laboratory Tests 06/23/17 21:00 Laboratory Tests 06/23/17 21:00 EKG EKG [EKG: S atrial flutter, rate 76, interpretation limited due to artifact, QTC 395.] Radiology/Procedures Radiology/Procedures [Chest x-ray: Pulmonary vascular congestion, possible effusion/infiltrate left lung base on the ED preliminary review] Course & Med Decision Making Course & Med Decision Making Pertinent Labs and Imaging studies reviewed. (See chart for details) [Acute on chronic respiratory failure with increased shortness of breath at rest and with exertion. Infant's most consistent with congestive heart failure and COPD exacerbation. Patient is afebrile with normal white blood cell count. Other diagnoses considered but felt unlikely at this time. Patient given diuresis and breathing treatment given with symptomatic improvement. Will admit to the hospital service for further evaluation and treatment think anticipated cardiology consult.] Dragon Disclaimer Dragon Disclaimer This electronic medical record was generated, in whole or in part, using a voice recognition dictation system. Departure Departure Impression: Primary Impression: CHF exacerbation Additional Impression: COPD exacerbation Disposition: 09 ADMITTED INPATIENT Admitting Physician: Other (Dr. Bonner) Referrals: ERIN BANG MD (PCP) Problem Qualifiers STANISLAV IBARRA DO Jun 23, 2017 23:27
[2017-06-24] VITALS (7 sets, daily range): BP systolic 124–157; BP diastolic 60–89
[2017-06-24] MEDS ORDERED: METO50TA6 PO (00:46)
[2017-06-24] MEDS ORDERED: AMLO5TAB2 PO (00:46)
[2017-06-24] MEDS ORDERED: FURO20TA3 PO (00:46)
[2017-06-24 05:00] LABS: BASO % 1 % (0-3); EOS % 7 % (0-3); HEMATOCRIT 26.2 % (36.0-47.0); HEMOGLOBIN 8.1 g/dL (12.0-15.5); LYMPH # 1.7 x10^3/uL (1.0-4.8); LYMPH % 23 % (24-48); MEAN CORPUSCULAR HEMOGLOBIN 26 pg (25-35); MEAN CORPUSCULAR HGB CONC 31 g/dL (31-37); MEAN CORPUSCULAR VOLUME 85 fL (79-100); MONO % 10 % (0-9); NEUT % 59 % (31-73); PLATELET COUNT 215 x10^3/uL (140-400); RED BLOOD COUNT 3.09 x10^6/uL (3.50-5.40); WHITE BLOOD COUNT 7.3 x10^3/uL (4.0-11.0)
[2017-06-24 05:25] LABS: CALCIUM 8.8 mg/dL (8.5-10.1); CREATININE 1.8 mg/dL (0.6-1.0); GFR 32.8; POTASSIUM 4.8 mmol/L (3.5-5.1)
--- NOTE | 2017-06-24 07:28 | RAD ---
Indication: Short of air today. Technique: Upright portable chest radiograph was obtained. Comparison is from May 25, 2017. Findings: Basilar atelectasis and/ or infiltrate is improved slightly from prior. Nodular densities in the lung bases are probably nipple shadows. Upper lung mix are clear. Heart is not enlarged. There is atheromatous disease in the thoracic aorta. There are mild degenerative changes in the shoulders. Leads overlie the patient. Impression: Basilar atelectasis and/or infiltrate is slightly improved.
[2017-06-24] MEDS: IPRATRPIUM/ALBUTEROL 0.5/2.5MG 3 ML NEBU. NEB SCH ×4 (08:28→20:00)
[2017-06-24] MEDS ORDERED: FUROSEMIDE 20 MG/2 ML VIAL. IVP SCH (09:00)
[2017-06-24] MEDS ORDERED: PNEUMOC CONJ VACC 23-VALENT 0.5 ML VIAL. VAX IM ONE (09:00)
[2017-06-24] MEDS ORDERED: PNEUMOCOCCAL VAX SCREEN BY RX. MC ONE (09:00)
--- NOTE | 2017-06-24 11:27 | PDOC2 ---
CARDIAC CONSULT DATE OF CONSULT Date of Consult DATE: 06/24/17 TIME: 11:14 REASON FOR CONSULT Reason for Consult: CHF REFERRING PHYSICIAN Referring Physician: Luciano SOURCE Source: Chart review, Patient HISTORY OF PRESENT ILLNESS HISTORY OF PRESENT ILLNESS This is a pleasant 81 yo female admitted for complains of SOA. Reports that 2 days she felt more SOA. Reports that her son finally told her that she ws breathing wrose yesterday prompting her to get hospitalized. Also noted with increasing leg edema, increased wheezing and nnonproductive cough. Denies any CP, palpitations. She did fall Wednesday last due to lost footing but no injury. No frequent dizziness. She is compliant with her medications. She does however could not tell me if she is still taking lasix at home plus her hydration is not adequate as she described. PAST MEDICAL HISTORY Past Medical History Cardiovascular: HTN, HLP, diastolic CHF, moderate pulmonary HTN, PSVT Pulmonary: COPD, MARCO, pneumonia CENTRAL NERVOUS SYSTEM: Other (none) GI: GERD Heme/Onc: Anemia Hepatobiliary: No pertinent hx Psych: No pertinent hx Musculoskeletal: No pain Rheumatologic: No pertinent hx Infectious disease: No pertinent hx ENT: No pertinent hx Renal/: CKD Endocrine: Diabetes Dermatology: No pertinent hx PAST SURGICAL HISTORY Past Surgical History carpal tunnel repair and rotator cuff repair FAMILY HISTORY Family History noncontributory SOCIAL HISTORY Social History Smoke: Quit (> 11 years ago) ALCOHOL: none Drugs: None Lives: with Family CURRENT MEDICATIONS CURRENT MEDICATIONS Current Medications Medications (Trade) Dose Ordered Sig/Venessa Route PRN Reason Start Time Stop Time Status Last Admin Dose Admin Furosemide (Lasix) 40 mg 1X ONCE IVP 06/23/17 22:15 06/23/17 22:16 DC 06/23/17 22:52 Albuterol/ Ipratropium (Duoneb) 3 ml RTQID NEB 06/24/17 08:00 06/25/17 07:59 06/24/17 08:28 Furosemide (Lasix) 20 mg BID92 IVP 06/24/17 09:00 06/24/17 10:19 Pneumococcal Polyvalent Vaccine (Pneumovax 23) 0.5 ml ONCE ONCE VAX IM 06/24/17 09:00 06/24/17 09:01 DC 06/24/17 10:19 ALLERGIES ALLERGIES: Coded Allergies: No Known Drug Allergies (Unverified , 12/04/15) ROS Review of System 14 point ROS evaluated with pertinent positives noted per HPI PHYSICAL EXAM General: Alert, Oriented X3, Cooperative, No acute distress HEENT: Atraumatic, Mucous membr. moist/pink Lungs: Other (faint upper wheeze and basilar crackles) Heart: Regular rate (SR), Normal S1, Normal S2, Other (distant heart sounds) Extremities: No cyanosis, Other (1+ bilateral LE pitting edema) Skin: No breakdown, No significant lesion Neuro: Normal speech, Sensation intact Psych/Mental Status: Mental status NL, Mood NL MUSCULOSKELETAL: Osteoarthritic changes both hands VITALS VITALS Vital Signs Date Time Temp Pulse Resp B/P (MAP) Pulse Ox O2 Delivery O2 Flow Rate FiO2 06/24/17 10:39 98.6 87 16 124/80 (95) 92 Nasal Cannula 3.0 98.6 LABS Lab: Laboratory Tests Test 06/23/17 21:00 06/24/17 03:45 06/24/17 07:19 White Blood Count 9.7 x10^3/uL (4.0-11.0) 7.3 x10^3/uL (4.0-11.0) Red Blood Count 3.27 x10^6/uL (3.50-5.40) 3.09 x10^6/uL (3.50-5.40) Hemoglobin 8.7 g/dL (12.0-15.5) 8.1 g/dL (12.0-15.5) Hematocrit 27.6 % (36.0-47.0) 26.2 % (36.0-47.0) Mean Corpuscular Volume 85 fL (79-100) 85 fL (79-100) Mean Corpuscular Hemoglobin 27 pg (25-35) 26 pg (25-35) Mean Corpuscular Hemoglobin Concent 31 g/dL (31-37) 31 g/dL (31-37) Red Cell Distribution Width 16.7 % (11.5-14.5) 16.0 % (11.5-14.5) Platelet Count 263 x10^3/uL (140-400) 215 x10^3/uL (140-400) Neutrophils (%) (Auto) 62 % (31-73) 59 % (31-73) Lymphocytes (%) (Auto) 20 % (24-48) 23 % (24-48) Monocytes (%) (Auto) 9 % (0-9) 10 % (0-9) Eosinophils (%) (Auto) 8 % (0-3) 7 % (0-3) Basophils (%) (Auto) 1 % (0-3) 1 % (0-3) Neutrophils # (Auto) 6.1 x10^3uL (1.8-7.7) 4.3 x10^3uL (1.8-7.7) Lymphocytes # (Auto) 1.9 x10^3/uL (1.0-4.8) 1.7 x10^3/uL (1.0-4.8) Monocytes # (Auto) 0.9 x10^3/uL (0.0-1.1) 0.8 x10^3/uL (0.0-1.1) Eosinophils # (Auto) 0.7 x10^3/uL (0.0-0.7) 0.5 x10^3/uL (0.0-0.7) Basophils # (Auto) 0.1 x10^3/uL (0.0-0.2) 0.0 x10^3/uL (0.0-0.2) Sodium Level 139 mmol/L (136-145) 141 mmol/L (136-145) Potassium Level 5.6 mmol/L (3.5-5.1) 4.8 mmol/L (3.5-5.1) Chloride Level 100 mmol/L (98-107) 101 mmol/L (98-107) Carbon Dioxide Level 35 mmol/L (21-32) 36 mmol/L (21-32) Anion Gap 4 (6-14) 4 (6-14) Blood Urea Nitrogen 37 mg/dL (7-20) 36 mg/dL (7-20) Creatinine 1.8 mg/dL (0.6-1.0) 1.8 mg/dL (0.6-1.0) Estimated GFR (Cockcroft-Gault) 27.1 32.8 BUN/Creatinine Ratio 21 (6-20) Glucose Level 174 mg/dL (70-99) 225 mg/dL (70-99) Calcium Level 8.9 mg/dL (8.5-10.1) 8.8 mg/dL (8.5-10.1) Total Bilirubin 0.2 mg/dL (0.2-1.0) Aspartate Amino Transf (AST/SGOT) 20 U/L (15-37) Alanine Aminotransferase (ALT/SGPT) 17 U/L (14-59) Alkaline Phosphatase 50 U/L (46-116) Troponin I Quantitative < 0.017 ng/mL (0.000-0.055) BS-Wce-D-Type Natriuretic Peptide 2400 pg/mL (0-449) Total Protein 8.2 g/dL (6.4-8.2) Albumin 3.2 g/dL (3.4-5.0) Albumin/Globulin Ratio 0.6 (1.0-1.7) Glucose (Fingerstick) 108 mg/dL (70-99) ECHOCARDIOGRAM ECHOCARDIOGRAM <Conclusion> The left ventricle is normal size. There is normal left ventricular wall thickness. Transmitral Doppler flow pattern is Grade I-abnormal relaxation pattern. There is no evidence of significant pericardial effusion. There is no mitral valve stenosis. Doppler and Color Flow revealed trace mitral regurgitation. The left atrium is of a normal size There is no aortic stenosis or regurgitation The right ventricle is of a normal size with normal systolic function Doppler and Color Flow revealed trace tricuspid regurgitation. The pulmonary artery systolic pressure is estimated at 45 mmHg. There is mild pulmonary hypertension. The pulmonic valve is normal. DATE: 11/20/162038 STRESS TEST STRESS TEST Conclusion 1. Regadenoson cardioisotope stress test showed breast attenuation artifact without any evidence of ischemia or infarct. 2. Normal left ventricular systolic function with ejection fraction calculated at 57%. 3. Low risk for cardiac events. DATE: 03/01/17 1351 ASSESSMENT/PLAN ASSESSMENT/PLAN 1. AECOPD: uncontrolled GERD could be contributing 2. Acute on chronic diastolic CHF; mainly induced by pulmonary issues. Doing better today 3. Moderate Pulmonary HTN 4. ANDREA on CKD3: recent baseline Cr at 1.8 5. DM2/HLP 7. HTN: periods of lability but presently controlled 8. Anemia of chronic disease: Hgb 8.1 Recommendations 1. Restart cardizem. Hold any BB for now. ASA. Transition to po lasix Start on pepcid 2. Continue with secondary prevention 3. TSH, lipids, Consult pulmonary 4. Consider alternate to metformin. 5. Pt unreliable with hydration, continue with routine home lasix if home hydration is adequate. Problems: SUSAN DOUGLAS MANAGER [employer]ACLE Jun 24, 2017 11:27
[2017-06-24 11:47] LABS: CHOLESTEROL/HDL RATIO 2.8
[2017-06-24] MEDS: ASPIRIN ENTERIC COATED 81 MG TABLET.DR. PO SCH (12:23)
[2017-06-24] MEDS ORDERED: FAMOTIDINE 20 MG TABLET. PO ONE (13:00)
[2017-06-24] MEDS ORDERED: FUROSEMIDE 20 MG TABLET PO SCH (16:00)
[2017-06-24] MEDS: FUROSEMIDE 40 MG TABLET. PO SCH (16:10)
--- NOTE | 2017-06-24 16:33 | HP ---
ADMIT DATE: 06/23/2017 CHIEF COMPLAINT: Shortness of breath. HISTORY OF PRESENT ILLNESS: The patient is a 81-year-old morbidly obese -[place] woman with CHF, COPD, who presented to the Emergency Room with shortness of breath. The patient actually is surprised when I tell her that she is in the hospital. Her son who is sitting at the bedside relates that she had fallen on Wednesday and had been able to get up. She had declined going to the hospital at that time. Over the next few days, she became more and more short of breath as her family was watching over her every day. She also had increasing lower extremity edema, wheezing and nonproductive cough. She was therefore brought into the hospital by her family. In the Emergency Room, chest x-ray revealed bibasilar atelectasis and/or infiltrate, slightly improved. PAST MEDICAL HISTORY: Diastolic CHF, COPD, hypertension, diabetes. FAMILY HISTORY: Heart disease. SOCIAL HISTORY: Lives by herself. No toxic habits. ALLERGIES: No known drug allergies. MEDICATIONS: MAR reconciled with home medications. REVIEW OF SYSTEMS: The patient is resting quietly. She denies any complaints and she is quite confused today. PHYSICAL EXAMINATION: VITAL SIGNS: From today show a blood pressure of 124/80, heart rate of 87, respiratory rate at 16. She is afebrile, satting 96% on 3 liters. GENERAL: This is a 81-year-old morbidly obese -[place]kin[place] woman, awake, alert, in no acute distress, not oriented to time or place. HEENT: Shows no scleral icterus. Oral mucosa is moist. NECK: Supple. LUNGS: Clear. HEART: Regular rate and rhythm. ABDOMEN: Has positive bowel sounds, soft, nontender. EXTREMITIES: Show no edema. SKIN: Warm, soft and dry without any rash. LABORATORY DATA: CBC with a WBC of 7.3, hemoglobin 8.1, platelets of 215. Chemistries with a BUN and creatinine of 36 and 1.8, normal electrolytes, CO2 at 36, which is her baseline, proBNP 2400, which is also her baseline. LFTs within normal. Initial CK is negative. IMAGING STUDIES: Chest x-ray from the Emergency Room shows basilar atelectasis and/or infiltrates is slightly improved. ASSESSMENT AND PLAN: The patient is a 81-year-old woman with chronic obstructive pulmonary disease as well as diastolic congestive heart failure, who presents with shortness of breath. Breathing currently is actually much improved. No intervention was undertaken. This does not appear to be a congestive heart failure exacerbation. We will continue her home blood pressure medication and cardiology medications. Cardiology consult has been obtained. We will continue her nebulizers as well. I suspect that respiratory symptoms are possibly due to chest wall trauma secondary to her fall on Wednesday versus potentially a viral infection, although her symptoms are negligible. We will observe overnight. Get her evaluated by OT, PT in the morning. For her diabetes, which currently is not well controlled, we will continue her home medications, add insulin sliding scale. MARIA ANTONIA VAZQUEZ MD DR: UR/nts JOB#: [id number] / [id number] ERIN Montoya MD MTDD
[2017-06-24] MEDS: metFORMIN 500 MG TABLET PO SCH (17:58)
[2017-06-24] MEDS: GLIMEPIRIDE 2 MG TABLET. PO SCH (17:58)
[2017-06-24] MEDS: amLODIPine BESYLATE 5 MG TABLET PO SCH (17:59)
[2017-06-24] MEDS: FAMOTIDINE 20 MG TABLET. PO SCH (20:18)
[2017-06-24] MEDS: BUDESONIDE 0.5 MG/2 ML NEBU. NEB SCH (20:26)
[2017-06-24] MEDS: ALBUTEROL SULFATE 2.5 MG/3 ML NEBU. NEB SCH (20:26)
[2017-06-24] MEDS ORDERED: METOPROLOL TART IMMED RELEASE 50 MG TABLET. PO SCH (21:00)
[2017-06-25 03:00] VITALS: BP 119/62
[2017-06-25 05:01] LABS: BASO # 0.1 x10^3/uL (0.0-0.2); BASO % 1 % (0-3); EOS % 7 % (0-3); HEMATOCRIT 24.3 % (36.0-47.0); HEMOGLOBIN 7.4 g/dL (12.0-15.5); LYMPH # 1.6 x10^3/uL (1.0-4.8); LYMPH % 21 % (24-48); MEAN CORPUSCULAR HEMOGLOBIN 26 pg (25-35); MEAN CORPUSCULAR HGB CONC 31 g/dL (31-37); MEAN CORPUSCULAR VOLUME 83 fL (79-100); MONO % 9 % (0-9); NEUT % 62 % (31-73); PLATELET COUNT 205 x10^3/uL (140-400); RED BLOOD COUNT 2.91 x10^6/uL (3.50-5.40); RED CELL DISTRIBUTION WIDTH 15.9 % (11.5-14.5); WHITE BLOOD COUNT 7.5 x10^3/uL (4.0-11.0)
[2017-06-25 05:14] LABS: CALCIUM 8.5 mg/dL (8.5-10.1); CREATININE 1.9 mg/dL (0.6-1.0); GFR 30.9; MAGNESIUM 1.6 mg/dL (1.8-2.4); POTASSIUM 4.3 mmol/L (3.5-5.1)
[2017-06-25 07:00] VITALS: BP 114/44
[2017-06-25] MEDS: IPRATRPIUM/ALBUTEROL 0.5/2.5MG 3 ML NEBU. NEB SCH (07:54)
[2017-06-25] MEDS: BUDESONIDE 0.5 MG/2 ML NEBU. NEB SCH ×2 (07:54→19:51)
[2017-06-25] MEDS: GLIMEPIRIDE 2 MG TABLET. PO SCH ×2 (08:50→17:42)
[2017-06-25] MEDS: ASPIRIN ENTERIC COATED 81 MG TABLET.DR. PO SCH (08:50)
[2017-06-25] MEDS: amLODIPine BESYLATE 5 MG TABLET PO SCH ×2 (08:50→08:53)
[2017-06-25] MEDS: metFORMIN 500 MG TABLET PO SCH ×2 (08:51→17:42)
[2017-06-25] MEDS: FUROSEMIDE 40 MG TABLET. PO SCH (08:51)
--- NOTE | 2017-06-25 09:22 | PDOC ---
PROGRESS NOTES Chief Complaint Chief Complaint Acute hypoxic respir failure ASSESSMENT AND PLAN: 1. Respir failure: ? PNA with infiltrate vs atelectasis on CXR. was treated in the ER for both, CHF and COPD exacerbation. sx resolved. 2. COPD: nebs, suppl O2 2. CHF: cont home cardia meds 3. DM2: well controlled on current regimen 4. Weakness: OT/PT History of Present Illness History of Present Illness eager to go home. denies any ongoing respir issues. declined OT/PT, "i get that at home" Vitals Vitals Vital Signs Date Time Temp Pulse Resp B/P (MAP) Pulse Ox O2 Delivery O2 Flow Rate FiO2 06/25/17 08:53 88 114/44 06/25/17 07:56 95 Nasal Cannula 3.0 06/25/17 07:00 97.7 18 97.7 Physical Exam General: Alert, Oriented X3, Cooperative, No acute distress Heart: Regular rate, Other (distant heart sounds) Lungs: Clear Abdomen: Normal bowel sounds, Soft, No tenderness Extremities: No edema Skin: No rashes Labs LABS Laboratory Tests Test 06/24/17 10:50 06/24/17 11:28 06/24/17 17:07 06/24/17 20:47 Troponin I Quantitative < 0.017 ng/mL (0.000-0.055) Glucose (Fingerstick) 133 mg/dL (70-99) 61 mg/dL (70-99) 155 mg/dL (70-99) Test 06/25/17 04:10 06/25/17 07:36 White Blood Count 7.5 x10^3/uL (4.0-11.0) Red Blood Count 2.91 x10^6/uL (3.50-5.40) Hemoglobin 7.4 g/dL (12.0-15.5) Hematocrit 24.3 % (36.0-47.0) Mean Corpuscular Volume 83 fL (79-100) Mean Corpuscular Hemoglobin 26 pg (25-35) Mean Corpuscular Hemoglobin Concent 31 g/dL (31-37) Red Cell Distribution Width 15.9 % (11.5-14.5) Platelet Count 205 x10^3/uL (140-400) Neutrophils (%) (Auto) 62 % (31-73) Lymphocytes (%) (Auto) 21 % (24-48) Monocytes (%) (Auto) 9 % (0-9) Eosinophils (%) (Auto) 7 % (0-3) Basophils (%) (Auto) 1 % (0-3) Neutrophils # (Auto) 4.6 x10^3uL (1.8-7.7) Lymphocytes # (Auto) 1.6 x10^3/uL (1.0-4.8) Monocytes # (Auto) 0.7 x10^3/uL (0.0-1.1) Eosinophils # (Auto) 0.6 x10^3/uL (0.0-0.7) Basophils # (Auto) 0.1 x10^3/uL (0.0-0.2) Sodium Level 144 mmol/L (136-145) Potassium Level 4.3 mmol/L (3.5-5.1) Chloride Level 101 mmol/L (98-107) Carbon Dioxide Level 38 mmol/L (21-32) Anion Gap 5 (6-14) Blood Urea Nitrogen 38 mg/dL (7-20) Creatinine 1.9 mg/dL (0.6-1.0) Estimated GFR (Cockcroft-Gault) 30.9 Glucose Level 61 mg/dL (70-99) Calcium Level 8.5 mg/dL (8.5-10.1) Magnesium Level 1.6 mg/dL (1.8-2.4) Glucose (Fingerstick) 90 mg/dL (70-99) MARIA ANTONIA VAZQUEZ MD Jun 25, 2017 09:22
--- NOTE | 2017-06-25 10:30 | PDOC ---
WILMER AYALA GORAN 06/25/17 1030: CARDIO Progress Notes Date and Time Date of Service 06/25/17 Time of Evaluation 1015 Subjective Subjective: No Chest Pain, No shortness of breath, No Palpitations, Other ( wanting to go home) Vitals Vitals Vital Signs Date Time Temp Pulse Resp B/P (MAP) Pulse Ox O2 Delivery O2 Flow Rate FiO2 06/25/17 08:53 88 114/44 06/25/17 07:56 95 Nasal Cannula 3.0 06/25/17 07:00 97.7 18 97.7 Weight Weight [ ] Input and Output Intake and Output Intake and Output 06/25/17 07:00 Intake Total 480 ml Output Total 0 ml Balance 480 ml Intake Oral 480 ml Output Urine Total 0 ml # Voids 5 Laboratory Labs Laboratory Tests Test 06/24/17 10:50 06/24/17 11:28 06/24/17 17:07 06/24/17 20:47 Troponin I Quantitative < 0.017 ng/mL (0.000-0.055) Glucose (Fingerstick) 133 mg/dL (70-99) 61 mg/dL (70-99) 155 mg/dL (70-99) Test 06/25/17 04:10 06/25/17 07:36 White Blood Count 7.5 x10^3/uL (4.0-11.0) Red Blood Count 2.91 x10^6/uL (3.50-5.40) Hemoglobin 7.4 g/dL (12.0-15.5) Hematocrit 24.3 % (36.0-47.0) Mean Corpuscular Volume 83 fL (79-100) Mean Corpuscular Hemoglobin 26 pg (25-35) Mean Corpuscular Hemoglobin Concent 31 g/dL (31-37) Red Cell Distribution Width 15.9 % (11.5-14.5) Platelet Count 205 x10^3/uL (140-400) Neutrophils (%) (Auto) 62 % (31-73) Lymphocytes (%) (Auto) 21 % (24-48) Monocytes (%) (Auto) 9 % (0-9) Eosinophils (%) (Auto) 7 % (0-3) Basophils (%) (Auto) 1 % (0-3) Neutrophils # (Auto) 4.6 x10^3uL (1.8-7.7) Lymphocytes # (Auto) 1.6 x10^3/uL (1.0-4.8) Monocytes # (Auto) 0.7 x10^3/uL (0.0-1.1) Eosinophils # (Auto) 0.6 x10^3/uL (0.0-0.7) Basophils # (Auto) 0.1 x10^3/uL (0.0-0.2) Sodium Level 144 mmol/L (136-145) Potassium Level 4.3 mmol/L (3.5-5.1) Chloride Level 101 mmol/L (98-107) Carbon Dioxide Level 38 mmol/L (21-32) Anion Gap 5 (6-14) Blood Urea Nitrogen 38 mg/dL (7-20) Creatinine 1.9 mg/dL (0.6-1.0) Estimated GFR (Cockcroft-Gault) 30.9 Glucose Level 61 mg/dL (70-99) Calcium Level 8.5 mg/dL (8.5-10.1) Magnesium Level 1.6 mg/dL (1.8-2.4) Glucose (Fingerstick) 90 mg/dL (70-99) Physical Exam HEENT: Neck Supple W Full Motion Chest: Symmetric LUNGS: Other (diminished bases) Heart: S1S2, RRR Extremities: Other (trace bi LE edema ) Neurology: alert, oriented, follow commands Assessment Assessment 1. Acute respiratory failure with AECOPD and possible PNA 2. Acute on chronic diastolic CHF; compensated 3. Pulmonary HTN 4. ANDREA on CKD3 5. Hypertension 6. Anemia Recommendations Continue oral diuretic at present does. Secondary prevention measures Supportive care. LESLIE APONTE MD 06/26/17 0018: CARDIO Progress Notes Plan Plan Pt. seen and examined. Agree with above CHASSIS INSPECTOR yasmin. Supportive care late entry for 06/25/2017 WILMER AYALA APRN Jun 25, 2017 10:30 LESLIE APONTE MD Jun 26, 2017 00:18
[2017-06-25 10:54] VITALS: BP 154/58
[2017-06-25] MEDS ORDERED: AZITHROMYCIN 250 MG TABLET. PO ONE (11:15)
[2017-06-25] MEDS: ALBUTEROL SULFATE 2.5 MG/3 ML NEBU. NEB SCH ×3 (12:04→19:51)
[2017-06-25 15:00] VITALS: BP 138/70
[2017-06-25 19:47] VITALS: BP 123/65
[2017-06-25] MEDS: FAMOTIDINE 20 MG TABLET. PO SCH (20:41)
[2017-06-25] MEDS: ATORVASTATIN CALCIUM 10 MG TABLET. PO SCH (20:41)
[2017-06-25 23:43] VITALS: BP 129/70
[2017-06-26 03:14] VITALS: BP 158/81
[2017-06-26 05:23] LABS: BASO % 1 % (0-3); EOS % 7 % (0-3); HEMOGLOBIN 7.2 g/dL (12.0-15.5); LYMPH # 1.7 x10^3/uL (1.0-4.8); LYMPH % 23 % (24-48); MEAN CORPUSCULAR HEMOGLOBIN 26 pg (25-35); MEAN CORPUSCULAR HGB CONC 31 g/dL (31-37); MEAN CORPUSCULAR VOLUME 83 fL (79-100); MONO % 10 % (0-9); NEUT % 59 % (31-73); PLATELET COUNT 207 x10^3/uL (140-400); RED BLOOD COUNT 2.77 x10^6/uL (3.50-5.40); RED CELL DISTRIBUTION WIDTH 16.6 % (11.5-14.5); WHITE BLOOD COUNT 7.2 x10^3/uL (4.0-11.0)
[2017-06-26 05:56] LABS: ALBUMIN 2.7 g/dL (3.4-5.0); ALBUMIN/GLOBULIN RATIO 0.6 (1.0-1.7); CALCIUM 8.8 mg/dL (8.5-10.1); GFR 29.1; POTASSIUM 4.3 mmol/L (3.5-5.1); TOTAL BILIRUBIN 0.2 mg/dL (0.2-1.0); TOTAL PROTEIN 6.9 g/dL (6.4-8.2)
[2017-06-26 07:48] VITALS: BP 160/81
[2017-06-26] MEDS: GLIMEPIRIDE 2 MG TABLET. PO SCH ×2 (08:00→17:14)
[2017-06-26] MEDS: metFORMIN 500 MG TABLET PO SCH (08:00)
[2017-06-26] MEDS ORDERED: MAGNESIUM SULFATE 2GM 50 ML IV ONE (08:00)
[2017-06-26] MEDS: FUROSEMIDE 40 MG TABLET. PO SCH (08:29)
[2017-06-26] MEDS: amLODIPine BESYLATE 5 MG TABLET PO SCH (08:30)
[2017-06-26] MEDS: ASPIRIN ENTERIC COATED 81 MG TABLET.DR. PO SCH (08:30)
[2017-06-26] MEDS: ALBUTEROL SULFATE 2.5 MG/3 ML NEBU. NEB SCH ×2 (08:46→11:38)
[2017-06-26] MEDS: BUDESONIDE 0.5 MG/2 ML NEBU. NEB SCH ×2 (08:46→20:03)
[2017-06-26 10:54] VITALS: BP 150/70
[2017-06-26] MEDS ORDERED: DEXTROSE 50% 25 GM / 50ML DISP.SYRIN. IV PRN (11:00)
[2017-06-26] MEDS: INSULIN ASPART 300 UNITS/3 ML INSULN.PEN SQ SCH ×2 (12:53→17:21)
[2017-06-26 15:00] VITALS: BP 148/67
[2017-06-26] MEDS ORDERED: ALBUTEROL SULFATE 2.5 MG/3 ML NEBU. NEB PRN (15:15)
--- NOTE | 2017-06-26 15:38 | PDOC ---
PROGRESS NOTES Chief Complaint Chief Complaint Acute hypoxic respir failure ASSESSMENT AND PLAN: 1. Respir failure: ? PNA with infiltrate vs atelectasis on CXR. was treated in the ER for both, CHF and COPD exacerbation. sx resolved. 2. COPD: nebs, suppl O2 2. CHF: cont home cardia meds 3. DM2: well controlled on current regimen 4. Weakness: OT/PT History of Present Illness History of Present Illness hypoglycemia, will decrease amaryl stop metformin for acidosis risk feeling better, breathing better, no events Vitals Vitals Vital Signs Date Time Temp Pulse Resp B/P (MAP) Pulse Ox O2 Delivery O2 Flow Rate FiO2 06/26/17 15:00 98.6 98 16 148/67 (94) 98 3.0 98.6 06/26/17 11:40 Nasal Cannula Physical Exam General: Alert, Oriented X3, Cooperative, No acute distress Heart: Regular rate, Other (distant heart sounds) Lungs: Clear Abdomen: Normal bowel sounds, Soft, No tenderness Extremities: No clubbing, No edema Skin: No rashes Labs LABS Laboratory Tests Test 06/25/17 16:52 06/25/17 20:34 06/26/17 04:00 06/26/17 05:00 Glucose (Fingerstick) 104 mg/dL (70-99) 142 mg/dL (70-99) White Blood Count 7.2 x10^3/uL (4.0-11.0) Red Blood Count 2.77 x10^6/uL (3.50-5.40) Hemoglobin 7.2 g/dL (12.0-15.5) Hematocrit 23.0 % (36.0-47.0) Mean Corpuscular Volume 83 fL (79-100) Mean Corpuscular Hemoglobin 26 pg (25-35) Mean Corpuscular Hemoglobin Concent 31 g/dL (31-37) Red Cell Distribution Width 16.6 % (11.5-14.5) Platelet Count 207 x10^3/uL (140-400) Neutrophils (%) (Auto) 59 % (31-73) Lymphocytes (%) (Auto) 23 % (24-48) Monocytes (%) (Auto) 10 % (0-9) Eosinophils (%) (Auto) 7 % (0-3) Basophils (%) (Auto) 1 % (0-3) Neutrophils # (Auto) 4.3 x10^3uL (1.8-7.7) Lymphocytes # (Auto) 1.7 x10^3/uL (1.0-4.8) Monocytes # (Auto) 0.7 x10^3/uL (0.0-1.1) Eosinophils # (Auto) 0.5 x10^3/uL (0.0-0.7) Basophils # (Auto) 0.0 x10^3/uL (0.0-0.2) Sodium Level 142 mmol/L (136-145) Potassium Level 4.3 mmol/L (3.5-5.1) Chloride Level 101 mmol/L (98-107) Carbon Dioxide Level 38 mmol/L (21-32) Anion Gap 3 (6-14) Blood Urea Nitrogen 40 mg/dL (7-20) Creatinine 2.0 mg/dL (0.6-1.0) Estimated GFR (Cockcroft-Gault) 29.1 BUN/Creatinine Ratio 20 (6-20) Glucose Level 51 mg/dL (70-99) Calcium Level 8.8 mg/dL (8.5-10.1) Total Bilirubin 0.2 mg/dL (0.2-1.0) Aspartate Amino Transf (AST/SGOT) 15 U/L (15-37) Alanine Aminotransferase (ALT/SGPT) 13 U/L (14-59) Alkaline Phosphatase 42 U/L (46-116) Total Protein 6.9 g/dL (6.4-8.2) Albumin 2.7 g/dL (3.4-5.0) Albumin/Globulin Ratio 0.6 (1.0-1.7) Test 06/26/17 07:23 06/26/17 08:14 06/26/17 08:17 06/26/17 11:21 Glucose (Fingerstick) 46 mg/dL (70-99) 61 mg/dL (70-99) 139 mg/dL (70-99) 140 mg/dL (70-99) Review of Systems Review of Systems no n.v.d Assessment and Plan Assessmemt and Plan Problems Medical Problems: (1) CHF exacerbation Status: Acute (2) COPD exacerbation Status: Acute Problems: Comment Review of Relevant I have reviewed the following items brittanie (where applicable) has been applied. Labs Laboratory Tests Test 06/24/17 17:07 06/24/17 20:47 06/25/17 04:10 06/25/17 07:36 Glucose (Fingerstick) 61 mg/dL (70-99) 155 mg/dL (70-99) 90 mg/dL (70-99) White Blood Count 7.5 x10^3/uL (4.0-11.0) Red Blood Count 2.91 x10^6/uL (3.50-5.40) Hemoglobin 7.4 g/dL (12.0-15.5) Hematocrit 24.3 % (36.0-47.0) Mean Corpuscular Volume 83 fL (79-100) Mean Corpuscular Hemoglobin 26 pg (25-35) Mean Corpuscular Hemoglobin Concent 31 g/dL (31-37) Red Cell Distribution Width 15.9 % (11.5-14.5) Platelet Count 205 x10^3/uL (140-400) Neutrophils (%) (Auto) 62 % (31-73) Lymphocytes (%) (Auto) 21 % (24-48) Monocytes (%) (Auto) 9 % (0-9) Eosinophils (%) (Auto) 7 % (0-3) Basophils (%) (Auto) 1 % (0-3) Neutrophils # (Auto) 4.6 x10^3uL (1.8-7.7) Lymphocytes # (Auto) 1.6 x10^3/uL (1.0-4.8) Monocytes # (Auto) 0.7 x10^3/uL (0.0-1.1) Eosinophils # (Auto) 0.6 x10^3/uL (0.0-0.7) Basophils # (Auto) 0.1 x10^3/uL (0.0-0.2) Sodium Level 144 mmol/L (136-145) Potassium Level 4.3 mmol/L (3.5-5.1) Chloride Level 101 mmol/L (98-107) Carbon Dioxide Level 38 mmol/L (21-32) Anion Gap 5 (6-14) Blood Urea Nitrogen 38 mg/dL (7-20) Creatinine 1.9 mg/dL (0.6-1.0) Estimated GFR (Cockcroft-Gault) 30.9 Glucose Level 61 mg/dL (70-99) Calcium Level 8.5 mg/dL (8.5-10.1) Magnesium Level 1.6 mg/dL (1.8-2.4) Test 06/25/17 11:03 06/25/17 16:52 06/25/17 20:34 06/26/17 04:00 Glucose (Fingerstick) 279 mg/dL (70-99) 104 mg/dL (70-99) 142 mg/dL (70-99) White Blood Count 7.2 x10^3/uL (4.0-11.0) Red Blood Count 2.77 x10^6/uL (3.50-5.40) Hemoglobin 7.2 g/dL (12.0-15.5) Hematocrit 23.0 % (36.0-47.0) Mean Corpuscular Volume 83 fL (79-100) Mean Corpuscular Hemoglobin 26 pg (25-35) Mean Corpuscular Hemoglobin Concent 31 g/dL (31-37) Red Cell Distribution Width 16.6 % (11.5-14.5) Platelet Count 207 x10^3/uL (140-400) Neutrophils (%) (Auto) 59 % (31-73) Lymphocytes (%) (Auto) 23 % (24-48) Monocytes (%) (Auto) 10 % (0-9) Eosinophils (%) (Auto) 7 % (0-3) Basophils (%) (Auto) 1 % (0-3) Neutrophils # (Auto) 4.3 x10^3uL (1.8-7.7) Lymphocytes # (Auto) 1.7 x10^3/uL (1.0-4.8) Monocytes # (Auto) 0.7 x10^3/uL (0.0-1.1) Eosinophils # (Auto) 0.5 x10^3/uL (0.0-0.7) Basophils # (Auto) 0.0 x10^3/uL (0.0-0.2) Test 06/26/17 05:00 06/26/17 07:23 06/26/17 08:14 06/26/17 08:17 Sodium Level 142 mmol/L (136-145) Potassium Level 4.3 mmol/L (3.5-5.1) Chloride Level 101 mmol/L (98-107) Carbon Dioxide Level 38 mmol/L (21-32) Anion Gap 3 (6-14) Blood Urea Nitrogen 40 mg/dL (7-20) Creatinine 2.0 mg/dL (0.6-1.0) Estimated GFR (Cockcroft-Gault) 29.1 BUN/Creatinine Ratio 20 (6-20) Glucose Level 51 mg/dL (70-99) Calcium Level 8.8 mg/dL (8.5-10.1) Total Bilirubin 0.2 mg/dL (0.2-1.0) Aspartate Amino Transf (AST/SGOT) 15 U/L (15-37) Alanine Aminotransferase (ALT/SGPT) 13 U/L (14-59) Alkaline Phosphatase 42 U/L (46-116) Total Protein 6.9 g/dL (6.4-8.2) Albumin 2.7 g/dL (3.4-5.0) Albumin/Globulin Ratio 0.6 (1.0-1.7) Glucose (Fingerstick) 46 mg/dL (70-99) 61 mg/dL (70-99) 139 mg/dL (70-99) Test 06/26/17 11:21 Glucose (Fingerstick) 140 mg/dL (70-99) Laboratory Tests Test 06/25/17 16:52 06/25/17 20:34 06/26/17 04:00 06/26/17 05:00 Glucose (Fingerstick) 104 mg/dL (70-99) 142 mg/dL (70-99) White Blood Count 7.2 x10^3/uL (4.0-11.0) Red Blood Count 2.77 x10^6/uL (3.50-5.40) Hemoglobin 7.2 g/dL (12.0-15.5) Hematocrit 23.0 % (36.0-47.0) Mean Corpuscular Volume 83 fL (79-100) Mean Corpuscular Hemoglobin 26 pg (25-35) Mean Corpuscular Hemoglobin Concent 31 g/dL (31-37) Red Cell Distribution Width 16.6 % (11.5-14.5) Platelet Count 207 x10^3/uL (140-400) Neutrophils (%) (Auto) 59 % (31-73) Lymphocytes (%) (Auto) 23 % (24-48) Monocytes (%) (Auto) 10 % (0-9) Eosinophils (%) (Auto) 7 % (0-3) Basophils (%) (Auto) 1 % (0-3) Neutrophils # (Auto) 4.3 x10^3uL (1.8-7.7) Lymphocytes # (Auto) 1.7 x10^3/uL (1.0-4.8) Monocytes # (Auto) 0.7 x10^3/uL (0.0-1.1) Eosinophils # (Auto) 0.5 x10^3/uL (0.0-0.7) Basophils # (Auto) 0.0 x10^3/uL (0.0-0.2) Sodium Level 142 mmol/L (136-145) Potassium Level 4.3 mmol/L (3.5-5.1) Chloride Level 101 mmol/L (98-107) Carbon Dioxide Level 38 mmol/L (21-32) Anion Gap 3 (6-14) Blood Urea Nitrogen 40 mg/dL (7-20) Creatinine 2.0 mg/dL (0.6-1.0) Estimated GFR (Cockcroft-Gault) 29.1 BUN/Creatinine Ratio 20 (6-20) Glucose Level 51 mg/dL (70-99) Calcium Level 8.8 mg/dL (8.5-10.1) Total Bilirubin 0.2 mg/dL (0.2-1.0) Aspartate Amino Transf (AST/SGOT) 15 U/L (15-37) Alanine Aminotransferase (ALT/SGPT) 13 U/L (14-59) Alkaline Phosphatase 42 U/L (46-116) Total Protein 6.9 g/dL (6.4-8.2) Albumin 2.7 g/dL (3.4-5.0) Albumin/Globulin Ratio 0.6 (1.0-1.7) Test 06/26/17 07:23 06/26/17 08:14 06/26/17 08:17 06/26/17 11:21 Glucose (Fingerstick) 46 mg/dL (70-99) 61 mg/dL (70-99) 139 mg/dL (70-99) 140 mg/dL (70-99) Medications Current Medications Albuterol/ Ipratropium (Duoneb) 3 ml STK-MED ONCE .ROUTE ; Start 06/23/17 at 20 :53; Stop 06/23/17 at 20:54; Status DC Furosemide (Lasix) 40 mg 1X ONCE IVP Last administered on 06/23/17 22:52; Start 06/23/17 at 22:15; Stop 06/23/17 at 22:16; Status DC Ondansetron HCl (Zofran) 4 mg PRN Q8HRS PRN IV NAUSEA/VOMITING; Start at 23:00; Stop 06/24/17 at 22:59; Status DC Albuterol/ Ipratropium (Duoneb) 3 ml RTQID NEB Last administered on 06/25/17 07:54; Start 06/24/17 at 08:00; Stop 06/25/17 at 07:59; Status DC Furosemide (Lasix) 20 mg BID92 IVP Last administered on 06/24/17 10:19; Start 06/24/17 at 09:00; Stop 06/24/17 at 11:50; Status DC Pneumococcal Polyvalent Vaccine (Do NOT chart on this placeholder) 1 each 1X ONCE MC ; Start 06/24/17 at 09:00; Stop 06/24/17 at 09:01; Status UNV Pneumococcal Polyvalent Vaccine (Pneumovax 23) 0.5 ml ONCE ONCE VAX IM Last administered on 06/24/17 10:19; Start 06/24/17 at 09:00; Stop 06/24/17 at 09 :01; Status DC Aspirin (Ecotrin) 81 mg DAILYWBKFT PO Last administered on 06/26/17 08:30; Start 06/24/17 at 12:00 Atorvastatin Calcium (Lipitor) 10 mg QHS PO Last administered on 06/25/17 20: 41; Start 06/25/17 at 21:00 Diltiazem HCl (Cardizem 24hr Cd) 240 mg DAILY PO Last administered on 08:29; Start 06/24/17 at 12:00 Furosemide (Lasix) 40 mg DAILY PO Last administered on 06/26/17 08:29; Start 06/24/17 at 14:45 Famotidine (Pepcid) 20 mg 1X ONCE PO Last administered on 06/24/17 16:10; Start 06/24/17 at 13:00; Stop 06/24/17 at 13:01; Status DC Famotidine (Pepcid) 20 mg QHS PO Last administered on 06/25/17 20:41; Start 06/24/17 at 21:00 Amlodipine Besylate (Norvasc) 5 mg DAILY PO Last administered on 06/26/17 08: 30; Start 06/24/17 at 17:00 Furosemide (Lasix) 20 mg DAILY PO ; Start 06/24/17 at 16:00; Status UNV Metformin HCl (Glucophage) 500 mg BIDWMEALS PO Last administered on 06/25/17 17:42; Start 06/24/17 at 17:00 Metoprolol Tartrate (Lopressor) 50 mg BID PO ; Start 06/24/17 at 21:00; Status Cancel Budesonide (Pulmicort) 0.5 mg RTBID NEB Last administered on 06/26/17 08:46; Start 06/24/17 at 20:00 Albuterol Sulfate (Ventolin Neb Soln) 2.5 mg RTQID NEB Last administered on 11:38; Start 06/25/17 at 08:00; Stop 06/26/17 at 15:03; Status DC Glimepiride (Amaryl) 4 mg BIDWMEALS PO Last administered on 06/25/17 17:42; Start 06/24/17 at 17:00; Stop 06/26/17 at 10:55; Status DC Azithromycin (Zithromax) 500 mg 1X ONCE PO Last administered on 06/25/17 13: 57; Start 06/25/17 at 11:15; Stop 06/25/17 at 11:16; Status DC Magnesium Sulfate/ Dextrose 50 ml @ 25 mls/hr 1X ONCE IV Last administered on 06/26/17 10:22; Start 06/26/17 at 08:00; Stop 06/26/17 at 09:59; Status DC Glimepiride (Amaryl) 2 mg BIDWMEALS PO ; Start 06/26/17 at 17:00 Insulin Aspart (NovoLOG) 0-7 UNITS TIDWMEALS SQ ; Start 06/26/17 at 12:00 Dextrose (Dextrose 50%-Water Syringe) 12.5 gm PRN Q15MIN PRN IV SEE COMMENTS; Start 06/26/17 at 11:00 Albuterol/ Ipratropium (Duoneb) 3 ml RTQID NEB ; Start 06/26/17 at 16:00 Albuterol Sulfate (Ventolin Neb Soln) 2.5 mg PRN Q4HRS PRN NEB SHORTNESS OF BREATH; Start 06/26/17 at 15:15 Active Scripts Active Aspirin Ec (Aspirin) 81 Mg Tablet.dr 81 Mg PO DAILYWBKFT Diltiazem 24Hr Cd (Diltiazem HCl) 240 Mg Cap.er.24h 240 Mg PO DAILY Reported Furosemide 20 Mg Tablet 20 Mg PO DAILY Metoprolol Tartrate 50 Mg Tablet 50 Mg PO BID Amlodipine Besylate 5 Mg Tablet 5 Mg PO DAILY Metformin Hcl 500 Mg Tablet 500 Mg PO BIDWMEALS Glimepiride 4 Mg Tablet 1 Tab PO BID Ventolin Hfa Inhaler (Albuterol Sulfate) 18 Gm Hfa.aer.ad 2 Puff INH QID Symbicort 160-4.5 Mcg Inhaler (Budesonide/Formoterol Fumarate) 10.2 Gm Hfa.aer.ad 2 Puff IH BID Atorvastatin Calcium 10 Mg Tablet 1 Tab PO DAILY Vitals/I & O Vital Sign - Last 24 Hours 06/25/17 06/25/17 06/25/17 06/25/17 16:35 19:47 19:53 20:00 Temp 98.5 98.5 Pulse 107 Resp 18 B/P (MAP) 123/65 (84) Pulse Ox 98 96 98 O2 Delivery Nasal Cannula Room Air Nasal Cannula Nasal Cannula O2 Flow Rate 3.0 3.0 3.0 06/25/17 06/26/17 06/26/17 06/26/17 23:43 03:14 07:48 08:00 Temp 98.6 98.0 98.3 98.6 98.0 98.3 Pulse 100 110 107 Resp 22 24 16 B/P (MAP) 129/70 (89) 158/81 (106) 160/81 (107) Pulse Ox 96 95 96 O2 Delivery Room Air Nasal Cannula Nasal Cannula Nasal Cannula O2 Flow Rate 2.5 3.0 3.0 3.0 06/26/17 06/26/17 06/26/17 12/16/17 08:29 08:30 08:46 10:54 Temp 98.4 98.4 Pulse 107 107 103 Resp 16 B/P (MAP) 160/81 160/81 150/70 (96) Pulse Ox 100 O2 Delivery Nasal Cannula Nasal Cannula O2 Flow Rate 3.0 3.0 06/26/17 06/26/17 11:40 15:00 Temp 98.6 98.6 Pulse 98 Resp 16 B/P (MAP) 148/67 (94) Pulse Ox 100 98 O2 Delivery Nasal Cannula O2 Flow Rate 3.0 3.0 Intake and Output 06/25/17 06/25/17 06/26/17 14:59 22:59 06:59 Intake Total 300 ml 840 ml Balance 300 ml 840 ml BRENDAN HICKEY MD Jun 26, 2017 15:38
[2017-06-26] MEDS: IPRATRPIUM/ALBUTEROL 0.5/2.5MG 3 ML NEBU. NEB SCH ×2 (16:02→20:03)
[2017-06-26 19:52] VITALS: BP 153/69
[2017-06-26] MEDS: FAMOTIDINE 20 MG TABLET. PO SCH (20:50)
[2017-06-26] MEDS: ATORVASTATIN CALCIUM 10 MG TABLET. PO SCH (20:51)
[2017-06-26 23:18] VITALS: BP 130/58
[2017-06-27 04:45] VITALS: BP 140/72
[2017-06-27 04:49] LABS: BASO # 0.1 x10^3/uL (0.0-0.2); BASO % 1 % (0-3); EOS % 6 % (0-3); HEMATOCRIT 28.1 % (36.0-47.0); HEMOGLOBIN 8.9 g/dL (12.0-15.5); LYMPH # 1.5 x10^3/uL (1.0-4.8); LYMPH % 18 % (24-48); MEAN CORPUSCULAR HEMOGLOBIN 27 pg (25-35); MEAN CORPUSCULAR HGB CONC 32 g/dL (31-37); MEAN CORPUSCULAR VOLUME 85 fL (79-100); MONO % 8 % (0-9); NEUT % 67 % (31-73); PLATELET COUNT 236 x10^3/uL (140-400); RED BLOOD COUNT 3.31 x10^6/uL (3.50-5.40); RED CELL DISTRIBUTION WIDTH 16.2 % (11.5-14.5); WHITE BLOOD COUNT 8.5 x10^3/uL (4.0-11.0)
[2017-06-27 07:00] VITALS: BP 142/64
[2017-06-27] MEDS: INSULIN ASPART 300 UNITS/3 ML INSULN.PEN SQ SCH ×2 (08:00→12:18)
[2017-06-27] MEDS: BUDESONIDE 0.5 MG/2 ML NEBU. NEB SCH (08:09)
[2017-06-27] MEDS: IPRATRPIUM/ALBUTEROL 0.5/2.5MG 3 ML NEBU. NEB SCH ×2 (08:09→11:45)
[2017-06-27] MEDS: ASPIRIN ENTERIC COATED 81 MG TABLET.DR. PO SCH (08:33)
[2017-06-27] MEDS: GLIMEPIRIDE 2 MG TABLET. PO SCH (08:33)
[2017-06-27] MEDS: amLODIPine BESYLATE 5 MG TABLET PO SCH (08:34)
[2017-06-27] MEDS: FUROSEMIDE 40 MG TABLET. PO SCH (08:34)
[2017-06-27 10:46] VITALS: BP 137/59
[2017-06-27] MEDS ORDERED: FURO40TA4 PO (11:44)
[2017-06-27] MEDS ORDERED: IPRA4AER IH (11:44)
[2017-06-27] MEDS ORDERED: GLIM2TAB PO (11:44)
[2017-06-27 12:39] LABS: ALBUMIN 2.9 g/dL (3.4-5.0); CALCIUM 8.7 mg/dL (8.5-10.1); CREATININE 1.7 mg/dL (0.6-1.0); GFR 35.1; PHOSPHORUS 3.9 mg/dL (2.6-4.7)
[2017-06-27 14:42] VITALS: BP 147/66
--- NOTE | 2017-06-27 15:53 | PDOC3 ---
Discharge Summary Visit Information Date of Admission: Jun 23, 2017 Date of Discharge: Jun 27, 2017 Admitting Diagnosis: hypoxia Final Diagnosis ASSESSMENT AND PLAN: 1. Respir failure: PNA with infiltrate on CXR. 2. COPD exacerbation. sx resolved. 2. CHF, acute on chronic diastolic, : 3. DM2: 4. Weakness and debility: OT/PT 5. CKD 3 Vitals Problems Medical Problems: (1) CHF exacerbation Status: Acute (2) COPD exacerbation Status: Acute Brief Hospital Course Allergies Allergies Coded Allergies Type Severity Reaction Last Updated Verified No Known Drug Allergies 12/04/15 No Vital Signs Vital Signs Date Time Temp Pulse Resp B/P (MAP) Pulse Ox O2 Delivery O2 Flow Rate FiO2 06/27/17 14:42 97.9 108 18 147/66 (93) 89 Room Air 97.9 06/27/17 11:45 3.0 Lab Results Laboratory Tests Test 06/25/17 16:52 06/25/17 20:34 06/26/17 04:00 06/26/17 05:00 Glucose (Fingerstick) 104 mg/dL (70-99) 142 mg/dL (70-99) White Blood Count 7.2 x10^3/uL (4.0-11.0) Red Blood Count 2.77 x10^6/uL (3.50-5.40) Hemoglobin 7.2 g/dL (12.0-15.5) Hematocrit 23.0 % (36.0-47.0) Mean Corpuscular Volume 83 fL (79-100) Mean Corpuscular Hemoglobin 26 pg (25-35) Mean Corpuscular Hemoglobin Concent 31 g/dL (31-37) Red Cell Distribution Width 16.6 % (11.5-14.5) Platelet Count 207 x10^3/uL (140-400) Neutrophils (%) (Auto) 59 % (31-73) Lymphocytes (%) (Auto) 23 % (24-48) Monocytes (%) (Auto) 10 % (0-9) Eosinophils (%) (Auto) 7 % (0-3) Basophils (%) (Auto) 1 % (0-3) Neutrophils # (Auto) 4.3 x10^3uL (1.8-7.7) Lymphocytes # (Auto) 1.7 x10^3/uL (1.0-4.8) Monocytes # (Auto) 0.7 x10^3/uL (0.0-1.1) Eosinophils # (Auto) 0.5 x10^3/uL (0.0-0.7) Basophils # (Auto) 0.0 x10^3/uL (0.0-0.2) Sodium Level 142 mmol/L (136-145) Potassium Level 4.3 mmol/L (3.5-5.1) Chloride Level 101 mmol/L (98-107) Carbon Dioxide Level 38 mmol/L (21-32) Anion Gap 3 (6-14) Blood Urea Nitrogen 40 mg/dL (7-20) Creatinine 2.0 mg/dL (0.6-1.0) Estimated GFR (Cockcroft-Gault) 29.1 BUN/Creatinine Ratio 20 (6-20) Glucose Level 51 mg/dL (70-99) Calcium Level 8.8 mg/dL (8.5-10.1) Total Bilirubin 0.2 mg/dL (0.2-1.0) Aspartate Amino Transf (AST/SGOT) 15 U/L (15-37) Alanine Aminotransferase (ALT/SGPT) 13 U/L (14-59) Alkaline Phosphatase 42 U/L (46-116) Total Protein 6.9 g/dL (6.4-8.2) Albumin 2.7 g/dL (3.4-5.0) Albumin/Globulin Ratio 0.6 (1.0-1.7) Test 06/26/17 07:23 06/26/17 08:14 06/26/17 08:17 06/26/17 11:21 Glucose (Fingerstick) 46 mg/dL (70-99) 61 mg/dL (70-99) 139 mg/dL (70-99) 140 mg/dL (70-99) Test 06/26/17 16:19 06/26/17 23:45 06/27/17 03:50 06/27/17 07:45 Glucose (Fingerstick) 193 mg/dL (70-99) 142 mg/dL (70-99) 100 mg/dL (70-99) White Blood Count 8.5 x10^3/uL (4.0-11.0) Red Blood Count 3.31 x10^6/uL (3.50-5.40) Hemoglobin 8.9 g/dL (12.0-15.5) Hematocrit 28.1 % (36.0-47.0) Mean Corpuscular Volume 85 fL (79-100) Mean Corpuscular Hemoglobin 27 pg (25-35) Mean Corpuscular Hemoglobin Concent 32 g/dL (31-37) Red Cell Distribution Width 16.2 % (11.5-14.5) Platelet Count 236 x10^3/uL (140-400) Neutrophils (%) (Auto) 67 % (31-73) Lymphocytes (%) (Auto) 18 % (24-48) Monocytes (%) (Auto) 8 % (0-9) Eosinophils (%) (Auto) 6 % (0-3) Basophils (%) (Auto) 1 % (0-3) Neutrophils # (Auto) 5.7 x10^3uL (1.8-7.7) Lymphocytes # (Auto) 1.5 x10^3/uL (1.0-4.8) Monocytes # (Auto) 0.7 x10^3/uL (0.0-1.1) Eosinophils # (Auto) 0.5 x10^3/uL (0.0-0.7) Basophils # (Auto) 0.1 x10^3/uL (0.0-0.2) Test 06/27/17 11:20 06/27/17 11:55 Glucose (Fingerstick) 185 mg/dL (70-99) Sodium Level 141 mmol/L (136-145) Potassium Level 4.0 mmol/L (3.5-5.1) Chloride Level 98 mmol/L (98-107) Carbon Dioxide Level 39 mmol/L (21-32) Anion Gap 4 (6-14) Blood Urea Nitrogen 31 mg/dL (7-20) Creatinine 1.7 mg/dL (0.6-1.0) Estimated GFR (Cockcroft-Gault) 35.1 Glucose Level 157 mg/dL (70-99) Calcium Level 8.7 mg/dL (8.5-10.1) Phosphorus Level 3.9 mg/dL (2.6-4.7) Albumin 2.9 g/dL (3.4-5.0) Laboratory Tests Test 06/26/17 16:19 06/26/17 23:45 06/27/17 03:50 06/27/17 07:45 Glucose (Fingerstick) 193 mg/dL (70-99) 142 mg/dL (70-99) 100 mg/dL (70-99) White Blood Count 8.5 x10^3/uL (4.0-11.0) Red Blood Count 3.31 x10^6/uL (3.50-5.40) Hemoglobin 8.9 g/dL (12.0-15.5) Hematocrit 28.1 % (36.0-47.0) Mean Corpuscular Volume 85 fL (79-100) Mean Corpuscular Hemoglobin 27 pg (25-35) Mean Corpuscular Hemoglobin Concent 32 g/dL (31-37) Red Cell Distribution Width 16.2 % (11.5-14.5) Platelet Count 236 x10^3/uL (140-400) Neutrophils (%) (Auto) 67 % (31-73) Lymphocytes (%) (Auto) 18 % (24-48) Monocytes (%) (Auto) 8 % (0-9) Eosinophils (%) (Auto) 6 % (0-3) Basophils (%) (Auto) 1 % (0-3) Neutrophils # (Auto) 5.7 x10^3uL (1.8-7.7) Lymphocytes # (Auto) 1.5 x10^3/uL (1.0-4.8) Monocytes # (Auto) 0.7 x10^3/uL (0.0-1.1) Eosinophils # (Auto) 0.5 x10^3/uL (0.0-0.7) Basophils # (Auto) 0.1 x10^3/uL (0.0-0.2) Test 06/27/17 11:20 06/27/17 11:55 Glucose (Fingerstick) 185 mg/dL (70-99) Sodium Level 141 mmol/L (136-145) Potassium Level 4.0 mmol/L (3.5-5.1) Chloride Level 98 mmol/L (98-107) Carbon Dioxide Level 39 mmol/L (21-32) Anion Gap 4 (6-14) Blood Urea Nitrogen 31 mg/dL (7-20) Creatinine 1.7 mg/dL (0.6-1.0) Estimated GFR (Cockcroft-Gault) 35.1 Glucose Level 157 mg/dL (70-99) Calcium Level 8.7 mg/dL (8.5-10.1) Phosphorus Level 3.9 mg/dL (2.6-4.7) Albumin 2.9 g/dL (3.4-5.0) Brief Hospital Course Ms. Daniels is a 81 old admit dyspneic and hypoxic and short of breath. More CHF than COPD change, nebs, but no abx, lasix dose increased, she felt better plan DC on 40 mg lasix, DM2 meds changed, hypoglycemia here, renal fxn declining Discharge Information Condition at Discharge: Improved Follow Up: Weeks Disposition/Orders: D/C to Home Scheduled Albuterol Sulfate (Ventolin Hfa Inhaler), 2 PUFF INH QID, (Reported) Amlodipine Besylate (Amlodipine Besylate), 5 MG PO DAILY, (Reported) Aspirin (Aspirin Ec), 81 MG PO DAILYWBKFT Atorvastatin Calcium (Atorvastatin Calcium), 1 TAB PO DAILY, (Reported) Budesonide/Formoterol Fumarate (Symbicort 160-4.5 Mcg Inhaler), 2 PUFF IH BID, ( Reported) Diltiazem HCl (Diltiazem 24Hr Cd), 240 MG PO DAILY Furosemide (Furosemide), 40 MG PO DAILY Glimepiride (Amaryl), 2 MG PO BIDWMEALS Ipratropium/Albuterol Sulfate (Combivent Respimat Inhal), 1 INH IH QID Metoprolol Tartrate (Metoprolol Tartrate), 50 MG PO BID, (Reported) Discontinued Medications Furosemide (Furosemide), 20 MG PO DAILY, (Reported) Glimepiride (Glimepiride), 1 TAB PO BID, (Reported) Metformin Hcl (Metformin Hcl), 500 MG PO BIDWMEALS, (Reported) Patient Instructions Patient Instructions resume finalsite already has 02 at home cont lasix cont current amaryl but at lower dose, hypoglycemia here, DC metformin, GFR < 40 > 30 MIN, FACE TO FACE BRENDAN HICKEY MD Jun 27, 2017 15:53
--- NOTE | 2017-06-27 22:59 | CONS ---
DATE OF CONSULTATION: 06/27/2017 REQUESTING PHYSICIAN: Hospitalist. REASON FOR CONSULTATION: Renal failure. HISTORY OF PRESENT ILLNESS: This is a 81-year-old female with history of diabetes mellitus, hypertension, diastolic congestive cardiomyopathy, and COPD. The patient was admitted to the hospital with increasing shortness of breath. She had some increased lower extremity edema as well as nonproductive cough. She denies chest pain, nausea, vomiting, diarrhea, seizures or malignancies or known history of renal disease. PAST MEDICAL HISTORY: Diabetes mellitus, hypertension, COPD, congestive cardiomyopathy -- diastolic. ALLERGIES: None. MEDICATIONS: Per med list. FAMILY HISTORY: Noncontributory. SOCIAL HISTORY: The patient resides independently. No tobacco use, no alcohol use. REVIEW OF SYSTEMS: No headaches, sinus problem, nasal drainage, epistaxis, change in vision or hearing. No difficulty swallowing. No fever, chills, cough, sputum production, or hemoptysis. No chest pain, shortness of breath on exertion. No abdominal pain or upper or lower gastrointestinal blood loss. No nausea, vomiting, diarrhea, seizures or malignancies. PHYSICAL EXAMINATION: APPEARANCE: The patient awake, conversant, and appropriate. HEENT: Clear. NECK: No increased JVD. No thyromegaly, masses or adenopathy. LUNGS: Clear. CARDIAC: Without S3 or rub. ABDOMEN: Soft, nontender, no bruits. EXTREMITIES: Without edema. NEUROLOGIC: Nonfocal localizing. PSYCHIATRIC: Fair attention to detail, appropriate affect. LABORATORY DATA: Sodium 141, potassium 4, chloride 98, CO2 of 39, BUN 31, creatinine 1.7, GFR is 35. Hemoglobin 8.9, hematocrit 28%. IMPRESSION: 1. Chronic kidney disease stage 3, likely due to diabetic nephropathy and hypertension nephrosclerosis. 2. Congestive cardiomyopathy. 3. Chronic obstructive pulmonary disease -- likely primary etiology of her underlying shortness of breath. RECOMMENDATIONS: 1. Maintain fluid balance. 2. Pulmonary management for COPD. 3. We will follow. GABRIEL MACE MD DR: AUGUSTIN/melody JOB#: [id number] / [id number]
== END 2017-06-27 15:36 | disposition home health service (06) | DRG 682 ==
LOC: ER 20:44 → 5 SOUTH 23:10
PROVIDERS: ADMIT Family Medicine; ATTEND Family Medicine
DX: N17.9 Acute kidney failure, unspecified (principal); I50.33 Acute on chronic diastolic (congestive) heart failure; J96.01 Acute respiratory failure with hypoxia; J18.9 Pneumonia, unspecified organism; E11.21 Type 2 diabetes mellitus with diabetic nephropathy; I27.20 Pulmonary hypertension, unspecified; E11.649 Type 2 diabetes mellitus with hypoglycemia without coma; I13.0 Hypertensive heart and chronic kidney disease with heart failure and stage 1 through stage 4 chronic kidney disease, or unspecified chronic kidney disease; E66.01 Morbid (severe) obesity due to excess calories; J44.1 Chronic obstructive pulmonary disease with (acute) exacerbation; J44.0 Chronic obstructive pulmonary disease with (acute) lower respiratory infection; J98.11 Atelectasis; I42.0 Dilated cardiomyopathy; N18.3 Chronic kidney disease, stage 3 (moderate); D63.8 Anemia in other chronic diseases classified elsewhere; E11.22 Type 2 diabetes mellitus with diabetic chronic kidney disease; E78.00 Pure hypercholesterolemia, unspecified; E78.5 Hyperlipidemia, unspecified; G47.33 Obstructive sleep apnea (adult) (pediatric); K21.9 Gastro-esophageal reflux disease without esophagitis; Z99.81 Dependence on supplemental oxygen; Z68.31 Body mass index [BMI] 31.0-31.9, adult; Z79.899 Other long term (current) drug therapy; Z79.82 Long term (current) use of aspirin; Z82.49 Family history of ischemic heart disease and other diseases of the circulatory system
CPT/HCPCS: 36415; 71010; 80048; 80053; 80061; 80069; 82962; 83735; 83880; 84443; 84484; 85025; 90732; 93005; 94640; 94760; 96374; J1815; J1940; J7060; J7613; J7620; J7626; Q0144; 99285-25

== ENCOUNTER 2017-08-05 14:51 | Emergency (ER) | payer MEDICARE, OTHER ==
[2017-08-05 15:09] LABS: POC GLUCOSE 101 mg/dL (70-99)
[2017-08-05 15:45] LABS: ADD MAN DIFF? NO
[2017-08-05 15:50] LABS: BASO % 0 % (0-3); EOS # 0.1 x10^3/uL (0.0-0.7); EOS % 1 % (0-3); HEMATOCRIT 25.8 % (36.0-47.0); HEMOGLOBIN 8.1 g/dL (12.0-15.5); LYMPH % 14 % (24-48); MEAN CORPUSCULAR HEMOGLOBIN 26 pg (25-35); MEAN CORPUSCULAR HGB CONC 32 g/dL (31-37); MEAN CORPUSCULAR VOLUME 83 fL (79-100); MONO # 0.5 x10^3/uL (0.0-1.1); MONO % 6 % (0-9); NEUT # 5.8 x10^3uL (1.8-7.7); NEUT % 78 % (31-73); PLATELET COUNT 232 x10^3/uL (140-400); RED CELL DISTRIBUTION WIDTH 17.3 % (11.5-14.5); WHITE BLOOD COUNT 7.4 x10^3/uL (4.0-11.0)
[2017-08-05 16:07] LABS: ANION GAP 10 (6-14); BLOOD UREA NITROGEN 29 mg/dL (7-20); BUN/CREATININE RATIO 18 (6-20); CALCIUM 8.6 mg/dL (8.5-10.1); CARBON DIOXIDE 32 mmol/L (21-32); CHLORIDE 103 mmol/L (98-107); CREATININE 1.6 mg/dL (0.6-1.0); GFR 37.6; GLUCOSE 101 mg/dL (70-99); POTASSIUM 4.2 mmol/L (3.5-5.1); SODIUM 145 mmol/L (136-145)
[2017-08-05 16:11] LABS: TROPONINI < 0.017 ng/mL (0.000-0.055)
[2017-08-05 16:17] LABS: ALBUMIN 3.5 g/dL (3.4-5.0); ALBUMIN/GLOBULIN RATIO 0.9 (1.0-1.7); ALK PHOS 46 U/L (46-116); ALT (SGPT) 18 U/L (14-59); AST (SGOT) 29 U/L (15-37); TOTAL BILIRUBIN 0.2 mg/dL (0.2-1.0); TOTAL PROTEIN 7.5 g/dL (6.4-8.2)
== END 2017-08-05 19:31 | disposition home or self-care (01) ==
LOC: ER 14:51
DX: E11.649 Type 2 diabetes mellitus with hypoglycemia without coma (principal); E78.00 Pure hypercholesterolemia, unspecified; I11.0 Hypertensive heart disease with heart failure; I50.9 Heart failure, unspecified; J44.9 Chronic obstructive pulmonary disease, unspecified
CPT/HCPCS: 36415; 70450; 71045; 80053; 82962; 84484; 85025; 93005; 99285-25

== ENCOUNTER → 2017-11-12 | Outpatient (CLI) | payer MEDICARE, OTHER ==
[2017-11-12 17:04] LABS: ADD MAN DIFF? NO
[2017-11-12 17:12] LABS: BASO # 0.1 x10^3/uL (0.0-0.2); BASO % 1 % (0-3); EOS # 0.3 x10^3/uL (0.0-0.7); EOS % 3 % (0-3); HEMATOCRIT 32.3 % (36.0-47.0); HEMOGLOBIN 10.4 g/dL (12.0-15.5); LYMPH # 2.1 x10^3/uL (1.0-4.8); LYMPH % 21 % (24-48); MEAN CORPUSCULAR HEMOGLOBIN 26 pg (25-35); MEAN CORPUSCULAR HGB CONC 32 g/dL (31-37); MEAN CORPUSCULAR VOLUME 80 fL (79-100); MONO # 0.7 x10^3/uL (0.0-1.1); MONO % 7 % (0-9); NEUT # 6.9 x10^3uL (1.8-7.7); NEUT % 69 % (31-73); PLATELET COUNT 316 x10^3/uL (140-400); RED BLOOD COUNT 4.06 x10^6/uL (3.50-5.40); RED CELL DISTRIBUTION WIDTH 20.2 % (11.5-14.5); WHITE BLOOD COUNT 10.1 x10^3/uL (4.0-11.0)
[2017-11-12 17:30] LABS: ALBUMIN/GLOBULIN RATIO 0.6 (1.0-1.7); ALK PHOS 49 U/L (46-116); ALT (SGPT) 20 U/L (14-59); ANION GAP 10 (6-14); AST (SGOT) 16 U/L (15-37); BLOOD UREA NITROGEN 30 mg/dL (7-20); BUN/CREATININE RATIO 16 (6-20); CARBON DIOXIDE 30 mmol/L (21-32); CHLORIDE 102 mmol/L (98-107); CHOLESTEROL 176 mg/dL (0-200); CREATININE 1.9 mg/dL (0.6-1.0); GFR 30.9; GLUCOSE 69 mg/dL (70-99); HDLC 59 mg/dL (40-60); LDLC 100 mg/dL (0-100); NON-HDL CHOLESTEROL 117 mg/dL (0-129); POTASSIUM 4.7 mmol/L (3.5-5.1); SODIUM 142 mmol/L (136-145); TOTAL BILIRUBIN 0.3 mg/dL (0.2-1.0); TRIGLYCERIDES 85 mg/dL (0-150); VLDLC 17 mg/dL (0-40)
[2017-11-12 17:31] LABS: NT-PRO BNP 4891 pg/mL (0-449)
[2017-11-12 18:29] LABS: ANISOCYTOSIS MOD; HYPOCHROMIA MOD; OVALOCYTES FEW; PLT ESTIMATE ADEQUATE (ADEQUATE); POLYCHROMASIA SLIGHT; SCHISTOCYTES OCC
== END | disposition home or self-care (01) ==
LOC: RAD 16:33
DX: I13.0 Hypertensive heart and chronic kidney disease with heart failure and stage 1 through stage 4 chronic kidney disease, or unspecified chronic kidney disease (principal); E11.22 Type 2 diabetes mellitus with diabetic chronic kidney disease; I50.9 Heart failure, unspecified; N18.4 Chronic kidney disease, stage 4 (severe); E78.00 Pure hypercholesterolemia, unspecified; J44.9 Chronic obstructive pulmonary disease, unspecified; I70.0 Atherosclerosis of aorta; J18.9 Pneumonia, unspecified organism; R53.83 Other fatigue
CPT/HCPCS: 36415; 36600; 71046; 80053; 80061; 83880; 85025; 86141

== ENCOUNTER → 2017-11-19 | Outpatient (CLI) | payer MEDICARE, OTHER ==
[2017-11-19 10:10] LABS: ADD MAN DIFF? NO
[2017-11-19 10:27] LABS: BASO # 0.1 x10^3/uL (0.0-0.2); BASO % 1 % (0-3); EOS # 0.3 x10^3/uL (0.0-0.7); EOS % 4 % (0-3); HEMATOCRIT 32.3 % (36.0-47.0); HEMOGLOBIN 10.3 g/dL (12.0-15.5); LYMPH % 23 % (24-48); MEAN CORPUSCULAR HEMOGLOBIN 26 pg (25-35); MEAN CORPUSCULAR HGB CONC 32 g/dL (31-37); MEAN CORPUSCULAR VOLUME 80 fL (79-100); MONO # 0.6 x10^3/uL (0.0-1.1); MONO % 7 % (0-9); NEUT # 5.6 x10^3uL (1.8-7.7); NEUT % 66 % (31-73); PLATELET COUNT 348 x10^3/uL (140-400); RED BLOOD COUNT 4.05 x10^6/uL (3.50-5.40); RED CELL DISTRIBUTION WIDTH 20.8 % (11.5-14.5); WHITE BLOOD COUNT 8.6 x10^3/uL (4.0-11.0)
[2017-11-19 10:37] LABS: BASE EXCESS COOX 2 mmol/L (-3-3); HCO3 COOX 25 mmol/L (21-28); PCO2 COOX 30 mmHg (35-46); PH COOX 7.53 (7.35-7.45); PO2 COOX 84 mmHg (65-108)
[2017-11-19 10:38] LABS: CARBON MONOXIDE 0.5 % (0.0-1.9); SAT O2 COOX 96 % (92-99)
[2017-11-19 10:39] LABS: METHEMOGLOBIN 0.2 % (0.0-1.9)
[2017-11-19 10:43] LABS: ANION GAP 10 (6-14); BLOOD UREA NITROGEN 30 mg/dL (7-20); CALCIUM 8.9 mg/dL (8.5-10.1); CARBON DIOXIDE 31 mmol/L (21-32); CHLORIDE 102 mmol/L (98-107); CREATININE 1.7 mg/dL (0.6-1.0); GFR 35.1; GLUCOSE 56 mg/dL (70-99); MAGNESIUM 1.4 mg/dL (1.8-2.4); POTASSIUM 4.5 mmol/L (3.5-5.1); SODIUM 143 mmol/L (136-145)
[2017-11-19 12:31] LABS: ANISOCYTOSIS PRESENT; PLT ESTIMATE ADEQUATE (ADEQUATE)
== END | disposition home or self-care (01) ==
LOC: LAB 09:45
DX: J44.9 Chronic obstructive pulmonary disease, unspecified (principal); I10 Essential (primary) hypertension
CPT/HCPCS: 36415; 36600; 80048; 82805; 83735; 85025

== ENCOUNTER → 2018-03-02 | Outpatient (CLI) | payer MEDICARE, OTHER ==
[2017-10-06 11:47] VITALS: BP 152/67
[~2018-03-02] MED LIST changes: +AMLO5TAB2 PO; +FURO20TA3 PO; +FURO40TA4 PO; +GLIM2TAB PO; +IPRA4AER IH; -METF500T4 PO; +METF500T5 PO; +METO50TA6 PO
[2018-03-02 13:30] LABS: CALCIUM 8.6 mg/dL (8.5-10.1); CREATININE 3.1 mg/dL (0.6-1.0); GFR 17.5; MAGNESIUM 1.9 mg/dL (1.8-2.4); POTASSIUM 5.2 mmol/L (3.5-5.1)
== END | disposition home or self-care (01) ==
LOC: SPEC 13:10
PROVIDERS: ATTEND Internal Medicine Cardiovascular Disease
DX: I13.0 Hypertensive heart and chronic kidney disease with heart failure and stage 1 through stage 4 chronic kidney disease, or unspecified chronic kidney disease (principal); E11.22 Type 2 diabetes mellitus with diabetic chronic kidney disease; N18.4 Chronic kidney disease, stage 4 (severe); I50.33 Acute on chronic diastolic (congestive) heart failure; E11.649 Type 2 diabetes mellitus with hypoglycemia without coma; E11.65 Type 2 diabetes mellitus with hyperglycemia; E11.21 Type 2 diabetes mellitus with diabetic nephropathy; E78.5 Hyperlipidemia, unspecified; E78.00 Pure hypercholesterolemia, unspecified; K21.9 Gastro-esophageal reflux disease without esophagitis; J44.9 Chronic obstructive pulmonary disease, unspecified; I48.0 Paroxysmal atrial fibrillation; I25.10 Atherosclerotic heart disease of native coronary artery without angina pectoris; F03.90 Unspecified dementia, unspecified severity, without behavioral disturbance, psychotic disturbance, mood disturbance, and anxiety; Z79.84 Long term (current) use of oral hypoglycemic drugs; Z79.51 Long term (current) use of inhaled steroids; Z79.82 Long term (current) use of aspirin; Z82.49 Family history of ischemic heart disease and other diseases of the circulatory system; Z79.899 Other long term (current) drug therapy; Z87.01 Personal history of pneumonia (recurrent); Z87.891 Personal history of nicotine dependence
CPT/HCPCS: 36415; 80048; 83735

== ENCOUNTER 2018-03-06 03:53 | Inpatient (IN) | payer MEDICARE, OTHER ==
[2018-03-06] VITALS (18 sets, daily range): BP systolic 44–103; BP diastolic 30–67
[~2018-03-06] VITALS: Ht 157.5 cm; Wt 83.9 kg
[2018-03-06] MEDS ORDERED: IPRATROPIUM BROMIDE 0.5 MG/2.5 ML NEBU. NEB ONE (04:30)
[2018-03-06] MEDS ORDERED: IV NORMAL SALINE 1000ML BAG 1,000 ML IV SCH (04:30)
--- NOTE | 2018-03-06 05:13 | PHYS DOC ---
Past Medical History Past Medical History: Asthma, CHF, COPD, Diabetes-Type II, High Cholesterol, Heart Disease, Hypertension, Pneumonia, Other Additional Past Medical Histor: chronic resp failure/hypoxia Past Surgical History: Other Additional Past Surgical Histo: carpal tunnel, shoulder Alcohol Use: None Drug Use: None Adult General Chief Complaint Chief Complaint: ABDOMINAL PAIN HPI HPI Patient is an 82-year-old female who presents via EMS with report of severe abdominal pain. EMS indicates that they had gone out on-call for low blood sugar at home with altered mental status and had given D50 and patient had refused transport after. Call went out again this morning with complaint of abdominal pain. Upon arrival, patient is unable to provide history due to decreased mental status. Review of Systems Review of Systems GI: Report of abdominal pain[] Neurologic: Positive mental status change[] Unable to fully assess review of systems due to patient's mental status. Current Medications Current Medications Current Medications Medications (Trade) Dose Ordered Sig/Venessa Start Time Stop Time Status Last Admin Dose Admin Dopamine HCl/ Dextrose 250 ml @ 0 mls/hr 1X ONCE 03/06/18 05:00 03/06/18 05:01 DC Ipratropium [place] (Atrovent) 0.5 mg 1X ONCE 03/06/18 04:30 03/06/18 04:38 DC 03/06/18 04:30 0.5 MG Sodium Bicarbonate (Sodium Bicarb Adult 8.4% Syr) 150 meq 1X ONCE 03/06/18 05:45 03/06/18 05:46 DC Sodium Chloride 1,000 ml @ 1,000 mls/hr Q1H 03/06/18 04:30 03/06/18 05:29 DC Allergies Allergies Allergies Coded Allergies Type Severity Reaction Last Updated Verified No Known Drug Allergies 12/04/15 No Physical Exam Physical Exam Constitutional: Patient very somnolent, arousable to painful stimuli. [] HENT: Normocephalic, atraumatic, bilateral external ears normal, oropharynx dry , no oral exudates, nose normal. [] Eyes: PERRLA. [] Neck: Normal range of motion, no tenderness, supple, no stridor. [] Cardiovascular: Regular rate and rhythm[] Lungs & Thorax: Diminished breath sounds are noted bilaterally with end expiratory wheezes[] Abdomen: Bowel sounds normal, soft, with upper abdominal tenderness. [] Skin: Cool, dry. [] Extremities: No tenderness, no cyanosis, no clubbing with mild lower extremity edema. [] Neurologic: Somnolent but arousable to painful stimuli. Unable to fully assess neurological status is patient is unable to cooperate with exam. [] Current Patient Data Vital Signs Vital Signs Date Time Temp Pulse Resp B/P (MAP) Pulse Ox O2 Delivery O2 Flow Rate FiO2 03/06/18 06:06 84 03/06/18 05:25 Ventilator 03/06/18 04:58 99 03/06/18 04:01 98.2 20 0/0 (0) 3.0 98.2 Lab Values Laboratory Tests Test 03/06/18 04:59 03/06/18 05:26 03/06/18 05:30 White Blood Count 3.2 x10^3/uL (4.0-11.0) L Red Blood Count 0.82 x10^6/uL (3.50-5.40) L Hemoglobin 2.4 g/dL (12.0-15.5) *L 7.2 g/dL (12.0-15.5) #L Hematocrit 8.9 % (36.0-47.0) *L 24.1 % (36.0-47.0) L Mean Corpuscular Volume 108 fL (79-100) H Mean Corpuscular Hemoglobin 29 pg (25-35) Mean Corpuscular Hemoglobin Concent 27 g/dL (31-37) L 30 g/dL (31-37) L Red Cell Distribution Width 19.9 % (11.5-14.5) H Platelet Count 62 x10^3/uL (140-400) L Neutrophils (%) (Auto) 57 % (31-73) Lymphocytes (%) (Auto) 37 % (24-48) Monocytes (%) (Auto) 5 % (0-9) Eosinophils (%) (Auto) 1 % (0-3) Basophils (%) (Auto) 0 % (0-3) Neutrophils # (Auto) 1.8 x10^3uL (1.8-7.7) Lymphocytes # (Auto) 1.2 x10^3/uL (1.0-4.8) Monocytes # (Auto) 0.2 x10^3/uL (0.0-1.1) Eosinophils # (Auto) 0.0 x10^3/uL (0.0-0.7) Basophils # (Auto) 0.0 x10^3/uL (0.0-0.2) Sodium Level 139 mmol/L (136-145) Potassium Level 6.2 mmol/L (3.5-5.1) *H Chloride Level 102 mmol/L (98-107) Carbon Dioxide Level 10 mmol/L (21-32) *L Anion Gap 27 (6-14) H Blood Urea Nitrogen 55 mg/dL (7-20) H Creatinine 3.1 mg/dL (0.6-1.0) H Estimated GFR (Cockcroft-Gault) 17.5 BUN/Creatinine Ratio 18 (6-20) Glucose Level 301 mg/dL (70-99) H Calcium Level 8.2 mg/dL (8.5-10.1) L Total Bilirubin 0.4 mg/dL (0.2-1.0) Aspartate Amino Transferase (AST) 604 U/L (15-37) H Alanine Aminotransferase (ALT) 416 U/L (14-59) H Alkaline Phosphatase 65 U/L (46-116) Troponin I Quantitative < 0.017 ng/mL (0.000-0.055) AY-Hfl-W-Type Natriuretic Peptide 9754 pg/mL (0-449) H Total Protein 5.9 g/dL (6.4-8.2) L Albumin 2.5 g/dL (3.4-5.0) L Albumin/Globulin Ratio 0.7 (1.0-1.7) L O2 Saturation 99 % (92-99) Arterial Blood pH 6.90 (7.35-7.45) *L Arterial Blood pH (Temp corrected) 6.94 Arterial Blood pCO2 at Patient Temp 39 mmHg (35-46) Arterial Blood pCO2 (Temp correct) 34 mmHg Arterial Blood pO2 at Patient Temp 412 mmHg (65-108) H Arterial Blood pO2 (Temp corrected) 394 mmHg Arterial Blood HCO3 7 mmol/L (21-28) L Arterial Blood Base Excess -24 mmol/L (-3-3) L FiO2 100.0 Laboratory Tests 03/06/18 04:59 03/06/18 05:30 Laboratory Tests 03/06/18 04:59 EKG EKG [] Interpretation Time: EKG demonstrates a junctional escape rhythm with very slow rate. A repeat EKG at 5:59 AM demonstrates a supraventricular rhythm with rate of 51. Radiology/Procedures Radiology/Procedures Endotracheal Intubation by me: Pre assessment performed. See preceding note for details. Pre-oxygenation performed with 100% oxygen RSI: Performed w/o complication or hypoxic events. Medications as ordered. Blade: [place] scope ET Tube: 7.5cm Depth: 23 cm at the lip Intubation confirmed by colorimetric CO2, equal breath sounds, quiet over the stomach. Chest X-ray 1V Interpreted by me: cm above the ancelmo ET tube. Normal soft tissue, No pneumothorax. Cardiopulmonary Resuscitation by me: See code documentation for specific details. ACLS and BLS were performed with high quality chest compressions and minimal interruptions. Reversible causes were assessed and treated. A total of 45 minutes of critical care time was spent on this patient exclusive of separately billable procedures. Time was inclusive of direct [id number] here, ordering and reviewing both laboratory and radiologic studies, discussion of patient's case with family and consultants, and finally on documentation of this patient's medical record. Impressions: Chest x-ray demonstrates ET tube in good place. No infiltrates or other acute process noted. Course & Med Decision Making Course & Med Decision Making Pertinent Labs and Imaging studies reviewed. (See chart for details) After intubation and CPR was performed, patient's case was discussed at length with her son and son indicates that he does not feel that patient would want to continue with further CPR. He requests that if we lose a pulse again that no further CPR be performed. Dr. Denis did present to the emergency room to discuss emergent pacemaker placement; however, given patient's rapid decline, we have elected to with hold pacing at this time. Patient will be admitted under the care of hospitalist service for further management. Dragon Disclaimer Dragon Disclaimer This electronic medical record was generated, in whole or in part, using a voice recognition dictation system. Departure Departure Impression: Primary Impression: Acute respiratory failure with hypoxia Additional Impressions: Cardiac arrest Metabolic acidosis Anemia Disposition: ADMITTED INPATIENT Admitting Physician: Xie. Rowan Condition: CRITICAL Referrals: GABRIEL BROWN MD (PCP) Problem Qualifiers Additional Impressions: Anemia Anemia type: unspecified type Qualified Codes: D64.9 - Anemia, unspecified JOE ORELLANA Jr. DO Mar 06, 2018 05:13
[2018-03-06 05:22] LABS: BASO % 0 % (0-3); EOS % 1 % (0-3); LYMPH # 1.2 x10^3/uL (1.0-4.8); LYMPH % 37 % (24-48); MEAN CORPUSCULAR HEMOGLOBIN 29 pg (25-35); MEAN CORPUSCULAR HGB CONC 27 g/dL (31-37); MEAN CORPUSCULAR VOLUME 108 fL (79-100); MONO # 0.2 x10^3/uL (0.0-1.1); MONO % 5 % (0-9); NEUT # 1.8 x10^3uL (1.8-7.7); NEUT % 57 % (31-73); PLATELET COUNT 62 x10^3/uL (140-400); RED BLOOD COUNT 0.82 x10^6/uL (3.50-5.40); RED CELL DISTRIBUTION WIDTH 19.9 % (11.5-14.5); WHITE BLOOD COUNT 3.2 x10^3/uL (4.0-11.0)
[2018-03-06 05:27] LABS: BASE EXCESS ABG -24 mmol/L (-3-3); HCO3 ABG 7 mmol/L (21-28); PCO2 ABG 39 mmHg (35-46); PO2 ABG 412 mmHg (65-108); SAT O2 ABG 99 % (92-99)
[2018-03-06 05:29] LABS: CORRECTED PCO2 ABG 34 mmHg; CORRECTED PH ABG 6.94; CORRECTED PO2 ABG 394 mmHg
[2018-03-06 05:38] LABS: HEMOGLOBIN 2.4 g/dL (12.0-15.5)
[2018-03-06 05:39] LABS: HEMATOCRIT 8.9 % (36.0-47.0)
[2018-03-06] MEDS ORDERED: SODIUM BICARB ADULT 8.4% 50 MEQ/50 ML DISP.SYRIN. IV ONE ×4 (05:45→18:30)
[2018-03-06 06:01] LABS: ALBUMIN 2.5 g/dL (3.4-5.0); ALBUMIN/GLOBULIN RATIO 0.7 (1.0-1.7); CALCIUM 8.2 mg/dL (8.5-10.1); CREATININE 3.1 mg/dL (0.6-1.0); GFR 17.5; TOTAL BILIRUBIN 0.4 mg/dL (0.2-1.0); TOTAL PROTEIN 5.9 g/dL (6.4-8.2)
[2018-03-06 06:03] LABS: POTASSIUM 6.2 mmol/L (3.5-5.1)
[2018-03-06 06:34] LABS: HEMATOCRIT 24.1 % (36.0-47.0); HEMOGLOBIN 7.2 g/dL (12.0-15.5)
[2018-03-06] MEDS: IV NORMAL SALINE 1000ML BAG 1,000 ML IV SCH ×4 (07:00→19:00)
[2018-03-06] MEDS ORDERED: VECURONIUM BOLUS 10 MG VIAL. IV ONE (07:11)
[2018-03-06] MEDS ORDERED: MIDAZOLAM HCL/PF 5 MG/5 ML VIAL. ONE (07:11)
[2018-03-06] MEDS ORDERED: EPINEPHrine 1 MG/ML VIAL ONE (07:29)
[2018-03-06] MEDS ORDERED: EPINEPHrine SYRINGE 1 MG/10 ML SYRINGE ONE ×2 (07:31→15:00)
[2018-03-06] MEDS ORDERED: CALCIUM GLUCONATE 1,000 MG/10 ML VIAL. IVP ONE (07:45)
--- NOTE | 2018-03-06 07:47 | RAD ---
Examination: Single frontal view the chest HISTORY: History of shortness of breath COMPARISON: 11/12/2017 FINDINGS: ET tube tip is identified in the trachea 2 cm above the level of the ancelmo. The feeding tube is identified below the level of the diaphragm likely within the stomach. The tip is not included on the image.Mild cardiomegaly. There is mild prominent appearing bilateral interstitial lung markings. IMPRESSION: 1. ET tube, feeding tube in place. 2. Mild congestive changes. Electronically signed by: Suraj Saha MD (03/06/2018 7:44 AM) [facility]
[2018-03-06] MEDS ORDERED: SODIUM BICARBONATE VIAL 150 MEQ in IV STERILE WATER 1,000 ML IV ONE (08:00)
[2018-03-06] MEDS ORDERED: IV NORMAL SALINE 500ML BAG 500 ML IV ONE (08:00)
[2018-03-06 08:19] LABS: FECAL OB PT POSITIVE (NEG)
[2018-03-06] MEDS ORDERED: PANTOPRAZOLE IV PUSH 40 MG VIAL. IVP SCH (09:00)
--- NOTE | 2018-03-06 09:25 | RAD ---
Examination: CT of the abdomen pelvis without contrast HISTORY: History of severe abdominal pain COMPARISON: None available TECHNIQUE: Axial CT images of the abdomen pelvis were performed without contrast. Coronal and sagittal reformats are performed Exposure: One or more of the following individualized dose reduction techniques were utilized for this examination: 1. Automated exposure control 2. Adjustment of the mA and/or kV according to patient size 3. Use of iterative reconstruction technique FINDINGS: There are bibasilar lung consolidation changes with air bronchograms likely pneumonia or atelectasis with trace bilateral pleural effusions. Examination is limited due to lack of oral and IV contrast. No evidence of free air noted in the abdomen. The visualized noncontrasted liver, spleen grossly appears unremarkable. Feeding tube identified in the stomach. The stomach is mildly distended. The gallbladder is moderately distended. There is mild fat stranding identified about the gallbladder. Hyperdensities identified in the proximal gallbladder probably stones. There is mild fat stranding identified about the pancreas with fat stranding extending posteriorly and abutting the left adrenal gland. Cystic structure identified in the right kidney measuring 2.1 cm could be a cyst or cystic lesion. Minimal fat stranding identified about the left kidney. The small bowel is nondilated. The appendix grossly appears unremarkable. There is mild thickening of the ascending colon wall. Feces and gas noted in the colon Multiple colon diverticula identified Fully catheter balloon identified in the urinary bladder. There is a 6.8 x 7.0 cm cystic structure identified posterior to the urinary bladder in the region of the cervix abutting the uterus. Multiple calcifications identified in the uterus Severe aortic atherosclerosis. Focal ectasia of the infrarenal abdominal aorta identified. Superior endplate Schmorl's node identified at L2 vertebral body with minimal compression changes. Moderate degenerative changes identified in the lumbar spine. IMPRESSION: 1. 7 cm round cystic density identified in the region of the cervix posterior to the urinary bladder and abutting the inferior aspect of the uterus measuring 30 Hounsfield units could be cystic degeneration of fibroid, or focal fluid collection/abscess, ovarian cyst or cystic lesion or cervical fluid collection. Differentiation is difficult without IV contrast. Consider ultrasound pelvis or MRI for further evaluation. 2. Cholelithiasis with mild distended gallbladder with minimal surrounding fat stranding. Underlying cholecystitis is not excluded. 3. Mild fat stranding identified about the pancreas abutting left adrenal gland and the left kidney, correlate for acute pancreatitis or pyelonephritis. 4. 2.1 cm cystic structure identified in the right kidney could be a cyst or cystic lesion. 5. Bibasilar lung consolidation changes with small bilateral pleural effusions likely pneumonia or atelectasis. Electronically signed by: Suraj Saha MD (03/06/2018 9:22 AM) [id number]
[2018-03-06] MEDS ORDERED: NOREPINEPHRIN 8MG/250ML PREMIX 250 ML IV ONE (10:16)
[2018-03-06] MEDS ORDERED: VASOPRESSIN 40 UNIT in IV DEXTROSE 5% 100ML 100 ML IV PRN (10:30)
[2018-03-06] MEDS: NOREPINEPHRIN 8MG/250ML PREMIX 250 ML IV PRN ×3 (10:39→21:54)
[2018-03-06] MEDS ORDERED: IV NORMAL SALINE 1000ML BAG 1,000 ML IV ONE (10:45)
[2018-03-06] MEDS ORDERED: PIP/TAZO PER PHARMACY MC PRN (11:00)
[2018-03-06] MEDS ORDERED: DEXTROSE 50% 25 GM / 50ML DISP.SYRIN. IV ONE ×2 (11:14→11:45)
--- NOTE | 2018-03-06 11:15 | EKG ---
[facility] [address] [place] [address] Test Date: 2018-03-06 Test Time: 05:59:01 Pat Name: SILVIA CATALAN Department: Room: 113 1 Gender: F Manager Women: : 1935 Requested By: JOE ORELLANA Order Number: [id number] Reading MD: Irineo Denis MD Measurements Intervals [place] Rate: 50 P: SC: QRS: 59 QRSD: 90 T: 64 QT: 480 QTc: 444 Interpretive Statements SR Electronically Signed On 03-07-2018 10:48:02 CDT by Irineo Denis MD
[2018-03-06] MEDS: PIPERACILLIN/TAZOBACTAM 2.25 GM in IV NORMAL SALINE 50ML 50 ML IV SCH ×2 (11:24→17:20)
[2018-03-06] MEDS ORDERED: INSULIN REGULAR 100 UNIT/ML 3ML VIAL. IV ONE (11:45)
--- NOTE | 2018-03-06 11:49 | PDOC2 ---
CONSULT Date of Consult Date of Consult DATE: 03/06/18 TIME: 11:32 Reason for Consult Reason for Consult: ANDREA, elevated potassium Referring Physician Referring Physician: Dr. Leone Identification/Chief Complaint Chief Complaint Abdominal pain Source Source: Chart review, Patient History of Present Illness Reason for Visit: Lata is a 82-year-old Afro-[place] female who appears to have some level of baseline chronic renal insufficiency with creatinines running between 1.3 and 1.7 she has occasionally been a little higher and lower than that range. Per ER notes EMS was called to the house for lowish sugars and she refused transportation to the hospital. There were recent for abdominal pain and she was brought to the ER. In the ER she is intubated and sedated. Currently she has fixed and dilated pupils as well as no gag reflex. Her granddaughter is at her bedside that is not aware of her health issues because the patient's son cares for her and he is unable to be reached currently. I have discussed her care with Dr. Leone. She is noted to have a bicarbonate of 10 anion gap of 27 lactic acid is not available and a potassium of 6.2 for which we were consulted for further evaluation of the same. Her creatinine is also up to 3.1 today. She did undergo CODE BLUE situation with CPR. She is currently on a warming blanket Past Medical History Past Medical History CHF, hyperlipidemia, COPD, asthma, pneumonia, carpal tunnel syndrome, previous smoker Cardiovascular: HTN Pulmonary: COPD CENTRAL NERVOUS SYSTEM: Other Musculoskeletal: No pain Renal/: Chronic renal insuff Endocrine: Diabetes Past Surgical History Past Surgical History: Other Family History Family History Unable to obtain currently while patient is sedated and intubated. Suspect noncontributory given her advanced age Family History: Hypertension Social History ALCOHOL: none Drugs: None Lives: with Family Current Problem List Problem List Problems Medical Problems: (1) Anemia Status: Acute (2) Cardiac arrest Status: Acute (3) Metabolic acidosis Status: Acute Current Medications Current Medications Current Medications Sodium Chloride 1,000 ml @ 1,000 mls/hr Q1H IV ; Start 03/06/18 at 04:30; Stop 03/06/18 at 05:29; Status DC Ipratropium [place] (Atrovent) 0.5 mg 1X ONCE NEB Last administered on at 04:30; Start 03/06/18 at 04:30; Stop 03/06/18 at 04:38; Status DC Dopamine HCl/ Dextrose 250 ml @ 0 mls/hr 1X ONCE IV Last administered on at 09:55; Start 03/06/18 at 05:00; Stop 03/06/18 at 05:01; Status DC Sodium Bicarbonate (Sodium Bicarb Adult 8.4% Syr) 150 meq 1X ONCE IV ; Start at 05:45; Stop 03/06/18 at 05:46; Status DC Sodium Chloride 1,000 ml @ 250 mls/hr Q4H IV ; Start 03/06/18 at 07:00; Stop at 06:59 Vecuronium [place] (Norcuron Bolus) 10 mg STK-MED ONCE IV ; Start 03/06/18 at 07 :11; Stop 03/06/18 at 07:12; Status DC Midazolam HCl (Versed) 5 mg STK-MED ONCE .ROUTE ; Start 03/06/18 at 07:11; Stop 03/06/18 at 07:12; Status DC Epinephrine HCl (Adrenalin) 1 mg STK-MED ONCE .ROUTE ; Start 03/06/18 at 07:29; Stop 03/06/18 at 07:30; Status DC Epinephrine HCl (EPINEPHrine SYRINGE) 1 mg STK-MED ONCE .ROUTE ; Start 03/06/18 at 07:31; Stop 03/06/18 at 07:32; Status DC Epinephrine HCl 4 mg/Sodium Chloride 254 ml @ 319.71 mls/ hr CONT PRN IV SEE I /O RECORD; Start 03/06/18 at 07:45 Sodium Bicarbonate (Sodium Bicarb Adult 8.4% Syr) 50 meq 1X ONCE IV ; Start at 07:45; Stop 03/06/18 at 07:46; Status DC Calcium Gluconate (Calcium Gluconate) 1,000 mg 1X ONCE IVP ; Start 03/06/18 at 07:45; Stop 03/06/18 at 07:46; Status DC Sodium Bicarbonate 150 meq/Sterile Water 1,150 ml @ 125 mls/hr 1X ONCE IV Last administered on 03/06/18at 09:55; Start 03/06/18 at 08:00; Stop 03/06/18 at 17:11 Sodium Chloride 500 ml @ 500 mls/hr 1X ONCE IV ; Start 03/06/18 at 08:00; Stop 03/06/18 at 08:59; Status DC Pantoprazole Sodium (PROTONIX VIAL for IV PUSH) 40 mg DAILY IVP Last administered on 03/06/18at 09:55; Start 03/06/18 at 09:00 Norepinephrine Bitartrate 250 ml @ 1.875 mls/ hr CONT PRN IV SEE I/O RECORD Last administered on 03/06/18at 10:39; Start 03/06/18 at 10:15 Norepinephrine Bitartrate 250 ml @ As Directed STK-MED ONCE IV ; Start at 10:16; Stop 03/06/18 at 10:17; Status DC Vasopressin 40 unit/Dextrose 102 ml @ 6 mls/hr CONT PRN IV SEE I/O RECORD Last administered on 03/06/18at 10:40; Start 03/06/18 at 10:30 Sodium Chloride 1,000 ml @ 1,000 mls/hr 1X ONCE IV Last administered on at 11:16; Start 03/06/18 at 10:45; Stop 03/06/18 at 11:44 Piperacillin Sod/ Tazobactam Sod (Zosyn Per Pharmacy) 1 each PRN DAILY PRN MC SEE COMMENTS; Start 03/06/18 at 11:00 Piperacillin Sod/ Tazobactam Sod 2.25 gm/Sodium Chloride 50 ml @ 100 mls/hr Q6HRS IV Last administered on 03/06/18at 11:24; Start 03/06/18 at 12:00 Dopamine HCl/ Dextrose 250 ml @ 6.294 mls/ hr CONT PRN IV SEE I/O RECORD Last administered on 03/06/18at 11:16; Start 03/06/18 at 11:15 Dextrose (Dextrose 50%-Water Syringe) 25 gm 1X ONCE IV Last administered on at 11:16; Start 03/06/18 at 11:45; Stop 03/06/18 at 11:46 Insulin Human Regular (HumuLIN R VIAL) 10 unit 1X ONCE IV Last administered on 03/06/18at 11:24; Start 03/06/18 at 11:45; Stop 03/06/18 at 11:46 Dextrose (Dextrose 50%-Water Syringe) 25 gm STK-MED ONCE IV ; Start 03/06/18 at 11:14; Stop 03/06/18 at 11:15; Status DC Active Scripts Active Furosemide 40 Mg Tablet 40 Mg PO DAILY Combivent Respimat Inhal (Ipratropium/Albuterol Sulfate) 4 Gm Aer.w.adap 1 Inh IH QID Amaryl (Glimepiride) 2 Mg Tablet 2 Mg PO BIDWMEALS Aspirin Ec (Aspirin) 81 Mg Tablet.dr 81 Mg PO DAILYWBKFT Diltiazem 24Hr Cd (Diltiazem HCl) 240 Mg Cap.er.24h 240 Mg PO DAILY Reported Metoprolol Tartrate 50 Mg Tablet 50 Mg PO BID Amlodipine Besylate 5 Mg Tablet 5 Mg PO DAILY Ventolin Hfa Inhaler (Albuterol Sulfate) 18 Gm Hfa.aer.ad 2 Puff INH QID Symbicort 160-4.5 Mcg Inhaler (Budesonide/Formoterol Fumarate) 10.2 Gm Hfa.aer.ad 2 Puff IH BID Atorvastatin Calcium 10 Mg Tablet 1 Tab PO DAILY Allergies Allergies: Coded Allergies: No Known Drug Allergies (Unverified , 12/04/15) Physical Exam Physical Exam General Appearance: Patient is currently sedated and orally intubated on the vent via ET tube Eyes: Sclera is anicteric, pupils are fixed and dilated EN: No EN Drainage Mucous Memb. moist, no elicitable gag reflex Neck: no JVD m in JVP Supple no Thyromegaly CVS: S1 S2 soft Murmur No Gallop No Rub no Edema Resp: no Rales no Rhonchi no Acc. Muscle use GI: BAS -ve NO Bruit Non Tender ? Min Distended : no CVA tenderness; no Suprapubic Tenderness SKIN: novisible Rashes Breast Exam deferred Mu.Sk: Adequate passive ROM no Muscle Atrophy Heme: Unable to palpate Obvious LAD no palp Splenomegaly NEURO: Unable to currently assess due to sedated intubated state Psych: Unable to currently assess due to sedated and intubated state Vital Signs Vital Signs Date Time Temp Pulse Resp B/P (MAP) Pulse Ox O2 Delivery O2 Flow Rate FiO2 03/06/18 09:00 74 03/06/18 07:18 Ventilator 03/06/18 04:58 99 03/06/18 04:01 98.2 20 0/0 (0) 3.0 98.2 Assessment & Plan ARF/ ATN: Presumed due to CODE BLUE situation. Volume depletion cannot be ruled out. IV fluids ongoing. Current FLuid and E-lyte status does not necessitate emergent need for Dialysis. ? Candidacy for SCHEDULE PLANNING MANAGER if the need arises given current underlying neurological dysfunction Hyperkalemia: Presumably due to metabolic acidosis. IV bicarbonate and has been ordered. Potassium will be rechecked. She remains on dextrose with bicarbonate drip Severe metabolic acidosis: Suspect lactic acidosis: Presumably due to tissue hypoperfusion associated with CODE BLUE situation. She remains on IV fluids with bicarbonate. Possible intravascular volume depletion: IV fluids as ordered she has received IV fluid boluses also. Most recent echocardiogram from 10/05/17 was reviewed and it appears she has preserved EF Oligo anuria: Reevaluate after IV fluid administration. Some level of ATN may already have setin. Hypotension: Presumably due to septic shock versus hypovolemic shock. Volume repletion has already been undertaken. We'll defer to critical care physician's to manage septic shock. Underlying chronic kidney disease stage III with baseline creatinine as outlined above Severe anemia on presentation: Hemoglobin now up to 7.2. It is unclear to me if this was spuriously low. Watch trend and eval for blood loss. Initial CBC showed pancytopenia and hence may be dilutional Discussed Plan of Care and prognosis etc. at length with family( granddaughter at bedside) Abnormal imaging of the kidneys: We'll check lipase to rule out pancreatitis. Pyelonephritis cannot be ruled out. Renal cyst: No immediate workup for this at this time. If the patient survives Her current critical illness, she may need further evaluation with IV contrast Prognosis remains very poor at this moment Labs Labs Laboratory Tests Test 03/06/18 04:40 03/06/18 04:59 03/06/18 05:26 03/06/18 05:30 Glucose (Fingerstick) 313 mg/dL (70-99) White Blood Count 3.2 x10^3/uL (4.0-11.0) Red Blood Count 0.82 x10^6/uL (3.50-5.40) Hemoglobin 2.4 g/dL (12.0-15.5) 7.2 g/dL (12.0-15.5) Hematocrit 8.9 % (36.0-47.0) 24.1 % (36.0-47.0) Mean Corpuscular Volume 108 fL (79-100) Mean Corpuscular Hemoglobin 29 pg (25-35) Mean Corpuscular Hemoglobin Concent 27 g/dL (31-37) 30 g/dL (31-37) Red Cell Distribution Width 19.9 % (11.5-14.5) Platelet Count 62 x10^3/uL (140-400) Neutrophils (%) (Auto) 57 % (31-73) Lymphocytes (%) (Auto) 37 % (24-48) Monocytes (%) (Auto) 5 % (0-9) Eosinophils (%) (Auto) 1 % (0-3) Basophils (%) (Auto) 0 % (0-3) Neutrophils # (Auto) 1.8 x10^3uL (1.8-7.7) Lymphocytes # (Auto) 1.2 x10^3/uL (1.0-4.8) Monocytes # (Auto) 0.2 x10^3/uL (0.0-1.1) Eosinophils # (Auto) 0.0 x10^3/uL (0.0-0.7) Basophils # (Auto) 0.0 x10^3/uL (0.0-0.2) Sodium Level 139 mmol/L (136-145) Potassium Level 6.2 mmol/L (3.5-5.1) Chloride Level 102 mmol/L (98-107) Carbon Dioxide Level 10 mmol/L (21-32) Anion Gap 27 (6-14) Blood Urea Nitrogen 55 mg/dL (7-20) Creatinine 3.1 mg/dL (0.6-1.0) Estimated GFR (Cockcroft-Gault) 17.5 BUN/Creatinine Ratio 18 (6-20) Glucose Level 301 mg/dL (70-99) Calcium Level 8.2 mg/dL (8.5-10.1) Total Bilirubin 0.4 mg/dL (0.2-1.0) Aspartate Amino Transf (AST/SGOT) 604 U/L (15-37) Alanine Aminotransferase (ALT/SGPT) 416 U/L (14-59) Alkaline Phosphatase 65 U/L (46-116) Troponin I Quantitative < 0.017 ng/mL (0.000-0.055) QV-Nlb-C-Type Natriuretic Peptide 9754 pg/mL (0-449) Total Protein 5.9 g/dL (6.4-8.2) Albumin 2.5 g/dL (3.4-5.0) Albumin/Globulin Ratio 0.7 (1.0-1.7) O2 Saturation 99 % (92-99) Arterial Blood pH 6.90 (7.35-7.45) Arterial Blood pH (Temp corrected) 6.94 Arterial Blood pCO2 at Patient Temp 39 mmHg (35-46) Arterial Blood pCO2 (Temp correct) 34 mmHg Arterial Blood pO2 at Patient Temp 412 mmHg (65-108) Arterial Blood pO2 (Temp corrected) 394 mmHg Arterial Blood HCO3 7 mmol/L (21-28) Arterial Blood Base Excess -24 mmol/L (-3-3) FiO2 100.0 Test 03/06/18 05:55 03/06/18 10:05 Stool Occult Blood Positive (NEG) Troponin I Quantitative < 0.017 ng/mL (0.000-0.055) Laboratory Tests Test 03/06/18 04:40 03/06/18 04:59 03/06/18 05:26 03/06/18 05:30 Glucose (Fingerstick) 313 mg/dL (70-99) White Blood Count 3.2 x10^3/uL (4.0-11.0) Red Blood Count 0.82 x10^6/uL (3.50-5.40) Hemoglobin 2.4 g/dL (12.0-15.5) 7.2 g/dL (12.0-15.5) Hematocrit 8.9 % (36.0-47.0) 24.1 % (36.0-47.0) Mean Corpuscular Volume 108 fL (79-100) Mean Corpuscular Hemoglobin 29 pg (25-35) Mean Corpuscular Hemoglobin Concent 27 g/dL (31-37) 30 g/dL (31-37) Red Cell Distribution Width 19.9 % (11.5-14.5) Platelet Count 62 x10^3/uL (140-400) Neutrophils (%) (Auto) 57 % (31-73) Lymphocytes (%) (Auto) 37 % (24-48) Monocytes (%) (Auto) 5 % (0-9) Eosinophils (%) (Auto) 1 % (0-3) Basophils (%) (Auto) 0 % (0-3) Neutrophils # (Auto) 1.8 x10^3uL (1.8-7.7) Lymphocytes # (Auto) 1.2 x10^3/uL (1.0-4.8) Monocytes # (Auto) 0.2 x10^3/uL (0.0-1.1) Eosinophils # (Auto) 0.0 x10^3/uL (0.0-0.7) Basophils # (Auto) 0.0 x10^3/uL (0.0-0.2) Sodium Level 139 mmol/L (136-145) Potassium Level 6.2 mmol/L (3.5-5.1) Chloride Level 102 mmol/L (98-107) Carbon Dioxide Level 10 mmol/L (21-32) Anion Gap 27 (6-14) Blood Urea Nitrogen 55 mg/dL (7-20) Creatinine 3.1 mg/dL (0.6-1.0) Estimated GFR (Cockcroft-Gault) 17.5 BUN/Creatinine Ratio 18 (6-20) Glucose Level 301 mg/dL (70-99) Calcium Level 8.2 mg/dL (8.5-10.1) Total Bilirubin 0.4 mg/dL (0.2-1.0) Aspartate Amino Transf (AST/SGOT) 604 U/L (15-37) Alanine Aminotransferase (ALT/SGPT) 416 U/L (14-59) Alkaline Phosphatase 65 U/L (46-116) Troponin I Quantitative < 0.017 ng/mL (0.000-0.055) LQ-Oye-K-Type Natriuretic Peptide 9754 pg/mL (0-449) Total Protein 5.9 g/dL (6.4-8.2) Albumin 2.5 g/dL (3.4-5.0) Albumin/Globulin Ratio 0.7 (1.0-1.7) O2 Saturation 99 % (92-99) Arterial Blood pH 6.90 (7.35-7.45) Arterial Blood pH (Temp corrected) 6.94 Arterial Blood pCO2 at Patient Temp 39 mmHg (35-46) Arterial Blood pCO2 (Temp correct) 34 mmHg Arterial Blood pO2 at Patient Temp 412 mmHg (65-108) Arterial Blood pO2 (Temp corrected) 394 mmHg Arterial Blood HCO3 7 mmol/L (21-28) Arterial Blood Base Excess -24 mmol/L (-3-3) FiO2 100.0 Test 03/06/18 05:55 03/06/18 10:05 Stool Occult Blood Positive (NEG) Troponin I Quantitative < 0.017 ng/mL (0.000-0.055) Review All relevant outside records, renal labs, imaging studies, telemetry/EKG's were reviewed. Images Images 1. 7 cm round cystic density identified in the region of the cervix posterior to the urinary bladder and abutting the inferior aspect of the uterus measuring 30 Hounsfield units could be cystic degeneration of fibroid, or focal fluid collection/abscess, ovarian cyst or cystic lesion or cervical fluid collection. Differentiation is difficult without IV contrast. Consider ultrasound pelvis or MRI for further evaluation. 2. Cholelithiasis with mild distended gallbladder with minimal surrounding fat stranding. Underlying cholecystitis is not excluded. 3. Mild fat stranding identified about the pancreas abutting left adrenal gland and the left kidney, correlate for acute pancreatitis or pyelonephritis. 4. 2.1 cm cystic structure identified in the right kidney could be a cyst or cystic lesion. 5. Bibasilar lung consolidation changes with small bilateral pleural effusions likely pneumonia or atelectasis. Echocardiogram from 10/05/17 Left ventricle systolic function is low normal. The Ejection Fraction is 50-55%. There is normal LV segmental wall motion. Doppler and Color Flow revealed mild tricuspid regurgitation. The PA pressure was estimated at 36 mmHg. Signed by : Irineo Denis, Electronically Approved : 10/05/2017 14:30:23 MELISSA NICOLE MD Mar 06, 2018 11:49
--- NOTE | 2018-03-06 11:53 | CONS ---
DATE OF CONSULTATION: ATTENDING PHYSICIAN: Dr. Marr. REASON FOR CONSULTATION: Respiratory failure, cardiac arrest, severe anemia. HISTORY OF PRESENT ILLNESS: The patient is an 82-year-old female who has history of tobacco use and has chronic hypoxic respiratory failure, has been on home oxygen at 3 liters. The patient was found to be weak, lethargic and in severe abdominal pain. EMS was called. By the time EMS arrived, she was lethargic with altered mental status. They gave her D50 and brought her to the ER. In the ER, she became unresponsive. Reportedly, she had 3-4 rounds of CPR. The patient was hypothermic on arrival as well. She was noted to have a core body temperature of 92 present on admission. She was noted to have a severely low hemoglobin of 2.4. She did receive a couple units of packed RBCs and surprisingly, the hemoglobin went up to 7.2. She was intubated. She is not sedated. She is not responsive. She is currently requiring 2 pressors including dopamine and epi, her pressure systolic is in the 80s. She did receive 3 liters of IV fluid. Her pH was 6.9, pCO2 of 39 and a pO2 of 412 on 100% FiO2. She is currently receiving bicarbonate drip as well, as her bicarbonate was 7. I did a bedside evaluation. She has fixed and dilated pupils. There is no gag reflex and there is no spontaneous respirations. The patient's son is at the bedside who gave also much of the history. said she was anemic and was taking iron. She has some black stools recently. PAST MEDICAL HISTORY: Significant for history of COPD, CHF, diabetes, dyslipidemia, heart disease, hypertension, pneumonia, and chronic hypoxic respiratory failure. PAST SURGICAL HISTORY: Carpal tunnel and shoulder. ALLERGIES: None. MEDICATIONS: Reviewed, as listed in the MRAD. REVIEW OF SYSTEMS: Unable to obtain as she is on the ventilator. SOCIAL HISTORY: Tobacco use for at least 30 years before quitting. PHYSICAL EXAMINATION: VITAL SIGNS: Latest shows a systolic blood pressure of 86. Temperature is now 98 degree Fahrenheit, pulse ox is 97%. HEENT: Sclerae nonicteric. Pupils fixed and dilated. NECK: Supple. LUNGS: With diminished breath sounds. CARDIOVASCULAR: Regular rate ABDOMEN: Soft. EXTREMITIES: With signs of venous stasis. LABORATORY DATA: Reviewed. ABGs are discussed in my history of present illness. BUN is 55, creatinine 3.1, bicarbonate 10. Potassium 6.2. ProBNP is 9754. Albumin 2.5. Hemoglobin up from 2.4-7.2. IMAGING STUDY: Reviewed. Chest x-ray which shows slightly prominent interstitial marking; however, CT abdomen and pelvis did not show any definite interstitial edema. There was evidence of basal consolidation versus atelectasis. There was also a 7 cm rounded cystic density in the cervix, posterior to the urinary bladder. IMPRESSION: 1. Acute respiratory failure secondary to cardiac arrest. 2. Cardiac arrest, requiring 3-4 rounds of cardiopulmonary resuscitation. Etiology was related to severe [id number]-[id number] anemia and shock resulting from hypovolemia 3. Suspected brain . The patient has fixed and dilated pupils. She has no gag reflex and no spontaneous respirations. She was hypothermic on arrival. 4. Severe svima-if-xnifxin anemia with a hemoglobin of 2.4, now 7.2. 5. Persistent shock. Suspect combination of hypovolemic/ chronic hemorrhagic and possible septic shock. 6. Acute kidney injury related to shock. 7. Hyperkalemia. 8. Moderate protein-calorie malnutrition. 9. Severe metabolic acidosis secondary to shock and acute renal failure. 10. Severe Anemia with Hb of 2.4 POA RECOMMENDATION: 1. Continue with present assist control mode and follow ABGs. 2. Continue present vasopressors and add vasopressin to keep systolic pressure above 90. 3. We will need a pelvic ultrasound to determine the source of her blood loss and to rule out source as cervix. 4. Follow hemoglobin closely and she may need more packed RBCs. 5. Vasopressor support. 6. SCDs. 7. Empiric antibiotics. 8. Follow renal function. 9. Follow potassium. 10. Renal consult and follow recommendation. 11. Discussed with the patient's son at the bedside. He understands that her prognosis is extremely grim. She is DNR. We will give her 24 hours to see if there is any clinical improvement. We will consider apnea test in the next 24 hours if she remains unresponsive. Discussed with RN, discussed with RT. Critical care time 40 minutes. KE GARCIA MD DR: MEHREEN/melody JOB#: [id number] / [id number] MTDD
[2018-03-06 12:03] LABS: HEMATOCRIT 32.9 % (36.0-47.0)
[2018-03-06 12:41] LABS: % BANDS 12 % (0-9); % LYMPHS 32 % (24-48); % MONOS 6 % (0-10); % MYELOS 2 % (0-0); % SEGS 48 % (35-66); PLT ESTIMATE DECREASED (ADEQUATE)
[2018-03-06 12:42] LABS: ANISOCYTOSIS SLIGHT; OVALOCYTES FEW; POIKILOCYTOSIS SLIGHT
[2018-03-06] MEDS ORDERED: METF500T5 PO (13:00)
[2018-03-06] MEDS ORDERED: LOSA25TA4 PO (13:00)
[2018-03-06] MEDS ORDERED: ONDANSETRON PF 4 MG/2 ML VIAL. IV PRN (13:00)
[2018-03-06] MEDS ORDERED: MONT10TA9 PO (13:00)
[2018-03-06] MEDS ORDERED: MAGN27TA5 PO (13:00)
[2018-03-06] MEDS ORDERED: DOCUSATE SODIUM 100 MG CAPSULE. PO PRN (13:00)
[2018-03-06] MEDS ORDERED: POTA10TA12 PO (13:00)
[2018-03-06] MEDS ORDERED: FERR325T14 PO (13:00)
[2018-03-06] MEDS ORDERED: MORPHINE SULFATE 2 MG/ML VIAL. IV PRN (13:00)
[2018-03-06] MEDS ORDERED: traMADol 50 MG TABLET PO PRN (13:00)
[2018-03-06] MEDS ORDERED: VANCOMYCIN PER PHARMACY MC PRN (13:00)
[2018-03-06] MEDS ORDERED: DILT240T3 PO (13:00)
[2018-03-06] MEDS ORDERED: ACETAMINOPHEN 325 MG TABLET. PO PRN (13:00)
[2018-03-06] MEDS ORDERED: DEXTROSE 50% 25 GM / 50ML DISP.SYRIN. IV PRN (13:00)
[2018-03-06] MEDS ORDERED: GLIM4TAB2 PO (13:00)
[2018-03-06 13:07] LABS: CALCIUM 8.1 mg/dL (8.5-10.1); CREATININE 3.3 mg/dL (0.6-1.0); GFR 16.3; POTASSIUM 5.8 mmol/L (3.5-5.1)
--- NOTE | 2018-03-06 13:12 | PDOC1 ---
History and Physical Date of Admission Date of Admission 03/06/18 Identification/Chief Complaint Chief Complaint abd pain, bradycardia Source Source: Caregiver, Chart review History of Present Illness History of Present Illness HPI Patient is an 82-year-old female who presents via EMS with report of severe abdominal pain. pt seen in ER intubated, all history got from son and ERP. Pt lives alone, independent, last seen well was yesterday. Son said from early am pt was found some AMS and glucose was low at 30s, better with food and d50 but pt refused to come to ER. Later they called EMS again, with abd pain, son found pt was in bathroom for a long time, with dark stool on the floor. EMS found pt HR 20s, bp 80s. Pt had 2 times CPR in ER, PEA as per nurse, 5 and 2 min. dopamin drip added, HR slowly improving to 30s, bp low, epi then started. PT WAS also found many critical labs including hb 2, K 6, Bicarb 10, Cr 3, BNP 9000. intubated on 100% fibo2, PEEP 5. Past Medical History Cardiovascular: HTN Pulmonary: COPD CENTRAL NERVOUS SYSTEM: Other Renal/: Chronic renal insuff Endocrine: Diabetes Past Surgical History Past Surgical History: Other Family History Family History: Hypertension Social History Smoke: Quit ALCOHOL: none Drugs: None Current Problem List Problem List Problems Medical Problems: (1) Anemia Status: Acute (2) Cardiac arrest Status: Acute (3) Metabolic acidosis Status: Acute Current Medications Current Medications Current Medications Medications (Trade) Dose Ordered Sig/Venessa Start Time Stop Time Status Last Admin Dose Admin Calcium Gluconate (Calcium Gluconate) 1,000 mg 1X ONCE 03/06/18 07:45 03/06/18 07:46 DC Dextrose (Dextrose 50%-Water Syringe) 25 gm STK-MED ONCE 03/06/18 11:14 03/06/18 11:15 DC Dopamine HCl/ Dextrose 250 ml @ 6.294 mls/ hr CONT PRN 03/06/18 11:15 03/06/18 11:16 62.936 MLS/HR Epinephrine HCl (Adrenalin) 1 mg STK-MED ONCE 03/06/18 07:29 03/06/18 07:30 DC Epinephrine HCl (EPINEPHrine SYRINGE) 1 mg STK-MED ONCE 03/06/18 07:31 8/26/18 07:32 DC Epinephrine HCl 4 mg/Sodium Chloride 254 ml @ 319.71 mls/ hr CONT PRN 03/06/18 07:45 Insulin Human Regular (HumuLIN R VIAL) 10 unit 1X ONCE 03/06/18 11:45 03/06/18 11:46 DC 03/06/18 11:24 10 UNIT Ipratropium Adams (Atrovent) 0.5 mg 1X ONCE 03/06/18 04:30 03/06/18 04:38 DC 03/06/18 04:30 0.5 MG Midazolam HCl (Versed) 5 mg STK-MED ONCE 03/06/18 07:11 03/06/18 07:12 DC Norepinephrine Bitartrate 250 ml @ As Directed STK-MED ONCE 03/06/18 10:16 03/06/18 10:17 DC Pantoprazole Sodium (PROTONIX VIAL for IV PUSH) 40 mg DAILY 03/06/18 09:00 03/06/18 09:55 40 MG Piperacillin Sod/ Tazobactam Sod (Zosyn Per Pharmacy) 1 each PRN DAILY PRN 03/06/18 11:00 Piperacillin Sod/ Tazobactam Sod 2.25 gm/Sodium Chloride 50 ml @ 100 mls/hr Q6HRS 03/06/18 12:00 03/06/18 11:24 100 MLS/HR Sodium Bicarbonate 150 meq/Sterile Water 1,150 ml @ 125 mls/hr 1X ONCE 03/06/18 08:00 03/06/18 17:11 03/06/18 09:55 125 MLS/HR Sodium Bicarbonate (Sodium Bicarb Adult 8.4% Syr) 50 meq 1X ONCE 03/06/18 07:45 03/06/18 07:46 DC Sodium Chloride 1,000 ml @ 1,000 mls/hr 1X ONCE 03/06/18 10:45 03/06/18 11:44 DC 03/06/18 11:16 1,000 MLS/HR Vasopressin 40 unit/Dextrose 102 ml @ 6 mls/hr CONT PRN 03/06/18 10:30 03/06/18 10:40 6 MLS/HR Vecuronium Adams (Norcuron Bolus) 10 mg STK-MED ONCE 03/06/18 07:11 03/06/18 07:12 DC Allergies Allergies Allergies Coded Allergies Type Severity Reaction Last Updated Verified No Known Drug Allergies 5/25/16 No ROS Review of System CONSTITUTIONAL: No fever or chills EYES: No recent changes SKIN: No rash or itching CARDIOVASCULAR: No chest pain, syncope, palpitations, or edema RESPIRATORY: No SOB or cough GASTROINTESTINAL: No nausea, vomiting or abdominal pain NEUROLOGICAL: No headaches or weakness ENDOCRINE: No cold or heat intolerance GENITOURINARY: No urgency or frequency of urination MUSCULOSKELETAL: No back pain or joint pain LYMPHATICS: No enlarged lymph nodes PSYCHIATRIC: No anxiety or depression Physical Exam Physical Exam GEN.: intubated, sedated. HEENT: Head is normocephalic, atraumatic NECK: Supple. LUNGS: Clear to auscultation. HEART: RRR, S1, S2 present. Peripheral pulses intact ABDOMEN: Soft, nontender. Positive bowel sounds. EXTREMITIES: Without any cyanosis. NEUROLOGIC: Normal speech, normal tone PSYCHIATRIC: Normal affect, normal mood. SKIN: No ulcerations Vitals Vitals Vital Signs Date Time Temp Pulse Resp B/P (MAP) Pulse Ox O2 Delivery O2 Flow Rate FiO2 03/06/18 12:10 Mechanical Ventilator 03/06/18 12:00 94.1 86 12 103/58 (73) 97 94.1 03/06/18 04:01 3.0 Labs Labs Laboratory Tests Test 03/06/18 04:40 03/06/18 04:59 03/06/18 05:26 03/06/18 05:30 Glucose (Fingerstick) 313 mg/dL (70-99) White Blood Count 3.2 x10^3/uL (4.0-11.0) Red Blood Count 0.82 x10^6/uL (3.50-5.40) Hemoglobin 2.4 g/dL (12.0-15.5) 7.2 g/dL (12.0-15.5) Hematocrit 8.9 % (36.0-47.0) 24.1 % (36.0-47.0) Mean Corpuscular Volume 108 fL (79-100) Mean Corpuscular Hemoglobin 29 pg (25-35) Mean Corpuscular Hemoglobin Concent 27 g/dL (31-37) 30 g/dL (31-37) Red Cell Distribution Width 19.9 % (11.5-14.5) Platelet Count 62 x10^3/uL (140-400) Neutrophils (%) (Auto) 57 % (31-73) Lymphocytes (%) (Auto) 37 % (24-48) Monocytes (%) (Auto) 5 % (0-9) Eosinophils (%) (Auto) 1 % (0-3) Basophils (%) (Auto) 0 % (0-3) Neutrophils # (Auto) 1.8 x10^3uL (1.8-7.7) Lymphocytes # (Auto) 1.2 x10^3/uL (1.0-4.8) Monocytes # (Auto) 0.2 x10^3/uL (0.0-1.1) Eosinophils # (Auto) 0.0 x10^3/uL (0.0-0.7) Basophils # (Auto) 0.0 x10^3/uL (0.0-0.2) Segmented Neutrophils % 48 % (35-66) Band Neutrophils % 12 % (0-9) Lymphocytes % 32 % (24-48) Monocytes % 6 % (0-10) Myelocytes % 2 % (0-0) Platelet Estimate Decreased (ADEQUATE) Poikilocytosis Slight Anisocytosis Slight Macrocytosis Slight Ovalocytes Few Sodium Level 139 mmol/L (136-145) Potassium Level 6.2 mmol/L (3.5-5.1) Chloride Level 102 mmol/L (98-107) Carbon Dioxide Level 10 mmol/L (21-32) Anion Gap 27 (6-14) Blood Urea Nitrogen 55 mg/dL (7-20) Creatinine 3.1 mg/dL (0.6-1.0) Estimated GFR (Cockcroft-Gault) 17.5 BUN/Creatinine Ratio 18 (6-20) Glucose Level 301 mg/dL (70-99) Calcium Level 8.2 mg/dL (8.5-10.1) Total Bilirubin 0.4 mg/dL (0.2-1.0) Aspartate Amino Transf (AST/SGOT) 604 U/L (15-37) Alanine Aminotransferase (ALT/SGPT) 416 U/L (14-59) Alkaline Phosphatase 65 U/L (46-116) Troponin I Quantitative < 0.017 ng/mL (0.000-0.055) OL-Xqb-O-Type Natriuretic Peptide 9754 pg/mL (0-449) Total Protein 5.9 g/dL (6.4-8.2) Albumin 2.5 g/dL (3.4-5.0) Albumin/Globulin Ratio 0.7 (1.0-1.7) O2 Saturation 99 % (92-99) Arterial Blood pH 6.90 (7.35-7.45) Arterial Blood pH (Temp corrected) 6.94 Arterial Blood pCO2 at Patient Temp 39 mmHg (35-46) Arterial Blood pCO2 (Temp correct) 34 mmHg Arterial Blood pO2 at Patient Temp 412 mmHg (65-108) Arterial Blood pO2 (Temp corrected) 394 mmHg Arterial Blood HCO3 7 mmol/L (21-28) Arterial Blood Base Excess -24 mmol/L (-3-3) FiO2 100.0 Test 03/06/18 05:55 03/06/18 10:05 03/06/18 11:33 03/06/18 11:50 Stool Occult Blood Positive (NEG) Troponin I Quantitative < 0.017 ng/mL (0.000-0.055) Lipase 663 U/L (73-393) Hemoglobin 10.0 g/dL (12.0-15.5) Hematocrit 32.9 % (36.0-47.0) Mean Corpuscular Hemoglobin Concent 30 g/dL (31-37) Lactic Acid Level 37.2 mmol/L (0.4-2.0) Laboratory Tests Test 03/06/18 04:40 03/06/18 04:59 03/06/18 05:26 03/06/18 05:30 Glucose (Fingerstick) 313 mg/dL (70-99) White Blood Count 3.2 x10^3/uL (4.0-11.0) Red Blood Count 0.82 x10^6/uL (3.50-5.40) Hemoglobin 2.4 g/dL (12.0-15.5) 7.2 g/dL (12.0-15.5) Hematocrit 8.9 % (36.0-47.0) 24.1 % (36.0-47.0) Mean Corpuscular Volume 108 fL (79-100) Mean Corpuscular Hemoglobin 29 pg (25-35) Mean Corpuscular Hemoglobin Concent 27 g/dL (31-37) 30 g/dL (31-37) Red Cell Distribution Width 19.9 % (11.5-14.5) Platelet Count 62 x10^3/uL (140-400) Neutrophils (%) (Auto) 57 % (31-73) Lymphocytes (%) (Auto) 37 % (24-48) Monocytes (%) (Auto) 5 % (0-9) Eosinophils (%) (Auto) 1 % (0-3) Basophils (%) (Auto) 0 % (0-3) Neutrophils # (Auto) 1.8 x10^3uL (1.8-7.7) Lymphocytes # (Auto) 1.2 x10^3/uL (1.0-4.8) Monocytes # (Auto) 0.2 x10^3/uL (0.0-1.1) Eosinophils # (Auto) 0.0 x10^3/uL (0.0-0.7) Basophils # (Auto) 0.0 x10^3/uL (0.0-0.2) Segmented Neutrophils % 48 % (35-66) Band Neutrophils % 12 % (0-9) Lymphocytes % 32 % (24-48) Monocytes % 6 % (0-10) Myelocytes % 2 % (0-0) Platelet Estimate Decreased (ADEQUATE) Poikilocytosis Slight Anisocytosis Slight Macrocytosis Slight Ovalocytes Few Sodium Level 139 mmol/L (136-145) Potassium Level 6.2 mmol/L (3.5-5.1) Chloride Level 102 mmol/L (98-107) Carbon Dioxide Level 10 mmol/L (21-32) Anion Gap 27 (6-14) Blood Urea Nitrogen 55 mg/dL (7-20) Creatinine 3.1 mg/dL (0.6-1.0) Estimated GFR (Cockcroft-Gault) 17.5 BUN/Creatinine Ratio 18 (6-20) Glucose Level 301 mg/dL (70-99) Calcium Level 8.2 mg/dL (8.5-10.1) Total Bilirubin 0.4 mg/dL (0.2-1.0) Aspartate Amino Transf (AST/SGOT) 604 U/L (15-37) Alanine Aminotransferase (ALT/SGPT) 416 U/L (14-59) Alkaline Phosphatase 65 U/L (46-116) Troponin I Quantitative < 0.017 ng/mL (0.000-0.055) UM-Tzw-H-Type Natriuretic Peptide 9754 pg/mL (0-449) Total Protein 5.9 g/dL (6.4-8.2) Albumin 2.5 g/dL (3.4-5.0) Albumin/Globulin Ratio 0.7 (1.0-1.7) O2 Saturation 99 % (92-99) Arterial Blood pH 6.90 (7.35-7.45) Arterial Blood pH (Temp corrected) 6.94 Arterial Blood pCO2 at Patient Temp 39 mmHg (35-46) Arterial Blood pCO2 (Temp correct) 34 mmHg Arterial Blood pO2 at Patient Temp 412 mmHg (65-108) Arterial Blood pO2 (Temp corrected) 394 mmHg Arterial Blood HCO3 7 mmol/L (21-28) Arterial Blood Base Excess -24 mmol/L (-3-3) FiO2 100.0 Test 03/06/18 05:55 03/06/18 10:05 03/06/18 11:33 03/06/18 11:50 Stool Occult Blood Positive (NEG) Troponin I Quantitative < 0.017 ng/mL (0.000-0.055) Lipase 663 U/L (73-393) Hemoglobin 10.0 g/dL (12.0-15.5) Hematocrit 32.9 % (36.0-47.0) Mean Corpuscular Hemoglobin Concent 30 g/dL (31-37) Lactic Acid Level 37.2 mmol/L (0.4-2.0) VTE Prophylaxis Ordered VTE Prophylaxis Devices: Yes VTE Pharmacological Prophylaxi: No Assessment/Plan Assessment/Plan bradycardia hypothermia cardiac arrest, code 2 times, high K, met acidosis SHock with possible sepsis ANDREA, ATN HYPERkalemia PANCytopenia, with possible gib acute on chronic hypoxic resp failure with code dm2 htn hld CHF, diastolic COPD on home o2 3L CKD3 elevated LFT with code moderate malnutrition morbid obesity pelvic 7cm fluid collection on CT kidney cyst lactate acidosis metabolic acidosis plan: pulm,card, gi, renal, onco IR consult for drain intubated, sedated ,ICU care on dopamin ,epi drip , keep MAP> 65, CHECK echo hold home meds npo, abd ct done, will get US pelvis ssi q6h on bicarb drip add vanco, zosyn iv talked to son, DNR cc time 40min IDA RUANO MD Mar 06, 2018 13:12
[2018-03-06 13:21] LABS: BASE EXCESS ABG -21 mmol/L (-3-3); HCO3 ABG 11 mmol/L (21-28); PCO2 ABG 54 mmHg (35-46); PO2 ABG 202 mmHg (65-108); SAT O2 ABG 99 % (92-99)
[2018-03-06 13:25] LABS: CORRECTED PCO2 ABG 50 mmHg; CORRECTED PH ABG 6.94; CORRECTED PO2 ABG 193 mmHg
[2018-03-06 13:28] LABS: FIO2 ABG 100
[2018-03-06] MEDS ORDERED: VANCOMYCIN 2 GM in IV NORMAL SALINE 500ML BAG 500 ML IV ONE (13:30)
[2018-03-06 13:39] LABS: PROTHROMBIN TIME PATIENT 18.7 SEC (11.7-14.0)
[2018-03-06] MEDS ORDERED: PHENYLEPHRINE INJ 20 MG in IV NORMAL SALINE 250ML 250 ML IV ONE (14:00)
--- NOTE | 2018-03-06 14:20 | PDOC2 ---
GI CONSULT Reason For Consult: abd pain HPI: HPI: 82-year-old female who was found by her son after complaingin of abdominal pain. He found her with dark stools. She does take iron for anemia. He does not think that she has ever had endoscopy. Her initial labs were Hgb 2, Lipase 663, AST [address] with cholelithiasis and standing around pancreas. Per ER notes EMS was called to the house for lowish sugars and she refused transportation to the hospital. There were recent for abdominal pain and she was brought to the ER. In the ER she is intubated and sedated. Currently she has fixed and dilated pupils as well as no gag reflex. She is noted to have a bicarbonate of 10 anion gap of 27 lactic acid is not available and a potassium of 6.2 for which we were consulted for further evaluation of the same. Her creatinine is also up to 3.1 today. She did undergo CODE BLUE situation with CPR. PMH: PMH: Past Medical History Past Medical History CHF, hyperlipidemia, COPD, asthma, pneumonia, carpal tunnel syndrome, previous smoker Cardiovascular: HTN Pulmonary: COPD CENTRAL NERVOUS SYSTEM: Other Musculoskeletal: No pain Renal/: Chronic renal insuff Endocrine: Diabetes Past Surgical History Past Surgical History: Other Family History Family History Unable to obtain currently while patient is sedated and intubated. Suspect noncontributory given her advanced age Family History: Hypertension Social History ALCOHOL: none Drugs: None Lives: with Family Active Scripts Active Furosemide 40 Mg Tablet 40 Mg PO DAILY Combivent Respimat Inhal (Ipratropium/Albuterol Sulfate) 4 Gm Aer.w.adap 1 Inh IH QID Amaryl (Glimepiride) 2 Mg Tablet 2 Mg PO BIDWMEALS Aspirin Ec (Aspirin) 81 Mg Tablet.dr 81 Mg PO DAILYWBKFT Diltiazem 24Hr Cd (Diltiazem HCl) 240 Mg Cap.er.24h 240 Mg PO DAILY Reported Metoprolol Tartrate 50 Mg Tablet 50 Mg PO BID Amlodipine Besylate 5 Mg Tablet 5 Mg PO DAILY Ventolin Hfa Inhaler (Albuterol Sulfate) 18 Gm Hfa.aer.ad 2 Puff INH QID Symbicort 160-4.5 Mcg Inhaler (Budesonide/Formoterol Fumarate) 10.2 Gm Hfa.aer.ad 2 Puff IH BID Atorvastatin Calcium 10 Mg Tablet 1 Tab PO DAILY Allergies Allergies: Coded Allergies: No Known Drug Allergies (Unverified , 12/04/15) Social History: Smoke: Quit ALCOHOL: none Drugs: None ROS: GEN: Denies fevers, chills, sweats HEENT: Denies blurred vision, sore throat CV: Denies chest pain RESP: Denies shortness of air, cough GI: Per HPI : Denies hematuria, dysuria ENDO: Denies weight changes NEURO: Denies confusion, dizziness MSK: Denies weakness, joint pain/swelling SKIN: Denies jaundice, pruritus VItals: Vitals: Vital Signs Date Time Temp Pulse Resp B/P (MAP) Pulse Ox O2 Delivery O2 Flow Rate FiO2 03/06/18 12:10 Mechanical Ventilator 03/06/18 12:00 94.1 86 12 103/58 (73) 97 94.1 03/06/18 04:01 3.0 Labs: Labs: Laboratory Tests Test 03/06/18 04:40 03/06/18 04:59 03/06/18 05:26 03/06/18 05:30 Glucose (Fingerstick) 313 mg/dL (70-99) White Blood Count 3.2 x10^3/uL (4.0-11.0) Red Blood Count 0.82 x10^6/uL (3.50-5.40) Hemoglobin 2.4 g/dL (12.0-15.5) 7.2 g/dL (12.0-15.5) Hematocrit 8.9 % (36.0-47.0) 24.1 % (36.0-47.0) Mean Corpuscular Volume 108 fL (79-100) Mean Corpuscular Hemoglobin 29 pg (25-35) Mean Corpuscular Hemoglobin Concent 27 g/dL (31-37) 30 g/dL (31-37) Red Cell Distribution Width 19.9 % (11.5-14.5) Platelet Count 62 x10^3/uL (140-400) Neutrophils (%) (Auto) 57 % (31-73) Lymphocytes (%) (Auto) 37 % (24-48) Monocytes (%) (Auto) 5 % (0-9) Eosinophils (%) (Auto) 1 % (0-3) Basophils (%) (Auto) 0 % (0-3) Neutrophils # (Auto) 1.8 x10^3uL (1.8-7.7) Lymphocytes # (Auto) 1.2 x10^3/uL (1.0-4.8) Monocytes # (Auto) 0.2 x10^3/uL (0.0-1.1) Eosinophils # (Auto) 0.0 x10^3/uL (0.0-0.7) Basophils # (Auto) 0.0 x10^3/uL (0.0-0.2) Segmented Neutrophils % 48 % (35-66) Band Neutrophils % 12 % (0-9) Lymphocytes % 32 % (24-48) Monocytes % 6 % (0-10) Myelocytes % 2 % (0-0) Platelet Estimate Decreased (ADEQUATE) Poikilocytosis Slight Anisocytosis Slight Macrocytosis Slight Ovalocytes Few Sodium Level 139 mmol/L (136-145) Potassium Level 6.2 mmol/L (3.5-5.1) Chloride Level 102 mmol/L (98-107) Carbon Dioxide Level 10 mmol/L (21-32) Anion Gap 27 (6-14) Blood Urea Nitrogen 55 mg/dL (7-20) Creatinine 3.1 mg/dL (0.6-1.0) Estimated GFR (Cockcroft-Gault) 17.5 BUN/Creatinine Ratio 18 (6-20) Glucose Level 301 mg/dL (70-99) Calcium Level 8.2 mg/dL (8.5-10.1) Total Bilirubin 0.4 mg/dL (0.2-1.0) Aspartate Amino Transf (AST/SGOT) 604 U/L (15-37) Alanine Aminotransferase (ALT/SGPT) 416 U/L (14-59) Alkaline Phosphatase 65 U/L (46-116) Troponin I Quantitative < 0.017 ng/mL (0.000-0.055) GX-Ezc-Y-Type Natriuretic Peptide 9754 pg/mL (0-449) Total Protein 5.9 g/dL (6.4-8.2) Albumin 2.5 g/dL (3.4-5.0) Albumin/Globulin Ratio 0.7 (1.0-1.7) O2 Saturation 99 % (92-99) Arterial Blood pH 6.90 (7.35-7.45) Arterial Blood pH (Temp corrected) 6.94 Arterial Blood pCO2 at Patient Temp 39 mmHg (35-46) Arterial Blood pCO2 (Temp correct) 34 mmHg Arterial Blood pO2 at Patient Temp 412 mmHg (65-108) Arterial Blood pO2 (Temp corrected) 394 mmHg Arterial Blood HCO3 7 mmol/L (21-28) Arterial Blood Base Excess -24 mmol/L (-3-3) FiO2 100.0 Prothrombin Time 18.7 SEC (11.7-14.0) Prothromb Time International Ratio 1.6 (0.8-1.1) Test 03/06/18 05:55 03/06/18 10:05 03/06/18 11:33 03/06/18 11:50 Stool Occult Blood Positive (NEG) Troponin I Quantitative < 0.017 ng/mL (0.000-0.055) Lipase 663 U/L (73-393) Hemoglobin 10.0 g/dL (12.0-15.5) Hematocrit 32.9 % (36.0-47.0) Mean Corpuscular Hemoglobin Concent 30 g/dL (31-37) Lactic Acid Level 37.2 mmol/L (0.4-2.0) Test 03/06/18 12:50 03/06/18 13:15 Sodium Level 141 mmol/L (136-145) Potassium Level 5.8 mmol/L (3.5-5.1) Chloride Level 101 mmol/L (98-107) Carbon Dioxide Level 14 mmol/L (21-32) Anion Gap 26 (6-14) Blood Urea Nitrogen 57 mg/dL (7-20) Creatinine 3.3 mg/dL (0.6-1.0) Estimated GFR (Cockcroft-Gault) 16.3 Glucose Level 433 mg/dL (70-99) Calcium Level 8.1 mg/dL (8.5-10.1) Thyroid Stimulating Hormone (TSH) 4.074 uIU/mL (0.358-3.74) O2 Saturation 99 % (92-99) Arterial Blood pH 6.92 (7.35-7.45) Arterial Blood pH (Temp corrected) 6.94 Arterial Blood pCO2 at Patient Temp 54 mmHg (35-46) Arterial Blood pCO2 (Temp correct) 50 mmHg Arterial Blood pO2 at Patient Temp 202 mmHg (65-108) Arterial Blood pO2 (Temp corrected) 193 mmHg Arterial Blood HCO3 11 mmol/L (21-28) Arterial Blood Base Excess -21 mmol/L (-3-3) FiO2 100 Imaging: Imaging: IMPRESSION: 1. 7 cm round cystic density identified in the region of the cervix posterior to the urinary bladder and abutting the inferior aspect of the uterus measuring 30 Hounsfield units could be cystic degeneration of fibroid, or focal fluid collection/abscess, ovarian cyst or cystic lesion or cervical fluid collection. Differentiation is difficult without IV contrast. Consider ultrasound pelvis or MRI for further evaluation. 2. Cholelithiasis with mild distended gallbladder with minimal surrounding fat stranding. Underlying cholecystitis is not excluded. 3. Mild fat stranding identified about the pancreas abutting left adrenal gland and the left kidney, correlate for acute pancreatitis or pyelonephritis. 4. 2.1 cm cystic structure identified in the right kidney could be a cyst or cystic lesion. 5. Bibasilar lung consolidation changes with small bilateral pleural effusions likely pneumonia or atelectasis. Electronically signed by: Suraj Saha MD (03/06/2018 9:22 AM) [facility] PE: GEN: INtubated HEENT: pupils fixed and dilated LUNGS: CTAB HEART: RRR, no murmurs ABD: no BS. soft EXTREMITY: No edema SKIN: No rashes, no jaundice A/P: A/P: A 1) Abd pain 2) Cholelithiasis 3) Elevated lipase 4) Fe def anemia 5) elevated LFTs P Will follow with critical care team. Defer interventions for now YANG ROMAN MD Mar 06, 2018 14:20
--- NOTE | 2018-03-06 15:00 | RAD ---
EXAM: Pelvic sonogram. HISTORY: Adnexal cyst. TECHNIQUE: Transabdominal sonographic imaging of the pelvis was performed. COMPARISON: CT obtained on the same date. FINDINGS: The exam is significantly limited due to bowel gas and body habitus. The ovaries, uterus and cervix are obscured. There is a Huizar catheter within the urinary bladder. No pelvic free fluid is seen. IMPRESSION: 1. Significantly limited exam due to bowel gas and body habitus. The uterus and ovaries are obscured and the pelvic cystic lesion demonstrated on the CT performed on the same date is not assessed. This may be better characterized with transvaginal imaging or MRI. 2. Huizar catheter within the bladder. Electronically signed by: Shilpi Hunt MD (03/06/2018 2:57 PM) [facility]
[2018-03-06] MEDS ORDERED: ATROPINE 0.5 MG/5 ML DISP.SYRINGE. ONE (15:13)
[2018-03-06] MEDS ORDERED: CALCIUM CHLORIDE 1,000 MG/10 ML DISP.SYRIN ONE (15:13)
[2018-03-06] MEDS ORDERED: EPINEPHrine VIAL 30 MG/30 ML VIAL ONE ×2 (15:13)
[2018-03-06] MEDS ORDERED: SODIUM BICARB ADULT 8.4% 50 MEQ/50 ML DISP.SYRIN. ONE (15:13)
[2018-03-06] MEDS: fentaNYL PF VIAL 100 MCG/2 ML VIAL IV PRN ×2 (16:21→18:23)
[2018-03-06] MEDS ORDERED: INSULIN LISPRO 300 UNITS/3 ML INSULN.PEN. SQ SCH (17:00)
[2018-03-06] MEDS ORDERED: SODIUM BICARBONATE IV SCH (17:00)
[2018-03-06] MEDS ORDERED: NORMAL SALINE IV SCH (17:00)
[2018-03-06] MEDS: MIDAZOLAM HCL/PF 2 MG/2 ML VIAL. IV PRN ×2 (17:19→19:11)
--- NOTE | 2018-03-07 09:30 | CARD ---
MR#: [id number] Date of Study: 03/06/2018 Ordering Physician: IDA RUANO, Referring Physician: IDA RUANO, Tech: AGUSTINA Limon APPROVED REPORT EXAM: Two-dimensional and M-mode echocardiogram with Doppler and color Doppler. Other Information Quality : FairHR: 62bpm Technically limited study due to body habitus, supine, and on vent. INDICATION code 2D DIMENSIONS RVDd3.7 (2.9-3.5cm)Left Atrium(2D)2.6 (1.6-4.0cm) IVSd0.9 (0.7-1.1cm)Aortic Root(2D)2.8 (2.0-3.7cm) LVDd4.5 (3.9-5.9cm)LVOT Diameter1.9 (1.8-2.4cm) PWd1.0 (0.7-1.1cm)LVDs2.5 (2.5-4.0cm) FS (%) 43.9 %SV69.0 ml LVEF(%)75.3 (>50%) Aortic Valve AoV Peak Corwin.172.0cm/sAoV VTI28.6cm AO Peak GR.11.8mmHgLVOT Peak Corwin.113.4cm/s LVOT VTI 16.86cmAO Mean GR.6mmHg LUDIVINA (VMAX)1.54tj2GOY (VTI)1.75cm2 Mitral Valve MV E Khthcxfi49.9cm/sMV DECEL [id number] MV A Vhdmdcwp08.0cm/sMV RKD08ax E/A Ratio1.0MVA (PHT)3.24cm2 TDI E/Lateral E'7.7E/Medial E'5.8 Tricuspid Valve TR P. Qddsbgko847hq/sRAP [id number] TR Peak Gr.69etQoRZZE26tiGr LEFT VENTRICLE The left ventricle is normal size. There is normal left ventricular wall thickness. The left ventricu lar systolic function is normal and the ejection fraction is within normal range. EF 55% Septal motio n suggestive of right sided pressure overload. Grossly unremarkably otherwise. Tissue Doppler imaging reveals moderate left ventricular diastolic dysfunction. RIGHT VENTRICLE The right ventricle is mild to moderately dilated. Cannot rule out mild RV dysfunction. ATRIA The left atrium size is normal. The right atrium is mildly dilated. The interatrial septum is intact with no evidence for an atrial septal defect or patent foramen ovale as noted on 2-D or Doppler imagi ng. AORTIC VALVE The aortic valve is mildly to moderately sclerotic. Doppler and Color Flow revealed no significant ao rtic regurgitation. There is no significant aortic valvular stenosis. There is no aortic valvular veg etation. MITRAL VALVE The mitral valve is thickened but opens well. There is no evidence of mitral valve prolapse. There is no mitral valve stenosis. Doppler and Color Flow revealed no mitral valve regurgitation noted. TRICUSPID VALVE The tricuspid valve leaflets are thickened or calcified, but open well. Doppler and Color Flow reveal ed mild tricuspid regurgitation.There is severe pulmonary hypertension.The PA pressure was estimated at 75 mmHg. There is no tricuspid valve prolapse or vegetation. There is no tricuspid valve stenosis. PULMONIC VALVE The pulmonic valve is not well visualized. Doppler and Color Flow revealed no pulmonic valvular regur gitation. There is no pulmonic valvular stenosis. GREAT VESSELS The aortic root is normal size. The aortic root displays mild sclerocalcific changes of the aortic an nulus. The IVC is dilated and collapses <50% with inspiration. PERICARDIAL EFFUSION There is no pleural effusion. There is no evidence of significant pericardial effusion. Critical Notification Critical Value: No <Conclusion> The left ventricular systolic function is normal and the ejection fraction is within normal range. EF 55% Septal motion suggestive of right sided pressure overload. Grossly unremarkably otherwise. The right ventricle is mild to moderately dilated. Cannot rule out mild RV dysfunction. Doppler and Color Flow revealed mild tricuspid regurgitation.There is severe pulmonary hypertension.T he PA pressure was estimated at 75 mmHg. Signed by : Irineo Denis, Electronically Approved : 03/07/2018 09:29:31
--- NOTE | 2018-03-07 13:20 | PDOC3 ---
Discharge Summary [facility] Date of Admission: Mar 06, 2018 Discharge Date: Mar 07, 2018 Admitting Diagnosis bradycardia hypothermia cardiac arrest, code 2 times, high K, met acidosis SHock with possible sepsis with possible bowel perf ANDREA, ATN HYPERkalemia PANCytopenia, with possible gib acute on chronic hypoxic resp failure with code dm2 htn hld CHF, diastolic COPD on home o2 3L CKD3 elevated LFT with code moderate malnutrition morbid obesity pelvic 7cm fluid collection on CT kidney cyst lactate acidosis metabolic acidosis Final Diagnosis CONSULTS card,pulm gi ,renal Brief Hospital Course Patient is an 82-year-old female who presents via EMS with report of severe abdominal pain. pt seen in ER intubated, all history got from son and ERP. Pt lives alone, independent, last seen well was yesterday. Son said from early am pt was found some AMS and glucose was low at 30s, better with food and d50 but pt refused to come to ER. Later they called EMS again, with abd pain, son found pt was in bathroom for a long time, with dark stool on the floor. EMS found pt HR 20s, bp 80s. Pt had 2 times CPR in ER, PEA as per nurse, 5 and 2 min. dopamin drip added, HR slowly improving to 30s, bp low, epi then started. PT WAS also found many critical labs including hb 2, K 6, Bicarb 10, Cr 3, BNP 9000. intubated on 100% fibo2, PEEP 5. pt required 4 pressors later, HR drop to 30s then asystole as per ICU nurse, then about 10pm. Patient History: Unknown 33 FATHER 32 MOTHER CONDITION AT DISCHARGE: / Scheduled Albuterol Sulfate (Ventolin Hfa Inhaler), 2 PUFF INH QID, (Reported) Amlodipine Besylate (Amlodipine Besylate), 5 MG PO DAILY, (Reported) Aspirin (Aspirin Ec), 81 MG PO DAILYWBKFT Atorvastatin Calcium (Atorvastatin Calcium), 1 TAB PO DAILY, (Reported) Budesonide/Formoterol Fumarate (Symbicort 160-4.5 Mcg Inhaler), 2 PUFF IH BID, ( Reported) Diltiazem HCl (Diltiazem 24Hr Cd), 240 MG PO DAILY Diltiazem Hcl (Matzim La), 240 MG PO DAILY, (Reported) Ferrous Sulfate (Ferrous Sulfate), 1 TAB PO BID, (Reported) Furosemide (Furosemide), 40 MG PO DAILY Glimepiride (Amaryl), 2 MG PO BIDWMEALS Glimepiride (Glimepiride), 1 TAB PO BID, (Reported) Ipratropium/Albuterol Sulfate (Combivent Respimat Inhal), 1 INH IH QID Losartan Potassium (Losartan Potassium), 25 MG PO DAILY, (Reported) Magnesium Gluconate (Magnesium Gluconate), 250 MG PO BID, (Reported) Metformin Hcl (Metformin Hcl), 1,000 MG PO BIDWMEALS, (Reported) Metoprolol Tartrate (Metoprolol Tartrate), 50 MG PO BID, (Reported) Montelukast Sodium (Montelukast Sodium Tablet), 1 TAB PO HS, (Reported) Potassium Chloride (Potassium Chloride), 10 MEQ PO QODAY, (Reported) IDA RUANO MD Mar 07, 2018 13:20
[2018-03-08] MEDS ORDERED: VANCOMYCIN 1.25 GM in IV NORMAL SALINE 250ML 250 ML IV SCH (13:00)
== END 2018-03-06 22:10 | disposition expired | DRG 871 ==
LOC: ER 03:53 → 1 WEST ICU 07:05
PROVIDERS: ADMIT Internal Medicine; ATTEND Internal Medicine
PROC: 5A1935Z Respiratory Ventilation, Less than 24 Consecutive Hours (ICD-10-PCS; principal; 2018-03-06)
PROC: 5A12012 Performance of Cardiac Output, Single, Manual (ICD-10-PCS; 2018-03-06)
PROC: 0BH17EZ Insertion of Endotracheal Airway into Trachea, Via Natural or Artificial Opening (ICD-10-PCS; 2018-03-06)
PROC: 30233N1 Transfusion of Nonautologous Red Blood Cells into Peripheral Vein, Percutaneous Approach (ICD-10-PCS; 2018-03-06)
DX: A41.9 Sepsis, unspecified organism (principal); J96.21 Acute and chronic respiratory failure with hypoxia; N17.0 Acute kidney failure with tubular necrosis; D61.818 Other pancytopenia; E44.0 Moderate protein-calorie malnutrition; I13.0 Hypertensive heart and chronic kidney disease with heart failure and stage 1 through stage 4 chronic kidney disease, or unspecified chronic kidney disease; I50.30 Unspecified diastolic (congestive) heart failure; I46.9 Cardiac arrest, cause unspecified; E11.22 Type 2 diabetes mellitus with diabetic chronic kidney disease; E66.01 Morbid (severe) obesity due to excess calories; E78.00 Pure hypercholesterolemia, unspecified; E78.5 Hyperlipidemia, unspecified; E87.5 Hyperkalemia; J44.9 Chronic obstructive pulmonary disease, unspecified; K80.20 Calculus of gallbladder without cholecystitis without obstruction; K82.8 Other specified diseases of gallbladder; N18.3 Chronic kidney disease, stage 3 (moderate); H57.04 Mydriasis; N28.1 Cyst of kidney, acquired; R57.1 Hypovolemic shock; Z87.891 Personal history of nicotine dependence; Z79.51 Long term (current) use of inhaled steroids; Z79.84 Long term (current) use of oral hypoglycemic drugs; Z79.899 Other long term (current) drug therapy; Z82.49 Family history of ischemic heart disease and other diseases of the circulatory system; Z99.81 Dependence on supplemental oxygen; Z87.01 Personal history of pneumonia (recurrent); Z68.33 Body mass index [BMI] 33.0-33.9, adult
CPT/HCPCS: 31500; 36415; 36600; 51702; 71045; 74176; 76857; 80048; 80053; 82274; 82533; 82805; 82962; 83605; 83690; 83880; 84443; 84484; 85007; 85014; 85018; 85025; 85610; 86850; 86900; 86901; 86920; 87040; 87641; 92950; 93005; 93306; 94640; C9113; J0171; J0461; J1265; J1815; J2250; J2543; J3010; J3370; J3490; J7030; J7040; J7042; J7050; J7644; P9016; 99291-25